=== PATIENT | female | born 1955 | race Caucasian/White ===

== ENCOUNTER 2020-12-22 10:22 | Outpatient (CLI) | payer BC, SELFPAY ==
--- NOTE | 2020-12-22 10:34 | ECG_ITS ---
Measurements Intervals [place] Rate: 80 P: 68 [place]: 163 QRS: 20 QRSD: 83 T: 57 QT: 388 QTc: 449 Interpretive Statements SINUS RHYTHM POSSIBLE LEFT ATRIAL ENLARGEMENT BORDERLINE ECG Electronically Signed On 12-22-2020 10:53:50 CDT by Layo Hunt D.O.
== END 2020-12-22 10:23 | disposition home or self-care (01) ==
PROVIDERS: PCP Family Medicine; Visit Provider Nurse Practitioner Family
DX: R06.00 Dyspnea, unspecified (principal)
CPT/HCPCS: 93005

== ENCOUNTER → 2021-01-15 10:15 | Outpatient (CLI) | payer BC, SELFPAY ==
--- NOTE | ~2021-01-15 | CT_ITS ---
EXAMINATION: CT diagnostic chest wo con DATE: 01/15/2021 10:37 INDICATION: Solitary pulmonary nodule TECHNIQUE: Computed tomography (CT) of the chest was performed without intravenous contrast. The dose -length product (DLP) was 139.45 mGy-cm. 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 COMPARISON: 05/29/2017 FINDINGS: A stable 3 mm nodule is noted in the right upper lobe. There is a stable 4 mm subpleural no dule of the right lower lobe no new pulmonary nodules are identified. The lungs are free of acute opa cities. There is unchanged mild peripheral scarring in the upper lung zones. No pleural effusion or p neumothorax is identified. No pathologically enlarged thoracic lymph nodes are identified. The heart size is normal. There is mild thoracic spondylosis. IMPRESSION: 1. Stable right lung nodules, consistent with old granulomatous disease. Reviewed, dictated and finalized at location A.
== END ==
PROVIDERS: PCP Family Medicine; Visit Provider Nurse Practitioner Family
DX: R91.1 Solitary pulmonary nodule (principal)
CPT/HCPCS: 71250

== ENCOUNTER 2021-01-19 09:34 | Outpatient (CLI) | payer BC, SELFPAY ==
--- NOTE | 2021-01-19 09:50 | ECHO_ITS ---
Patient Info Name: Aleshia Muñoz Age: 65 years : 1955 Gender: Female Ht: 64 in Wt: 123 lbs BSA: 1.59 m2 HR: 93 bpm BP: 157 / 84 mmHg Heart Rhythm: Sinus Rhythm Exam Date: 01/19/2021 10:48 AM Exam Location: [facility] Patient Status: Outpatient Admit Date: 01/19/2021 Staff Ordering Physician: Lena Bains NP Loan Originator: Tessa Dawkins RDCS Attending Provider: Lena Bains NP Referring Physician: Nara ALCANTARA; Exam Type: CA echo doppler color flow Study Info Indications R06.00 - Dyspnea, unspecified Complete two-dimensional, color flow and Doppler transthoracic echocardiogram is performed. Summary 1. Complete two-dimensional, color flow and Doppler transthoracic echocardiogram is performed. 2. Left ventricular chamber dimension is normal. 3. Left ventricular systolic function is normal, estimated at 60-65%. 4. The left ventricular diastolic function is grade I diastolic dysfunction. 5. E/e' 12 is mildly elevated. 6. There is mild aortic valve sclerosis. 7. There is trace mitral valve regurgitation. Left Ventricle E/e' 12 is mildly elevated. Left ventricular chamber dimension is normal. Left ventricular systolic function is normal, estimated at 60-65%. The left ventricular diastolic function is grade I diastolic dysfunction. Right Ventricle Right ventricular chamber dimension is not well visualized. Left Atria Left atrial chamber dimension is normal. Right Atria Right atrial chamber dimension is normal. Aortic Valve The aortic valve is trileaflet. There is mild aortic valve sclerosis. There is no aortic valve stenosis. There is no aortic valve regurgitation. Pulmonic Valve There is no pulmonic regurgitation. Mitral Valve There is no mitral valve stenosis. There is trace mitral valve regurgitation. Tricuspid Valve There is no tricuspid valve regurgitation. Pericardium/Pleural There is no pericardial effusion. Inferior Vena Cava Normal inferior vena cava with >50% collapse upon inspiration consistent with normal right atrial pressure, 5 mmHg. Aorta The aortic root size at the sinus of Valsalva is normal. Left Ventricular Outflow Tract Name Value Normal LVOT 2D LVOT Diameter 1.6 cm LVOT Doppler LVOT Peak Gradient 2 mmHg LVOT Mean Gradient 1 mmHg LVOT VTI 15 cm LVOT VTI/AV VTI Ratio 0.7 LVOT Stroke Volume 31 ml LVOT CO 2.4 l/min LVOT CI 1.5 l/min/m2 Pulmonic Valve Name Value Normal RVOT Doppler RVOT Peak Gradient 1 mmHg PV Doppler PV Peak Gradient
== END 2021-01-19 09:35 | disposition home or self-care (01) ==
PROVIDERS: PCP Family Medicine; Visit Provider Nurse Practitioner Family
DX: R06.00 Dyspnea, unspecified (principal)
CPT/HCPCS: 93306

== ENCOUNTER → 2021-05-04 02:49 | Outpatient (CLI) | payer BC, SELFPAY ==
[2021-05-04 19:14] LABS: SARS-CoV-2 RNA PCR Negative
== END ==
PROVIDERS: PCP Family Medicine; Visit Provider Nurse Practitioner Family
DX: Z20.822 Contact with and (suspected) exposure to COVID-19 (principal)
CPT/HCPCS: C9803; U0003; U0005

== ENCOUNTER → 2021-12-13 09:24 | Outpatient (CLI) | payer BC, SELFPAY ==
--- NOTE | ~2021-12-13 | XR_ITS ---
EXAMINATION: XR hip LT min 2V INDICATION: Low back pain TECHNIQUE: Two views of the left hip are obtained. COMPARISON: 11/04/2010 FINDINGS: Bone alignment is normal. There is no fracture. A phlebolith is noted in the left pelvis. IMPRESSION: 1. No acute osseous abnormality. Reviewed, dictated and finalized at location A.
--- NOTE | ~2021-12-13 | XR_ITS ---
EXAMINATION: XR lumbar spine 2-3V DATE: 12/13/2021 10:09 INDICATION: Dorsalgia TECHNIQUE: Anteroposterior and lateral views of the lumbar spine, and cone-down lateral view of the l umbosacral junction were obtained. COMPARISON: MRI, 09/22/2010 FINDINGS: There are 2 mm of anterolisthesis of L4 on L5. There is severe loss of intervertebral disc space height at L5-S1. Mild loss of disc space height is seen throughout the remainder of the lumbar spine. The vertebral body heights are normal. Small degenerative osteophytes project from the anterio r endplates of multiple vertebral bodies. There is moderate facet osteoarthritis of the lower lumbar spine. IMPRESSION: 1. Mild to moderate lumbar spondylosis without acute findings. Reviewed, dictated and finalized at location A.
== END ==
PROVIDERS: PCP Nurse Practitioner Family; Visit Provider Nurse Practitioner Family
DX: M25.552 Pain in left hip (principal); M47.817 Spondylosis without myelopathy or radiculopathy, lumbosacral region
CPT/HCPCS: 72100; 73502

== ENCOUNTER 2022-11-02 11:28 | Outpatient (CLI) | payer BC, MEDICARE, SELFPAY ==
--- NOTE | ~2022-11-02 | XR_ITS ---
EXAMINATION:XR_CERV2-3V_CR DATE: 11/02/2022 12:24 INDICATION: Dorsalgia unspecified TECHNIQUE: AP, lateral, and odontoid views of the cervical spine are provided. COMPARISON: None FINDINGS: There is straightening of the cervical spine which can be positional or due to muscular spa sm. Alignment is normal. The odontoid process is intact. No fracture is identified. The vertebral bod y heights are normal. There is moderate loss of intervertebral disc space height at C4-5, C5-6, and C 6-7. Small degenerative osteophytes project from the anterior endplates of multiple vertebral bodies. There is multilevel moderate facet and uncovertebral joint osteoarthritis. Prevertebral soft tissues are normal. IMPRESSION: 1. Moderate cervical spondylosis without acute findings. Reviewed, dictated and finalized at location B.
--- NOTE | ~2022-11-02 | XR_ITS ---
EXAMINATION: XR chest 2V DATE: 11/02/2022 12:24 INDICATION: Cough, unspecified TECHNIQUE: PA and lateral views of the chest are obtained. COMPARISON: None available FINDINGS: The lungs are free of acute opacities. There is scarring of the lung apices. No pleural eff usion or pneumothorax. The cardiomediastinal silhouette is normal. There is mild thoracic spondylosis . IMPRESSION: 1. No acute cardiopulmonary abnormality. Reviewed, dictated and finalized at location B.
--- NOTE | ~2022-11-02 | XR_ITS ---
EXAMINATION: XR shoulder LT min 2V INDICATION: Left shoulder pain TECHNIQUE: Four views of the left shoulder are submitted. COMPARISON: 11/04/2010 FINDINGS: Normal alignment. No fracture. There is moderate glenohumeral and acromioclavicular joint o steoarthritis. A large enthesophyte projects from the lesser tuberosity of the humeral head. Soft tis sues are unremarkable. IMPRESSION: 1. Moderate osteoarthritis without acute osseous abnormality. Reviewed, dictated and finalized at location B.
== END 2022-11-02 11:29 ==
PROVIDERS: PCP Family Medicine; Visit Provider Nurse Practitioner Family
DX: R05.9 Cough, unspecified (principal); M25.512 Pain in left shoulder; M54.9 Dorsalgia, unspecified; M19.012 Primary osteoarthritis, left shoulder; M43.02 Spondylolysis, cervical region
CPT/HCPCS: 71046; 72040; 73030

== ENCOUNTER 2022-11-18 14:27 | Outpatient (CLI) | payer MEDICARE, BC, SELFPAY ==
--- NOTE | 2022-11-18 15:29 | ECG_ITS ---
Measurements Intervals [place] Rate: 89 P: 74 [place]: 157 QRS: 6 QRSD: 80 T: 52 QT: 356 QTc: 433 Interpretive Statements SINUS RHYTHM POSSIBLE LEFT ATRIAL ENLARGEMENT [-0.1mV P WAVE IN V1/V2] LEFTWARD AXIS BORDERLINE ECG COMPARED TO ECG 12/22/2020 10:44:25 NO SIGNIFICANT CHANGES Electronically Signed On 11-18-2022 15:45:31 CDT by Anibal Marcano M.D.
== END 2022-11-18 14:28 | disposition home or self-care (01) ==
PROVIDERS: PCP Family Medicine; Visit Provider Surgery
DX: E78.5 Hyperlipidemia, unspecified (principal); Z01.818 Encounter for other preprocedural examination
CPT/HCPCS: 93005

== ENCOUNTER 2022-11-28 00:42 | Day surgery (SDC) | payer MEDICARE, BC, SELFPAY ==
--- NOTE | 2022-11-18 14:13 | PC.NURSE ---
Report to the Outpatient Waiting Room, entrance under the green pavilion located off [facility], at time ___1000____ on date __11/28/22 . Planned Procedure Time: __1200 . Time changes happen often and if your time is changed the preop area will call you the afternoon before. - You and your visitor will be asked to self-screen and do not enter if you have any COVID symptoms. - A mask is optional within the hospital at this time. Patients may have clear liquids (water, carbonated beverages, clear teas, apple juice) until 3 hours prior to surgery with a maximum of 20 ounces. - No food from midnight until time of surgery - Infants may have breast milk until 4 hours before surgery, formula 6 hours prior to surgery. - Children will be allowed to drink immediately following surgery. If applicable, please bring a bottle or sippy cup to assist with drinking. Juice, water, soda, and popsicles are readily available. For infants on formula, please bring formula the day of surgery. Pacifiers are allowed. Take the following medications with a SIP of water the morning of surgery: __LEVOTHYROXINE DO NOT STOP ANY OF YOUR OTHER PRESCRIPTION MEDICATIONS PRIOR TO SURGERY ?EXCEPT THE FOLLOWING Medications to discontinue per physician ____ALL VITAMINS/SUPPLEMENTS 3 DAYS PRE OP .LAST DOSE 11/24/22 Please no make-up, nail czech, hairspray, perfume, deodorant, or body powder the day of surgery. No jewelry (including any body piercings) or valuables the day of surgery, leave them at home. Please take a shower or bath the night before, or the morning of, surgery with an antibacterial soap. Wear comfortable, loose fitting clothing. Children are encouraged to wear pajamas. - Jewelry must be removed prior to entering the operating room. Rings and piercings that are not removed may be cut off. - The hospital will not accept responsibility for valuables. - Please leave all valuables, including medications, at home the day of surgery. If you are going home after surgery, a licensed helper/driver must drive you home. - NO public transportation without another adult if you receive anesthesia. - We recommend that an adult stay with you for 24 hours following discharge. - We also recommend that you do not drive, make important decision, drink alcoholic beverages, or take any drugs that were not prescribed by your health care provider for at least 24 hours after your discharge time. Follow any additional instructions given to you from your surgeon. If you or anyone in your household have experienced Covid symptoms in the past week, please notify your surgeon or the nurse liaison at the phone number below for possible testing. Telephone instructions given to __PATIENT and asked if any additional questions and then verbalized understanding. Patient advised to call surgeon office or pre surgery nurse liaison [phone] if any additional questions.
[2022-11-18 14:21] VITALS: BMI 21.8
[2022-11-28] VITALS (8 sets, daily range): BP systolic 118–147; BP diastolic 61–72; PULSE 76–95; RESP 14–20; TEMP 36.1–36.6; O2SAT 96–100
[2022-11-28] MEDS: ACETAMINOPHEN 500 MG TABLET 1000 MG PO (07:14)
[2022-11-28] MEDS: KETOROLAC 15 MG/ML VIAL (*BKC) IV PUSH (07:27)
--- NOTE | 2022-11-28 07:50 | WPDANESEPPF ---
Anes - Initial Pre Proc Eval Procedure: Operation Date: 11/28/22 08:15 Proposed Procedures p Examination Under Anesthesia, Excisional Hemorrhoidectomy, Possible Banding - Marlon Ching MD Date/Time: 11/28/22 07:50 Surgeon: Marlon Ching MD Pre Op Diagnosis: Bleeding Int & Ext Hemorrhoids Patient Data Age: 67 Gender: F Height: 1.63 m Weight: 54.4 kg Last Vital Signs Temp 98 F 11/28/22 06:36 Pulse 82 11/28/22 06:36 Resp 16 11/28/22 06:36 BP 124/64 11/28/22 06:36 Pulse Ox 97 11/28/22 06:36 O2 Del Method Room Air 11/28/22 06:36 Allergies Allergy/AdvReac Type Severity Reaction Status Date / Time erythromycin base Allergy Mild stomach Verified 11/28/22 07:07 pain Home Medications Medication Instructions Recorded Confirmed Type desvenlafaxine succinate 50 mg 100 mg PO HS 07/03/19 11/28/22 History tablet,extended release 24 hr atorvastatin 10 mg tablet See Rx Instructions .Route 10/23/22 11/28/22 Rx .COMPLEX #90 tabs levothyroxine 75 mcg tablet See Rx Instructions .Route 10/23/22 11/28/22 Rx .COMPLEX #90 tabs sertraline 100 mg tablet 100 mg PO HS 11/15/22 11/28/22 History alprazolam 0.25 mg tablet 0.25 mg PO PRN PRN Anxiety 11/18/22 11/28/22 History calcium-vitamin D3-vitamin K 500 1 tablet PO DAILY 11/18/22 11/28/22 History mg-100 unit-40 mcg chewable tablet multivitamin 1 tablet PO DAILY 11/18/22 11/28/22 History Patient hx anesthesia problems: none Family hx anesthesia problems: none Results Review: All pre-operative results and documents have been reviewed as part of the pre-operative evaluation. [facility] Past Medical History Medical History (Updated 11/15/22 @ 11:02 by Jackie Morrison) BMI 21.0-21.9, adult Depression with anxiety History of thyroid cancer Lesion of bone of right hand Loss of taste Lung nodule Neck pain Osteopenia Other specified disorders of Eustachian tube, unspecified ear Preoperative clearance Routine physical examination Screening for diabetes mellitus Sinus pressure Skin irritation Surgical History Surgical History History of appendectomy History of cataract extraction History of tubal ligation Family History Family History Mother Hypertension Family history of elevated blood lipids Cerebrovascular accident Father Hypertension Family history of elevated blood lipids Cerebrovascular accident Parkinson's disease Grandparent Family history of coronary artery disease Diabetes mellitus Parkinson's disease Sibling No problems noted. Social History Social History Smoking status: Never smoker Second hand tobacco smoke exposure: Yes Alcohol intake: never Substance use: never Substance use type: does not use Lack of Transportation: No Lack of Food: Never True Current Housing: I Have Housing Concerned About Future Housing: No Difficulty Paying Gas/Electric Bills: No Difficulty Paying for Meds: No Currently Unemployed: No Education: High School Diploma/GED Difficulty w/ Childcare or Family Care: No Living arrangements: with family Occupation/Education: retired Additional occupation/education comments: [employer] Gender identity (if verbalized by the patient): Female Spiritual care concerns: No Anes - Eval Final PreProcedure Day of Procedure 11/28/22 07:50 Patient weight: normal Heart: regular rate and rhythm Lungs: clear to auscultation Airway: Mallampati scale class III Neurological: alert and oriented Last oral intake: >/= 8 hours ASA classification: III Emergent: no Anesthetic plan: proceed Anesthesia type and monitoring: general LMA (or ETT depending on positioning) and standard monitoring Results Review: All pre-operative results and documents have
--- NOTE | 2022-11-28 08:06 | WPDHPUPDATE1 ---
History and Physical Update Update Date/Time: 11/28/22 08:06 History and Physical has been reviewed, including an updated exam of the patient. There are NO changes in the patient's condition. Risks, benefits, and alternatives have been discussed and questions answered. Patient agrees to proceed with procedure.
[2022-11-28] MEDS: ceFAZolin 2 GM/D5W 50 ML 2 GM/50 ML BAG IVPB (08:15)
[2022-11-28] MEDS: LACTATED RINGERS 1,000 ML 30 ML IV CONT ×2 (08:28→09:27)
[2022-11-28] MEDS: LIDOCAINE HCL 2% GEL UROJET 10 ML PKG MUCOUS MEM (09:10)
--- NOTE | 2022-11-28 09:46 | W.PM.PROC2 ---
Procedure Note - Detailed Date of Procedure 11/28/22 Pre-op Diagnosis Bleeding Internal Hemorrhoids Post-op Diagnosis Same Procedure Performed Anorectal evaluation under anesthesia, excisional hemorrhoidectomy x1, and banding of internal hemorrhoid x1. Surgeon Marlon Ching MD Stereo Compiler SHILPA Chavez student Anesthesia General Indications Patient is a 67-year-old female who complained of having intermittent bleeding from internal hemorrhoids. She was also having some minor pain associated with the hemorrhoids. Presents now for evaluation under anesthesia and surgical treatment of the hemorrhoids. Findings The patient had large grade 3 internal hemorrhoid doses located at the 12 o'clock position posterior with her prone. And a smaller non thrombosed hemorrhoid anterior at the 6 o'clock position with the patient prone. No distal rectal masses were seen and no other anal canal masses were seen. Description of Procedure After informed consent was obtained patient brought to the operating room which is placed under general endotracheal anesthesia on the gurney and then turned onto the prone lenore-knife position on the operating table. Great care was taken make sure all the pressure points well padded. We then taped the buttocks apart prepped and draped to the perianal region in the usual sterile fashion. A time out was then performed correctly identifying the patient as well as the procedure to be performed. She was given perioperative IV antibiotics. I then gently dilated the anal sphincter muscles with a lubricated the anal speculum. Looking into the anal canal and distal rectum there are no masses polyps or abnormalities other than the grade 3 internal hemorrhoids. She had a large nonthrombosed hemorrhoid at the 12:00 with the patient prone. A 2nd smaller hemorrhoid was located at the 6 o'clock position anteriorly with the patient prone. I 1st started to excise the largest hemorrhoid at the 12 o'clock position at the posterior midline. A 2 will chromic suture was placed at the apex of the hemorrhoid. I then incised the she will on either side of the hemorrhoid column with an 15 blade scalpel in a enedelia configuration out onto the perianal skin. I then used electrocautery to dissect into the subcutaneous space and then spread with a hemostat so that I was superficial to the internal sphincter muscle fibers. We sized out the hemorrhoidal tissue and attached perianal skin with electrocautery. This of was sent to pathology for examination. I then proceeded to achieve hemostasis in the wound utilizing the cautery. A running locked 2-0 chromic suture which was previously placed was then used to approximate the edges of the anal derm. Lastly the perianal skin was closed utilizing a running 3-0 Vicryl suture placed in a locking fashion as well. Next I evaluated the choroid at the 6 o'clock position. This hemorrhoid was not 6 thrombosed. This was a small hemorrhoid so I decided not to perform excision but rather rubber-band ligation of the hemorrhoidal tissue I then placed a double band ligation on to the hemorrhoid at the 6 o'clock position. The band fit nicely and then was not sliding of the hemorrhoid tissue. I then irrigated out the anal canal and hemostasis was good. I then proceeded to place a Uro jet packing into the anal canal soap with 1% lidocaine jelly. Is placed into the anal canal without difficulty and the speculum was removed. The patient tolerated the procedure well no complications. All sponges, needles, and instrument counts were correct at the end procedure. EBL was __20_cc. The patient was awakened and taken to recovery in stable and satisfactory condition. Implants None Estimated Blood Loss 20 Packing No Pathology Yes (Internal hemorrhoid to pathology x1) Complications No immediate complications Condition Stable Disposition PACU [facility] Billing Surgery - Charge Forward: Surgery Billing
--- NOTE | 2022-11-28 11:27 | SUR.PHASEII ---
Dr. Ching aware that the packing fell out when patient used the restroom. He said it was okay. RN just reinforced ABD pads and gauze.
== END 2022-11-28 11:30 | disposition home or self-care (01) ==
PROVIDERS: PCP Family Medicine; Visit Provider Surgery
PROC: (CPT 46255; principal; 2022-11-28 08:15)
DX: K64.8 Other hemorrhoids (principal); K64.4 Residual hemorrhoidal skin tags; F41.8 Other specified anxiety disorders; Z85.850 Personal history of malignant neoplasm of thyroid
CPT/HCPCS: 46255; 88304; A9270; C9290; J0330; J0690; J1100; J1885; J2250; J2405; J2704; J3010; J7120

== ENCOUNTER 2023-01-12 10:11 | Outpatient (CLI) | payer MEDICARE, BC, SELFPAY ==
--- NOTE | 2023-01-12 11:00 | NEURO_ITS ---
Impression: # Complains of numbness of hands. # Normal nerve conduction study. # No Carpal Tunnel Syndrome or ulnar neuropathy. # Normal needle/EMG exam. Nerve Conduction Studies Anti Sensory Summary Table Stim Site NR Peak (ms) P-T Amp (?V) Site1 Site2 Delta-P (ms) Dist (cm) Ra (m/s) Left Median Anti Sensory (2-3nd Digit) Wrist 2.8 60.6 Wrist 2-3nd Digit 2.8 14.0 50 Wrist 2.7 64.9 Wrist 2-3nd Digit 2.8 14.0 50 Right Median Anti Sensory (2-3nd Digit) Wrist 2.9 61.4 Wrist 2-3nd Digit 2.9 14.0 48 Wrist 2.8 88.7 Wrist 2-3nd Digit 2.9 14.0 48 Left Radial Anti Sensory (Base 1st Digit) Wrist 2.1 16.7 Wrist Base 1st Digit 2.1 0.0 Right Radial Anti Sensory (Base 1st Digit) Wrist 2.3 11.5 Wrist Base 1st Digit 2.3 0.0 Left Ulnar Anti Sensory (5th Digit) Wrist 2.4 82.7 Wrist 5th Digit 2.4 14.0 58 Right Ulnar Anti Sensory (5th Digit) Wrist 2.3 69.9 Wrist 5th Digit 2.3 14.0 61 Motor Summary Table Stim Site NR Onset (ms) O-P Amp (mV) Site1 Site2 Delta-0 (ms) Dist (cm) Ra (m/s) Left Median Motor (Abd Poll Brev) Wrist 2.8 6.3 Elbow Wrist 4.3 26.0 60 Elbow 7.1 2.8 Right Median Motor (Abd Poll Brev) Wrist 3.2 2.2 Elbow Wrist 4.8 28.0 58 Elbow 8.0 4.8 Left Ulnar Motor (Abd Dig Minimi) Wrist 2.3 3.3 A Elbow Wrist 4.8 28.0 58 A Elbow 7.1 2.3 Right Ulnar Motor (Abd Dig Minimi) Wrist 2.5 7.3 A Elbow Wrist 4.8 28.0 58 A Elbow 7.3 5.4 F Wave Studies NR F-Lat (ms) L-R F-Lat (ms) Left Median (Mrkrs) (Abd Poll Brev) 26.99 0.97 Right Median (Mrkrs) (Abd Poll Brev) 27.97 0.97 Left Ulnar (Mrkrs) (Abd Dig Min) 26.04 0.06 Right Ulnar (Mrkrs) (Abd Dig Min) 25.98 0.06 EMG Side Muscle Nerve Root Ins Act Fibs Amp Dur Recrt Comment Right 1stDorInt Ulnar C8-T1 Nml Nml Nml Nml Nml Right Ext Indicis Radial (Post Int) C7-8 Nml Nml Nml Nml Nml Right Ext Digitorum Radial (Post Int) C7-8 Nml Nml Nml Nml Nml Right BrachioRad Radial C5-6 Nml Nml Nml Nml Nml Right PronatorTeres Median C6-7 Nml Nml Nml Nml Nml Right Abd Poll Brev Median C8-T1 Nml Nml Nml Nml Nml Left 1stDorInt Ulnar C8-T1 Nml Nml Nml Nml Nml Left Ext Indicis Radial (Post Int) C7-8 Nml Nml Nml Nml Nml Left Ext Digitorum Radial (Post Int) C7-8 Nml Nml Nml Nml Nml Left BrachioRad Radial C5-6 Nml Nml Nml Nml Nml Left PronatorTeres Median C6-7 Nml Nml Nml Nml Nml Left Abd Poll Brev Median C8-T1 Nml Nml Nml Nml Nml MTDD
== END 2023-01-12 10:12 | disposition home or self-care (01) ==
LOC: ANHNEURO 10:13
PROVIDERS: PCP Family Medicine; Visit Provider Nurse Practitioner Family
DX: R20.0 Anesthesia of skin (principal)
CPT/HCPCS: 95886; 95911

== ENCOUNTER 2023-02-01 12:48 | Outpatient (CLI) | payer MEDICARE, BC, SELFPAY ==
--- NOTE | ~2023-02-01 | MR_ITS ---
EXAMINATION: MR cervical spine wo con DATE: 02/01/2023 13:23 INDICATION: Anesthesia of skin with tingling and numbness in the arms and hands TECHNIQUE: Magnetic resonance imaging (MRI) of the cervical spine was performed without intravenous c ontrast. Sequences included sagittal T2-weighted FSE, sagittal T2-weighted FS FSE, sagittal T1-weight ed FSE, axial MERGE and axial T2-weighted FSE. COMPARISON: 06/16/2017 FINDINGS: Bone alignment is normal. Vertebral body heights are normal. Bone marrow signal intensity is normal . Interval progression of now severe disc height loss at C4-C5 and unchanged severe disc height loss at C5-C6 and C6-C7. New mild disc height loss at C3-C4. Cord signal intensity is normal. The followin g disc levels are specifically discussed: C2-C3: Annular fissure with unchanged small central disc protrusion. There is mild left uncovertebral joint osteoarthritis. There is mild left and severe right facet joint osteoarthritis. There is mild bilateral neural foraminal stenosis. There is mild central canal stenosis. C3-C4: Disc is bulging with annular fissure. There is moderate bilateral uncovertebral joint osteoart hritis. There is moderate right and severe left facet joint osteoarthritis. There is mild right and m oderate left neural foraminal stenosis. There is mild central canal stenosis with mild indentation of the ventral surface of the cord. C4-C5: Disc is bulging with annular fissure. There is severe bilateral uncovertebral joint osteoarthr itis. There is mild right and severe left facet joint osteoarthritis. There is mild right and severe left neural foraminal stenosis. There is mild central canal stenosis with mild indentation of the lilian tral surface of the cord. C5-C6: Disc is bulging, eccentric to the right. Annular fissure. There is severe bilateral uncoverteb ral joint osteoarthritis. There is mild bilateral facet joint osteoarthritis. There is moderate right and moderate to severe left neural foraminal stenosis. There is moderate central canal stenosis with both dorsal and ventral indentation of the cord and effacement majority the surrounding CSF signal. C6-C7: Disc is bulging with annular fissure. There is severe bilateral uncovertebral joint osteoarthr itis. There is moderate right and no left facet joint osteoarthritis. There is mild left and moderate right neural foraminal stenosis. There is mild central canal stenosis with mild indentation of the v entral surface of the cord. C7-T1: The disc does not extend beyond the endplate margin. There is no uncovertebral joint osteoarth ritis. There is severe right and moderate left facet joint osteoarthritis. There is mild right neural foraminal stenosis. There is no central canal stenosis. IMPRESSION: 1. Continued mild progression in severe cervical spondylosis. Reviewed, dictated and finalized at location B.
== END 2023-02-01 12:49 | disposition home or self-care (01) ==
PROVIDERS: PCP Family Medicine; Visit Provider Physician Assistant Medical
DX: G89.29 Other chronic pain (principal); M54.2 Cervicalgia; R20.0 Anesthesia of skin; M43.02 Spondylolysis, cervical region
CPT/HCPCS: 72141

== ENCOUNTER 2023-04-05 14:45 | Outpatient (RCR) | payer MEDICARE, BC, SELFPAY ==
[2023-01-10 13:26] VITALS: BP_SYST 76
--- NOTE | 2023-01-10 16:57 | OPREHPOC ---
Outpatient Therapy Plan of Care This is a Multidisciplinary Plan of Care that may contain components documented by all disciplines (PT, OT, and ST.) PT Problem 1 PT Problem #1 Knowledge Deficit PT Goal 1 Goal Pt to be IND with issued HEP Target Visit 10 PT Problem 2 PT Problem #2 Pain PT Goal 1 Goal Pt to report shoulder pain no greater than 3/10 in the last week Target Visit 10 PT Goal 2 Goal Pt to report 75% improvement in overall symptoms. PT Problem 3 PT Problem #3 Impaired Range of Motion PT Goal 1 Goal Pt to improve active shoulder flexion from 110 deg to 130 deg Target Visit 10 PT Goal 2 Goal Pt to improve active shoulder abduction ROM from 82 deg to 120 deg PT Problem 4 PT Problem #4 Impaired Functional Mobil PT Goal 1 Goal Pt to report no limitations with bathing or dressing Target Visit 10
--- NOTE | 2023-01-10 16:57 | PTOPEVAL1 ---
Assessment and note entered by Hunter Liriano, PT, DPT Evaluation Information Assessment Status Evaluation Diagnosis L shoulder pain Onset chronic ~5 years Subjective Information Pt states for about the last 5 years she has not been able to lift her L arm over her pain. She feels like she is limited by pain. She declines pain at rest. Pt states she likes to ride bikes, she reports difficulty putting on a jacket. Reported Pain Level Pain Score 0: Self Report Assessment PT Clinical Summary Aleshia presents to therapy today with a diagnosis of L shoulder pain. Today she demonstrates decreased active and passive shoulder ROM in all planes with flexion and abduction being the most limited, both active and passive ROM is limited by pain. She demonstrates decreased strength in the L shoulder when compared to the R. She also demonstrates postural abnormalities. Skilled therapy services are indicated to address the deficits noted above, to manage shoulder pain, to improve shoulder motion, and to return to PLOF. Plan of Care Interventions Hot Pack/Cold Pack,Manual Therapy,Neuro Re- education,Patient/Caregiver Educati,Therapeutic Activities,Therapeutic Exercise PT Services Indicated Yes Treatment Frequency and 2x/wk for 5 wks Duration These treatments will address the objective and functional deficits as defined above. The patient will be advanced safely and appropriately in order for the patient to progress towards his/her prior level of function. Additional exercises will be introduced and as well as a comprehensive home exercise program upon discharge, if needed, ?to ensure carryover of functional gains achieved in the clinic. This treatment plan has been reviewed and agreement upon by the patient.
--- NOTE | 2023-02-03 16:01 | PCPTNOTE ---
On 02/03/23, the student, Aliyah Soto provided care and completed [employer] documentation on this patient. I have reviewed the student's documentation and agree with the findings.
--- NOTE | 2023-02-09 16:01 | PCPTNOTE ---
On 02/09/23, the student, Aliyah Soto provided care and completed [employer] documentation on this patient. I have reviewed the student's documentation and agree with the findings.
[2023-02-14 13:06] VITALS: BP_SYST 100
--- NOTE | 2023-02-14 14:02 | PTOPPROG ---
Assessment and note entered by Hunter Liriano, PT, DPT Evaluation Information Assessment Status Progress Diagnosis L shoulder pain Onset chronic ~5 years Subjective Information Pt states she has been able to do things she has not been able to do in a while. She states she continues to do her exercises daily. She reports soreness after she does her exercises. Assessment PT Clinical Summary Aleshia presents to therapy today for her progress report following 10 visits of skilled therapy to treat her L shoulder pain. Today she demonstrates improved active and passive shoulder ROM but this is decreased from expected. She is progressing towards her pain and functional goals. Continuation of skilled therapy services are indicated to continue to improve ROM, strength, pain, and to return to PLOF. Plan of Care Interventions Hot Pack/Cold Pack,Manual Therapy,Neuro Re- education,Patient/Caregiver Educati,Therapeutic Activities,Therapeutic Exercise PT Services Indicated Yes Treatment Frequency and 2x/wk for 4 wks Duration These treatments will address the objective and functional deficits as defined above. The patient will be advanced safely and appropriately in order for the patient to progress towards his/her prior level of function. Additional exercises will be introduced and as well as a comprehensive home exercise program upon discharge, if needed, ?to ensure carryover of functional gains achieved in the clinic. This treatment plan has been reviewed and agreement upon by the patient.
--- NOTE | 2023-02-17 16:37 | PCPTNOTE ---
Patient called to cancel due to illness.
--- NOTE | 2023-03-08 08:10 | PCPTNOTE ---
Patient canceled this week stating she gets a shot this week. Patient is scheduled for reevaluation.
--- NOTE | 2023-03-10 16:28 | PCPTNOTE ---
Patient canceled appointment due to getting shot.
[2023-03-15 11:03] VITALS: BP_SYST 90
--- NOTE | 2023-03-15 11:58 | PTOPPROG ---
Assessment and note entered by Hunter Liriano, PT, DPT Evaluation Information Assessment Status Progress Diagnosis L shoulder pain Onset chronic ~5 years Subjective Information Pt states she just received an injection in her shoulder on Monday, she reports not noticing any changes yet. She states for 2 weeks her shoulder was really sore so she did not do any exercises. She states she is about back to normal now, just prior to her 2 weeks of pain. She is declining shoulder pain at this time and reports more elbow and lateral arm pain, she rates this a 8/10. Assessment PT Clinical Summary Aleshia presents to therapy today for her progress report following 14 visits of skilled therapy to treat her L shoulder pain. Today she demonstrates minimal changes in her active and passive shoulder ROM this date, progress may be limited to being out of town for the last 2 weeks and not doing any therapy at home. She continues to have decreased shoulder ROM from functional values and still requires cueing for proper alignment. Continuation of skilled therapy services are indicated to progress towards goals, to manage pain, and to return to PLOF. Plan of Care Interventions Hot Pack/Cold Pack,Manual Therapy,Neuro Re- education,Patient/Caregiver Educati,Therapeutic Activities,Therapeutic Exercise PT Services Indicated Yes Treatment Frequency and 2x/wk for 8 visits Duration These treatments will address the objective and functional deficits as defined above. The patient will be advanced safely and appropriately in order for the patient to progress towards his/her prior level of function. Additional exercises will be introduced and as well as a comprehensive home exercise program upon discharge, if needed, ?to ensure carryover of functional gains achieved in the clinic. This treatment plan has been reviewed and agreement upon by the patient.
--- NOTE | 2023-03-24 13:22 | PCPTNOTE ---
Patient called & cancelled scheduled appointment this date, no reason given.
--- NOTE | 2023-03-29 11:36 | PCPTNOTE ---
Pt cancelled her appt this afternoon due to mother being placed on Hospice.
--- NOTE | 2023-03-31 16:29 | PCPTNOTE ---
Patient states she needs to cancel due to her mother in law put on Hospice.
--- NOTE | 2023-04-07 09:29 | PCPTNOTE ---
This treatment is being continued on visit number [id number]. Please see documentation on both accounts to view progress. Completed interventions, outcomes, and problems have been marked as Inactive to facilitate the copying of the Care plan routine for recurring accounts.
== END 2023-04-06 09:02 | disposition still patient (30) ==
LOC: ANHGOSHPT 14:45
PROVIDERS: PCP Family Medicine; Visit Provider Nurse Practitioner Family
DX: M54.9 Dorsalgia, unspecified (principal); M25.512 Pain in left shoulder
CPT/HCPCS: 97014; 97110; 97112; 97140; 97161; 97530; G0283

== ENCOUNTER 2023-04-12 12:30 | Outpatient (RCR) | payer MEDICARE, BC, SELFPAY ==
--- NOTE | 2023-04-07 09:29 | PCPTNOTE ---
The treatment documented on this account is a continuation of the treatment documented on visit number [id number]. Please see documentation on both accounts to view progress. The Plan of Care has been transitioned and updated within the new V#. I have addressed and agree with the discipline specific Problems, Interventions, and Goals for the current certification period. Completed interventions, outcomes, and problems have been marked as Inactive to facilitate the copying of the Care plan routine for recurring accounts.
[2023-04-12 12:34] VITALS: BP_SYST 120
--- NOTE | 2023-04-12 13:11 | PTOPDC ---
Assessment and note entered by Hunter Liriano, PT, DPT Evaluation Information Assessment Status Progress Diagnosis L shoulder pain Subjective Information Pt states overall things are going well. Pt reports 75% improvement in overall symptoms. She states her arm is a little stiff when reaching overhead to reach for things. She no longer reports difficulty getting dressed and getting a coat on. Reported Pain Level Pain Score 0: Self Report Assessment PT Clinical Summary Aleshia presents to therapy today for her progress report following 18 visits of skilled therapy to treat her L frozen shoulder. Today she demonstrates improved active flexion to 130 deg and active scaption to 125 deg. She demonstrates good strength. She reports no functional limitations at this time. She would like to be discharged at this time to continue her HEP.
== END 2023-04-12 14:13 | disposition home or self-care (01) ==
LOC: ANHGOSHPT 12:30
PROVIDERS: PCP Family Medicine; Visit Provider Nurse Practitioner Family
DX: M25.512 Pain in left shoulder (principal); M54.9 Dorsalgia, unspecified
CPT/HCPCS: 97110; 97112

== ENCOUNTER 2024-01-22 09:32 | Outpatient (CLI) | payer MEDICARE, BC, SELFPAY ==
--- NOTE | ~2024-01-22 | XR_ITS ---
EXAMINATION: XR chest 2V DATE: 01/22/2024 09:54 INDICATION: Chronic cough. TECHNIQUE: Frontal and lateral views of the chest were obtained. COMPARISON: Chest 2 views 11/02/2022 FINDINGS: There is mild scarring at the lung apices. No pleural effusion or pneumothorax. The heart s ize is normal. IMPRESSION: 1. Stable mild scarring at the lung apices. Reviewed, dictated and finalized at location A.
== END 2024-01-22 09:33 | disposition home or self-care (01) ==
PROVIDERS: PCP Family Medicine; Visit Provider Physician Assistant Medical
DX: R05.3 Chronic cough (principal); J98.4 Other disorders of lung
CPT/HCPCS: 71046

== ENCOUNTER 2024-06-03 09:21 | Outpatient (CLI) | payer MEDICARE, BC, SELFPAY ==
--- NOTE | ~2024-06-03 | CT_ITS ---
CT sinus wo con Ordering provider: Leighton Ashby, History: . Chronic cough . Comparison: None. Technique: Thin slice Scans CT of the paranasal sinuses was performed with coronal and sagittal refor matted images. No IV contrast. . Automated exposure control and iterative reconstruction technique w ere employed. The dose-length product was 263.20 mGy-cm. Findings: NASAL SEPTUM: midline. OSTEOMEATAL UNITS: Bilaterally patent. NASAL TURBINATES AND NASOPHARYNX: Normal. PARANASAL SINUSES: Well aerated. VISUALIZED MASTOIDS: Normal as visualized. BONES: Normal. SUPERFICIAL SOFT TISSUES/VISUALIZED BRAIN PARENCHYMA: Normal. IMPRESSION: No definite abnormality seen. Reviewed, dictated and finalized at location A. ENT SUCCESS COUNSELOR
== END 2024-06-03 09:22 | disposition home or self-care (01) ==
PROVIDERS: PCP Family Medicine; Visit Provider Otolaryngology
DX: R05.3 Chronic cough (principal)
CPT/HCPCS: 70486

== ENCOUNTER 2024-08-28 13:28 | Outpatient (CLI) | payer MEDICARE, BC, SELFPAY ==
--- OUTSIDE RECORDS SUMMARY | 2024-08-28 14:19 | XMS_ITS ---
Author Organization [facility] [employer] [facility] Address [address] [place] [address] Care Team Providers Care Wood Pole Treater Name Role Phone Sky Kauffman Unavailable [phone] REASON FOR VISIT Update Demographics - Personal Info Social History Sex Assigned At : Social History Observation Description Sex Assigned At Female Encounters Encounter Location Date Provider Diagnosis [facility] [employer] [facility] [address] [facility] [address] [place] [address] 08/12/2024 Sky Kauffman Plan Of Treatment Next Appt Details Provider Name:Sky read, 12/03/2024 01:00:00 PM, [address], [facility] [address], [place], [address], Progress Notes * JONATHON PIÑAOB: (68 yo F)Acc No.[id number]:08/12/2024 Patient:?IRWIN PIÑA :1955???Age:68 Y???Sex:Female Phone: Address:[address] [place], [address] * * Date:?
--- OUTSIDE RECORDS SUMMARY | 2024-08-28 14:19 | XMS_ITS | Encounter Summary ---
Author Organization [facility] Address [address] [place] [address] Care Team Providers Care Gas Compressor Operator Name Role Phone Ricky Lowery MD Primary Care Provider [phone] Encounter Details Date Type Department Care Team (Latest Contact Info) Description 09/14/2004 Outpatient Historical [facility] Galdino Demarco MD [address] [address] SCREENING MAMM-MAILG NEOPL-OTHER (Primary Dx) Social History Tobacco Use Types Packs/Day Years Used Date Smoking Tobacco: Never Assessed Comments Unknown Sex and Gender Information Value Date Recorded Sex Assigned at Not on file Legal 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 Gender Identity Not on file Sexual Orientation Not on file documented as of this encounter Plan of Treatment Upcoming Encounters Date Type Department Care Team (Late st Contact Info) Description 07/01/2025 10:45 AM SHOW CARD LETTERER Office Visit [facility] [place] [address] [place] [id number] Galdino Pichardo MD [address] [address] documented as of this encounter Visit Diagnoses Diagnosis Other screening mammogram- Primary documented in this encounter Care Teams Gas Compressor Operator Relationship Specialty Start Date End Date Ricky Lowery MD [address] [place] [address] PCP - General Family Practice 11/06/09 documented as of this encounter
--- OUTSIDE RECORDS SUMMARY | 2024-08-28 14:19 | XMS_ITS | Continuity of Care Document ---
Author Organization [facility] Address [address] [place] [address] Phone Care Team Providers Care Service Cashier Name Role Phone Rivas Nichols MD Unavailable Unavai lable Allergies, Adverse Reactions, Alerts Substance Reaction Status Criticality erythromycin base Other Active No Informa tion Medications Medication Instructions Dosage Effective Dates (start - stop) Status Comments desvenlafaxine succinate ER 25 mg tablet,extended release 24 hr take 2 tablet by oral route every day at approximately the same time each day 50 MG - Active sertraline 25 mg tablet take 1 tablet by oral route every day 25 MG - Active atorvastatin 10 mg tablet take 1 tablet by oral route every day 10 MG - Active levothyroxine 25 mcg tablet take 1 tablet by oral route every day 25 MCG - Active Procedures Procedure Date Office/outpatient visit,[facility], [facility] 2022 Asp/inject major joint or bursa w/o US g uidance Kenalog 10mg/mL Advance Directives Directive Yes / No Effective Date File Name No Information Encounters Encounter Description Practice Location Reason(s) For Visit Diagnoses Date Provider Providers Copied on Encounter Office/outpat ient visit,[facility], [facility], [address], [id number], [place] tel:[phone] [facility] Arms have tingling (chief complaint) Cervicalgia [address], [address], [place], [place], [id number] , [place]. tel: [phone] Referring Provider: Rivas Nichols P, [address], [place], [address]. tel:[phone] Family History Family Member Type Diagnosis Age At Onset Mother Problem (finding) Stroke Father Problem (finding) Stroke Immunizations Vaccine Date Status Comments Pneumo (2 yrs or older) (PPV23) administe red Source: Other Provider influenza, injectable, quadr ivalent, (3 years or older) administered Source: Other Provid er Payers Payer name Insurance type Covered democrat ID Authoriza tion(s) [place] Part B MB [id number] [facility] [employer] [id number] Social History Type Description Quantity Date Captured Comments Alcohol Use Details No Caffeine Use Details Unknown Tobacco Use Status Current non-smoker Smoking Status Never smoker Non-Smoking Tobacco Use Details : No Details Available : No Details Available Sex Female Vital Signs Date / Time: Height Weight BMI Pulse Rate Blood Pressure Temperature Respiratory Rate Body Surface Area Head Circumference Head Circ. Percentile Wt./Reid. Percentile BMI percentile Pulse Ox Inhaled Ox 10:28 AM 64.00 in 58.060 kg (128.00 lbs) 21.9 7 kg/m eter (2) Chief Complaint And Reason For Visit From encounter dated '03/10/2023 09:30'. Arms have tingling (chief complaint) Reason For Referral Reason For Referral No Information History Of Present Illness Encounter Date Complaint History Of Prese nt Illness Arms have tingling Functional Status Date Functional Assessmen t No Information Instructions Date Instruction Additional Infor mation No Information Assessments Type Assessment Date assessment Cervicalgia Patient Care Teams Name Effective Dates (start - stop) Status Members No Information
--- OUTSIDE RECORDS SUMMARY | 2024-08-28 14:19 | XMS_ITS | Data Portability ---
Author Organization [facility] ANHAlfred Cardoza Address [address] [place] [address] Assessment No assessment recorded. Plan of Treatment Reminders Order Date Submit Date Provider Last Modified By Organization Details Last Modified Time Details Appointments None recorded . Lab None recorded . Referral None recorded . Procedures None recorded . Surgeries None recorded . Imaging CT, sinuses, w/o contrast 2023 [facility], [address] Shane, [facility], [place], [address], 5 08:26:04 Medication Orders cefdinir 300 mg capsule 2023 024 [facility] #[id number], [address], [id number], 4 10:13:09 monteluk ast 10 mg tablet 2023 024 [facility] #[id number], [address], [id number], 4 11:48:02 azelasti ne 137 mcg (0.1 %) nasal spray 2023 024 [facility] #[id number], [address], [id number], 4 12:00:50 Patient TargetsNo targets recorded. Patient InstructionsNo instructions recorded. Reason for Referral None Reported. Medical Equipment None Reported. Allergies Allergen ID Allergen Name Allergen Category Reaction Reaction Severity Criticality Documentation Date Start Date Code Code System Note Provider Name and Address Organization Details Recorded Time [id number] erythromy miller medicatio n Not available Not available Not available 03/26/2024 4053 RxNorm Not Available Not Available Not Available Medications Name Sig Start Date Stop Date Status Note LastModified by Organization Details LastModified Time atorvastati n 10 mg tablet TAKE 1 TABLET BY MOUTH DAILY active Not Available Not Available No t Available sertraline 100 mg tablet TAKE 2 TABLETS BY MOUTH EVERY DAY active Not Available Not Available No t Available clotrimazol e-betametha sone 1 %-0.05 % topical cream APPLY TOPICALLY TO THE AFFECTED AREA TWICE DAILY 03/26 completed Not Available Not Available Not Available Synthroid 75 mcg tablet TAKE 1 TABLET BY MOUTH DAILY active Not Available Not Available No t Available montelukast 10 mg tablet TAKE 1 TABLET BY MOUTH EVERY DAY active Not Available Not Available No t Available azelastine 137 mcg (0.1 %) nasal spray USE 2 SPRAYS IN EACH NOSTRIL EVERY DAY active Not Available Not Available No t Available methylpredn isolone 4 mg tablets in a dose pack FOLLOW PACKAGE DIRECTION S active Not Available Not Available No t Available cefdinir 300 mg capsule TAKE 1 CAPSULE BY MOUTH EVERY 12 HOURS 05/21 completed Not Available Not Available Not Available fluticasone propionate 50 mcg/actuati on nasal spray,suspe nsion USE 1 SPRAY IN EACH NOSTRIL DAILY active Not Available Not Available No t Available desvenlafax ine succinate ER 50 mg tablet,exte nded release 24 hr TAKE 1 TABLET BY MOUTH EVERY DAY 05/21 completed Not Available Not Available Not Available desvenlafax ine succinate ER 25 mg tablet,exte nded release 24 hr TAKE 1 TABLET BY MOUTH EVERY DAY 05/21 completed Not Available Not Available Not Available Vitals Date Recorded Body height Provider Name an d Address Organization Details Last Updated DateTime 03/26/2024 162.56 cm KARAN Hooper [facility] 024 11:32:05 Date Recorded Body mass index (BMI) Body weight Provider Name and Address Organization Details Last Updated DateTime 03/26/2024 22.4 kg/m2 79852.45 g KARAN Hooper [facility] 03/26/2024 11:32:08 Date Recorded Heart rate Respiratory rate Provider N albino and Address Organization Details Last Updated DateTime 03/26/2024 66 /min 16 /min Emily Hung MA [facility] 03/26/2024 11:32:14 Date Recorded Body temperature Provider Name a nd Address Organization Details Last Updated DateTime 03/26/2024 98.1 [degF] Emily Hung MA [facility] 2023 11:32:18 Date Recorded Body height Provider Name an d Address Organization Details Last Updated DateTime 04/23/2024 162.56 cm Emily Hung MA [facility] 11:42:54 Date Recorded Body mass index (BMI) Body weight Provider Name and Address Organization Details Last Updated DateTime 04/23/2024 22.9 kg/m2 68660.22 g Emily Hung MA [facility] 04/23/2024 11:43:01 Date Recorded Heart rate Provider Name an d Address Organization Details Last Updated DateTime 04/23/2024 87 /min Emily Hung MA [facility] 11:43:09 Date Recorded Respiratory rate Provider Name a nd Address Organization Details Last Updated DateTime 04/23/2024 16 /min Emily Hung MA [facility] 11:43:10 Date Recorded Body temperature Provider Name a nd Address Organization Details Last Updated DateTime 04/23/2024 97.7 [degF] Emily Hung MA [facility] 2023 11:43:13 Date Recorded Body height Provider Name an d Address Organization Details Last Updated DateTime 05/21/2024 162.56 cm Emily Hung MA [facility] 10:14:00 Date Recorded Body mass index (BMI) Body weight Provider Name and Address Organization Details Last Updated DateTime 05/21/2024 23 kg/m2 77290.38 g Emily Hung [place] [facility] 05/21/2024 10:14:03 Date Recorded Heart rate Respiratory rate Provider N albino and Address Organization Details Last Updated DateTime 05/21/2024 86 /min 16 /min Emily Hung [place] [facility] 05/21/2024 10:14:09 Date Recorded Body temperature Provider Name a nd Address Organization Details Last Updated DateTime 05/21/2024 98.1 [degF] Emily Hung MA [facility] 2023 10:14:12 Date Recorded Systolic blood pressure Diastolic blood pressure Provider Name and Address Organization Details Last Updated DateTime 03/26/2024 116 mm[Hg] 72 mm[Hg] Emily Hung MA [facility] 03/26/2024 11:37:36 Date Recorded Systolic blood pressure Diastolic blood pressure Provider Name and Address Organization Details Last Updated DateTime 04/23/2024 123 mm[Hg] 74 mm[Hg] Emily Hung MA [facility] 04/23/2024 11:44:11 Date Recorded Systolic blood pressure Diastolic blood pressure Provider Name and Address Organization Details Last Updated DateTime 05/21/2024 133 mm[Hg] 73 mm[Hg] Emily Hung MA [facility] 05/21/2024 10:15:03 Social History Question Answer Notes LastModified by Organization Details LastModified Time Tobacco Smoking Status Never Smoker Emily AgostorikaKARAN null, [facility] 03/26/2024 11:35:11 Do You Have An Advance Directive? Yes Information not available 03/26/2024 What Is Your Level Of Alcohol Consumption? None Information not available 03/26/2024 Are You Blind Or Do You Have Difficulty Seeing? No Information not available 03/26/2024 What Is Your Level Of Caffeine Consumption? Occasional Information not available 03/26/2024 In The 14 Days Before Symptom Onset, Have You Had Close Contact With A Laboratory-con firmed COVID-19 While That Case Was Ill? No Information not available 03/26/2024 In The 14 Days Before Symptom Onset, Have You Had Close Contact With A Person Who Is Under Investigation For COVID-19 While That Person Was Ill? No Information not available 03/26/2024 Have You Been To An Area Known To Be High Risk For COVID-19? No Information not available 03/26/2024 Are You Currently Employed? No Retired Information not available 03/26/2024 Are You Deaf Or Do You Have Serious Difficulty Hearing? No Information not available 03/26/2024 What Type Of Diet Are You Following? REGULAR Information not available 03/26/2024 What Is The Highest Grade Or Level Of School You Have Completed Or The Highest Degree You Have Received? [id number] Information not available 03/26/2024 What Was The Date Of Your Most Recent Tobacco Screening? 05/21/2024 Information not available 05/21/2024 Do You Have Any Pets? No Information not available 03/26/2024 What Is Your Relationship Status? Information not available 03/26/2024 Do You Feel Stressed (tense, Restless, Nervous, Or Anxious, Or Unable To Sleep At Night)? [id number] Information not available 03/26/2024 Do You Use Any Illicit Or Recreational Drugs? No Information not available 03/26/2024 Do You Use Sunscreen Routinely? Yes Information not available 03/26/2024 What Type Of Noise Exposure Are You Exposed To? NoExposureToExcessiveNoi se Information not available 03/26/2024 Do You Or Have You Ever Used Any Other Forms Of Tobacco Or Nicotine? No Information not available 03/26/2024 Sex: Female Functional Status Question Answer Note LastModified by Organization D etails LastModified Time What is your exercise level? None Information not available 03/26/2024 Mental Status None recorded. Family History Nothing Reported. Medical History No medical history recorded. Gynecological HistoryNo gynecological history recorded. Obstetrics History GPAL:G 0 P 0 0 0 0 Past Encounters Encounter ID Performer Location Encounter Start Date Encounter Closed Date Diagnosis/Indication Diagnosis SNOMED-CT Code Diagnosis ICD10 Code Diagnosis Note [id number] MD Maine Howard (Adult Med) [address] [place] [address] 03/26/2024 11:18:41 04/02/2024 16:17:26 Chronic rhinitis 05001654 J31.0 follow back in a month Chronic cough 61114261 R 05.3 Acute sinusitis 42159986 J01.90 [id number] MD Maine Howard (Adult Med) [address] [place] [address] 04/23/2024 11:20:14 04/24/2024 13:15:56 Allergic rhinitis 21001692 J30.9 follow back in a month Chronic cough 53370846 R 05.3 [id number] MD Dee Howardhalto (Adult Med) [address] [place] [address] 05/21/2024 09:55:31 05/22/2024 09:19:06 Chronic cough 26051687 R05.[address] Health Concerns Section Related Observation LastModified by Organization Detai ls LastModified Time None Recorded Concern Status LastModified by Organization Details LastModified Time None Recorded Advance Directives Directive Y: Payers Encounter Date Sequence Insurance Name Policy Number Policy White Covered Member ID White Member ID Guarantor Name 03/26/2024 2 [place] 111 Aleshia Muñoz [id number] Aleshia Bridges 03/26/2024 1 [place] Aleshia Bridges [id number] Aleshia Bridges 04/23/2024 1 [place] Aleshia Bridges [id number] Aleshia Bridges 04/23/2024 2 [place] 111 Aleshia Bridges [id number] Aleshia Bridges 05/21/2024 1 [place] Aleshia Bridges [id number] Aleshia Bridges 05/21/2024 2 [place] 111 Aleshia Bridges [id number] Aleshia Muñoz Notes Date Note Type Note Provider Name and Address Organization Details Recorded Time 03/26/2024 text/html Pt complaining o f a cough for the last 10 months. She has nasal congestion and drainage which improved with antihistamines and flonase but did not resolve. She does not complain of reflux Leighton Ashby MD Attn: [address] [place], [address], [facility] 03/26/2024 11:48:03 04/23/2024 text/html Pt complaining o f nasal congestion and drainage. She has had a persistent cough. It has improved but not resolved. She is on flonase and montelukast Leighton Ashby MD Attn: [address] [facility], [place], [address], [facility] 04/23/2024 12:00:59 05/21/2024 text/html Pt complaining o f a chronic cough. She also has a problem with taste but not smell. She has not responded to nasal sprays or antibiotics Leighton Ashby MD Attn: [address] [facility], [place], [address], [facility] 05/21/2024 10:28:31 OBGyn Episode No OBEpisode recorded.
--- OUTSIDE RECORDS SUMMARY | 2024-08-28 14:19 | XMS_ITS | Clinical Summary ---
Author Organization [facility] Address [address] [place] [address] Phone Care Team Providers Care Presser First Name Role Phone Ricky Lowery MD Primary Care Provider [phone] Allergies Active Allergy Reactions Criticality Noted Date Comments Erythromycin Nausea and Vomiting High 08/13/2012 Erythromycin Base Other (See Comments) 03/10/20 23 Medications citalopram (CELEXA) 40 mg tabletIndications: Routine gynecological examination Take 40 mg by mouth daily. Active atorvastatin (LIPITOR) 10 mg tablet TK 1 T PO QD 2 8 Active desvenlafaxine (PRISTIQ) 100 mg Extended Release 24 hour tablet 50 mg. 8 Active levothyroxine 100 mcg tablet TK 1 T PO D OES 3 8 Active triamcinolone acetonide (KENALOG) 0.5 % Cream APPLY TOPICALLY TWICE DAILY 1 Active ALPRAZolam (XANAX) 0.25 mg tablet 2 Active sertraline (ZOLOFT) 100 mg tablet Take 150 mg by mouth daily. 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 Dense breasts 02/02/2016 Thyroid cancer 07/28/2011 Papanicolaou smear of cervix with low grade squamous intraepithelial lesion (LGSIL) 07/09/2010 Overview (07/09/2010): 06/2010 FH: stroke 06/29/2009 Overview (06/29/2009): mother FH: osteoporosis 06/29/2009 Overview (06/29/2009): mother Tubal ligation status 06/29/2009 Unspecified deficiency anemia Overview (06/29/2009): as a child Anxiety Depression Encounters Date Type Department Care Team Description 08/21/2024 External Device Data STL ABSTRACTION Provider, Abstract 08/20/2024 External Device Data STL ABSTRACTION Provider, Abstract 08/13/2024 External Device Data STL ABSTRACTION Provider, Abstract 07/22/2024 10:44 AM WOOD POLE TREATER - 07/22/2024 11:59 PM WOOD POLE TREATER Hospital Encounter [facility] [address] [place] [id number] Galdino Pichardo MD Discharge Disposition: Home or Self Care 07/22/2024 Telephone [facility] Women's Health Clinical Support [address] [place] [address] Juany Buchanan, RN Results 07/11/2024 12:10 PM WOOD POLE TREATER - 07/11/2024 11:59 PM WOOD POLE TREATER Hospital Encounter [facility] [address] [place] [address] Ricky Lowery MD Wasserman, Gary M, MD Discharge Disposition: Home or Self Care 06/25/2024 10:45 AM WOOD POLE TREATER Office Visit [facility] OBG[place] - [place] [address] [place] [address] Galdino Pichardo MD Menopause (Primary Dx); Recurrent major depressive disorder, remission status unspecified; Hurthle cell carcinoma of thyroid (CMS/HCC) from Last 3 Months Immunizations Immunization Administration Dates Next Due (ProspX) COVID-19 VACCINE - EMERGENCY USE AUTHORIZATION, AD26,COV2S(PF) 0.5 ML IM SUSP 10/02/2020 (PNEUMOVAX 23)(50 YRS UP) PN EUMOCOCCAL POLYSACCHARIDE (PPV23) 0.5 ML, IM 12/21/2022 (SHINGRIX)(50 YRS UP) ZOSTER VACCINE RECOMBINANT, 0.5 ML, IM 03/27/2018 INFLUENZA VACCINE QUADRIVALENT 3 YR UP PF IM 02/2020,04/10/2018 INFLUENZA VACCINE QUADRIVALENT 6 MOS UP IM 12/21 Family History Medical History Relation Name Comments Cataract Father Glaucoma Father Kidney Disease Father Stroke Father Breast Cancer Maternal Aunt Unknown Maternal Grandfather Heart Failure Maternal Grandmother Osteoporosis Mother Stroke Mother High Cholesterol Other -[place] Hypertension Other -[place] Heart Disease Paternal Grandfather Heart Disease Paternal Grandmother Healthy Sister Phoebe Cancer Neg Hx Ovarian Cancer Neg Hx Relation Name Status Comments Father Maternal Aunt Alive Maternal Grandfather Maternal Grandmother Mother Other H-Lalito Alive Paternal Grandfather Paternal Grandmother Sister Phoebe Alive Social History Tobacco Use Types Packs/Day Years Used Date Smoking Tobacco: Never Smokeless Tobacco: Never Tobacco Cessation:Counseling Given: Not Answered Alcohol Use Standard Drinks/Week Comments No 0 (1 standard drink = 0.6 oz pur e alcohol) Comments No Sex and Gender Information Value Date Recorded Sex Assigned at Not on file Legal Sex Female 3:29 AM WOOD POLE TREATER Gender Identity Not on file Sexual Orientation Not on file Occupation Industry Job Start Date Job End Date Not on file Not on file Not on file Not on file Not on file Not on file Not on file Not on file Not on file Not on file Not on file Not on file Last Filed Vital Signs Vital Sign Reading Time Taken Comments Blood Pressure 112/70 05/31/2022 11:09 AM CDT Pulse - - Temperature - - Respiratory Rate - - Oxygen Saturation - - Inhaled Oxygen Concentration - - Weight 60.3 kg (133 lb) 06/25/2024 10:42 AM WOOD POLE TREATER Height 165.1 cm (5' 5 ) 06/25/2024 10:42 AM WOOD POLE TREATER Body Mass Index 22.13 06/25/2024 10:42 AM WOOD POLE TREATER Plan of Treatment Upcoming Encounters Date Type Department Care Team (Late st Contact Info) Description 07/01/2025 10:45 AM WOOD POLE TREATER Office Visit [facility] O[facility] - [place] [address] [facility] [address] [place] [address] Galdino Pichardo MD [address] [facility] [address] [place] [address] Health Maintenance Due Date Last Done Comments DTAP/TDAP/TD VACCINES (1 - Tdap) 1976 FIT-DNA Q 3 years 2002 FIT/FOBT Q 1 year 2002 Flex Sig/CT Colonography Q 5 years 2002 ZOSTER VACCINE (2 of 2) 05/22/2018 03/27/2018 PNEUMOCOCCAL VACCINE 65+ YEA RS (2 of 2 - PCV) 12/22/2023 12/21/2022 INFLUENZA VACCINE (#1) 2024 3, 04/14/2021 (Previously completed), 04/07/2020, Additional history exists COVID-19 Vaccine (2 - 2023-2 5 season) 2024 10/02/2020 BREAST CANCER SCREENING 07/11/2025 07/11/20 24, 08/11/2023, 07/10/2023, Additional history exists COLORECTAL SCREENING 06/12/2026 06/12/2019, 02/11/2019, 01/29/2008 Colorectal Cancer Screening 06/12/2026 OSTEOPOROSIS SCREENING 07/22/2026 4, 06/13/2022, 04/16/2020, Additional history exists RSV VACCINE (60+ or ) (1 - 1-dose 75+ series) 2032 Procedures Procedure Name Priority Date/Time Associated Diagnosis Comments XR DEXA BONE DENSITY AXIAL 1 OR MORE SITES Routine 07/22/2024 10:58 AM WOOD POLE TREATER Menopause MAMMO 3D LOLA SCREEN BILAT W OR WO CAD Routine 07/11/2024 12:23 PM WOOD POLE TREATER Visit for screening mammogram from Last 3 Months Results * XR DEXA BONE DENSITY AXIAL 1 OR MORE SITES (07/22/2024 10:58 AM WOOD POLE TREATER) Anatomical Region Laterality Modality Digital Radiogra phy 07/22/2024 10:5 9 AM WOOD POLE TREATER Impressions 07/22/2024 11:13 AM WOOD POLE TREATER IMPRESSION: Osteopenia. Lumbar Spine: ?? T-score: 1.3 ?? Left Femoral Neck: ?? T-score: -1.6 ?? Left Total Femur: ?? T-score: ??-1.4 Right Femoral Neck: ?? T-score: ??-1.8 Right Total Femur: ?? T-score: ??-1.4 Statistical CHANGE: ?? No significant change in BMD since the prior exam. FRAX FRACTURE RISK ASSESSMENT: ?? (Only valid Between 40-89 Years Of Age) Risk factors: ?? Secondary osteoporosis. ?? 10-Year probability of fracture Major osteoporotic fracture: 10 % ??Defined as fracture of the spine, hip or shoulder. Hip fracture: 1.5 % Comparison population: [place], Race: White This is a summary page. Please refer to the complete detailed report found in: Imaging Section of the [facility] EMR. Definitions: Normal: T-score above -1.0 ?? Osteopenia T-score less than -1.0 and above -2.5 Osteoporosis: T-score <= -2.5 Note: Clinical Osteoporosis may be based on other factors besides DXA calculated BMD. OTher factors include and are not limited to fragility fractures, subclinical compression fractures,osteopenia and elevated FRAX Scores. A major osteoporotic fracture is defined as a fracture of the spine, forearm, hip or shoulder. Follow-up Recommendations: ? Patients without high risk factors for osteoporosis ? T-score -1.0 to -1.5 - Consider repeat BMD in 5-10 years ? T-score -1.5 to - 2.0 - Consider repeat BMD in 3-5 years ? T-score -2.0 to - 2.5 - Consider repeat BMD every 2 years ? Patients on treatment for osteoporosis ? 1-2 years after initiation of treatment and every 2 years thereafter D[address] Dr[address] Sp Champion MD DICTATION LOCATION: 1 Narrative 07/22/2024 11:13 AM WOOD POLE TREATER EXAMINATION: ??BONE DENSITY STUDY (DXA) DATE: 07/22/2024 10:58 AM ?? HISTORY: 68 years Female. Postmenopausal. Osteopenia. PROCEDURE: ?? Planar images of the lumbar spine and hip(s). iTagged DEXA scanner for bone mineral density determination (BMD). ?? Prior bone density: 2019 FINDINGS: ?? Lumbar Spine (L1-L4): ?? T-score: 1.3 ?? 1.334 g/sq cm ?Prior: 1.234 g/sq cm ?? Left Femoral Neck: ?? T-score: -1.6 ?? 0.815 g/sq cm ?Prior: 0.812 g/sq cm ?? Left Total Femur: T-score: -1.4 Right Femoral Neck: ?? T-score: ??-1.8 0.789 g/sq cm ?Prior: 0.778 g/sq cm ?? Right Total Femur: T-score: -1.4 TECHNICAL ISSUES: ?? None. Procedure Note Sp Champion MD - 07/22/2024 EXAMINATION: BONE DENSITY STUDY (DXA) DATE: 07/22/2024 10:58 AM HISTORY: 68 years Female. Postmenopausal. Osteopenia. PROCEDURE: Planar images of the lumbar spine and hip(s). iTagged DEXA scanner for bone mineral density determination (BMD). Prior bone density: 2019 FINDINGS: Lumbar Spine (L1-L4): T-score: 1.3 1.334 g/sq cm Prior: 1.234 g/sq cm Left Femoral Neck: T-score: -1.6 0.815 g/sq cm Prior: 0.812 g/sq cm Left Total Femur: T-score: -1.4 Right Femoral Neck: T-score: -1.8 0.789 g/sq cm Prior: 0.778 g/sq cm Right Total Femur: T-score: -1.4 TECHNICAL ISSUES: None. IMPRESSION: Osteopenia. Lumbar Spine: T-score: 1.3 Left Femoral Neck: T-score: -1.6 Left Total Femur: T-score: -1.4 Right Femoral Neck: T-score: -1.8 Right Total Femur: T-score: -1.4 Statistical CHANGE: No significant change in BMD since the prior exam. FRAX FRACTURE RISK ASSESSMENT: (Only valid Between 40-89 Years Of Age) Risk factors: Secondary osteoporosis. 10-Year probability of fracture Major osteoporotic fracture: 10 % Defined as fracture of the spine, hip or shoulder. Hip fracture: 1.5 % Comparison population: [place], Race: White This is a summary page. Please refer to the complete detailed report found in: Imaging Section of the [facility] EMR. Definitions: Normal: T-score above -1.0 Osteopenia T-score less than -1.0 and above -2.5 Osteoporosis: T-score <= -2.5 Note: Clinical Osteoporosis may be based on other factors besides DXA calculated BMD. OTher factors include and are not limited to fragility fractures, subclinical compression fractures,osteopenia and elevated FRAX Scores. A major osteoporotic fracture is defined as a fracture of the spine, forearm, hip or shoulder. Follow-up Recommendations: Patients without high risk factors for osteoporosis T-score -1.0 to -1.5 - Consider repeat BMD in 5-10 years T-score -1.5 to - 2.0 - Consider repeat BMD in 3-5 years T-score -2.0 to - 2.5 - Consider repeat BMD every 2 years Patients on treatment for osteoporosis 1-2 years after initiation of treatment and every 2 years thereafter D[address] Dr[address] Sp Champion MD DICTATION LOCATION: 1 Galdino Pichardo MD DIAGNOSTIC IMAGING ORDERABLE S Final Result * MAMMO 3D LOLA SCREEN BILAT W OR WO CAD (07/11/2024 12:23 PM WOOD POLE TREATER) Anatomical Region Laterality Modality Breast Bilateral Mammography 07/11/2024 12:2 4 PM WOOD POLE TREATER Impressions 07/11/2024 1:50 PM WOOD POLE TREATER IMPRESSION: ?? Negative bilateral screening mammogram. Recommend routine followup. ?? OVERALL FINAL ASSESSMENT: ??BI-RADS CATEGORY 1: Negative. DICTATION LOCATION: [facility] 07/11/2024 1:50 PM WOOD POLE TREATER BILATERAL SCREENING DIGITAL MAMMOGRAM WITH 3D TOMOSYNTHESIS AND CAD DATE: 07/11/2024 12:23 PM HISTORY: Annual screening study. COMPARISON: 08/11/2023, ??04/20/2020. ?? TECHNIQUE: A bilateral screening mammogram was performed. Low-dose full-field digital breast tomosynthesis examination was performed with 2D and 3D acquisitions. Examination is read in conjunction with computer aided detection. ?? BREAST COMPOSITION: Heterogeneously dense, which limits the sensitivity of mammography. FINDINGS: No new masses, suspicious calcifications, or areas of asymmetry or distortion are identified. The images were reviewed using the CAD system. ?? Procedure Note Bhavani Cerda MD - 07/11/2024 BILATERAL SCREENING DIGITAL MAMMOGRAM WITH 3D TOMOSYNTHESIS AND CAD DATE: 07/11/2024 12:23 PM HISTORY: Annual screening study. COMPARISON: 08/11/2023, 04/20/2020. TECHNIQUE: A bilateral screening mammogram was performed. Low-dose full-field digital breast tomosynthesis examination was performed with 2D and 3D acquisitions. Examination is read in conjunction with computer aided detection. BREAST COMPOSITION: Heterogeneously dense, which limits the sensitivity of mammography. FINDINGS: No new masses, suspicious calcifications, or areas of asymmetry or distortion are identified. The images were reviewed using the CAD system. IMPRESSION: Negative bilateral screening mammogram. Recommend routine followup. OVERALL FINAL ASSESSMENT: BI-RADS CATEGORY 1: Negative. DICTATION LOCATION: [facility] Ricky Sebastián MEIER MAMMO ORDERABLES Final Result from Last 3 Months Insurance [facility] FEDERAL MEDICARE PART A AND B Care Teams Presser First Relationship Specialty Start Date End Date Ricky Lowery MD [address] [place] [id number] PCP - General Family Practice 11/06/09
--- OUTSIDE RECORDS SUMMARY | 2024-08-28 14:19 | XMS_ITS | Encounter Summary ---
Author Organization [facility] Address [address] [place] [address] Care Team Providers Care Cigar Roller Name Role Phone Ricky Lowery MD Primary Care Provider [phone] Encounter Details Date Type Department Care Team (Latest Contact Info) Description 10/24/2008 Outpatient Historical [facility] Galdino Demarco MD [address] [address] Other Screening Mammogram Social History Tobacco Use Types Packs/Day Years Used Date Smoking Tobacco: Never Assessed Comments Unknown Sex and Gender Information Value Date Recorded Sex Assigned at Not on file Legal Sex Female 3:29 AM SPARMAKER Gender Identity Not on file Sexual Orientation Not on file documented as of this encounter Plan of Treatment Upcoming Encounters Date Type Department Care Team (Late st Contact Info) Description 07/01/2025 10:45 AM SPARMAKER Office Visit [facility] OBG[facility] - [place] [address] [place] [address], [address] [address] Galdino Pichardo MD [address] [address] documented as of this encounter Procedures Procedure Name Priority Date/Time Associated Diagnosis Comments MAMMO SCREEN BILAT W OR WO CAD Routine 10/24/2008 7:47 AM CDT documented in this encounter Results * MAMMO DIGITAL SCREEN BILAT (10/24/2008 7:47 AM CDT) Anatomical Region Laterality Modality Breast Bilateral Other 10/24/2008 7:47 AM CDT Narrative 10/27/2008 8:17 PM CDT ? [facility] ? [address] ?[place] ??[id number] ?Admit Date: 10/24/2008 ?ALESHIA MUÑOZ ?Sex: F ?Admit Prov: GALDINO PICHARDO ? Date: 1955 ?Primary Care Prov: DEMARCO DAWSON S ?CMRN: [id number] ?Room: MDB-A ?SSN: [id number] ? IMAGING SERVICES ?Ordering Prov: GALDINO PICHARDO ? Accession Number: [id number] ?Interpretation ? BILATERAL FULL FIELD DIGITAL SCREENING MAMMOGRAM WITH CAD. ? History: Routine Screening. ? Technique: Full field digital craniocaudal and mediolateral oblique ? projections of both breasts were obtained. Computer aided diagnosis was ? performed. ? Comparison: 08/2007, 08/2006, 08/2005 ? Breast Parenchymal Composition: Heterogeneously dense, which lowers the ? sensitivity of mammography. ? Findings: No suspicious mass, suspicious microcalcifications, or ? architectural distortion in either breast is identified. Since the prior ? study, there has been no significant interval change. The computer aided ? diagnosis detects no significant abnormality. ? Overall Assessment: ??BI-RADS category 1: Negative. ? Recommendation: Annual mammography is recommended. ? Assessment BIRADS: ??1-Negative ? Recommendation: ??Normal interval follow-up ? Dictated by: ??MAKENNA WEST ? Electronically signed by: ??MAKENNA WEST ??10/27/2008 20:16 ? Transcribed: ??10/27/2008 17:49 ?[facility] Procedure Note Makenna eWst - 10/27/2008 [address] [place], [place] [address] Admit Date: 10/24/2008 ALESHIA MUÑOZ Sex: F Admit Prov: GALDINO PICHARDO Date: 1955 Primary Care Prov: DEMARCO DAWSON CMRN: [id number] Room: JANAK SSN: [id number] IMAGING SERVICES Ordering Prov: GALDINO PICHARDO Interpretation BILATERAL FULL FIELD DIGITAL SCREENING MAMMOGRAM WITH CAD. History: Routine Screening. Technique: Full field digital craniocaudal and mediolateral oblique projections of both breasts were obtained. Computer aided diagnosiswas performed. Comparison: 08/2007, 08/2006, 08/2005 Breast Parenchymal Composition: Heterogeneously dense, which lowersthe sensitivity of mammography. Findings: No suspicious mass, suspicious microcalcifications, or architectural distortion in either breast is identified. Since theprior study, there has been no significant interval change. The computeraided diagnosis detects no significant abnormality. Overall Assessment: BI-RADS category 1: Negative. Recommendation: Annual mammography is recommended. Assessment BIRADS: 1-Negative Recommendation: Normal interval follow-up Dictated by: MAKENNA WEST Electronically signed by: MAKENNA WEST 10/27/2008 20:16 Transcribed: 10/27/2008 17:49 AMK us Galdino Pichardo MD MAMMO ORDERABLES Final Resul t documented in this encounter Visit Diagnoses Diagnosis Other screening mammogram documented in this encounter Care Teams Cigar Roller Relationship Specialty Start Date End Date Ricky Lowery MD [address] [place] [address] PCP - General Family Practice 11/06/09 documented as of this encounter
--- OUTSIDE RECORDS SUMMARY | 2024-08-28 14:19 | XMS_ITS | Encounter Summary ---
Author Organization [facility] Address [address] [place] [address] Care Team Providers Care Outdoor Fitness Trainer Name Role Phone Ricky Lowery MD Primary Care Provider [phone] Encounter Details Date Type Department Care Team (Latest Contact Info) Description 09/15/2005 Outpatient Historical HIS [facility] Galdino Demarco MD [address] [address] SCREENING MAMM-MAILG NEOPL NEC (Primary Dx) Social History Tobacco Use Types Packs/Day Years Used Date Smoking Tobacco: Never Assessed Comments Unknown Sex and Gender Information Value Date Recorded Sex Assigned at Not on file Legal Sex Female 3:29 AM PLANER FEEDER Gender Identity Not on file Sexual Orientation Not on file documented as of this encounter Plan of Treatment Upcoming Encounters Date Type Department Care Team (Late st Contact Info) Description 07/01/2025 10:45 AM PLANER FEEDER Office Visit [facility] OBGYN - [place] [address] [facility], [address] [address] Galdino Pichardo MD [address] [address] documented as of this encounter Visit Diagnoses Diagnosis Other screening mammogram- Primary documented in this encounter Care Teams Outdoor Fitness Trainer Relationship Specialty Start Date End Date Ricky Lowery MD [address] [place] [address] PCP - General Family Practice 11/06/09 documented as of this encounter
--- OUTSIDE RECORDS SUMMARY | 2024-08-28 14:19 | XMS_ITS | Encounter Summary ---
Author Organization [facility] Address [address] [place] [address] Care Team Providers Care Embedded Systems Designer Name Role Phone Ricky Lowery MD Primary Care Provider [phone] Encounter Details Date Type Department Care Team (Latest Contact Info) Description 09/28/2007 Outpatient Historical HIS [facility] Galdino Demarco MD [address] [address] Other Screening Mammogram Social History Tobacco Use Types Packs/Day Years Used Date Smoking Tobacco: Never Assessed Comments Unknown Sex and Gender Information Value Date Recorded Sex Assigned at Not on file Legal Sex Female 3:29 AM IRON HANDLER Gender Identity Not on file Sexual Orientation Not on file documented as of this encounter Plan of Treatment Upcoming Encounters Date Type Department Care Team (Late st Contact Info) Description 07/01/2025 10:45 AM IRON HANDLER Office Visit [facility] OBGYN - [place] [address] [place] [address], [address] [address] Galdino iPchardo MD [address] [address] documented as of this encounter Procedures Procedure Name Priority Date/Time Associated Diagnosis Comments MAMMO SCREEN BILAT W OR WO CAD Routine 09/28/2007 8:02 AM IRON HANDLER documented in this encounter Results * MAMMO DIGITAL SCREEN BILAT (09/28/2007 8:02 AM IRON HANDLER) Anatomical Region Laterality Modality Breast Bilateral Other 09/28/2007 8:02 AM IRON HANDLER Narrative 09/28/2007 7:16 PM IRON HANDLER ? [facility] ? [address] ?[place] ??[address] ?Admit Date: 09/28/2007 ?BRIDGES, ALESHIA R ?Sex: F ?Admit Prov: GALDINO PICHARDO ? Date: 1955 ?Primary Care Prov: DEMARCO DAWSON S ?CMRN: [id number] ?Room: MDB-A ?SSN: [id number] ? IMAGING SERVICES ?Ordering Prov: GALDINO PICHARDO ? Accession Number: [id number] ?Interpretation ? BILATERAL SCREENING DIGITAL MAMMOGRAMS WITH COMPUTER ASSISTED DIAGNOSIS ? 09/28/2007 ? Comparison mammograms dating back to 2005 ? FINDINGS: ??The parenchyma is very dense bilaterally. ??This lowers the ? sensitivity of mammography in detecting disease. There is no mass, ? malignant calcification, lymphadenopathy, architectural distortion or other ? sign of malignancy. ? SUMMARY: ??Dense mammary parenchyma. ??No mammographic evidence of ? malignancy. ? The films were reviewed using the CAD system. ? Assessment BIRADS: ??1-Negative ? Recommendation: ??Normal interval follow-up ? Dictated by: ??MICHELLE FAN ? Electronically signed by: ??MICHELLE FAN ??09/28/2007 19:16 ? Transcribed: ??09/28/2007 18:24 ?[facility]K Procedure Note Michelle Fan MD - 09/28/2007 [address] [place], [place] [address] Admit Date: 09/28/2007 ALESHIA MUÑOZ Sex: F Admit Prov: GALDINO PICHARDO Date: 1955 Primary Care Prov: DEMARCO DAWSON CMRN: [id number] Room: JANAK SSN: [id number] IMAGING SERVICES Ordering Prov: LOPEZGALDINO Interpretation BILATERAL SCREENING DIGITAL MAMMOGRAMS WITH COMPUTER ASSISTEDDIAGNOSIS 09/28/2007 Comparison mammograms dating back to 2005 FINDINGS: The parenchyma is very dense bilaterally. This lowersthe sensitivity of mammography in detecting disease. There is no mass, malignant calcification, lymphadenopathy, architectural distortion orother sign of malignancy. SUMMARY: Dense mammary parenchyma. No mammographic evidence of malignancy. The films were reviewed using the CAD system. Assessment BIRADS: 1-Negative Recommendation: Normal interval follow-up Dictated by: MICHELLE FAN Electronically signed by: MICHELLE FAN 09/28/2007 19:16 Transcribed: 09/28/2007 18:24 AMK us Galdino Pichardo MD MAMMO ORDERABLES Final Resul t documented in this encounter Visit Diagnoses Diagnosis Other screening mammogram documented in this encounter Care Teams Embedded Systems Designer Relationship Specialty Start Date End Date Ricky Lowery MD [address] [place] [address] PCP - General Family Practice 11/06/09 documented as of this encounter
--- OUTSIDE RECORDS SUMMARY | 2024-08-28 14:20 | XMS_ITS ---
Author Organization [facility] [employer] Address [address] [place] [address] Care Team Providers Care Sap Bw Developer Name Role Phone Sky Kauffman Unavailable [phone] Allergies Allergen (clinical drug ingredient) Drug/Non Drug Allergy documented on EMR Reaction Allergy Type Onset Date Status erythromycin Erythromycin Base Unknown Drug Allergy 2023 Active REASON FOR VISIT follow up visit, medication evaluation Medications Medication SIG (Take, Route, Frequency, Duration) Notes Start Date End Date Status ALPRAZolam 0.25 MG Oral 11/28/2023 Not-Taking Sertraline HCl 100 MG 1.5 tablet Oral Once a day for 90 days Active Levothyroxine Sodium 75 MCG Oral 11/28/2023 Active Atorvastatin Calcium 10 MG Oral 11/28/2023 Active Fluticasone Propionate Diskus 50 MCG/ACT Inhalation *Reorder from [employer] for eRx and Interaction Alerts* 11/28/2023 Active Social History Tobacco Use: Social History Observation Description Date Details (start date - stop date) Never Smoker NA - NA Sex Assigned At : Social History Observation Description Sex Assigned At Female Tobacco Control (Standard) Question Answer Notes Tobacco use: Nonsmoker Vital Signs Blood pressure systolic 136 mm Hg 05/13/20 24 Blood pressure diastolic 79 mm Hg 024 Heart Rate 93 /min 05/13/2024 Height 64.00 in 05/13/2024 Height-cm 162.56 cm 05/13/2024 Encounters Encounter Location Date Provider Diagnosis [employer] [facility] [address] [place] [address] 05/13/2024 Sky Kauffman Major depressive disorder, recurrent, mild F33.0 and Generalized anxiety disorder F41.1 Assessments Encounter Date Diagnosis (ICD Code) Assessment Notes Treatment Notes Treatment Clinical Notes Section Notes 05/13/2024 Major depressive disorder, recurrent, mild (ICD-10 - F33.0) cont sertraline 150mg daily- use [facility] pharmacy 1. Major Depressive Disorder and anxiety : - The patient reports feeling less upbeat compared to when she was on Pristiq or Celexa, but overall is doing okay. She experiences racing thoughts at night and occasional feelings of darkness. She is currently on sertraline 150 mg daily, which she reports is better than 200 mg, which made her more anxious. Plan: - Continue sertraline 150 mg daily. - Encourage the patient to write down her feelings or thoughts that are bothering her. - Reassess the patient's mood and response to sertraline in 3 months. If the patient still feels the same way, consider discussing alternative medications, such as Wellbutrin or bupropion, given that she has no history of seizures. 2. Sleep disturbance: - The patient has trouble falling asleep due to racing thoughts. She tries to read or watch videos to distract herself. Plan: - Encourage the patient to practice good sleep hygiene, such as establishing a regular sleep schedule, creating a relaxing bedtime routine, and avoiding stimulating activities before bed. - Reassess sleep quality in 3 months. 05/13/2024 Generalized anxiety disorder (ICD-10 - F41.1) cont alprazolam 0.25mg daily prn- she has not used for a long time 1. Major Depressive Disorder and anxiety : - The patient reports feeling less upbeat compared to when she was on Pristiq or Celexa, but overall is doing okay. She experiences racing thoughts at night and occasional feelings of darkness. She is currently on sertraline 150 mg daily, which she reports is better than 200 mg, which made her more anxious. Plan: - Continue sertraline 150 mg daily. - Encourage the patient to write down her feelings or thoughts that are bothering her. - Reassess the patient's mood and response to sertraline in 3 months. If the patient still feels the same way, consider discussing alternative medications, such as Wellbutrin or bupropion, given that she has no history of seizures. 2. Sleep disturbance: - The patient has trouble falling asleep due to racing thoughts. She tries to read or watch videos to distract herself. Plan: - Encourage the patient to practice good sleep hygiene, such as establishing a regular sleep schedule, creating a relaxing bedtime routine, and avoiding stimulating activities before bed. - Reassess sleep quality in 3 months. Plan Of Treatment Medication Medication Name Sig Start Date Stop Date Notes Sertraline HCl 100 MG 1.5 tablet Oral On ce a day for 90 days Treatment Notes Assessment Notes Major depressive disorder, recurrent, mi ld cont sertraline 150mg daily- use [facility] pharmacy Generalized anxiety disorder cont alpraz olam 0.25mg daily prn- she has not used for a long time Next Appt Details Follow Up: 3 Months, Reason: f/u anxiety, depression Provider Name:Sky read, 12/03/2024 01:00:00 PM, [address], [facility] [address], [place], [address], Progress Notes * JONATHON PIÑAOB: 8 (68 yo F)Acc No.[id number]:05/13/2024 Patient:?IRWIN PIÑA Provider:?RAMY THORNTONHNP :1955???Age:68 Y???Sex:Female D ate:05/13/2024 Address: [address] [facility] Subjective: * Chief Complaints: * ???Follow up visit, medicati on evaluation * HPI: ???Depression Screening:? Chief complaint - Feeling less upbeat, sleep difficulties, worry. the note is transcribed using speech recognition software. It is a reflection of a visit with the patient. It might have some inaccuracy, including medication names and transcribing errors, though efforts have been made to correct them. The patient reports feeling less upbeat compared to when she was taking Pristiq or Celexa, but states that she is doing okay overall. She experiences occasional difficulty falling asleep due to racing thoughts and uses reading or watching videos as a distraction. The patient also expresses constant worry about her and experienced significant distress when her grandson disobeyed his mother. The patient is currently on 150 milligrams of sertraline, as 200 milligrams increased her anxiety. She recalls feeling better on Pristiq and Celexa but is content with taking fewer pills. The patient has a history of irritability and anxiety but has improved through counseling and no longer experiences suicidal thoughts or self-hatred. The patient would like to feel more upbeat and is open to discussing medication changes in the future. She has no history of seizures and has never taken Wellbutrin or bupropion. The patient acknowledges that recent physical issues, such as difficulty chewing due to a misaligned jaw, loss of taste buds, and a recent skin cancer diagnosis, may be impacting her mood. Additionally, the cancellation of a planned vacation has contributed to her feeling down. ?ALANNA-7 (2018 Edition)?Feeling nervous, anxious, or on edge?Several days,?Not being able to stop or control worrying?Several days,?Worrying too much about different things?Several days,?Trouble relaxing?Nearly every day,?Being so restless that it is hard to sit still?Not at all,?Becoming easily annoyed or irritable?Not at all,?Feeling afraid as if something awful might happen?Nearly every day,?Total ALANNA-7 Score?9,?If you checked any problems, how difficult have they made it for you to do your work, take care of things at home, or get along with other people??Somewhat difficult,?Interpretation of Total?(5 to 9) Mild.?Casey-Suicide Severity Rating Scale:?Suicide Risk (CSRS-screener)?in the past one month Have you wished you were or wished you could go to sleep and not wake up??No,?in the past one month Have you actually had any thoughts of killing yourself??No,?Have you ever done anything, started to do anything, or prepared to do anything to end your life??No.?Depression screening:?PHQ-9?Little interest or pleasure in doing things?Several days,?Feeling down, depressed, or hopeless?Not at all,?Trouble falling or staying asleep, or sleeping too much?Several days,?Feeling tired or having little energy?Several days,?Poor appetite or overeating?Not at all,?Feeling bad about yourself or that you are a failure, or have let yourself or your family down?Not at all,?Trouble concentrating on things, such as reading the newspaper or watching television?Not at all,?Moving or speaking so slowly that other people could have noticed; or the opposite, being so fidgety or restless that you have been moving around a lot more than usual?Not at all,?Thoughts that you would be better off or of hurting yourself in some way?Not at all,?Total Score?3,?Interpretation?Minimal Depression.?Intervention?Depression Screening Findings?Negative,?Follow-Up for Depression?Mental health care management,?Suicide Risk Assessment Performed?05/13/2024 ,?Additional Evaluation for Depression?Psychiatric interview and evaluation,?Name of the standardized tool used for adult depression screening:?Patient Health Questionnaire (PHQ-9).?Past Medication history:?pristiq, celexa. ???History of Presenting Problem:?Anxiety?Onset: years ago.?Depression?Onset: years ago.?Psychotherapy?has done in the past.? * Medical History:? * Surgical History:? * Hospitalization/Major Diagno stic Procedure:? * Social History:?Tobacco Use:?Tobacco Control (Standard)?Tobacco use:?Nonsmoker.?Migrated Social History:?Migrated Social History: Alcohol Intake: None 09/27/2022,Tobacco Years: Never smoker 09/27/2022. ???Miscellaneous:?Advance Care Planning?Are you your own decision-maker?Yes,?Do you have Power of Corporate Travel Agent for Health or Medical??Yes,?Do you have a power of united states attorney for health??Yes,?Do you have power of united states attorney for Medical ??Yes.? * Medications:?TakingFluticaso ne Propionate Diskus 50 MCG/ACT Aerosol Powder Breath Activated Inhalation , Notes to Pharmacist: *Reorder from KnowNow for eRx and Interaction Alerts*Atorvastatin Calcium 10 MG Tablet Oral Levothyroxine Sodium 75 MCG Tablet Oral Sertraline HCl 100 MG Tablet TAKE 1 AND 1/2 TABLETS DAILY Taking Fluticasone Propionate Diskus 50 MCG/ACT Aerosol Powder Breath Activated Inhalation , Notes to Pharmacist: *Reorder from [facility] for eRx and Interaction Alerts*Taking Atorvastatin Calcium 10 MG Tablet Oral Taking Levothyroxine Sodium 75 MCG Tablet Oral Taking Sertraline HCl 100 MG Tablet TAKE 1 AND 1/2 TABLETS DAILY Not- TakingALPRAZolam 0.25 MG Tablet Oral Medication List reviewed and reconciled with the patientNot-Taking ALPRAZolam 0.25 MG Tablet Oral Medication List reviewed and reconciled with the patient * Allergies:?Erythromycin Base : Allergy - Onset Date 11/28/2023no[Allergies Verified] Objective: * Vitals:?BP:136/79mm Hg, HR:9 3/min, Ht: 64.00 in, Ht-cm: 162.56 cm. * Examination: ???Psychiatry: ?Appearance:?well-groomed, well-nourished, ....?Affect / mood:?appropriate, full range.?Attention:?good.?Attitude:?cooperative.?Suicidal ideation:?none.?Memory status:?no impairment noted.?Degree of awareness of surroundings:?within normal limits.?Delusions:?no.?Hallucinations:?no.?Insight:?good.?Intellectual functioning:?no impairment noted.?Judgement:?good.?Orientation:?awake, alert and oriented x 3.?Perceptual disorders:?no perceptual disorder noted.?Psychomotor activity:?within normal range.?Speech / language:?appropriate pitch/modulation, clear and coherent, normal rate, volume, and articulation (RVR), proper grammar used.?Thought content:?appropriate.?Thought process:?intact.?General Examination: ???- Mental Status Examination: - Patient reports feeling a little blah but not severely depressed. - Expresses ongoing worries about her 's well-being and experiences overwhelming thoughts at night. - Describes a sense of darkness at night, managed by cooling her foot. - No suicidal ideations or self-hatred, but occasional self-directed anger. - Sleep disturbances noted, with difficulty falling asleep due to racing thoughts. - Physical Examination: - Patient reports recent issues with jaw alignment and partial loss of taste buds as per her dentist. . Assessment: * Assessment: 1.?Major depressive disorder , recurrent, mild - F33.0 (Primary)???2.?Generalized anxiety disorder - F41.1??? 1. Major Depressive Disorder and anxiety :- The patient reports feeling less upbeat compared to when she was on Pristiq or Celexa, but overall is doing okay. She experiences racing thoughts at night and occasional feelings of darkness. She is currently on sertraline 150 mg daily, which she reports is better than 200 mg, which made her more anxious.Plan:- Continue sertraline 150 mg daily.- Encourage the patient to write down her feelings or thoughts that are bothering her.- Reassess the patient's mood and response to sertraline in 3 months. If the patient still feels the same way, consider discussing alternative medications, such as Wellbutrin or bupropion, given that she has no history of seizures.2. Sleep disturbance:- The patient has trouble falling asleep due to racing thoughts. She tries to read or watch videos to distract herself.Plan:- Encourage the patient to practice good sleep hygiene, such as establishing a regular sleep schedule, creating a relaxing bedtime routine, and avoiding stimulating activities before bed.- Reassess sleep quality in 3 months. Plan: * Treatment: 2.?Generalized anxiety disor konstantin? Notes: cont alprazolam 0.25mg daily prn- she has not used for a long time?? * Procedure Codes:?72255 BEHAV ASSMT W/SCORE & DOCD/STAND [id number] VISIT COMPLEXITY INHERENT TO ONGOING CARE RELATED TO A PATIENT'S SINGLE, SERIOUS CONDITION OR A COMPLEX CONDITION * Follow Up:?3 Months (Reason: f/u anxiety, depression) * Billing Information: * Visit Code:? 09244 OFFICE OUTPATIENT VISIT 25 MINUTES DETAILED HISTORY AND EXAM/MODERATE MEDICAL DECISION MAKING. * Procedure Codes:? 56801 BEHAV ASSMT W/SCORE & DOCD/STAND INSTRUMENT. G2211 VISIT COMPLEXITY INHERENT TO ONGOING CARE RELATED TO A PATIENT'S SINGLE, SERIOUS CONDITION OR A COMPLEX CONDITION. * Sign off status: Completed true * Provider:?ALYSSA THORNTON Date:? 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 History and Physical Notes * HPI (History of Present Illness) Category Sub-Category Detail Notes Category Not es History of Presenting Problem Anxiety Onset: year s ago Depression Onset: years ago Psychotherapy has done in the past Depression screening PHQ-9 Little inte rest or pleasure in doing things: Several days Feeling down, depressed, or hopeless: No t at all Trouble falling or staying asleep, or sl eeping too much: Several days Feeling tired or having little energy: S everal days Poor appetite or overeating: Not at all Feeling bad about yourself o r that you are a failure, or have let yourself or your family down: Not at all Trouble concentrating on thi ngs, such as reading the newspaper or watching television: Not at all Moving or speaking so slowly that other people could have noticed; or the opposite, being so fidgety or restless that you have been moving around a lot more than usual: Not at all Thoughts that you would be b yesenia off or of hurting yourself in some way: Not at all Total Score: 3 Interpretation: Minimal Depression Intervention Depression Screening Findings: N egative Follow-Up for Depression: Mental health care management Suicide Risk Assessment Performed: 05/13 Additional Evaluation for Depression: Ps ychiatric interview and evaluation Name of the standardized too l used for adult depression screening:: Patient Health Questionnaire (PHQ-9) Depression Screening ALANNA-7 (2018 Edition) Feelin g nervous, anxious, or on edge: Several days Not being able to stop or control worrycorbin guerin: Several days Worrying too much about different things : Several days Trouble relaxing: Nearly every day Being so restless that it is hard to sit still: Not at all Becoming easily annoyed or irritable: No t at all Feeling afraid as if something awful daphne ht happen: Nearly every day Total ALANNA-7 Score: 9 If you checked any problems, how difficult have they made it for you to do your work, take care of things at home, or get along with other people?: Somewhat difficult Interpretation of Total: (5 to 9) Mild Casey-Suicide Severity Rating Scale Suicide Risk (CSRS-screener) in the past one month Have you wished you were or wished you could go to sleep and not wake up?: No in the past one month Have y ou actually had any thoughts of killing yourself?: No ?Have you ever done anything , started to do anything, or prepared to do anything to end your life?: No Examination Category Sub-Category Detail Notes Category Not es Psychiatry Appearance: well-groomed, well-nourished , ... Attitude: cooperative Psychomotor activity: within normal rang e Attention: good Degree of awareness of surroundings: wit hin normal limits Orientation: awake, alert and steve ented x 3 Affect / mood: appropriate, full ra nge Speech / language: appropriate pitch/mo dulation, clear and coherent, normal rate, volume, and articulation (RVR), proper grammar used Insight: good Judgement: good Thought process: intact Thought content: appropriate Perceptual disorders: no perceptual diso rder noted Suicidal ideation: none Intellectual functioning: no impairment noted Memory status: no impairment noted Delusions: no Hallucinations: no General Examination - Mental Status Examination: - Patient reports feeling a little blah but not severely depressed. - Expresses ongoing worries about her 's well-being and experiences overwhelming thoughts at night. - Describes a sense of darkness at night, managed by cooling her foot. - No suicidal ideations or self-hatred, but occasional self-directed anger. - Sleep disturbances noted, with difficulty falling asleep due to racing thoughts. - Physical Examination: - Patient reports recent issues with jaw alignment and partial loss of taste buds as per her dentist. .
--- OUTSIDE RECORDS SUMMARY | 2024-08-28 14:20 | XMS_ITS | Encounter Summary ---
Author Organization [facility] Address 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 Gender Identity Not on file Sexual Orientation Not on file documented as of this encounter Plan of Treatment Upcoming Encounters Date Type Department Care Team (Late st Contact Info) Description 07/01/2025 10:45 AM ELASTIC YARN TWISTER HELPER Office Visit [facility] - [place] [address] [place] [address] Galdino Pichardo MD [address] [address] documented as of this encounter Visit Diagnoses Diagnosis Other screening mammogram- Primary documented in this encounter Care Teams Dry House Attendant Relationship Specialty Start Date End Date iRcky Lowery MD [address] [place] [address] PCP - General Family Practice 11/06/09 documented as of this encounter
--- OUTSIDE RECORDS SUMMARY | 2024-08-28 14:20 | XMS_ITS | Encounter Summary ---
Author Organization [facility] Address [address] [place] [address] Care Team Providers Care Leather Skinner Name Role Phone Ricky Lowery MD Primary Care Provider [phone] Encounter Details Date Type Department Care Team (Latest Contact Info) Description 09/18/[address] 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 Gender Identity Not on file Sexual Orientation Not on file documented as of this encounter Plan of Treatment Upcoming Encounters Date Type Department Care Team (Late st Contact Info) Description 07/01/2025 10:45 AM E COMMERCE MERCHANT Office Visit [facility] O[facility] - [place] [address] [place] [address], [address] [address] Galdino Pichardo MD [address] [address] documented as of this encounter Visit Diagnoses Diagnosis Other follow-up examination(V67.59)- Primary Other follow-up examination documented in this encounter Care Teams Leather Skinner Relationship Specialty Start Date End Date Ricky Lowery MD [address] [place] [address] PCP - General Family Practice 11/06/09 documented as of this encounter
--- OUTSIDE RECORDS SUMMARY | 2024-08-28 14:20 | XMS_ITS | Patient Health Record ---
Author Organization [facility] [employer] Address [address] [place] [address] Care Team Providers Care Turbine Attendant Name Role Phone Sky Kauffman Unavailable [phone] Migration, Provider Unavailable Unavailable Allergies Allergen (clinical drug ingredient) Drug/Non Drug Allergy documented on EMR Reaction Allergy Type Onset Date Status erythromycin Erythromycin Base Unknown Drug Allergy 2023 Active Reason For Referral No Information Medications Medication SIG (Take, Route, Frequency, Duration) Notes Start Date End Date Status Sertraline HCl 100 MG 1.5 tablet Oral On ce a day for 90 days Active Levothyroxine Sodium 75 MCG Oral 11/28/2023 Active Atorvastatin Calcium 10 MG Oral 11/28/2023 Active Social History Tobacco Use: Social History Observation Description Date Details (start date - stop date) Never Smoker NA - NA Sex Assigned At : Social History Observation Description Sex Assigned At Female Tobacco Control (Standard) Question Answer Notes Tobacco use: Nonsmoker Problems Problem Type SNOMED Code ICD Code Onset Dates Problem Status W/U Status Risk Notes Problem Mild recurrent major depression (47244979) Major depressive disorder, recurrent, mild (F33.0) Active confirmed Problem Generalized anxiety disorder (85373457) Generalized anxiety disorder (F41.1) Active confirmed Vital Signs Heart Rate 92 /min 08/12/2024 Height-cm 162.56 cm 08/12/2024 Blood pressure diastolic 71 mm Hg 08/12/2024 Weight-kg 61.14 kg 08/12/2024 Height 64.00 in 08/12/2024 Blood pressure systolic 138 mm Hg 08/12/2024 Weight 134.8 lbs 08/12/2024 BMI 23.14 kg/m2 08/12/2024 Encounters Encounter Location Date Provider Diagnosis [facility] [employer] [address] [place] [address] 10/09/2023 Sky Kauffman Major depressive disorder, recurrent, mild F33.0 and Generalized anxiety disorder F41.1 [facility], [facility] [address] [facility] [address] [place] [address] 11/28/2023 Sky Kauffman Major depressive disorder, recurrent, mild F33.0 and Generalized anxiety disorder F41.1 [facility], [place] [address] [facility] [address] [place] [address] 01/01/2024 Sky Kauffman Major depressive disorder, recurrent, mild F33.0 and Generalized anxiety disorder F41.1 [facility], [facility] [address] [address] 05/13/2024 Sky Kauffman Major depressive disorder, recurrent, mild F33.0 and Generalized anxiety disorder F41.1 [facility], [address] [address] 08/12/2024 Sky Kauffman Major depressive disorder, recurrent, mild F33.0 and Generalized anxiety disorder F41.1 [facility], [place] [address] [address] 11/08/2023 Provider Migration [facility], [place] [address] [address] 12/16/2023 Provider Migration [facility], [place] [address] [address] 12/17/2023 Provider Migration [facility], [place] [address] [address] 08/12/2024 Syk Kauffman Assessments Encounter Date Diagnosis (ICD Code) Assessment Notes Treatment Notes Treatment Clinical Notes Section Notes 10/09/2023 Major depressive disorder, recurrent, mild (ICD-10 - F33.0) 10/09/2023 Generalized anxiety disorder (ICD-10 - F41.1) 11/28/2023 Major depressive disorder, recurrent, mild (ICD-10 - F33.0) 11/28/2023 Generalized anxiety disorder (ICD-10 - F41.1) 01/01/2024 Major depressive disorder, recurrent, mild (ICD-10 - F33.0) cont sertraline 150mg daily- use [facility] pharmacy, Learning About How to Get Help During a Mental Health Crisis material was published 01/01/2024 Generalized anxiety disorder (ICD-10 - F41.1) cont alprazolam 0.25mg daily prn- she has not used for a long time, Learning About Generalized Anxiety Disorder material was published 05/13/2024 Major depressive disorder, recurrent, mild (ICD-10 - F33.0) cont sertraline 150mg daily- use [facility] pharmacy 1. Major Depressive Disorder and [...] - Reassess sleep quality in 3 months. 08/12/2024 Major depressive disorder, recurrent, mild (ICD-10 - F33.0) cont sertraline 150mg daily- use [facility] pharmacy 08/12/2024 Generalized anxiety disorder (ICD-10 - F41.1) cont alprazolam 0.25mg daily prn- she has not used for a long time 05/13/2024 Generalized anxiety disorder (ICD-10 - F41.1) [...] - Reassess sleep quality in 3 months. 08/12/2024 Other 1. Depression and Anxiety: - Patient reports continued improvement on sertraline 150 mg daily. - Alprazolam 0.25 mg PRN use remains minimal (approximately once every 3 months). Plan: - Continue sertraline 150 mg daily. - Continue alprazolam 0.25 mg PRN for anxiety as needed. - Monitor for any changes in mood or anxiety symptoms. 2. Sleep Disturbances: - Patient reports using reading as a coping mechanism for racing thoughts at night. - Patient also mentions using a cooling technique (placing foot out of bed) to help with overheating. Plan: - Encourage continued use of non-pharmacologi krzysztof strategies for sleep improvement. - Monitor for any changes in sleep patterns or quality. 3. Chronic Cough: - Patient reports having a cough for the past year. - Primary care provider plans to conduct pulmonary testing. Plan: - Await results of pulmonary testing. - Follow up with primary care provider for further evaluation and management. 4. History of Skin Cancer: - Patient reports previous skin cancer has been resolved. Plan: - Encourage regular skin checks and sun protection measures. - Monitor for any new skin concerns. 5. Follow-up: Plan: - Schedule a follow-up appointment in 4 months to assess the patient's progress and medication management. - [facility]. Plan Of Treatment Pending Test Test Name Order Date UDT 01/01/2024 Next Appt Details Provider Name:Sky read, 12/03/2024 01:00:00 PM, [address] [facility] [address], [facility] [address], [place], [address], Insurance Providers Payer Name Payer Address Payer Phone Subscriber Number Group Number Insured Name Patient Relationship to Insured Coverage Start Date Coverage End Date Medicare-I l Medicare [address] [place] [address] [id number] IRWIN PIÑA Self - patient is the insured [employer] [employer] [address] [place] [address] [id number] IRWIN PIÑA Self - patient is the insured Medical (General) History Medical History History ICD Code Problems: Generalized anxiety disorder History of anemia Long-term current use of drug therapy Mild recurrent major depression Vitamin D deficiency , skin cancer on nose, will have radiation 3 x per week x 7 weeks Surgical History Surgery Date(Month/Year) Appendectomy (49477) Cataract surgery (48934) 07/31/2019 Other 03/31/2011
--- OUTSIDE RECORDS SUMMARY | 2024-08-28 14:20 | XMS_ITS | Encounter Summary ---
Author Organization [facility] Address [address] [place] [address] Care Team Providers Care Umbrella Supervisor Name Role Phone Ricky Lowery MD Primary Care Provider [phone] Encounter Details Date Type Department Care Team (Latest Contact Info) Description 09/11/2003 Outpatient Historical HIS [facility] Galdino Demarco MD [address] [address] SCREENING MAMM-MAILG NEOPL-OTHER (Primary Dx) Social History Tobacco Use Types Packs/Day Years Used Date Smoking Tobacco: Never Assessed Comments Unknown Sex and Gender Information Value Date Recorded Sex Assigned at Not on file Legal Sex Female 3:29 AM PRIVATE INQUIRY AGENT Gender Identity Not on file Sexual Orientation Not on file documented as of this encounter Plan of Treatment Upcoming Encounters Date Type Department Care Team (Late st Contact Info) Description 07/01/2025 10:45 AM PRIVATE INQUIRY AGENT Office Visit [facility] O[facility] - [place] [address] [place] [address] Galdino Pichardo MD [address] [address] documented as of this encounter Visit Diagnoses Diagnosis Other screening mammogram- Primary documented in this encounter Care Teams Umbrella Supervisor Relationship Specialty Start Date End Date Ricky Lowery MD [address] [place] [address] PCP - General Family Practice 11/06/09 documented as of this encounter
--- OUTSIDE RECORDS SUMMARY | 2024-08-28 14:20 | XMS_ITS | Data Portability ---
Author Organization [place] [employer], Main Office Address [address] [place] [address] Care Team Providers Care Motor And Generator Brush Cutter Name Role Phone LATHA HIGHTOWER Primary Care Provider LATHA HIGHTOWER Referring Provider [phone] Assessment Encounter Date Assessment Date Assessment LastModified by Organization Details LastModified Time 03/24/2023 03/24/2023 HPI: 67-year-old female came in today for evaluation of her left knee symptoms. She states symptoms started about 2 or 3 months ago. Three months ago she was at [employer] and did an extensive amount of walking. she tolerated this well. When she got back home she had hemorrhoid surgery and was doing minimal activities for about a month. Once she started being more active she started having some symptoms in the left knee. Patient's symptoms are very intermittent. She may have 5 or 6 episodes a week and each episode may last 5-10 minutes. She will have pain in the anterior lateral aspect of the knee or in the posterior aspect of the knee. She does not recall any injury or trauma that happened to start the symptoms. She feels that came on spontaneous. She cannot recall any action or activity that makes them happened or improves them. She has not been taking any anti-inflammatori es to help with her symptoms. She does not like to take medication. She has had no prior problems with the knee. Physical exam: 67-year-old female alert pleasant. She is 5 ft 4 128 lb. She has no effusion in left knee. Range of motion is from 0-145 degrees. At 145? ? ? she has moderate pain in the posterior aspect of the knee. She has moderate to severe pain with patellofemoral grind and inhibition testing. She does have some mild tenderness over the mid medial joint line no lateral joint line tenderness. Hip range of motion is full without discomfort. Negative Stinchfield maneuver. Normal ligament exam to the knee. No swelling lower extremities. She walks very well without limp. Impression: Patient physical exam correlates to anterior knee pain syndrome. She may have some early osteoarthritis of the patellofemoral joint. She does have some mild symptoms in the medial aspect the knee which could correlate to a meniscal tear but I think this is less likely. It is difficult to know exactly if this is all anterior knee pain because her episodes are very brief and very infrequent. 1 would think that a meniscal tear would be more consistent with his symptoms and episodes. With her is being so intermittent and so brief I think that is more likely patellofemoral pain. Additional management I have recommended that she utilize the ibuprofen she has at home. Taking 600 mg twice a day for the next 2 weeks to see if there is improvement of her symptoms. She is going to try this measures and see how she does. Her symptoms are not debilitating or overly problematic. She mostly came in today to see if she had any significant underlying pathology which at this point she does not. If her symptoms not improve or worsen the next step would be to get an MRI scan of her knee and she understands as well. 30 minutes was spent in treatment patient more have this [id number] conversation Not available 03/24/2023 13:34:14 Plan of Treatment Reminders Order Date Submit Date Provider Last Modified By Organization Details Last Modified Time Details Appointments None record ed. Lab None record ed. Referral None record ed. Procedures None record ed. Surgeries None record ed. Imaging XR, knee 023 03/24/20 23 [email or web address] [facility] [place], [address], [place], [address], 3 10:55:06 Medication Orders None record ed. Patient TargetsNo targets recorded. Patient InstructionsNo instructions recorded. Reason for Referral None Reported. Results Created Date Observation Date Name Description Value Unit Range Abnormal Flag Note LastModifiedBy Organization Detail LastModifiedTime 03/24/20 XR, knee No observ ation record ed. [facility] [place] [address], [place], [address], 03/24/2023 13:29:31 Result Notes None recorded. Problems Name Problem SNOMED Code Status Onset Date Resolution Date Notes Provider Name and Address Organization Details Recorded Time Pain of left knee joint [id number] Active 2022 DOROTHY Arevalo [place] Emily [facility] [employer] [facility] 12:09:28 Problem Notes None recorded. Procedures Surgical History Date Name Laterality Status Provider Name and Address Organization Details Recorded Time 07/31/19 23 Hemorrhoidectomy completed Hailey Millard CNA [facility] [employer] [facility] 03/24/2023 12:08:56 07/31/19 11 Thyroid Surgery completed Hailey Millard CNA [facility] [employer] [facility] 03/24/2023 12:08:32 Imaging Results Imaging Date Name Status LastModified by Organiz ation Details LastModified Time 03/24/2023 XR, knee completed [facility] [place] [address], [place], [address], 03/24/2023 13:29:31 Procedure Notes None recorded. Medical Equipment None Reported. Medications Name Sig Start Date Stop Date Status Note LastModified by Organization Details LastModified Time amoxicillin 500 mg capsule TAKE 1 CAPSULE BY MOUTH THREE TIMES DAILY UNTIL ALL TAKEN 03/24 completed Not Available Not Available Not Available citalopram 40 mg tablet 03/24 completed Not Available Not Available Not Available atorvastatin 10 mg tablet TAKE 1 TABLET BY MOUTH DAILY 03/24 completed Not Available Not Available Not Available citalopram 10 mg tablet TAKE 2 TABLETS BY MOUTH DAILY FOR 5 DAYS THEN TAKE 1 TABLET BY MOUTH DAILY FOR 5 DAYS THEN STOP 03/24 completed Not Available Not Available Not Available sertraline 100 mg tablet TAKE 1 AND 1/2 TABLETS BY MOUTH EVERY DAY active Not Available Not Available No t Available levothyroxin e 75 mcg tablet TAKE 1 TABLET BY MOUTH DAILY active Not Available Not Available No t Available alprazolam 0.25 mg tablet TAKE 1 TABLET BY MOUTH EVERY DAY NEEDED active Not Available Not Available No t Available docusate sodium 100 mg capsule TAKE 1 CAPSULE BY MOUTH DAILY 03/24 completed Not Available Not Available Not Available sertraline 25 mg tablet TAKE 1 TABLET BY MOUTH DAILY FOR 7 DAYS THEN TAKE 2 TABLETS BY MOUTH DAILY FOR 7 DAYS 03/24 completed Not Available Not Available Not Available ergocalcifer ol (vitamin D2) 1,250 mcg (50,000 unit) capsule TAKE 1 CAPSULE BY MOUTH EVERY WEEK 03/24 completed Not Available Not Available Not Available oxycodone 5 mg tablet TAKE 1 TABLET BY MOUTH EVERY 4 HOURS NEEDED FOR PAIN 03/24 completed Not Available Not Available Not Available desvenlafaxi ne succinate ER 50 mg tablet,exten ded release 24 hr TAKE 1 TABLET BY MOUTH EVERY DAY active Not Available Not Available No t Available Linzess 72 mcg capsule TAKE 1 CAPSULE BY MOUTH DAILY 03/24 completed Not Available Not Available Not Available Vitals Date Recorded Body height Body mass index (BMI) Body weight Provider Name and Address Organization Details Last Updated DateTime 03/24/2023 162.56 cm 22 kg/m2 38071.82 g Hailey Millard CNA [employer] 03/24/2023 12:23:02 Social History Question Answer Notes LastModified by Organizat ion Details LastModified Time Tobacco Smoking Status Never Smoker Hailey Millard CNA [employer] 03/24/2023 12:08:12 What Is Your Level Of Alcohol Consumption? None [email or web address] Information not available 03/24/2023 Sex: Unknown Functional Status None recorded. Mental Status None recorded. Family History Relationship Description Onset Age of this Age Resolved Age Notes LastModified by Organization Details LastModified Time Father Family history of stroke [email or web address] Not available 2022 12:08:00 Mother Family history of stroke [email or web address] Not available 2022 12:08:00 Medical History Condition Response CANCER: SPECIFY Y Gynecological HistoryNo gynecological history recorded. Obstetrics History GPAL:G 0 P 0 0 0 0 Past Encounters Encounter ID Performer Location Encounter Start Date Encounter Closed Date Diagnosis/Indication Diagnosis SNOMED-CT Code Diagnosis ICD10 Code Diagnosis Note [id number] SHILPA Fern[facility]dez [facility] [place] [address] [place] [address] 03/24/2023 11:21:40 03/24/2023 14:28:21 Pain of left knee joint [id number] 97852 M25.562 Health Concerns Section Related Observation LastModified by Organization Detai ls LastModified Time None Recorded Concern Status LastModified by Organization Details LastModified Time None Recorded Advance Directives Directive None Recorded Payers Encounter Date Sequence Insurance Name Policy Number Policy White Covered Member ID White Member ID Guarantor Name 03/24/2023 1 [place] Aleshia Muñoz [id number] Aleshia Muñoz 03/24/2023 2 [place] [employer] ([place]O) [id number] Aleshia Muñoz [id number] Aleshia Muñoz OBGyn Episode No OBEpisode recorded.
--- OUTSIDE RECORDS SUMMARY | 2024-08-28 14:20 | XMS_ITS | Encounter Summary ---
Author Organization [facility] Address [address] [place] [address] Care Team Providers Care Email Designer Name Role Phone Ricky Lowery MD Primary Care Provider [phone] Encounter Details Date Type Department Care Team (Latest Contact Info) Description 09/12/2002 Outpatient Historical HIS [facility] Galdino Demarco MD [address] [address] SCREENING MAMM-MAILG NEOPL-OTHER (Primary Dx) Social History Tobacco Use Types Packs/Day Years Used Date Smoking Tobacco: Never Assessed Comments Unknown Sex and Gender Information Value Date Recorded Sex Assigned at Not on file Legal Sex Female 3:29 AM UMBRELLA SUPERVISOR Gender Identity Not on file Sexual Orientation Not on file documented as of this encounter Plan of Treatment Upcoming Encounters Date Type Department Care Team (Late st Contact Info) Description 07/01/2025 10:45 AM UMBRELLA SUPERVISOR Office Visit [facility] OBGYN - [place] [address] [place] [address] Galdino Pichardo MD [address] [address] documented as of this encounter Visit Diagnoses Diagnosis Other screening mammogram- Primary documented in this encounter Care Teams Email Designer Relationship Specialty Start Date End Date Ricky Lowery MD [address] [place] [address] PCP - General Family Practice 11/06/09 documented as of this encounter
--- OUTSIDE RECORDS SUMMARY | 2024-08-28 14:20 | XMS_ITS | Encounter Summary ---
Author Organization [facility] Address [address] [place] [address] Care Team Providers Care Administrative Operations Coordinator Name Role Phone Ricky Lowery MD Primary Care Provider [phone] Encounter Details Date Type Department Care Team (Latest Contact Info) Description 06/03/1999 Outpatient Historical HIS [facility] Galdino Demarco MD [address] [address] Other screening mammogram (Primary Dx) Social History Tobacco Use Types Packs/Day Years Used Date Smoking Tobacco: Never Assessed Comments Unknown Sex and Gender Information Value Date Recorded Sex Assigned at Not on file Legal Sex Female 3:29 AM SPECIAL SERVICES SUPERVISOR Gender Identity Not on file Sexual Orientation Not on file documented as of this encounter Plan of Treatment Upcoming Encounters Date Type Department Care Team (Late st Contact Info) Description 07/01/2025 10:45 AM SPECIAL SERVICES SUPERVISOR Office Visit [facility] OBGYN - [place] [address] [place] [address] Galdino Pichardo MD [address] [address] documented as of this encounter Visit Diagnoses Diagnosis Other screening mammogram- Primary documented in this encounter Care Teams Administrative Operations Coordinator Relationship Specialty Start Date End Date Ricky Lowery MD [address] [place] [address] PCP - General Family Practice 11/06/09 documented as of this encounter
--- OUTSIDE RECORDS SUMMARY | 2024-08-28 14:20 | XMS_ITS | Clinical Summary ---
Author Organization [facility] Address [address] [place] [address]. [place] [address] [place] [address] Care Team Providers Care Oracle R12 Developer Name Role Phone Ricky Lowery MD Primary Care Provider [phone] Allergies Active Allergy Reactions Criticality Noted Date Comments Erythromycin Other (see comment) High 04/02/2019 glass in stomach Medications citalopram 40 MG tablet Take 80 mg by mouth daily. Active atorvastatin 10 MG tablet Take 10 mg by mouth nightly at bedtime. Active levothyroxine 100 MCG tablet Take 100 mcg by mouth every morning. Active Probiotic Product (ALIGN) 4 MG Cap Take 4 mg by mouth. Active docusate sodium 100 MG capsule Take 100 mg by mouth every other day. Active Desvenlafaxine Succinate (PRISTIQ OR) Take 150 mg by mouth nightly. Active Active Problems Problem Noted Date Diagnosed Date Nuclear age-related cataract, right eye 04/08/20 19 Social History Tobacco Use Types Packs/Day Years Used Date Smoking Tobacco: Never Smokeless Tobacco: Never Alcohol Use Standard Drinks/Week Comments No 0 (1 standard drink = 0.6 oz pur e alcohol) AUDIT-C Answer Date Recorded Frequency of Alcohol Consumption Never 04/02/2019 Average Number of Drinks Not on file 019 Frequency of Binge Drinking Not on file 09/2018 Comments No Sex and Gender Information Value Date Recorded Sex Assigned at Not on file Legal Sex Female 3:13 PM CDT Gender Identity Not on file Sexual Orientation Not on file Last Filed Vital Signs Vital Sign Reading Time Taken Comments Blood Pressure 121/73 05/13/2019 9:43 AM CDT Pulse 82 05/13/2019 9:43 AM CDT Temperature 36.9 ??C (98.5 ??F) 05/13/2019 7:44 AM CD T Respiratory Rate 20 05/13/2019 7:44 AM CDT Oxygen Saturation 99% 05/13/2019 9:43 AM CDT Inhaled Oxygen Concentration - - Weight 55.3 kg (122 lb) 05/06/2019 1:32 PM CDT Height 162.6 cm (5' 4 ) 05/06/2019 1:32 PM CDT Body Mass Index 20.94 05/06/2019 1:32 PM CDT Plan of Treatment Health Maintenance Due Date Last Done Comments Colorectal Cancer Screening Colonoscopy (10 Years) 1955 Hepatitis C 10/04/1975 DTaP, Tdap and Td Vaccines ( 1 - Tdap) 1976 Mammogram Screening 1997 Zoster Vaccines (2 of 2) 05/22/2018 03/27/2018 Dexa Scan (General) 2022 Pneumococcal Vaccine: 65+ Ye ars (1 of 1 - PCV) 2022 COVID-19 Vaccine (2023-2 5 season) 2024 Influenza Adult (#1) 2024 04/10/2018 RSV Immunization or 60+ Years (1 - 1-dose 75+ series) 2032 Meningococcal B Vaccine Aged Out No l onger eligible based on patient's age to complete this topic Meningococcal Vaccine Aged Out No zohreh brennan eligible based on patient's age to complete this topic RSV Immunizations Under 20 Months Aged Out No longer eligible based on patient's age to complete this topic Medical Devices Implanted Type Area Piston Maker Device Identifier Shelf Expiration Date Model / Serial / Lot Iol Panfilo Symfony Toric [id number] - [id number] Implanted:Qty: 1 on 04/08/2019 by Danish Mendoza MD at [facility] Lens PANFILO 06/19/2021 [id number] / [id number] / Iol Tecnis Multifocal Symphony [id number] - [id number] Implanted:Qty: 1 on 05/13/2019 by Danish Mendoza MD at [facility] Lens Left: Eye PANFILO 06/01/2021 [id number] / [id number] / Insurance [facility] Care Teams Oracle R12 Developer Relationship Specialty Start Date End Date Ricky Lowery MD [address] [place] [id number] PCP - General FAMILY PRACTICE 04/02/19
--- OUTSIDE RECORDS SUMMARY | 2024-08-28 14:20 | XMS_ITS | Clinical Summary ---
Author Organization [facility] Address [address], [address] [address] Phone Care Team Providers Care Control Board Operator Name Role Phone Ricky Lowery MD Primary Care Provider [phone] Social History Tobacco Use Types Packs/Day Years Used Date Smoking Tobacco: Never Assessed Comments Unknown Sex and Gender Information Value Date Recorded Sex Assigned at Not on file Legal Sex Female 7:42 PM CDT Gender Identity Not on file Sexual Orientation Not on file Plan of Treatment Health Maintenance Due Date Last Done Comments DEXA Bone Density 1955 Hepatitis C Virus (HCV) Screening 1955 TdaP Immunization 1955 Cologuard 10/04/2007 Immunochemical Fecal Occult Blood 10/04/2007 Mammogram 10/04/2007 Pneumococcal Immunization (5 0+ years) (1 of 1 - PCV) 10/04/2007 Zoster Immunization (1 of 2) 10/04/2007 Colonoscopy 02/12/2024 02/11/2019 Colorectal Cancer Screening 02/12/2024 Influenza Immunization (#1) 2024 SARS-COV-2 Immunization ( season) 2024 Respiratory Syncytial Virus (RSV) Immunization (Adult) (1 - 1-dose 75+ series) 2032 02/11/2019 Hepatitis B Immunization Aged Out No longer eligible based on patient's age to complete this topic Meningococcal Immunization (ACWY) Aged Out No longer eligible based on patient's age to complete this topic Rotavirus Immunization Aged Out No lo nger eligible based on patient's age to complete this topic Procedures Procedure Name Priority Date/Time Associated Diagnosis Comments COLONOSCOPY Routine 02/11/2019 from Last 3 Months or Most Recently Relevant to Health Maintenance Results * COLONOSCOPY (02/11/2019) Sp Pablo Cerna DO PROCEDURE/MINOR SURGICAL ORDERA BLES Final Result from Last 3 Months or Most Recently Relevant to Health Maintenance [place] [address] [facility] Care Teams Control Board Operator Relationship Specialty Start Date End Date Ricky Lowery MD [address] [place] [address] PCP - General Family Medicine 11/16/18
--- OUTSIDE RECORDS SUMMARY | 2024-08-28 14:20 | XMS_ITS | Encounter Summary ---
Author Organization [facility] Address [address] [place] [address] Care Team Providers Care Tactical/Mobile Watch Officer Name Role Phone Ricky Lowery MD Primary Care Provider [phone] Encounter Details Date Type Department Care Team (Latest Contact Info) Description 07/20/2000 Outpatient Historical HIS [facility] Galdino Demarco MD [address] [address] Other screening mammogram (Primary Dx) Social History Tobacco Use Types Packs/Day Years Used Date Smoking Tobacco: Never Assessed Comments Unknown Sex and Gender Information Value Date Recorded Sex Assigned at Not on file Legal Sex Female 3:29 AM TUBER MACHINE OPERATOR HELPER Gender Identity Not on file Sexual Orientation Not on file documented as of this encounter Plan of Treatment Upcoming Encounters Date Type Department Care Team (Late st Contact Info) Description 07/01/2025 10:45 AM TUBER MACHINE OPERATOR HELPER Office Visit [facility] OBGYN - [place] [address] [place] [address] Galdino Pichardo MD [address] [address] documented as of this encounter Visit Diagnoses Diagnosis Other screening mammogram- Primary documented in this encounter Care Teams Tactical/Mobile Watch Officer Relationship Specialty Start Date End Date Ricky Lowery MD [address] [place] [address] PCP - General Family Practice 11/06/09 documented as of this encounter
--- OUTSIDE RECORDS SUMMARY | 2024-08-28 14:20 | XMS_ITS | Continuity of Care Document ---
Author Organization [facility] Address [address] [place] [address] [address] [place] [address] Phone Care Team Providers Care Furniture Arranger Name Role Phone [facility] Unavailable Unavail able Tessa Irby Unavailable Unavailable Advance Directives Directive Yes / No Effective Date File Name No Information Encounters Encounter Description Practice Location Reason(s) For Visit Diagnoses Date Provider Providers Copied on Encounter [facility], [address] [place], [place], [id number], [place] tel:[phone] [facility] No Information Sep-0 7-200 5 [facility] [employer] [facility], [address], [place], [place], [id number] , [place]. [phone] Consulting Provider: Tessa Irby, [address] [place] [address], [address]. tel:[phone] Family History Family Member Type Diagnosis Age At Onset No Information Payers Payer name Insurance type Covered constitution party ID Authoriza tion(s) No Information Social History Type Description Quantity Date Captured Comments Sex Female Smoking Status No Information Chief Complaint And Reason For Visit No Information Reason For Referral Reason For Referral No Information History Of Present Illness Encounter Date Complaint History Of Prese nt Illness No Information Functional Status Date Functional Assessmen t No Information Instructions Date Instruction Additional Infor mation No Information Assessments Type Assessment Date No Information Patient Care Teams Name Effective Dates (start - stop) Status Members No Information
--- NOTE | 2024-08-28 14:46 | ECHO_ITS ---
Patient Info Name: Aleshia Muñoz Age: 68 years : 1955 Gender: Female Ht: 63 in Wt: 132 lbs BSA: 1.64 m2 HR: 95 bpm BP: 136 / 69 mmHg Technical Quality: Fair Exam Date: 08/28/2024 2:53 PM Exam Location: Echo Lab Patient Status: Outpatient Admit Date: 08/28/2024 Staff Ordering Physician: Joceline Navarro PAC Ship Purser: Brandi Tucker RDCS Attending Provider: Joceline Navarro Referring Physician: Melanie GALAN; Exam Type: CA echo doppler color flow Study Info Indications - CHRONIC COUGH - Dyspnea, Unspecified Complete two-dimensional, color flow and Doppler transthoracic echocardiogram is performed. Summary 1. Complete two-dimensional, color flow and Doppler transthoracic echocardiogram is performed. 2. Left ventricular chamber dimension is normal. 3. Left ventricular systolic function is normal, estimated at 60-65%. 4. There is mild concentric increased left ventricular wall thickness. 5. The left ventricular diastolic function is grade I diastolic dysfunction. 6. E/e' 9 is minimally elevated. 7. There is trace to small circumferential pericardial effusion. Left Ventricle E/e' 9 is minimally elevated. Left ventricular chamber dimension is normal. Left ventricular systolic function is normal, estimated at 60-65%. There is mild concentric increased left ventricular wall thickness. The left ventricular diastolic function is grade I diastolic dysfunction. Right Ventricle Right ventricular chamber dimension is normal. Right ventricular systolic function is normal. Left Atria Left atrial chamber dimension is normal. Right Atria Right atrial chamber dimension is normal. Aortic Valve The aortic valve is trileaflet. There is no aortic valve stenosis. There is no aortic valve regurgitation. Pulmonic Valve There is no pulmonic regurgitation. Mitral Valve There is no mitral valve stenosis. There is no mitral valve regurgitation. Tricuspid Valve There is no tricuspid valve regurgitation. Pericardium/Pleural There is trace to small circumferential pericardial effusion. No cardiac tamponade. Inferior Vena Cava Normal inferior vena cava with >50% collapse upon inspiration consistent with normal right atrial pressure, 5 mmHg. Aorta The aortic root size at the sinus of Valsalva is normal. Left Ventricular Outflow Tract Name Value Normal LVOT 2D LVOT Diameter 1.9 cm LVOT Doppler LVOT Peak Gradient 4 mmHg LVOT Mean Gradient 2 mmHg LVOT VTI 18 cm LVOT VTI/AV VTI Ratio 0.8 LVOT Stroke Volume 51 ml LVOT CO 4.1 l/min LVOT CI 2.5 l/min/m2 Pulmonic Valve Name Value Normal RVOT Doppler RVOT Peak Gradient 3 mmHg PV Doppler PV Peak Gradient 4 mmHg Mitral Valve Name Value Normal MV Doppler MV Decel [place] 402 cm/s2 MV PHT 43 ms MV Area (PHT) 5.1 cm2 4.0-5.0 MV Diastolic Function MV E Peak Velocity 59 cm/s MV A Peak Velocity 80 cm/s MV E/A 0.7 MV Decel Time 148 ms MV Annular TDI MV E/e' (Septal) 9.0 <=8.0 MV E/e' (Lateral) 9.2 <=8.0 MV E/e' (Average) 9.1 Tricuspid Valve Name Value Normal Estimated PAP/RSVP RA Pressure 5 mmHg <=5 Aorta Name Value Normal Ascending Aorta Ao Root Diameter (MM) 2.7 cm Ao Root Diam Index (MM) 1.6 cm/m2 Aortic Valve Name Value Normal AV Doppler AV Peak Velocity 117 cm/s AV Peak Gradient 5 mmHg AV Mean Gradient 4 mmHg AV VTI 23 cm AV Area (Cont Eq VTI) 2.3 cm2 >=3.0 AV Area (Cont Eq Ra) 2.4 cm2 AV Regurgitation 2D LVOT Area 2.8 cm2 Ventricles Name Value Normal LV Dimensions 2D/MM IVS Diastolic Thickness (2D) 1.2 cm 0.6-1.0 LVID Diastole (2D) 3.8 cm 3.8-5.2 LVIW Diastolic Thickness (2D) 0.8 cm 0.6-0.9 LVID Systole (2D) 2.6 cm 2.2-3.5 LVOT Diameter 1.9 cm LV Mass (2D Cubed) 117.97 g 67.00-162.00 LV Mass Index (2D Cubed) 72 g/m2 43-95 Relative Wall Thickness (2D) 0.44 LV Fractional Shortening/Ejection Fraction 2D/MM LV Fractional Shortening (2D) 32 % 27-45 LV EF (2D Teicholz) 61 % 54-74 LV Diastolic Volume (4C MOD) 50 ml LV EF (4C MOD) 54 % LV Diastolic Volume (2C MOD) 46 ml LV EF (2C MOD) 45 % LV Diastolic Volume (BP MOD) 48 ml 46-106 LV Diastolic Volume Index (BP MOD) 29 ml/m2 29-61 LV Systolic Volume (BP MOD) 24 ml 14-42 LV Systolic Volume Index (BP MOD) 15 ml/m2 8-24 LV EF (BP MOD) 50 % 54-74 LV Diastolic Length (4C) 6.5 cm LV Systolic Length (4C) 5.3 cm LV Stroke Volume (4C MOD) 27 ml Atria Name Value Normal LA Dimensions LA Dimension (MM) 2.6 cm 2.7-3.8 LA Volume (4C A-L) 20 ml LA Volume (BP A-L) 27 ml RA Dimensions RA Area (4C) 12.9 cm2 <=18.0 Report Signatures
--- NOTE | 2024-08-28 16:21 | WPDPFTINT ---
PFT Procedure Performed PFT Procedure Performed Spirometry with Pre/Post Bronchodilator Plethysmography (Lung Vol) Diffusing Cap (DLCO) Flow Vol Loop PFT Interpretation This is a pulmonary function test with pre and post-bronchodilator spirometry, plethysmography and diffusing capacity. The test was performed and results interpreted in accordance with the 2019 and 2005 ATS/ERS Task Force guidelines respectively using the Global Lung Function Initiative-2012 reference equations. Patient demonstrated good effort and cooperation. Reproducibility criteria were met. The quality of the pre bronchodilator spirometry maneuver was Grade A and post bronchodilator spirometry maneuver was Grade A. Of note, the patient had persistent coughing throughout the testing. Findings: Spirometry: The contour the inspiratory and expiratory flow tracing are normal. The pre bronchodilator FVC is 2.36 L, 92% predicted. The pre bronchodilator FEV1 is 1.79 L, 86% predicted. The pre bronchodilator FEV1: FVC ratio 76%. The post bronchodilator FVC is 2.29 L, representing a 3% decrease. The post bronchodilator FEV1 is 1.72 L, representing a 4% decrease. The post bronchodilator FEV1: FVC ratio 75%. Plethysmography: The total lung capacity is 3.78 L, 74% predicted. The functional residual capacity is 2.35 L, 81% predicted. The residual volume is 1.36 L, 64% predicted. Diffusing capacity: The diffusing capacity unadjusted for hemoglobin and carboxyhemoglobin is 11.0, 52% predicted. The diffusing capacity adjusted for alveolar volume is 4.49, 103% predicted. Impression: There is a mild restrictive ventilatory abnormality with a normal FEV1. The spirometry is normal without evidence of an obstructive abnormality. There is no significant improvement after inhaling a single dose of albuterol. The diffusing capacity unadjusted for hemoglobin and carboxyhemoglobin is moderately decreased and normalizes when adjusted for alveolar volume. There are no prior studies for comparison
== END 2024-08-28 13:29 | disposition home or self-care (01) ==
PROVIDERS: PCP Family Medicine; Visit Provider Physician Assistant Medical
DX: R94.2 Abnormal results of pulmonary function studies (principal); R05.3 Chronic cough; R06.00 Dyspnea, unspecified
CPT/HCPCS: 93306; 94060; 94726; 94729

== ENCOUNTER 2024-10-23 15:52 | Outpatient (CLI) | payer MEDICARE, BC, SELFPAY ==
--- NOTE | ~2024-10-23 | CT_ITS ---
EXAMINATION: CT diagnostic chest wo con DATE: 10/23/2024 16:13 INDICATION: Chronic cough TECHNIQUE: Computed tomography (CT) of the chest was performed without intravenous contrast. The dose -length product was 127.54 mGy-cm.. Automated exposure control and iterative reconstruction technique were employed. COMPARISON: CT dated 01/05 2021 FINDINGS: Heart size normal. Small pericardial effusion. No significant pleural effusion. No thoracic lymphadenopathy. Stable chronic apical pleural thickening/scarring. There are stable bilateral pleur al plaques with peripheral interstitial changes predominantly of the upper lungs. No endobronchial le sions. Stable right lower lobe pleural-based nodule measuring 4 mm. Stable 4 mm right upper lobe nodu le. Mild thoracic spondylosis. IMPRESSION: 1. Stable chronic biapical pleural thickening/scarring with patchy areas of pleural thickening and ch ronic interstitial lung disease affecting the upper lobes. 2: Stable bilateral pulmonary nodules, likely benign. 3: Small pericardial effusion. Reviewed, dictated and finalized at location A. IMPRESSION: 1. Stable chronic biapical pleural thickening/scarring with patchy areas of ple ural thickening and chronic interstitial lung disease affecting the upper lobes . 2: Stable bilateral pulmonary nodules, likely benign. 3: Small pericardial effusion.
--- OUTSIDE RECORDS SUMMARY | 2024-10-23 17:01 | XMS_ITS | Clinical Summary ---
Author Organization [facility] Address [address] [place] [address] Phone Care Team Providers Care Combatant Swimmer Name Role Phone Ricky Lowery MD Primary Care Provider [phone] Allergies Active Allergy Reactions Criticality Noted Date [...] Encounters Date Type Department Care Team Description 10/16/2024 External Device Data STL ABSTRACTION Provider, Abstract 10/05/2024 External Device Data STL ABSTRACTION Provider, Abstract 10/04/2024 External Device Data ST[facility] ABSTRACTION Provider, Abstract 10/02/2024 External Device Data ST[facility] ABSTRACTION Provider, Abstract 10/01/2024 External Device Data ST[facility] ABSTRACTION Provider, Abstract 09/17/2024 External Device Data STL ABSTRACTION Provider, Abstract 08/21/2024 External Device Data STL ABSTRACTION Provider, Abstract 08/20/2024 External Device Data STL ABSTRACTION Provider, Abstract 08/13/2024 External Device Data STL ABSTRACTION Provider, Abstract from Last 3 Months Immunizations Immunization Administration Dates Next Due (INBEP) COVID-19 VACCINE - EMERGENCY USE AUTHORIZATION, AD26,COV2S(PF) [...] Osteoporosis Mother Stroke Mother High Cholesterol Other H-Lalito Hypertension Other H-Lalito Heart Disease Paternal Grandfather Heart Disease Paternal [...] on file Legal Sex Female 3:29 AM FRAUD REPRESENTATIVE Gender Identity Not on file Sexual Orientation [...] 60.3 kg (133 lb) 06/25/2024 10:42 AM FRAUD REPRESENTATIVE Height 165.1 cm (5' 5 ) 06/25/2024 10:42 AM FRAUD REPRESENTATIVE Body Mass Index 22.13 06/25/2024 10:42 AM FRAUD REPRESENTATIVE Plan of Treatment Upcoming Encounters Date Type Department Care Team (Late st Contact Info) Description 07/01/2025 10:45 AM FRAUD REPRESENTATIVE Office Visit [facility] [address] [address] Galdino Pichardo MD [address] [address] Health Maintenance Due Date Last Done Comments DTAP/TDAP/TD VACCINES (1 - Tdap) 1976 FIT-DNA Q 3 years 2002 FIT/FOBT Q 1 year 2002 Flex Sig/CT Colonography Q 5 years 2002 ZOSTER VACCINE (2 of 2) 05/22/2018 03/27/2018 PNEUMOCOCCAL VACCINE 50+ YEA RS (2 of 2 - PCV) [...] OR MORE SITES Routine 07/22/2024 10:58 AM FRAUD REPRESENTATIVE Menopause MAMMO 3D LOLA SCREEN BILAT W OR WO CAD Routine 07/11/2024 12:23 PM FRAUD REPRESENTATIVE Visit for screening mammogram from Last 3 Months or Most Recently Relevant to Health Maintenance Results * XR DEXA BONE DENSITY AXIAL 1 OR MORE SITES (07/22/2024 10:58 AM FRAUD REPRESENTATIVE) Anatomical Region Laterality Modality Digital Radiogra phy 07/22/2024 10:5 9 AM FRAUD REPRESENTATIVE Impressions 07/22/2024 11:13 AM FRAUD REPRESENTATIVE IMPRESSION: Osteopenia. Lumbar Spine: T-score: 1.3 Left [...] report found in: Imaging Section of the [facility] EMR. Definitions: Normal: T-score above -1.0 [...] by Dr. Sp Champion MD DICTATION LOCATION: 07/22/2024 11:13 AM FRAUD REPRESENTATIVE EXAMINATION: BONE DENSITY STUDY (DXA) DATE: 07/22/2024 10:58 AM HISTORY: 68 years Female. Postmenopausal. Osteopenia. PROCEDURE: Planar images of the lumbar spine and hip(s). [employer] DEXA scanner for bone mineral density determination (BMD). Prior bone density: 2019 FINDINGS: Lumbar Spine (L1-L4): T-score: 1.3 1.334 g/sq cm Prior: 1.234 g/sq cm Left Femoral Neck: T-score: -1.6 0.815 g/sq cm Prior: 0.812 g/sq cm Left Total Femur: T-score: -1.4 Right Femoral Neck: T-score: -1.8 0.789 g/sq cm Prior: 0.778 g/sq cm Right Total Femur: T-score: -1.4 TECHNICAL ISSUES: None. Procedure Note Sp Champion MD - 07/22/2024 EXAMINATION: BONE DENSITY STUDY (DXA) DATE: 07/22/2024 10:58 AM HISTORY: 68 years Female. Postmenopausal. Osteopenia. PROCEDURE: Planar images of the lumbar spine and hip(s). [employer] DEXA scanner for bone mineral density determination [...] report found in: Imaging Section of the [facility] EMR. Definitions: Normal: T-score above -1.0 [...] W OR WO CAD (07/11/2024 12:23 PM FRAUD REPRESENTATIVE) Anatomical Region Laterality Modality Breast Bilateral Mammography 07/11/2024 12:2 4 PM FRAUD REPRESENTATIVE Impressions 07/11/2024 1:50 PM FRAUD REPRESENTATIVE IMPRESSION: Negative bilateral screening mammogram. Recommend routine followup. OVERALL FINAL ASSESSMENT: BI-RADS CATEGORY 1: Negative. DICTATION LOCATION: [facility] Narrative 07/11/2024 1:50 PM FRAUD REPRESENTATIVE BILATERAL SCREENING DIGITAL MAMMOGRAM WITH 3D TOMOSYNTHESIS [...] images were reviewed using the CAD system. Procedure Note Bhavani Cerda MD - 07/11/2024 [...] ASSESSMENT: BI-RADS CATEGORY 1: Negative. DICTATION LOCATION: [facility] Ricky Lowery MD MAMMO ORDERABLES Final Result from Last 3 Months or Most Recently Relevant to Health Maintenance Insurance [facility] MEDICARE PART A AND B Care Teams Combatant Swimmer Relationship Specialty Start Date End Date Ricky Lowery MD [address] [place] [id number] PCP - General Family Practice 11/06/09
--- OUTSIDE RECORDS SUMMARY | 2024-10-23 17:01 | XMS_ITS | Encounter Summary ---
Author Organization [facility] Address [address] [place] [address] Care Team Providers Care Manager Poker Name Role Phone Ricky Lowery MD Primary Care Provider [phone] Encounter Details Date Type Department Care Team (Latest Contact Info) Description 09/12/2006 Outpatient Historical HIS [facility] Galdino Demarco MD [address] [address] Other Screening Mammogram (Primary Dx) Social History Tobacco Use Types Packs/Day Years Used Date Smoking Tobacco: Never Assessed Comments Unknown Sex and Gender Information Value Date Recorded Sex Assigned at Not on file Legal Sex Female 3:29 AM CEMENT FINISHING SUPERVISOR Gender Identity Not on file Sexual Orientation Not on file documented as of this encounter Plan of Treatment Upcoming Encounters Date Type Department Care Team (Late st Contact Info) Description 07/01/2025 10:45 AM CEMENT FINISHING SUPERVISOR Office Visit [facility] OBGYN - [place] [address] [place] [address] Galdino Pichardo MD [address] [address] documented as of this encounter Visit Diagnoses Diagnosis Other screening mammogram- Primary documented in this encounter Care Teams Manager Poker Relationship Specialty Start Date End Date Ricky Lowery MD [address] [place] [address] PCP - General Family Practice 11/06/09 documented as of this encounter
--- OUTSIDE RECORDS SUMMARY | 2024-10-23 17:01 | XMS_ITS | Encounter Summary ---
Author Organization [facility] Address [address] [place] [address] Care Team Providers Care Security Associate Name Role Phone Ricky Lowery MD Primary Care Provider [phone] Encounter Details Date Type Department Care Team (Latest Contact Info) Description 09/28/2007 Outpatient Historical HIS [facility] Galdino Demarco MD [address] [address] Other Screening Mammogram Social History Tobacco Use Types Packs/Day Years Used Date Smoking Tobacco: Never Assessed Comments Unknown Sex and Gender Information Value Date Recorded Sex Assigned at Not on file Legal Sex 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 SOURCE OPERATOR Gender Identity Not on file Sexual Orientation Not on file documented as of this encounter Plan of Treatment Upcoming Encounters Date Type Department Care Team (Late st Contact Info) Description 07/01/2025 10:45 AM LIVE SOURCE OPERATOR Office Visit [facility] [place] [address] [place] [address], [address] [address] Galdino Pichardo MD [address] [address] documented as of this encounter Procedures Procedure Name Priority Date/Time Associated Diagnosis Comments MAMMO SCREEN BILAT W OR WO CAD Routine 09/28/2007 8:02 AM LIVE SOURCE OPERATOR documented in this encounter Results * MAMMO DIGITAL SCREEN BILAT (09/28/2007 8:02 AM LIVE SOURCE OPERATOR) Anatomical Region Laterality Modality Breast Bilateral Other 09/28/2007 8:02 AM LIVE SOURCE OPERATOR Narrative 09/28/2007 7:16 PM LIVE SOURCE OPERATOR [place] [address] [place], [place] [address] Admit Date: 09/28/2007 ALESHIA MUÑOZ Sex: F Admit Prov: GALDINO PICHARDO Date: 1955 Primary Care Prov: DEMARCO DAWSON CMRN: [id number] Room: JANAK N: [id number] IMAGING SERVICES Ordering Prov: GALDINO PICHARDO Accession Number: [id number] Interpretation BILATERAL SCREENING DIGITAL MAMMOGRAMS WITH COMPUTER ASSISTED DIAGNOSIS 09/28/2007 Comparison mammograms dating back to 2005 FINDINGS: The parenchyma is very dense bilaterally. This lowers the sensitivity of mammography in detecting disease. There is no mass, malignant calcification, lymphadenopathy, architectural distortion or other sign of malignancy. SUMMARY: Dense mammary parenchyma. No mammographic evidence of malignancy. The films were reviewed using the CAD system. Assessment BIRADS: 1-Negative Recommendation: Normal interval follow-up Dictated by: MICHELLE FAN Electronically signed by: MICHELLE FAN 09/28/2007 19:16 Transcribed: 09/28/2007 18:24 AMK Procedure Note Michelle Fan MD - 09/28/2007 [place] [address] [place], [place] [address] Admit Date: 09/28/2007 ALESHIA MUÑOZ Sex: F Admit Prov: GALDINO PICHARDO Date: 1955 Primary Care Prov: DEMARCO DAWSON CMRN: [id number] Room: JANAK SSN: [id number] IMAGING SERVICES Ordering Prov: GALDINO PICHARDO Interpretation BILATERAL SCREENING DIGITAL MAMMOGRAMS WITH COMPUTER [...] mammogram documented in this encounter Care Teams Security Associate Relationship Specialty Start Date End Date Ricky Lowery MD [address] [place] [address] PCP - General Family Practice 11/06/09 documented as of this encounter
--- OUTSIDE RECORDS SUMMARY | 2024-10-23 17:01 | XMS_ITS | Data Portability ---
Author Organization [facility] ANHAlfred Address [address] [place] [address] Assessment No assessment recorded. Plan of Treatment Reminders Order Date Submit Date Provider Last Modified By Organization Details Last Modified Time Details Appointments None recorded. Lab None recorded. Referral None recorded. Procedures None recorded. Surgeries None recorded. Imaging CT, sinuses, w/o contrast 2023 024 [facility], [address], [facility] [address], [place], [address], 5 15:36:59 Medication Orders azelastin e 137 mcg (0.1 %) nasal spray 2023 024 [facility] [facility] #[id number], [address], [id number], 4 12:00:50 cefdinir 300 mg capsule 2023 024 [facility] #[id number], [address], [id number], 4 10:13:[address] 10 mg tablet 2023 024 [facility] #[id number], [address], [id number], 4 11:48:02 Patient TargetsNo targets recorded. Patient InstructionsNo instructions recorded. Reason for Referral None Reported. Medical Equipment None Reported. Allergies Allergen ID Allergen Name Allergen Category Reaction Reaction Severity Criticality Documentation Date Start Date Code Code System Note Provider Name and Address Organization Details Recorded Time 350562 erythromy miller medicatio n Not available Not [...] height Body mass index (BMI) Body weight Heart rate Respiratory rate Body temperature Systolic blood pressure Diastolic blood pressure Provider Name and Address Organization Details Last Updated DateTime 4 162.56 cm 22.4 kg/m2 49998.4 5 g 66 /min 16 /min 98.1 [degF] 116 mm[Hg] 72 mm[Hg] Emily Hung MA [place] [facility] 4 11:37:36 Date Recorded Body height Body mass index (BMI) Body weight Heart rate Respiratory rate Body temperature Systolic blood pressure Diastolic blood pressure Provider Name and Address Organization Details Last Updated DateTime 4 162.56 cm 22.9 kg/m2 02745.2 2 g 87 /min 16 /min 97.7 [degF] 123 mm[Hg] 74 mm[Hg] Emily Hung MA [facility] 4 11:44:11 Date Recorded Body height Body mass index (BMI) Body weight Heart rate Respiratory rate Body temperature Systolic blood pressure Diastolic blood pressure Provider Name and Address Organization Details Last Updated DateTime 4 162.56 cm 23 kg/m2 88488.3 8 g 86 /min 16 /min 98.1 [degF] 133 mm[Hg] 73 mm[Hg] Emily Hung MA [facility] 4 10:15:03 Social History Question Answer Notes LastModified by Organization Details LastModified Time Tobacco Smoking Status Never Smoker Emily Hung MA [facility] 03/26/2024 11:35:11 Do You Have An Advance [...] Or The Highest Degree You Have Received? [id number] Information not available 03/26/2024 What Was The Date Of Your Most Recent Tobacco Screening? 05/21/2024 Information not available 05/21/2024 Do You Have Any Pets? No Information not available 03/26/2024 What Is Your Relationship Status? Information not available 03/26/2024 Do You Feel Stressed (tense, Restless, Nervous, Or Anxious, Or Unable To Sleep At Night)? [id number] Information not available 03/26/2024 Do You Use [...] SNOMED-CT Code Diagnosis ICD10 Code Diagnosis Note [id number] MD Maine Howard (Adult Med) [address] [place] [address] 03/26/2024 11:18:41 04/02/2024 16:17:26 Chronic rhinitis 24029995 J31.0 follow back in a month Chronic cough 32976808 R 05.3 Acute sinusitis 97818544 J01.90 [id number] MD Maine Howard (Adult Med) [address] [place] [address] 04/23/2024 11:20:14 04/24/2024 13:15:56 Allergic rhinitis 99119868 J30.9 follow back in a month Chronic cough 62928401 R 05.3 [id number] MD Maine Howard (Adult Med) [address] [place] [address] 05/21/2024 09:55:31 05/22/2024 09:19:06 Chronic cough 86172760 R05.[address] Health Concerns Section Related Observation LastModified by Organization Detai ls LastModified Time None Recorded Concern Status LastModified by Organization Details LastModified Time None Recorded Advance Directives Directive Y: Payers Encounter Date Sequence Insurance Name Policy Number Policy White Covered Member ID White Member ID Guarantor Name 03/26/2024 2 [place] 111 Aleshia Muñoz [id number] Aleshia Muñoz 03/26/2024 1 [place] Aleshia Bridges [id number] Aleshia Bridges 04/23/2024 1 [place] Aleshia Bridges [id number] Aleshia Bridges 04/23/2024 2 [place] 111 Aleshia Muñoz [id number] Aleshia Muñoz 05/21/2024 1 [place] Aleshia Muñoz [id number] Aleshia Bridges 05/21/2024 2 [place] 111 Aleshia Muñoz [id number] Aleshia Muñoz Notes Date Note Type Note Provider Name and Address Organization Details Recorded Time 03/26/2024 text/html Pt complaining o f a cough for the last 10 months. She has nasal congestion and drainage which improved with antihistamines and flonase but did not resolve. She does not complain of reflux Leighton Ashby MD Attn: Accounting,[address] [facility], [place], [address], [facility] 03/26/2024 11:48:03 04/23/2024 text/html Pt complaining o f nasal congestion and drainage. She has had a persistent cough. It has improved but not resolved. She is on flonase and montelukast Leighton Ashby MD Attn: Accounting[address] [facility], [place], [address], [facility] 04/23/2024 12:00:59 05/21/2024 text/html Pt complaining o f a chronic cough. She also has a problem with taste but not smell. She has not responded to nasal sprays or antibiotics Leighton Ashby MD Attn: Accounting,[address] [facility], [place], [address], [facility] 05/21/2024 10:28:31 OBGyn Episode No OBEpisode recorded.
--- OUTSIDE RECORDS SUMMARY | 2024-10-23 17:01 | XMS_ITS | Encounter Summary ---
Author Organization [facility] Address [address] [place] [address] Care Team Providers Care Skidder Lever Operator Name Role Phone Ricky Lowery MD Primary Care Provider [phone] Encounter Details Date Type Department Care Team (Latest Contact Info) Description 09/14/2004 Outpatient Historical HIS [facility] Galdino Demarco MD [address] [address] SCREENING MAMM-MAILG NEOPL-OTHER (Primary Dx) Social History Tobacco Use Types Packs/Day Years Used Date Smoking Tobacco: Never Assessed Comments Unknown Sex and Gender Information Value Date Recorded Sex Assigned at Not on file Legal Sex Female 3:29 AM BUSINESS SYSTEMS DEVELOPER Gender Identity Not on file Sexual Orientation Not on file documented as of this encounter Plan of Treatment Upcoming Encounters Date Type Department Care Team (Late st Contact Info) Description 07/01/2025 10:45 AM BUSINESS SYSTEMS DEVELOPER Office Visit [facility] O[facility] - [place] [address] [place] [address] Galdino Pichardo MD [address] [address] documented as of this encounter Visit Diagnoses Diagnosis Other screening mammogram- Primary documented in this encounter Care Teams Skidder Lever Operator Relationship Specialty Start Date End Date Ricky Lowery MD [address] [place] [address] PCP - General Family Practice 11/06/09 documented as of this encounter
--- OUTSIDE RECORDS SUMMARY | 2024-10-23 17:01 | XMS_ITS ---
Author Organization [facility] Huoshi [facility] Address [address] [facility] [address] [place] [address] Care Team Providers Care Supervisor Malt House Name Role Phone Sky Kauffman Unavailable [phone] REASON FOR VISIT Update Demographics - Personal Info Social History Sex Assigned At : Social History Observation Description Sex Assigned At Female Encounters Encounter Location Date Provider Diagnosis [facility] [place] [facility] [address] [facility] [facility] [address] [facility] [address] [place] [address] 08/12/2024 Sky Kauffman Plan Of Treatment Next Appt Details Provider Name:Sky read, 12/03/2024 01:00:00 PM, [address], [facility] [address], [place], [address], Progress Notes * JONATHON PIÑAOB: (68 yo F)Acc No.[id number]:08/12/2024 Patient: IRWIN KUO :1955 A ge:68 Y S ex:Female Phone: Address:[address] [place], [address] * true * Date: Generated for Printi ng/[place]/eTransmitting on: 0 10/23/2024 05:01 PM CDT
--- OUTSIDE RECORDS SUMMARY | 2024-10-23 17:01 | XMS_ITS | Encounter Summary ---
Author Organization [facility] Address [address] [place] [address] Care Team Providers Care Garbage Pick Up Man Name Role Phone Ricky Lowery MD Primary Care Provider [phone] Encounter Details Date Type Department Care Team (Latest Contact Info) Description 10/24/2008 Outpatient Historical HIS [facility] Galdino Demarco MD [address] [address] Other Screening Mammogram Social History Tobacco Use Types Packs/Day Years Used Date Smoking Tobacco: Never Assessed Comments Unknown Sex and Gender Information Value Date Recorded Sex Assigned at Not on file Legal Sex Female 3:29 AM HEALTH CARE LEGAL ASSISTANT Gender Identity Not on file Sexual Orientation Not on file documented as of this encounter Plan of Treatment Upcoming Encounters Date Type Department Care Team (Late st Contact Info) Description 07/01/2025 10:45 AM HEALTH CARE LEGAL ASSISTANT Office Visit [facility] OBGYN - [place] [address] [place] [address], [address] [address] Galdino Pichardo MD [address] [address] documented as of this encounter Procedures Procedure Name Priority Date/Time Associated Diagnosis Comments MAMMO SCREEN BILAT W OR WO CAD Routine 10/24/2008 7:47 AM CDT documented in this encounter Results * MAMMO DIGITAL SCREEN BILAT (10/24/2008 7:47 AM CDT) Anatomical Region Laterality Modality Breast Bilateral Other 10/24/2008 7:47 AM CDT Narrative 10/27/2008 8:17 PM CDT [facility] [address] [place], [place] [address] Admit Date: 10/24/2008 ALESHIA MUÑOZ Sex: F Admit Prov: GALDINO PICHARDO Date: 1955 Primary Care Prov: DEMARCO DAWSON CMRN: [id number] Room: [facility]: [id number] IMAGING SERVICES Ordering Prov: GALDINO PICHARDO Accession Number: [id number] Interpretation BILATERAL FULL FIELD DIGITAL SCREENING MAMMOGRAM WITH CAD. History: Routine Screening. Technique: Full field digital craniocaudal and mediolateral oblique projections of both breasts were obtained. Computer aided diagnosis was performed. Comparison: 08/2007, 08/2006, 08/2005 Breast Parenchymal Composition: Heterogeneously dense, which lowers the sensitivity of mammography. Findings: No suspicious mass, suspicious microcalcifications, or architectural distortion in either breast is identified. Since the prior study, there has been no significant interval change. The computer aided diagnosis detects no significant abnormality. Overall Assessment: BI-RADS category 1: Negative. Recommendation: Annual mammography is recommended. Assessment BIRADS: 1-Negative Recommendation: Normal interval follow-up Dictated by: MAKENNA WEST Electronically signed by: MAKENNA WEST 10/27/2008 20:16 Transcribed: 10/27/2008 17:49 AMK Procedure Note Makenna West - 10/27/2008 [facility] [address] [place], [place] [address] Admit Date: 10/24/2008 ALESHIA MUÑOZ Sex: F Admit Prov: GALDINO PICHARDO Date: 1955 Primary Care Prov: DEMARCO DAWSON CMRN: [id number] Room: A SSN: [id number] IMAGING SERVICES Ordering Prov: GALDINO PICHARDO Interpretation [...] mammogram documented in this encounter Care Teams Garbage Pick Up Man Relationship Specialty Start Date End Date Ricky Lowery MD [address] [place] [address] PCP - General Family Practice 11/06/09 documented as of this encounter
--- OUTSIDE RECORDS SUMMARY | 2024-10-23 17:01 | XMS_ITS | Encounter Summary ---
Author Organization [facility] Address [address] [place] [address] Care Team Providers Care 4 H Youth Development Specialist Name Role Phone Ricky Lowery MD Primary Care Provider [phone] Encounter Details Date Type Department Care Team (Latest Contact Info) Description 09/18/2003 Outpatient Historical HIS [facility] Galdino Demarco MD [address] [address] FOLLOW-UP EXAM NEC (Primary Dx) Social History Tobacco Use Types Packs/Day Years Used Date Smoking Tobacco: Never Assessed Comments Unknown Sex and Gender Information Value Date Recorded Sex Assigned at Not on file Legal Sex Female 3:29 AM AUTOMOTIVE TIRE TESTER Gender Identity Not on file Sexual Orientation Not on file documented as of this encounter Plan of Treatment Upcoming Encounters Date Type Department Care Team (Late st Contact Info) Description 07/01/2025 10:45 AM AUTOMOTIVE TIRE TESTER Office Visit [facility] OBGYN - [place] [address] [place] [address], [address] [address] Galdino Pichardo MD [address] [address] documented as of this encounter Visit Diagnoses Diagnosis Other follow-up examination(V67.59)- Primary Other follow-up examination documented in this encounter Care Teams 4 H Youth Development Specialist Relationship Specialty Start Date End Date Ricky Lowery MD [address] [place] [address] PCP - General Family Practice 11/06/09 documented as of this encounter
--- OUTSIDE RECORDS SUMMARY | 2024-10-23 17:01 | XMS_ITS | Encounter Summary ---
Author Organization [facility] Address [address] [place] [address] Care Team Providers Care Appeals Manager Name Role Phone Ricky Lowery MD Primary Care Provider [phone] Encounter Details Date Type Department Care Team (Latest Contact Info) Description 09/15/[address] [facility] Galdino Demarco MD [address] [address] SCREENING MAMM-MAILG NEOPL NEC (Primary Dx) Social History Tobacco Use Types Packs/Day Years Used Date Smoking Tobacco: Never Assessed Comments Unknown Sex and Gender Information Value Date Recorded Sex Assigned at Not on file Legal Sex Female 3:29 AM HOTEL RESERVATIONIST Gender Identity Not on file Sexual Orientation Not on file documented as of this encounter Plan of Treatment Upcoming Encounters Date Type Department Care Team (Late st Contact Info) Description 07/01/2025 10:45 AM HOTEL RESERVATIONIST Office Visit [facility] - [place] [address] [facility], [address] [address] Galdino Pichardo MD [address] [address] documented as of this encounter Visit Diagnoses Diagnosis Other screening mammogram- Primary documented in this encounter Care Teams Appeals Manager Relationship Specialty Start Date End Date Ricky Lowery MD [address] [place] [place] [address] PCP - General Family Practice 11/06/09 documented as of this encounter
--- OUTSIDE RECORDS SUMMARY | 2024-10-23 17:02 | XMS_ITS | Clinical Summary ---
Author Organization [facility] Address [facility] [place] [address] Care Team Providers Care Slab Lifting Engineer Name Role Phone Ricky Lowery MD Primary Care Provider [phone] Allergies Active Allergy Reactions Criticality Noted Date [...] 82 05/13/2019 9:43 AM CDT Temperature 36.9 C (98.5 F) 05/13/2019 7:44 AM CDT Respiratory Rate 20 05/13/2019 7:44 AM CDT [...] this topic Medical Devices Implanted Type Area Mender Knit Goods Device Identifier Shelf Expiration Date Model / Serial / Lot Iol Panfilo Symfony Toric [id number] - [id number] Implanted:Qty: 1 on 04/08/2019 by Danish Mendoza MD at [facility] Lens PANFILO 06/19/2021 [id number] / [id number] / Iol Tecnis Multifocal Symphony [id number] - [id number] Implanted:Qty: 1 on 05/13/2019 by Danish Mendoza MD at [facility] Lens Left: Eye PANFILO 06/01/2021 [id number] / [id number] / Insurance [facility] Care Teams Slab Lifting Engineer Relationship Specialty Start Date End Date Ricky Lowery MD [address] [place] [address] PCP - General FAMILY PRACTICE 04/02/19
--- OUTSIDE RECORDS SUMMARY | 2024-10-23 17:02 | XMS_ITS | Continuity of Care Document ---
Author Organization [facility] Address [address] [place] [address] Phone Care Team Providers Care Hr Business Partner Name Role Phone Rivas Nichols MD Unavailable Unavai lable Allergies, Adverse Reactions, Alerts Substance Reaction Status Criticality erythromycin base Other Active No Informa tion Medications Medication Instructions Dosage Effective Dates (start - stop) Status Comments levothyroxine 25 mcg tablet take 1 tablet by oral route every day 25 MCG - Active atorvastatin 10 mg tablet take 1 tablet by oral route every day 10 MG - Active sertraline 25 mg tablet take 1 tablet by oral route every day 25 MG - Active desvenlafaxine succinate ER 25 mg tablet,extended release 24 hr take 2 tablet by oral route every day at approximately the same time each day 50 MG - Active Procedures Procedure Date Office[facility]outpatient visit,[facility] 2022 Asp/inject major joint or bursa w/o US g uidance Kenalog 10mg/mL Advance Directives Directive Yes / No Effective Date File Name No Information Encounters Encounter Description Practice Location Reason(s) For Visit Diagnoses Date Provider Providers Copied on Encounter Office/outpat ient visit,[facility], [address], [id number], [place] tel:[phone] [facility] Arms have tingling (chief complaint) Cervicalgia 3 Magdalena Lima er. [address] [facility], [address], [place], [place], [id number] , [place]. tel: [phone] Referring Provider: Rivas Nichols P, [address], [place], [address]. tel:[phone] Family History Family Member Type Diagnosis Age At Onset Mother Problem (finding) Stroke Father Problem (finding) Stroke Immunizations Vaccine Date Status Comments Pneumo (2 yrs or older) (PPV23) administe red Source: Other Provider influenza, injectable, quadr ivalent, (3 years or older) administered Source: Other Provid er Payers Payer name Insurance type Covered republican ID Authoriza tion(s) [place] Part B MB [id number] [facility] [place]iel d [facility] [id number] Social History Type Description Quantity Date Captured [...]
--- OUTSIDE RECORDS SUMMARY | 2024-10-23 17:02 | XMS_ITS | Patient Health Record ---
Author Organization [facility] Address [address] [place] [address] Care Team Providers Care Biomedical Field Service Engineer Name Role Phone Sky Kauffman Unavailable [phone] Migration, Provider Unavailable Unavailable Allergies Allergen (clinical drug ingredient) Drug/Non Drug Allergy documented on EMR Reaction Allergy Type Onset Date Status erythromycin Erythromycin Base Unknown Drug Allergy 2023 Active Results Component Value Reference Range Notes UDT Reviewed date:10/16/2024 02:40:14 PM Interpretation: Performing Lab: Notes/Report: Reason For Referral No Information Medications Medication [...] Risk Notes Problem Mild recurrent major depression (87863215) Major depressive disorder, recurrent, mild (F33.0) Active confirmed Problem Generalized anxiety disorder (29956410) Generalized anxiety disorder (F41.1) Active confirmed Vital Signs Heart Rate 92 /min 08/12/2024 Height-cm 162.56 cm 08/12/2024 Blood pressure diastolic 71 mm Hg 08/12/2024 Weight-kg 61.14 kg 08/12/2024 Height 64.00 in 08/12/2024 Blood pressure systolic 138 mm Hg 08/12/2024 Weight 134.8 lbs 08/12/2024 BMI 23.14 kg/m2 08/12/2024 Encounters Encounter Location Date Provider Diagnosis [facility] [address] [facility] [address] [place] [address] 11/28/2023 Skycayetano Caooza Major depressive disorder, recurrent, mild F33.0 and Generalized anxiety disorder F41.[address] [facility] [address] [address] 01/01/2024 Sky Kauffman Major depressive disorder, recurrent, mild F33.0 and Generalized anxiety disorder F41.1 [place] [address] [facility] [address] [place] [address] 05/13/2024 Sky Kauffman Major depressive disorder, recurrent, mild F33.0 and Generalized anxiety disorder F41.1 [facility], [facility] [address] [address] 08/12/2024 Skycayetano Caooza Major depressive disorder, recurrent, mild F33.0 and Generalized anxiety disorder F41.1 [place] [address] [address] 11/08/2023 Provider Migration [facility], [facility] [address] [address] 12/16/2023 Provider Migration [facility], [facility] [address] [address] 12/17/2023 Provider Migration [facility], [place] [address] [address] 08/12/2024 Sky Kauffman Assessments Encounter Date Diagnosis (ICD Code) Assessment Notes Treatment Notes Treatment Clinical Notes Section Notes 11/28/2023 Major depressive disorder, recurrent, mild (ICD-10 - F33.0) 11/28/2023 Generalized anxiety disorder (ICD-10 - F41.1) 05/13/2024 Major depressive disorder, recurrent, mild (ICD-10 - F33.0) cont sertraline 150mg daily- use [facility] pharmacy 1. Major Depressive Disorder and anxiety [...] - Reassess sleep quality in 3 months. 01/01/2024 Major depressive disorder, recurrent, mild (ICD-10 - F33.0) cont sertraline 150mg daily- use [facility] pharmacy, Learning About How to Get Help During a Mental Health Crisis material was published 01/01/2024 Generalized anxiety disorder (ICD-10 - F41.1) cont alprazolam 0.25mg daily prn- she has not used for a long time, Learning About Generalized Anxiety Disorder material was published 08/12/2024 Major depressive disorder, recurrent, mild (ICD-10 - F33.0) cont sertraline 150mg daily- use [facility] pharmacy 08/12/2024 Generalized anxiety disorder (ICD-10 - [...] medication management. - Refill prescriptions sent to [facility]. Plan Of Treatment Next Appt Details Provider Name:Sky read, 12/03/2024 01:00:00 PM, [address], [place], [address], Insurance Providers Payer Name Payer Address Payer Phone Subscriber Number Group Number Insured Name Patient Relationship to Insured Coverage Start Date Coverage End Date Medicare-I l Medicare [address] ABDOULAYE CHAVEZ [phone] [id number] AYANARENEEE Self - patient is the insured [place] Ppo [address] [place] [address] [id number] IRWIN PIÑA Self - patient is the insured Medical (General) History Medical History History ICD Code Problems: Generalized anxiety disorder History of anemia Long-term current use of drug therapy Mild recurrent major depression Vitamin D deficiency , skin cancer on nose, will have radiation 3 x per week x 7 weeks Surgical History Surgery Date(Month/Year) Appendectomy (30662) Cataract surgery (16548) 07/31/2019 Other 03/31/2011
--- OUTSIDE RECORDS SUMMARY | 2024-10-23 17:02 | XMS_ITS | Encounter Summary ---
Author Organization [facility] Address [address] [place] [address] Care Team Providers Care Metal Or Wood Blocker Name Role Phone Ricky Lowery MD Primary Care Provider [phone] Encounter Details Date Type Department Care Team (Latest Contact Info) Description 06/03/1999 Outpatient Historical [facility] Galdino Demarco MD [address] [address] Other screening mammogram (Primary Dx) Social History Tobacco Use Types Packs/Day Years Used Date Smoking Tobacco: Never Assessed Comments Unknown Sex and Gender Information Value Date Recorded Sex Assigned at Not on file Legal Sex Female 3:29 AM PRE PRESS MANAGER Gender Identity Not on file Sexual Orientation Not on file documented as of this encounter Plan of Treatment Upcoming Encounters Date Type Department Care Team (Late st Contact Info) Description 07/01/2025 10:45 AM PRE PRESS MANAGER Office Visit [facility] - [place] [address] [place] [address] Galdino Pichardo MD [address] [address] documented as of this encounter Visit Diagnoses Diagnosis Other screening mammogram- Primary documented in this encounter Care Teams Metal Or Wood Blocker Relationship Specialty Start Date End Date Ricky Lowery MD [address] [place] [address] PCP - General Family Practice 11/06/09 documented as of this encounter
--- OUTSIDE RECORDS SUMMARY | 2024-10-23 17:02 | XMS_ITS | Encounter Summary ---
Author Organization [facility] Address [address] [place] [address] Care Team Providers Care Director Private Music Therapy Agency Name Role Phone Ricky Lowery MD Primary Care Provider [phone] Encounter Details Date Type Department Care Team (Latest Contact Info) Description 09/11/2003 Outpatient Historical HIS [facility] Galdino Demarco MD [address] [address] SCREENING MAMM-MAILG NEOPL-OTHER (Primary Dx) Social History Tobacco Use Types Packs/Day Years Used Date Smoking Tobacco: Never Assessed Comments Unknown Sex and Gender Information Value Date Recorded Sex Assigned at Not on file Legal Sex Female 3:29 AM MACHINIST/MACHINE BUILDER Gender Identity Not on file Sexual Orientation Not on file documented as of this encounter Plan of Treatment Upcoming Encounters Date Type Department Care Team (Late st Contact Info) Description 07/01/2025 10:45 AM MACHINIST/MACHINE BUILDER Office Visit [facility] OBGYN - [place] [address] [place] [address] Galdino Pichardo MD [address] [address] documented as of this encounter Visit Diagnoses Diagnosis Other screening mammogram- Primary documented in this encounter Care Teams Director Private Music Therapy Agency Relationship Specialty Start Date End Date Ricky Lowery MD [address] [place] [address] PCP - General Family Practice 11/06/09 documented as of this encounter
--- OUTSIDE RECORDS SUMMARY | 2024-10-23 17:02 | XMS_ITS | Encounter Summary ---
Author Organization [facility] Address [address] [place] [address] Care Team Providers Care Body Worker Name Role Phone Ricky Lowery MD Primary Care Provider [phone] Encounter Details Date Type Department Care Team (Latest Contact Info) Description 09/12/2002 Outpatient Historical HIS [facility] Galdino Demarco MD [address] [address] SCREENING MAMM-MAILG NEOPL-OTHER (Primary Dx) Social History Tobacco Use Types Packs/Day Years Used Date Smoking Tobacco: Never Assessed Comments Unknown Sex and Gender Information Value Date Recorded Sex Assigned at Not on file Legal Sex Female 3:29 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 Gender Identity Not on file Sexual Orientation Not on file documented as of this encounter Plan of Treatment Upcoming Encounters Date Type Department Care Team (Late st Contact Info) Description 07/01/2025 10:45 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 Office Visit [facility] OBGYN - [place] [address] [place] [address] Galdino Pichardo MD [address] [address] documented as of this encounter Visit Diagnoses Diagnosis Other screening mammogram- Primary documented in this encounter Care Teams Body Worker Relationship Specialty Start Date End Date Ricky Lowery MD [address] [place] [address] PCP - General Family Practice 11/06/09 documented as of this encounter
--- OUTSIDE RECORDS SUMMARY | 2024-10-23 17:02 | XMS_ITS | Clinical Summary ---
Author Organization [facility] Address [address], [address] [address] Phone Care Team Providers Care Auto Specialty Services Manager Name Role Phone Ricky Lowery MD Primary Care Provider [phone] Social History Tobacco Use Types Packs/Day Years [...] Recently Relevant to Health [place] [address] [facility] Care Teams Auto Specialty Services Manager Relationship Specialty Start Date End Date Ricky Lowery MD [address] [place] [address] PCP - General Family Medicine 11/16/18
--- OUTSIDE RECORDS SUMMARY | 2024-10-23 17:02 | XMS_ITS | Continuity of Care Document ---
Author Organization [facility] Address [address] [place] [address] [address] [place] [address] Phone Care Team Providers Care Manager Forensic Name Role Phone [facility] Unavailable Unavail able Tessa Irby Unavailable Unavailable Advance Directives Directive Yes / No Effective Date File Name No Information Encounters Encounter Description Practice Location Reason(s) For Visit Diagnoses Date Provider Providers Copied on Encounter [facility], [address], [place], [place], [id number], [place] tel:[phone] [facility] No Information Sep-0 7-200 5 [facility] [place] [address], [address], [place], [place], [id number] , [place]. [phone] Consulting Provider: Tessa Irby, [address] [place] [address], [address]. tel:[phone] Family History Family Member Type Diagnosis Age At Onset No Information Payers Payer name Insurance type Covered libertarian ID Authoriza tion(s) No Information Social History [...]
--- OUTSIDE RECORDS SUMMARY | 2024-10-23 17:02 | XMS_ITS | Data Portability ---
Author Organization [facility] [employer], Main Office Address [address] [place] [address] Care Team Providers Care Chain Saw Driver Name Role Phone LATHA HIGHTOWER Primary Care Provider LATHA HIGHTOWER Referring Provider Assessment Encounter Date Assessment Date Assessment LastModified by Organization Details LastModified Time 03/24/2023 03/24/2023 HPI: 67-year-old female came in today for evaluation of her left knee symptoms. She states symptoms started about 2 or 3 months ago. Three months ago she was at [employer] and did an extensive amount of walking. [...] of motion is from 0-145 degrees. At 145 she has moderate pain in the posterior [...] spent in treatment patient more have this [id number] conversation Not available 03/24/2023 13:34:14 Plan of Treatment Reminders Order Date Submit Date Provider Last Modified By Organization Details Last Modified Time Details Appointments None record ed. Lab None record ed. Referral None record ed. Procedures None record ed. Surgeries None record ed. Imaging XR, knee 023 03/24/20 [email or web address] [facility] [place], [address], [place], [address], 3 10:55:06 Medication Orders None record ed. Patient TargetsNo targets recorded. Patient InstructionsNo instructions recorded. Reason for Referral None Reported. Results Created Date Observation Date Name Description Value Unit Range Abnormal Flag Note LastModifiedBy Organization Detail LastModifiedTime 03/24/20 XR, knee No observ ation record ed. [facility] [place] [address], [place], [address], 03/24/2023 13:29:31 Result Notes None recorded. Problems Name Problem SNOMED Code Status Onset Date Resolution Date Notes Provider Name and Address Organization Details Recorded Time Pain of left knee joint [id number] Active 2022 DOROTHY Arevalo МАРИНА Emily [facility] 12:09:28 Problem Notes None recorded. Procedures Surgical History Date Name Laterality Status Provider Name and Address Organization Details Recorded Time 07/31/19 23 Hemorrhoidectomy completed Hailey Millard CNA [facility] 03/24/2023 12:08:56 07/31/19 11 Thyroid Surgery completed Hailey Millard CNA [facility] 03/24/2023 12:08:32 Imaging Results Imaging Date Name Status LastModified by Organiz ation Details LastModified Time 03/24/2023 XR, knee completed [facility] [place] [address], [place], [address], 03/24/2023 13:29:31 Procedure Notes None recorded. Medical [...] Updated DateTime 03/24/2023 162.56 cm 22 kg/m2 82193.82 g Hailey Millard CNA [employer] 03/24/2023 12:23:02 Social History Question Answer Notes LastModified by Organizat ion Details LastModified Time Tobacco Smoking Status Never Smoker Hailey Millard CNA [facility] 03/24/2023 12:08:12 What Is Your Level Of [...] SNOMED-CT Code Diagnosis ICD10 Code Diagnosis Note [id number] SHILPA Fernández [facility] [place] [address] [place] [address] 03/24/2023 11:21:40 03/24/2023 14:28:21 Pain of left knee joint 9599572223 29845 M25.562 Health Concerns Section Related Observation LastModified by Organization Detai ls LastModified Time None Recorded Concern Status LastModified by Organization Details LastModified Time None Recorded Advance Directives Directive None Recorded Payers Encounter Date Sequence Insurance Name Policy Number Policy White Covered Member ID White Member ID Guarantor Name 03/24/2023 1 [place] Aleshia Muñoz [id number] Aleshia Muñoz 03/24/2023 2 [place] ([place]O) 111 Aleshia Muñoz [id number] Aleshia Muñoz [facility] Episode No OBEpisode recorded.
--- OUTSIDE RECORDS SUMMARY | 2024-10-23 17:02 | XMS_ITS ---
Author Organization [facility] Address [address] [place] [address] Care Team Providers Care Occupational Health Rn Name Role Phone Jamari Sky Unavailable [phone] Allergies Allergen (clinical drug ingredient) Drug/Non Drug [...] Propionate Diskus 50 MCG/ACT Inhalation *Reorder from [employer] for eRx and Interaction Alerts* 11/28/2023 Active [...] 05/13/2024 Encounters Encounter Location Date Provider Diagnosis [facility] [address] [place] [address] 05/13/2024 Sky Kauffman Major depressive disorder, recurrent, mild F33.0 and Generalized anxiety disorder F41.1 Assessments Encounter Date Diagnosis (ICD Code) Assessment Notes Treatment Notes Treatment Clinical Notes Section Notes 05/13/2024 Major depressive disorder, recurrent, mild (ICD-10 - F33.0) cont sertraline 150mg daily- use [facility] pharmacy 1. Major Depressive Disorder [...] mi ld cont sertraline 150mg daily- use [facility] pharmacy Generalized anxiety disorder cont alpraz olam 0.25mg daily prn- she has not used for a long time Next Appt Details Follow Up: 3 Months, Reason: f/u anxiety, depression Provider Name:Sky read, 12/03/2024 01:00:00 PM, [address] [facility] [address] [facility] [address], [place], [address], Progress Notes * JONATHON PIÑAOB: 8 (68 yo F)Acc No.[id number]:05/13/2024 Patient: IRWIN KUO Provider: ALYSSA VICENTE :1955 A ge:68 Y S ex:Female Date:05/13/2024 Address:[address] [place] [address] [address] [facility] Subjective: * Chief Complaints: * F ollow up visit, medication evaluation * HPI: D epression Screening: Chief complaint - Feeling less upbeat, sleep [...] vacation has contributed to her feeling down. ALANNA-7 (2018 Edition) F eeling nervous, anxious, or on edge?Several days, N ot being able to stop or control worrying S everal days, W orrying too much about different things S everal days, T rouble relaxing N early every day, B eing so restless that it is hard to sit still N ot at all, B ecoming easily annoyed or irritable N ot at all, F eeling afraid as if something awful might happen N early every day, T otal ALANNA-7 Score 9 , I f you checked any problems, how difficult have they made it for you to do your work, take care of things at home, or get along with other people? S omewhat difficult, I nterpretation of Total ( 5 to 9) Mild. C [place]-Suicide Severity Rating Scale: Suicide Risk (CSRS-screener) i n the past one month Have you wished you were or wished you could go to sleep and not wake up? N o, i n the past one month Have you actually had any thoughts of killing yourself? N o, H ave you ever done anything, started to do anything, or prepared to do anything to end your life? N o. D epression screening: PHQ-9 L ittle interest or pleasure in doing things S everal days, F eeling down, depressed, or hopeless N ot at all, T rouble falling or staying asleep, or sleeping too much S everal days, F eeling tired or having little energy S everal days, P oor appetite or overeating N ot at all, F eeling bad about yourself or that you are a failure, or have let yourself or your family down N ot at all, T rouble concentrating on things, such as reading the newspaper or watching television N ot at all, M oving or speaking so slowly that other people could have noticed; or the opposite, being so fidgety or restless that you have been moving around a lot more than usual N ot at all, T houghts that you would be better off or of hurting yourself in some way N ot at all, T otal Score 3 , I nterpretation M inimal Depression. I ntervention D epression Screening Findings?Negative, F ollow-Up for Depression M ental health care management, S uicide Risk Assessment Performed 1 , A dditional Evaluation for Depression P sychiatric interview and evaluation, N albino of the standardized tool used for adult depression screening: P atient Health Questionnaire (PHQ-9). P ast Medication history: reema hanson. H istory of Presenting Problem: Anxiety O nset: years ago. D epression O nset: years ago. P sychotherapy h as done in the past. * Medical History: * Surgical History: * Hospitalization/Major Diagno stic Procedure: * Social History: T obacco Use: T obacco Control (Standard) T obacco use: N onsmoker. M igrated Social History: M igrated Social History: Alcohol Intake: None 09/27/2022,Tobacco Years: Never smoker 09/27/2022. M iscellaneous: A dvance Care Planning A re you your own decision-maker Y es, D o you have Power of Property Assistant for Health or Medical? Y es, D o you have a power of claims attorney for health? Y es, D o you have power of claims attorney for Medical ? Y es. * Medications: T akingFluticasone Propionate Diskus 50 MCG/ACT Aerosol Powder Breath Activated Inhalation , Notes to Pharmacist: *Reorder from [employer] for eRx and Interaction Alerts*Atorvastatin Calcium 10 MG Tablet Oral Levothyroxine Sodium 75 MCG Tablet Oral Sertraline HCl 100 MG Tablet TAKE 1 AND 1/2 TABLETS DAILY Taking Fluticasone Propionate Diskus 50 MCG/ACT Aerosol Powder Breath Activated Inhalation , Notes to Pharmacist: *Reorder from [facility] for eRx and Interaction Alerts*Taking Atorvastatin Calcium 10 MG Tablet Oral Taking Levothyroxine Sodium 75 MCG Tablet Oral Taking Sertraline HCl 100 MG Tablet TAKE 1 AND 1/2 TABLETS DAILY Not-TakingALPRAZolam 0.25 MG Tablet Oral Medication List reviewed and reconciled with the patientNot- Taking ALPRAZolam 0.25 MG Tablet Oral Medication List reviewed and reconciled with the patient * Allergies: E rythromycin Base: Allergy - Onset Date 11/28/2023no[Allergies Verified] Objective: * Vitals: B P:136/79mm Hg, HR:93/min, Ht: 64.00 in, Ht-cm: 162.56 cm. * Examination: P sychiatry: Appearance: w ell-groomed, well-nourished, .... Affect / mood: a ppropriate, full range. Attention: g ood. Attitude: c ooperative. Suicidal ideation: n one. Memory status: n o impairment noted. Degree of awareness of surroundings: w ithin normal limits.? Delusions: n o. Hallucinations: n o. Insight: g ood. Intellectual functioning: n o impairment noted. Judgement: g ood. Orientation: a wake, alert and oriented x 3. Perceptual disorders: n o perceptual disorder noted. Psychomotor activity: w ithin normal range. Speech / language: a ppropriate pitch/modulation, clear and coherent, normal rate, volume, and articulation (RVR), proper grammar used. Thought content: a ppropriate. Thought process: i ntact. G eneral Examination: - Mental Status Examination: - Patient reports [...] per her dentist. . Assessment: * Assessment: 1. M josé miguel depressive disorder, recurrent, mild - F33.0 (Primary) 2 . G eneralized anxiety disorder - F41.1 1. Major Depressive Disorder and anxiety :- [...] quality in 3 months. Plan: * Treatment: 2. G eneralized anxiety disorder Notes: cont alprazolam 0.25mg daily prn- she has not used for a long time * Procedure Codes: 9 6127 BEHAV ASSMT W/SCORE & DOCD/STAND [id number] VISIT COMPLEXITY INHERENT TO ONGOING CARE RELATED TO A PATIENT'S SINGLE, SERIOUS CONDITION OR A COMPLEX CONDITION * Follow Up: 3 Months (Reason: f/u anxiety, depression) * Billing Information: * Visit Code: 20495 OFFICE OUTPATIENT VISIT 25 MINUTES DETAILED HISTORY AND EXAM/MODERATE MEDICAL DECISION MAKING. * Procedure Codes: 21306 BEHAV ASSMT W/SCORE & DOCD/STAND INSTRUMENT. G2211 VISIT COMPLEXITY INHERENT TO ONGOING CARE RELATED TO A PATIENT'S SINGLE, SERIOUS CONDITION OR A COMPLEX CONDITION. * Sign off status: Completed true * Provider: ALYSSA VICENTE Date: Generated for Trista guerin/Se/Parviz on: 0 10/23/2024 05:02 PM CDT History and Physical Notes * HPI (History [...] Not being able to stop or control worryi ng: Several days Worrying too much about different [...] Interpretation of Total: (5 to 9) Mild Hand-Suicide Severity Rating Scale Suicide Risk (CSRS-screener) in the past one month Have you wished you were or wished you could go to sleep and not wake up?: No in the past one month Have y ou actually had any thoughts of killing yourself?: No Have you ever done anything, started to do [...]
--- OUTSIDE RECORDS SUMMARY | 2024-10-23 17:02 | XMS_ITS | Encounter Summary ---
Author Organization [facility] Address [address] [place] [address] Care Team Providers Care Emergency Medical Technician Name Role Phone Ricky Lowery MD Primary Care Provider [phone] Encounter Details Date Type Department Care Team (Latest Contact Info) Description 07/20/2000 Outpatient Historical HIS [facility] Galdino Demarco MD [address] [address] Other screening mammogram (Primary Dx) Social History Tobacco Use Types Packs/Day Years Used Date Smoking Tobacco: Never Assessed Comments Unknown Sex and Gender Information Value Date Recorded Sex Assigned at Not on file Legal Sex 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 Gender Identity Not on file Sexual Orientation Not on file documented as of this encounter Plan of Treatment Upcoming Encounters Date Type Department Care Team (Late st Contact Info) Description 07/01/2025 10:45 AM LIVE 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 Office Visit [facility] OBGYN - [place] [address] [place] [address] Galdino Pichardo MD [address] [address] documented as of this encounter Visit Diagnoses Diagnosis Other screening mammogram- Primary documented in this encounter Care Teams Emergency Medical Technician Relationship Specialty Start Date End Date Ricky Lwoery MD [address] [place] [address] PCP - General Family Practice 11/06/09 documented as of this encounter
--- OUTSIDE RECORDS SUMMARY | 2024-10-23 17:02 | XMS_ITS ---
Author Organization [facility] [employer] Address [address] [facility] [address] [place] [address] Care Team Providers Care General Distillery Worker Name Role Phone Kauffman, Sky Unavailable [phone] Allergies Allergen (clinical drug ingredient) Drug/Non Drug [...] use: Nonsmoker Vital Signs Blood pressure systolic 138 mm Hg 08/12/19 25 Blood pressure diastolic 71 mm Hg 025 Heart Rate 92 /min 08/12/2024 Height 64.00 in 08/12/2024 Weight 134.8 lbs 08/12/2024 BMI 23.14 kg/m2 08/12/2024 Height-cm 162.56 cm 08/12/2024 Weight-kg 61.14 kg 08/12/2024 Encounters Encounter Location Date Provider Diagnosis [facility] [employer] [address] [place] [address] 08/12/2024 Sky Kauffman Major depressive disorder, recurrent, mild F33.0 and Generalized anxiety disorder F41.1 Assessments Encounter Date Diagnosis (ICD Code) Assessment Notes Treatment Notes Treatment Clinical Notes Section Notes 08/12/2024 Major depressive disorder, recurrent, mild (ICD-10 - F33.0) cont sertraline 150mg daily- use [facility] pharmacy 08/12/2024 Generalized anxiety disorder (ICD-10 - F41.1) cont alprazolam 0.25mg daily prn- she has not used for a long time 08/12/2024 Other 1. Depression and Anxiety: - [...] overheating. Plan: - Encourage continued use of non-pharmacologic al strategies for sleep improvement. - Monitor for [...] medication management. - Refill prescriptions sent to [facility]. Plan Of Treatment Medication Medication Name Sig Start Date Stop Date Notes Sertraline HCl 100 MG 1.5 tablet Oral On ce a day for 90 days Treatment Notes Assessment Notes Major depressive disorder, recurrent, mi ld cont sertraline 150mg daily- use [facility] pharmacy Generalized anxiety disorder cont alpraz olam 0.25mg daily prn- she has not used for a long time Next Appt Details Follow Up: 4 Months, Reason: f/u depression, anxiety Provider Name:Sky read, 12/03/2024 01:00:00 PM, [address] [facility] [address], [facility] [address], [place], [address], Progress Notes * RENEE PIÑAEDOB: 8 (68 yo F)Acc No.[id number]:08/12/2024 Patient: IRWIN KUO Provider: ALYSSA VICENTE :1955 A ge:68 Y S ex:Female Date:08/12/2024 Phone: Address:[address] [place] [address] , [facility] Subjective: * Chief Complaints: * F ollow up visit, medication evaluation * HPI: D epression Screening: the note is transcribed using speech recognition software. It is a reflection of a visit with the patient. It might have some inaccuracy, including medication names and transcribing errors, though efforts have been made to correct them. Chief complaint- Depression, anxiety. The patient reports feeling good since her last visit in April. She is currently taking sertraline 150 mg daily for depression and anxiety, which appears to be effective. The patient occasionally experiences racing thoughts at night, making it difficult to fall asleep. She manages this by reading and then returning to bed. She also reports feeling overheated at times, both during the day and at night, and finds relief by putting her foot out of the covers. The patient is prescribed alprazolam 0.25 mg as needed but reports rarely using it, with the last use being approximately three months ago. She denies any significant recent medical changes. However, she mentions having a persistent cough for the past year, for which she is scheduled to undergo pulmonary testing. The patient also has a history of skin cancer, which has been resolved. ALANNA-7 (2018 Edition) F eeling nervous, anxious, or on edge?Several days, N ot being able to stop or control worrying S everal days, T otal ALANNA-7 Score 2 , I nterpretation of Total ( 0 to 4) No Anxiety. [place]-Suicide Severity Rating Scale: Suicide Risk [...] or staying asleep, or sleeping too much N ot at all, F eeling tired or having little energy N ot at all, P oor appetite or overeating N ot [...] N ot at all, T otal Score 1 , Interpretation M inimal Depression. I ntervention D epression Screening Findings N egative, S uicide Risk Assessment Performed 0 08/12/2024 . P ast Medication history: pristiq, celexa. H istory of Presenting Problem: Anxiety O nset: years ago. D epression O nset: years ago. S leep disturbance t houghts race at night. P sychotherapy h as done in the [...] es, D o you have Power of Swimming Pool Maintenance Supervisor for Health or Medical? Y es, D o you have a power of ip attorney for health? Y es, D o you have power of ip attorney for Medical ? Y es, I f yes, then please bring the POA paperwork so that we can upload it. Y es. * Medications: T akingAtorvastatin Calcium 10 MG Tablet Oral Levothyroxine Sodium 75 MCG Tablet Oral Sertraline HCl 100 MG Tablet 1.5 tablet Oral Once a day Taking Atorvastatin Calcium 10 MG Tablet Oral Taking Levothyroxine Sodium 75 MCG Tablet Oral Taking Sertraline HCl 100 MG Tablet 1.5 tablet Oral Once a day DiscontinuedFluticasone Propionate Diskus 50 MCG/ACT Aerosol Powder Breath Activated Inhalation , Notes to Pharmacist: *Reorder from [facility] for eRx and Interaction Alerts*ALPRAZolam 0.25 MG Tablet Oral Medication List reviewed and reconciled with the patientDiscontinued Fluticasone Propionate Diskus 50 MCG/ACT Aerosol Powder Breath Activated Inhalation , Notes to Pharmacist: *Reorder from [facility] for eRx and Interaction Alerts*Discontinued ALPRAZolam 0.25 MG Tablet Oral Medication List reviewed and reconciled with the patient * Allergies: E rythromycin Base: Allergy - Onset Date 11/28/2023no[Allergies Verified] Objective: * Vitals: B P:138/71mm Hg, HR:92/min, Wt:134.8lbs, Wt-k.14 kg, Ht: 64.00 in, Ht-cm: 162.56 cm, BMI:23.14Index, Body Surface Area: 1.66. * Examination: P sychiatry: Appearance: w ell-groomed, [...] Examination: - Mental Status Examination: - Patient appeared well-oriented to time, place, and person. - Speech was coherent and goal-directed. - Mood described as good with affect congruent to stated mood. - No evidence of racing thoughts during the consultation; patient reported ability to manage occasional racing thoughts at night by reading. - Physical Examination: - General: Patient reported a chronic cough present for a year, currently under evaluation by another physician. - Integumentary: History of skin cancer mentioned, reported as resolved. - Thermoregulation: Patient reported feeling overheated at times, both during the day and at night, which is managed by cooling measures like exposing a foot outside the covers. - Diagnostic Test Results and Labs: - Pulmonary tests planned to investigate chronic cough, as mentioned by patient during the visit. Assessment: * Assessment: 1. M ajor depressive disorder, recurrent, mild - F33.0 (Primary) 2 . G eneralized anxiety disorder - F41.1 Plan: * Treatment: 2. G eneralized anxiety disorder Notes: cont alprazolam 0.25mg daily prn- she has not used for a long time 3. O thers Clinical Notes: 1. Depression and Anxiety: - Patient reports [...] overheating. Plan: - Encourage continued use of non-pharmacological strategies for sleep improvement. - Monitor for [...] medication management. - Refill prescriptions sent to [facility]. * Procedure Codes: 9 6127 BEHAV ASSMT W/SCORE & DOCD/STAND INSTRUMENT * Follow Up: 4 Months (Reason: f/u depression, anxiety) * Billing Information: * Visit Code: 95241 OFFICE OUTPATIENT VISIT 25 MINUTES DETAILED HISTORY AND EXAM/MODERATE MEDICAL DECISION MAKING. * Procedure Codes: 12354 BEHAV ASSMT W/SCORE & DOCD/STAND INSTRUMENT. * ESENTATIVE PHLEBOTOMY SERVICES Sign off status: Completed true * Provider: ALYSSA VICENTE Date: 0 08/12/2024 Generated for Trista guerin/Se/Parviz on: 0 10/23/2024 05:01 PM CDT History and Physical Notes * HPI (History of Present Illness) Category Sub-Category Detail Notes Category Not es History of Presenting Problem Anxiety Onset: year s ago Depression Onset: years ago Sleep disturbance thoughts race at [facility] Psychotherapy has done in the past Depression screening PHQ-9 Little inte rest or pleasure in doing things: Several days Feeling down, depressed, or hopeless: No t at all Trouble falling or staying asleep, or sl eeping too much: Not at all Feeling tired or having little energy: N ot at all Poor appetite or overeating: Not at all [...] some way: Not at all Total Score: 1 Interpretation: Minimal Depression Intervention Depression Screening Findings: N egative Suicide Risk Assessment Performed: 08/12 Depression Screening ALANNA-7 (2018 Edition) Feelin g nervous, anxious, or on edge: Several days Not being able to stop or control worryi ng: Several days Total ALANNA-7 Score: 2 Interpretation of Total: (0 to 4) No Anx iety [place]-Suicide Severity Rating Scale Suicide Risk (CSRS-screener) in [...] Examination - Mental Status Examination: - Patient appeared well-oriented to time, place, and person. - Speech was coherent and goal-directed. - Mood described as good with affect congruent to stated mood. - No evidence of racing thoughts during the consultation; patient reported ability to manage occasional racing thoughts at night by reading. - Physical Examination: - General: Patient reported a chronic cough present for a year, currently under evaluation by another physician. - Integumentary: History of skin cancer mentioned, reported as resolved. - Thermoregulation: Patient reported feeling overheated at times, both during the day and at night, which is managed by cooling measures like exposing a foot outside the covers. - Diagnostic Test Results and Labs: - Pulmonary tests planned to investigate chronic cough, as mentioned by patient during the visit.
== END 2024-10-23 15:53 | disposition home or self-care (01) ==
PROVIDERS: PCP Family Medicine; Visit Provider Physician Assistant
DX: J92.9 Pleural plaque without asbestos (principal); J98.4 Other disorders of lung; R91.8 Other nonspecific abnormal finding of lung field; I31.39 Other pericardial effusion (noninflammatory); R05.3 Chronic cough
CPT/HCPCS: 71250

== ENCOUNTER 2024-10-30 08:13 | Outpatient (CLI) | payer MEDICARE, BC, SELFPAY ==
--- OUTSIDE RECORDS SUMMARY | 2024-10-30 08:17 | XMS_ITS ---
Author Organization [facility] [employer] [facility] Address [address] [facility] [address] [place] [address] Care Team Providers Care Carrot Tier Name Role Phone Sky Kauffman Unavailable [phone] REASON FOR VISIT Update Demographics - Personal Info Social History Sex Assigned At : Social History Observation Description Sex Assigned At Female Encounters Encounter Location Date Provider Diagnosis [facility] [employer] [facility] [address] [facility] [address] [facility] [address] [place] [address] 08/12/2024 Sky Kauffman Plan Of Treatment Next Appt Details Provider Name:Sky read, 12/03/2024 01:00:00 PM, [address], [facility] [address], [place], [address], Progress Notes * JONATHON PIÑAOB: (68 yo F)Acc No.[id number]:08/12/2024 Patient: IRWIN KUO :1955 A ge:68 Y S ex:Female Phone: Address:[address] [place], [address] * true * Date: Generated for Printi ng/Faediwng/eTransmitting on: 0 10/30/2024 08:17 AM CDT
--- OUTSIDE RECORDS SUMMARY | 2024-10-30 08:18 | XMS_ITS ---
Author Organization [facility] [employer] Address [address] [facility] [address] [place] [address] Care Team Providers Care Proof Technician Helper Name Role Phone Kauffman, Sky Unavailable [phone] Allergies Allergen (clinical drug ingredient) Drug/Non Drug [...] 08/12/2024 Encounters Encounter Location Date Provider Diagnosis [facility] [employer] [address] [place] [address] 08/12/2024 Sky Kauffman Major depressive disorder, recurrent, mild F33.0 and Generalized anxiety disorder F41.1 Assessments Encounter Date Diagnosis (ICD Code) Assessment Notes Treatment Notes Treatment Clinical Notes Section Notes 08/12/2024 Major depressive disorder, recurrent, mild (ICD-10 - F33.0) cont sertraline 150mg daily- use [facility] pharmacy 08/12/2024 Generalized anxiety disorder [...] medication management. - Refill prescriptions sent to [facility]. Plan Of Treatment Medication Medication Name Sig Start Date Stop Date Notes Sertraline HCl 100 MG 1.5 tablet Oral On ce a day for 90 days Treatment Notes Assessment Notes Major depressive disorder, recurrent, mi ld cont sertraline 150mg daily- use [facility] pharmacy Generalized anxiety disorder cont alpraz olam 0.25mg daily prn- she has not used for a long time Next Appt Details Follow Up: 4 Months, Reason: f/u depression, anxiety Provider Name:Sky read, 12/03/2024 01:00:00 PM, [address] [facility], [facility] [address], [place], [address], Progress Notes * RENEE PIÑAEDOB: 8 (68 yo F)Acc No.[id number]:08/12/2024 Patient: IRWIN KUO Provider: ALYSSA VICENTE :1955 A ge:68 Y S ex:Female Date:08/12/2024 Phone: Address:[address] [place] [address] , [facility] Subjective: * Chief Complaints: * F [...] es, D o you have Power of Can Dragger for Health or Medical? Y es, D o you have a power of automotive manufacturer for health? Y es, D o you have power of automotive manufacturer for Medical ? Y es, I f [...] Inhalation , Notes to Pharmacist: *Reorder from [facility] for eRx and Interaction Alerts*ALPRAZolam 0.25 MG Tablet Oral Medication List reviewed and reconciled with the patientDiscontinued Fluticasone Propionate Diskus 50 MCG/ACT Aerosol Powder Breath Activated Inhalation , Notes to Pharmacist: *Reorder from [facility] for eRx and Interaction Alerts*Discontinued ALPRAZolam [...] medication management. - Refill prescriptions sent to [facility]. * Procedure Codes: 9 6127 BEHAV ASSMT W/SCORE & DOCD/STAND INSTRUMENT * Follow Up: 4 Months (Reason: f/u depression, anxiety) * Billing Information: * Visit Code: 78468 OFFICE OUTPATIENT VISIT 25 MINUTES DETAILED HISTORY AND EXAM/MODERATE MEDICAL DECISION MAKING. * Procedure Codes: 13020 BEHAV ASSMT W/SCORE & DOCD/STAND INSTRUMENT. * TEST EXAMINER Sign off status: Completed true * Provider: ALYSSA VICENTE Date: 0 08/12/2024 Generated for Trista guerin/Se/Parviz on: 0 10/30/2024 08:18 AM CDT History and Physical Notes * HPI (History of Present Illness) Category Sub-Category Detail Notes Category Not es History of Presenting Problem Anxiety Onset: year s ago Depression Onset: years ago Sleep disturbance thoughts race at [facility] Psychotherapy has done in the past Depression [...] Total: (0 to 4) No Anx iety [place]-Suicide Severity Rating Scale Suicide Risk (CSRS-screener) in [...]
--- OUTSIDE RECORDS SUMMARY | 2024-10-30 08:18 | XMS_ITS | Encounter Summary ---
Author Organization [facility] Address [address] [place] [address] Care Team Providers Care Dance Hall Hostess Name Role Phone Ricky Lowery MD Primary Care Provider [phone] Encounter Details Date Type Department Care Team (Latest Contact Info) Description 06/03/1999 Outpatient Historical HIS [facility] Galdino Demarco MD [address] [address] Other screening mammogram (Primary Dx) Social History Tobacco Use Types Packs/Day Years Used Date Smoking Tobacco: Never Assessed Comments Unknown Sex and Gender Information Value Date Recorded Sex Assigned at Not on file Legal Sex Female 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 Gender Identity Not on file Sexual Orientation Not on file documented as of this encounter Plan of Treatment Upcoming Encounters Date Type Department Care Team (Late st Contact Info) Description 07/01/2025 10:45 AM PANTRY GOODS MAKER Office Visit [facility] OBGYN - [place] [address] [place] [address] Galdino Pichardo MD [address] [address] documented as of this encounter Visit Diagnoses Diagnosis Other screening mammogram- Primary documented in this encounter Care Teams Dance Hall Hostess Relationship Specialty Start Date End Date Ricky Lowery MD [address] [place] [address] PCP - General Family Practice 11/06/09 documented as of this encounter
--- OUTSIDE RECORDS SUMMARY | 2024-10-30 08:18 | XMS_ITS | Encounter Summary ---
Author Organization [facility] Address [address] [place] [address] Care Team Providers Care Records Assistant Name Role Phone Ricky Lowery MD Primary Care Provider [phone] Encounter Details Date Type Department Care Team (Latest Contact Info) Description 10/24/2008 Outpatient Historical HIS 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 Gender Identity Not on file Sexual Orientation Not on file documented as of this encounter Plan of Treatment Upcoming Encounters Date Type Department Care Team (Late st Contact Info) Description 07/01/2025 10:45 AM GENOMICS SCIENTIST Office Visit [facility] OBGYN - [place] [address] [place] [address], [address] [address] Galdino Pichardo MD [address] [address] documented as of this encounter Procedures Procedure Name Priority Date/Time Associated Diagnosis Comments MAMMO SCREEN BILAT W OR WO CAD Routine 10/24/2008 7:47 AM CDT documented in this encounter Results * MAMMO DIGITAL SCREEN BILAT (10/24/2008 7:47 AM CDT) Anatomical Region Laterality Modality Breast Bilateral Other 10/24/2008 7:47 AM CDT Narrative 10/27/2008 8:17 PM CDT [facility] [address] [place] [place] [place] [address] Admit Date: 10/24/2008 ALESHIA MUÑOZ Sex: F Admit Prov: GALDINO PICHARDO Date: 1955 Primary Care Prov: DEMARCO DAWSON CMRN: [id number] Room: [facility]: [id number] IMAGING SERVICES Ordering Prov: GALDINO PICHARDO Accession Number: [id number] Interpretation BILATERAL FULL FIELD DIGITAL SCREENING MAMMOGRAM [...] AMK Procedure Note Makenna West - 10/27/2008 [facility] [address] [facility] [place] [address] Admit Date: 10/24/2008 ALESHIA MUÑOZ Sex: F Admit Prov: GALDINO PICHARDO Date: 1955 Primary Care Prov: DEMARCO DAWSON CMRN: [id number] Room: A SSN: [id number] IMAGING SERVICES Ordering Prov: GALDINO PICHARDO Interpretation [...] mammogram documented in this encounter Care Teams Records Assistant Relationship Specialty Start Date End Date Ricky Lowery MD [address] [place] [address] PCP - General Family Practice 11/06/09 documented as of this encounter
--- OUTSIDE RECORDS SUMMARY | 2024-10-30 08:18 | XMS_ITS | Encounter Summary ---
Author Organization [facility] Address [address] [place] [address] Care Team Providers Care Urban Planner Name Role Phone Ricky Lowery MD Primary Care Provider [phone] Encounter Details Date Type Department Care Team (Latest Contact Info) Description 09/12/2002 Outpatient Historical HIS [facility] Galdino Demarco MD [address] [address] SCREENING MAMM-MAILG NEOPL-OTHER (Primary Dx) Social History Tobacco Use Types Packs/Day Years Used Date Smoking Tobacco: Never Assessed Comments Unknown Sex and Gender Information Value Date Recorded Sex Assigned at Not on file Legal 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 Gender Identity Not on file Sexual Orientation Not on file documented as of this encounter Plan of Treatment Upcoming Encounters Date Type Department Care Team (Late st Contact Info) Description 07/01/2025 10:45 AM STRADDLE CARRIER OPERATOR Office Visit [facility] OBGYN - [place] [address] [place] [address] Galdino Pichardo MD [address] [address] documented as of this encounter Visit Diagnoses Diagnosis Other screening mammogram- Primary documented in this encounter Care Teams Urban Planner Relationship Specialty Start Date End Date Rikcy Lowery MD [address] [place] [address] PCP - General Family Practice 11/06/09 documented as of this encounter
--- OUTSIDE RECORDS SUMMARY | 2024-10-30 08:18 | XMS_ITS | Encounter Summary ---
Author Organization [facility] Address [address] [place] [address] Care Team Providers Care Knifer Up Name Role Phone Ricky Lowery MD Primary Care Provider [phone] Encounter Details Date Type Department Care Team (Latest Contact Info) Description 09/18/[address] 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 Gender Identity Not on file Sexual Orientation Not on file documented as of this encounter Plan of Treatment Upcoming Encounters Date Type Department Care Team (Late st Contact Info) Description 07/01/2025 10:45 AM MOTION PICTURE EQUIPMENT SUPERVISOR Office Visit [facility] OBGYN - [place] [address] [place] [address], [address] [address] Galdino Pichardo MD [address] [address] documented as of this encounter Visit Diagnoses Diagnosis Other follow-up examination(V67.59)- Primary Other follow-up examination documented in this encounter Care Teams Knifer Up Relationship Specialty Start Date End Date Ricky Lowery MD [address] [place] [address] PCP - General Family Practice 11/06/09 documented as of this encounter
--- OUTSIDE RECORDS SUMMARY | 2024-10-30 08:18 | XMS_ITS | Encounter Summary ---
Author Organization [facility] Address [address] [place] [address] Care Team Providers Care Occupational Health Nurse Supervisor Name Role Phone Ricky Lowery MD Primary Care Provider [phone] Encounter Details Date Type Department Care Team (Latest Contact Info) Description 07/20/2000 Outpatient Historical HIS [facility] Galdino Demarco MD [address] [address] Other screening mammogram (Primary Dx) Social History Tobacco Use Types Packs/Day Years Used Date Smoking Tobacco: Never Assessed Comments Unknown Sex and Gender Information Value Date Recorded Sex Assigned at Not on file Legal Sex Female 3:29 AM INSTANT PRINTER OPERATOR Gender Identity Not on file Sexual Orientation Not on file documented as of this encounter Plan of Treatment Upcoming Encounters Date Type Department Care Team (Late st Contact Info) Description 07/01/2025 10:45 AM INSTANT PRINTER OPERATOR Office Visit [facility] OBGYN - [place] [address] [place] [address] Galdino Pichardo MD [address] [address] documented as of this encounter Visit Diagnoses Diagnosis Other screening mammogram- Primary documented in this encounter Care Teams Occupational Health Nurse Supervisor Relationship Specialty Start Date End Date Ricky Lowery MD [address] [place] [address] PCP - General Family Practice 11/06/09 documented as of this encounter
--- OUTSIDE RECORDS SUMMARY | 2024-10-30 08:18 | XMS_ITS | Data Portability ---
Author Organization [facility] ANHAlfred Address [address] [place] [address] Assessment No assessment recorded. Plan of Treatment Reminders Order Date Submit Date Provider Last Modified By Organization Details Last Modified Time Details Appointments None recorded. Lab None recorded. Referral None recorded. Procedures None recorded. Surgeries None recorded. Imaging CT, sinuses, w/o contrast 2023 024 [facility], [address], [facility], [place], [address], 5 15:36:59 Medication Orders azelastin e 137 mcg (0.1 %) nasal spray 2023 024 [facility]48, [address], [id number], 4 12:00:50 cefdinir 300 mg capsule 2023 024 [facility] #25090, [address], [id number], 4 10:13:[address] 10 mg tablet 2023 024 [facility] #58319, [address], [id number], 4 11:48:02 Patient TargetsNo targets recorded. Patient InstructionsNo instructions recorded. Reason for Referral None Reported. Medical Equipment None Reported. Allergies Allergen ID Allergen Name Allergen Category Reaction Reaction Severity Criticality Documentation Date Start Date Code Code System Note Provider Name and Address Organization Details Recorded Time 152474 erythromy miller medicatio n Not available Not [...] Updated DateTime 4 162.56 cm 22.4 kg/m2 22530.4 5 g 66 /min 16 /min 98.1 [degF] 116 mm[Hg] 72 mm[Hg] Emily Hung MA [place] - [facility] 4 11:37:36 Date Recorded Body height Body mass index (BMI) Body weight Heart rate Respiratory rate Body temperature Systolic blood pressure Diastolic blood pressure Provider Name and Address Organization Details Last Updated DateTime 4 162.56 cm 22.9 kg/m2 84918.2 2 g 87 /min 16 /min 97.7 [degF] 123 mm[Hg] 74 mm[Hg] Emily Hung MA [facility] 4 11:44:11 Date Recorded Body height Body mass index (BMI) Body weight Heart rate Respiratory rate Body temperature Systolic blood pressure Diastolic blood pressure Provider Name and Address Organization Details Last Updated DateTime 4 162.56 cm 23 kg/m2 88351.3 8 g 86 /min 16 /min 98.1 [degF] 133 mm[Hg] 73 mm[Hg] Emily Hung MA [facility] 4 10:15:03 Social History Question Answer Notes LastModified by Organization Details LastModified Time Tobacco Smoking Status Never Smoker Emily Hung MA [facility] 03/26/2024 11:35:11 Do You Have [...] Or The Highest Degree You Have Received? RD52754-2 Information not available 03/26/2024 What Was The Date Of Your Most Recent Tobacco Screening? 05/21/2024 Information not available 05/21/2024 Do You Have Any Pets? No Information not available 03/26/2024 What Is Your Relationship Status? Information not available 03/26/2024 Do You Feel Stressed (tense, Restless, Nervous, Or Anxious, Or Unable To Sleep At Night)? [id number] Information not available 03/26/2024 Do You Use [...] SNOMED-CT Code Diagnosis ICD10 Code Diagnosis Note [id number] MD Maine Howard (Adult Med) [address] [place] [address] 03/26/2024 11:18:41 04/02/2024 16:17:26 Chronic rhinitis 31032759 J31.0 follow back in a month Chronic cough 43276749 R 05.3 Acute sinusitis 32620025 J01.90 [id number] MD Maine Howard (Adult Med) [address] [place] [address] 04/23/2024 11:20:14 04/24/2024 13:15:56 Allergic rhinitis 48438927 J30.9 follow back in a month Chronic cough 35699845 R 05.3 [id number] MD Maine Howard (Adult Med) [address] [place] [address] 05/21/2024 09:55:31 05/22/2024 09:19:06 Chronic cough 41738338 R05.[address] Health Concerns Section Related Observation LastModified by Organization Detai ls LastModified Time None Recorded Concern Status LastModified by Organization Details LastModified Time None Recorded Advance Directives Directive Y: Payers Encounter Date Sequence Insurance Name Policy Number Policy White Covered Member ID White Member ID Guarantor Name 03/26/2024 2 [place] 111 Aleshia Muñoz [id number] Aleshia Muñoz 03/26/2024 1 [place] Aleshia Bridges [id number] Aleshia Bridges 04/23/2024 1 [place] Aleshia Bridges [id number] Aleshia Bridges 04/23/2024 2 [place] 111 Aleshia Muñoz [id number] Aleshia Muñoz 05/21/2024 1 [place] Aleshia Muñoz [id number] Aleshia Bridges 05/21/2024 2 [place] 111 Aleshia Muñoz [id number] Aleshia Muñoz Notes Date Note Type Note Provider Name and Address Organization Details Recorded Time 03/26/2024 text/html Pt complaining o f a cough for the last 10 months. She has nasal congestion and drainage which improved with antihistamines and flonase but did not resolve. She does not complain of reflux Leighton Ashby MD Attn: Accounting,[address] [facility], [place], [address], [facility] 03/26/2024 11:48:03 04/23/2024 text/html Pt complaining o f nasal congestion and drainage. She has had a persistent cough. It has improved but not resolved. She is on flonase and montelukast Leighton Ashby MD Attn: Accounting,[address] [facility], [place], [address], [facility] 04/23/2024 12:00:59 05/21/2024 text/html Pt complaining o f a chronic cough. She also has a problem with taste but not smell. She has not responded to nasal sprays or antibiotics Leighton Ashby MD Attn: Accounting,[address] [facility], [place], [address], [facility] 05/21/2024 10:28:31 OBGyn Episode No OBEpisode recorded.
--- OUTSIDE RECORDS SUMMARY | 2024-10-30 08:18 | XMS_ITS | Encounter Summary ---
Author Organization [facility] Address [address] [place] [address] Care Team Providers Care Gluer And Slicer Hand Name Role Phone Ricky Lowery MD Primary Care Provider [phone] Encounter Details Date Type Department Care Team (Latest Contact Info) Description 09/14/2004 Outpatient Historical HIS [facility] Galdino Demarco MD [address] [address] SCREENING MAMM-MAILG NEOPL-OTHER (Primary Dx) Social History Tobacco Use Types Packs/Day Years Used Date Smoking Tobacco: Never Assessed Comments Unknown Sex and Gender Information Value Date Recorded Sex Assigned at Not on file Legal Sex Female 3:29 AM CHURCH WARDEN Gender Identity Not on file Sexual Orientation Not on file documented as of this encounter Plan of Treatment Upcoming Encounters Date Type Department Care Team (Late st Contact Info) Description 07/01/2025 10:45 AM CHURCH WARDEN Office Visit [facility] OBGYN - [place] [address] [place] [address] Galdino Pichardo MD [address] [address] documented as of this encounter Visit Diagnoses Diagnosis Other screening mammogram- Primary documented in this encounter Care Teams Gluer And Slicer Hand Relationship Specialty Start Date End Date Ricky Lowery MD [address] [place] [address] PCP - General Family Practice 11/06/09 documented as of this encounter
--- OUTSIDE RECORDS SUMMARY | 2024-10-30 08:18 | XMS_ITS | Continuity of Care Document ---
Author Organization [facility] Address [address] [place] [address] Phone Care Team Providers Care Monorail Operator Name Role Phone Rivas Nichols MD Unavailable [...] MCG - Active Procedures Procedure Date Office/outpatient visit,[facility] Asp/inject major joint or bursa w/o US g uidance Kenalog 10mg/mL Advance Directives Directive Yes / No Effective Date File Name No Information Encounters Encounter Description Practice Location Reason(s) For Visit Diagnoses Date Provider Providers Copied on Encounter Office/outpat ient visit,[facility], [address], [id number], [place] tel:[phone] [facility] Arms have tingling (chief complaint) Cervicalgia 3 Magdalena L[place] er. [address], [address], [place], [place], [address] , [place]. tel: [phone] Referring Provider: Rivas Nichols P, [address], [place], [address]. tel:[phone] Family History Family Member Type Diagnosis Age At Onset Mother Problem (finding) Stroke Father Problem (finding) Stroke Immunizations Vaccine Date Status Comments Pneumo (2 yrs or older) (PPV23) administe red Source: Other Provider influenza, injectable, quadr ivalent, (3 years or older) administered Source: Other Provid er Payers Payer name Insurance type Covered alliance party ID Authoriza tion(s) [place] Part B MB [id number] [facility] Blue Shiel d [facility] [id number] Social History Type Description Quantity Date Captured [...]
--- OUTSIDE RECORDS SUMMARY | 2024-10-30 08:18 | XMS_ITS | Encounter Summary ---
Author Organization [facility] Address [address] [place] [address] Care Team Providers Care Gantry Crane Operator Name Role Phone Ricky Lowery MD Primary Care Provider [phone] Encounter Details Date Type Department Care Team (Latest Contact Info) Description 09/15/2005 Outpatient Historical HIS [facility] Galdino Demarco MD [address] [address] SCREENING MAMM-MAILG NEOPL NEC (Primary Dx) Social History Tobacco Use Types Packs/Day Years Used Date Smoking Tobacco: Never Assessed Comments Unknown Sex and Gender Information Value Date Recorded Sex Assigned at Not on file Legal Sex Female 3:29 AM TALENT RECRUITER Gender Identity Not on file Sexual Orientation Not on file documented as of this encounter Plan of Treatment Upcoming Encounters Date Type Department Care Team (Late st Contact Info) Description 07/01/2025 10:45 AM TALENT RECRUITER Office Visit [facility] OBGYN - [place] [address] [facility], [address] [address] Galdino Pichardo MD [address] [address] documented as of this encounter Visit Diagnoses Diagnosis Other screening mammogram- Primary documented in this encounter Care Teams Gantry Crane Operator Relationship Specialty Start Date End Date Ricky Lowery MD [address] [place] [address] PCP - General Family Practice 11/06/09 documented as of this encounter
--- OUTSIDE RECORDS SUMMARY | 2024-10-30 08:18 | XMS_ITS ---
Author Organization [facility] [employer] Address [address] [place] [address] Care Team Providers Care Stencil Inspector Name Role Phone Jamari Sky Unavailable [phone] Allergies Allergen (clinical drug ingredient) Drug/Non Drug [...] Propionate Diskus 50 MCG/ACT Inhalation *Reorder from [employer] for eRx and Interaction Alerts* 11/28/2023 Active [...] 05/13/2024 Encounters Encounter Location Date Provider Diagnosis [employer] [facility] [address] [place] [address] 05/13/2024 Sky Kauffman Major depressive disorder, recurrent, mild F33.0 and Generalized anxiety disorder F41.1 Assessments Encounter Date Diagnosis (ICD Code) Assessment Notes Treatment Notes Treatment Clinical Notes Section Notes 05/13/2024 Major depressive disorder, recurrent, mild (ICD-10 - F33.0) cont sertraline 150mg daily- use [facility] pharmacy 1. Major Depressive Disorder [...] mi ld cont sertraline 150mg daily- use [facility] pharmacy Generalized anxiety disorder cont alpraz olam 0.25mg daily prn- she has not used for a long time Next Appt Details Follow Up: 3 Months, Reason: f/u anxiety, depression Provider Name:Sky read, 12/03/2024 01:00:00 PM, [address] [facility] [address], [place], [address], Progress Notes * JONATHON PIÑAOB: 8 (68 yo F)Acc No.[id number]:05/13/2024 Patient: IRWIN KUO Provider: ALYSSA VICENTE :1955 A ge:68 Y S ex:Female Date:05/13/2024 Address:[address] [place] [address] [address] [place] [facility] Subjective: * Chief Complaints: * F [...] es, D o you have Power of Parking Manager for Health or Medical? Y es, D o you have a power of privacy attorney for health? Y es, D o you have power of privacy attorney for Medical ? Y es. * Medications: T akingFluticasone Propionate Diskus 50 MCG/ACT Aerosol Powder Breath Activated Inhalation , Notes to Pharmacist: *Reorder from [employer] for eRx and Interaction Alerts*Atorvastatin Calcium 10 MG Tablet Oral Levothyroxine Sodium 75 MCG Tablet Oral Sertraline HCl 100 MG Tablet TAKE 1 AND 1/2 TABLETS DAILY Taking Fluticasone Propionate Diskus 50 MCG/ACT Aerosol Powder Breath Activated Inhalation , Notes to Pharmacist: *Reorder from [facility] for eRx and Interaction Alerts*Taking Atorvastatin [...] 9 6127 BEHAV ASSMT W/SCORE & DOCD/STAND [id number] VISIT COMPLEXITY INHERENT TO ONGOING CARE RELATED TO A PATIENT'S SINGLE, SERIOUS CONDITION OR A COMPLEX CONDITION * Follow Up: 3 Months (Reason: f/u anxiety, depression) * Billing Information: * Visit Code: 44975 OFFICE OUTPATIENT VISIT 25 MINUTES DETAILED HISTORY AND EXAM/MODERATE MEDICAL DECISION MAKING. * Procedure Codes: 40457 BEHAV ASSMT W/SCORE & DOCD/STAND INSTRUMENT. G2211 VISIT COMPLEXITY INHERENT TO ONGOING CARE RELATED TO A PATIENT'S SINGLE, SERIOUS CONDITION OR A COMPLEX CONDITION. * Sign off status: Completed true * Provider: ALYSSA VICENTE Date: Generated for Trista guerin/Se/Parviz on: 10/30/2024 08:18 AM CDT History and Physical [...] Interpretation of Total: (5 to 9) Mild Bath-Suicide Severity Rating Scale Suicide Risk (CSRS-screener) in [...]
--- OUTSIDE RECORDS SUMMARY | 2024-10-30 08:18 | XMS_ITS | Encounter Summary ---
Author Organization [facility] Address [address] [place] [address] Care Team Providers Care Product Safety Test Engineer Name Role Phone Ricky Lowery MD Primary Care Provider [phone] Encounter Details Date Type Department Care Team (Latest Contact Info) Description 09/11/2003 Outpatient Historical HIS [facility] Galdino Demarco MD [address] [address] SCREENING MAMM-MAILG NEOPL-OTHER (Primary Dx) Social History Tobacco Use Types Packs/Day Years Used Date Smoking Tobacco: Never Assessed Comments Unknown Sex and Gender Information Value Date Recorded Sex Assigned at Not on file Legal Sex Female 3:29 AM TELECOMMUNICATIONS ANALYST Gender Identity Not on file Sexual Orientation Not on file documented as of this encounter Plan of Treatment Upcoming Encounters Date Type Department Care Team (Late st Contact Info) Description 07/01/2025 10:45 AM TELECOMMUNICATIONS ANALYST Office Visit [facility] OBGYN - [place] [address] [place] [address] Galdino Pichardo MD [address] [address] documented as of this encounter Visit Diagnoses Diagnosis Other screening mammogram- Primary documented in this encounter Care Teams Product Safety Test Engineer Relationship Specialty Start Date End Date Ricky Lowery MD [address] [place] [address] PCP - General Family Practice 11/06/09 documented as of this encounter
--- OUTSIDE RECORDS SUMMARY | 2024-10-30 08:18 | XMS_ITS | Continuity of Care Document ---
Author Organization [facility] Address [address] [place] [address] [address] [place] [address] Phone Care Team Providers Care Town Manager Name Role Phone [facility] Un[facility] Unavail able Tessa Irby Unavailable Unavailable Advance Directives Directive Yes / No Effective Date File Name No Information Encounters Encounter Description Practice Location Reason(s) For Visit Diagnoses Date Provider Providers Copied on Encounter [facility], [address], [place], [place], [address], [place] tel:[phone] [facility] No Information Sep-0 7-200 5 [facility] [place] [address]. [address] [facility], [address], [place], [place], [address] , [place]. [phone] Consulting Provider: Tessa Irby, [address] [place] [address], [address]. tel:[phone] Family History Family Member Type Diagnosis Age At Onset No Information Payers Payer name Insurance type Covered green party ID Authoriza tion(s) No Information Social [...]
--- OUTSIDE RECORDS SUMMARY | 2024-10-30 08:18 | XMS_ITS | Patient Health Record ---
Author Organization [facility] Address [address] [place] [address] Care Team Providers Care Claims Adjuster Name Role Phone Sky Kauffman Unavailable [phone] Migration, Provider Unavailable Unavailable Allergies Allergen (clinical [...] Risk Notes Problem Mild recurrent major depression ([id number]) Major depressive disorder, recurrent, mild (F33.0) Active confirmed Problem Generalized anxiety disorder (10296570) Generalized anxiety disorder (F41.1) Active confirmed Vital Signs Heart Rate 92 /min 08/12/2024 Height-cm 162.56 cm 08/12/2024 Blood pressure diastolic 71 mm Hg 08/12/2024 Weight-kg 61.14 kg 08/12/2024 Height 64.00 in 08/12/2024 Blood pressure systolic 138 mm Hg 08/12/2024 Weight 134.8 lbs 08/12/2024 BMI 23.14 kg/m2 08/12/2024 Encounters Encounter Location Date Provider Diagnosis [facility], [facility] [address] [address] 11/28/2023 Sky Kauffman Major depressive disorder, recurrent, mild F33.0 and Generalized anxiety disorder F41.1 [facility] [address] [address] 01/01/2024 Sky Kauffman Major depressive disorder, recurrent, mild F33.0 and Generalized anxiety disorder F41.1 [facility], [place] [address] [address] 05/13/2024 Sky Kauffman Major depressive disorder, recurrent, mild F33.0 and Generalized anxiety disorder F41.1 [facility], [facility] [address] [address] 08/12/2024 Sky Kauffman Major depressive disorder, recurrent, mild F33.0 and Generalized anxiety disorder F41.1 [place] [address] [address] 11/08/2023 Provider Migration [facility], [facility] [address] [address] 12/16/2023 Provider Migration [facility], [place] [address] [address] 12/17/2023 Provider Migration [facility], [place] [address] [address] 08/12/2024 Sky Weavera Assessments Encounter Date Diagnosis (ICD Code) Assessment Notes Treatment Notes Treatment Clinical Notes Section Notes 11/28/2023 Major depressive disorder, recurrent, mild (ICD-10 - F33.0) 11/28/2023 Generalized anxiety disorder (ICD-10 - F41.1) 01/01/2024 Major depressive disorder, recurrent, mild (ICD-10 - F33.0) cont sertraline 150mg daily- use [facility] pharmacy, Learning About How to Get Help During a Mental Health Crisis material was published 01/01/2024 Generalized anxiety disorder (ICD-10 - F41.1) cont alprazolam 0.25mg daily prn- she has not used for a long time, Learning About Generalized Anxiety Disorder material was published 05/13/2024 Major depressive disorder, recurrent, mild (ICD-10 - F33.0) cont sertraline 150mg daily- use [facility] pharmacy 1. Major Depressive Disorder [...] - F33.0) cont sertraline 150mg daily- use [facility] pharmacy 08/12/2024 Generalized anxiety disorder [...] medication management. - Refill prescriptions sent to [facility]. Plan Of Treatment Next Appt Details Provider Name:Sky read, 12/03/2024 01:00:00 PM, [address], [place], [address], Insurance Providers Payer Name Payer Address Payer Phone Subscriber Number Group Number Insured Name Patient Relationship to Insured Coverage Start Date Coverage End Date Medicare-I l Medicare [address] ABDOULAYE CHAVEZ [phone] [id number] AYANARENEEE Self - patient is the insured [place] Ppo [address] [place] [address] [id number] 111 IRWIN PIÑA Self - patient is the insured Medical (General) History Medical History History ICD Code Problems: Generalized anxiety disorder History of anemia Long-term current use of drug therapy Mild recurrent major depression Vitamin D deficiency , skin cancer on nose, will have radiation 3 x per week x 7 weeks Surgical History Surgery Date(Month/Year) Appendectomy (36169) Cataract surgery (40800) 07/31/2019 Other 03/31/2011
--- OUTSIDE RECORDS SUMMARY | 2024-10-30 08:18 | XMS_ITS | Clinical Summary ---
Author Organization [facility] Address [address] [place] [address] Phone Care Team Providers Care Balancing Machine Operator Name Role Phone Ricky Lowery MD Primary Care Provider Allergies Active Allergy Reactions Criticality Noted Date [...] Months Immunizations Immunization Administration Dates Next Due (Tyfone) COVID-19 VACCINE - EMERGENCY USE AUTHORIZATION, AD26,COV2S(PF) [...] on file Legal Sex Female 3:29 AM FLAP MAKER Gender Identity Not on file Sexual [...] 60.3 kg (133 lb) 06/25/2024 10:42 AM FLAP MAKER Height 165.1 cm (5' 5 ) 06/25/2024 10:42 AM FLAP MAKER Body Mass Index 22.13 06/25/2024 10:42 AM FLAP MAKER Plan of Treatment Upcoming Encounters Date Type Department Care Team (Late st Contact Info) Description 07/01/2025 10:45 AM FLAP MAKER Office Visit [facility] ([facility] [address] [address] Galdino Pichardo MD [address] [address] Health Maintenance Due Date Last [...] OR MORE SITES Routine 07/22/2024 10:58 AM FLAP MAKER Menopause MAMMO 3D LOLA SCREEN BILAT W OR WO CAD Routine 07/11/2024 12:23 PM FLAP MAKER Visit for screening mammogram from Last 3 Months or Most Recently Relevant to Health Maintenance Results * XR DEXA BONE DENSITY AXIAL 1 OR MORE SITES (07/22/2024 10:58 AM FLAP MAKER) Anatomical Region Laterality Modality Digital Radiogra phy 07/22/2024 10:5 9 AM FLAP MAKER Impressions 07/22/2024 11:13 AM FLAP MAKER IMPRESSION: Osteopenia. Lumbar Spine: T-score: 1.3 Left [...] report found in: Imaging Section of the [facility] EMR. Definitions: Normal: T-score above -1.0 [...] Champion MD DICTATION LOCATION: 07/22/2024 11:13 AM FLAP MAKER EXAMINATION: BONE DENSITY STUDY (DXA) DATE: 07/22/2024 10:58 AM HISTORY: 68 years Female. Postmenopausal. Osteopenia. PROCEDURE: Planar images of the lumbar spine and hip(s). Carbon Voyage DEXA scanner for bone mineral density determination [...] images of the lumbar spine and hip(s). Carbon Voyage DEXA scanner for bone mineral density determination [...] report found in: Imaging Section of the [facility] EMR. Definitions: Normal: T-score above -1.0 [...] W OR WO CAD (07/11/2024 12:23 PM FLAP MAKER) Anatomical Region Laterality Modality Breast Bilateral Mammography 07/11/2024 12:2 4 PM FLAP MAKER Impressions 07/11/2024 1:50 PM FLAP MAKER IMPRESSION: Negative bilateral screening mammogram. Recommend routine followup. OVERALL FINAL ASSESSMENT: BI-RADS CATEGORY 1: Negative. DICTATION LOCATION: [facility] Narrative 07/11/2024 1:50 PM FLAP MAKER BILATERAL SCREENING DIGITAL MAMMOGRAM WITH 3D TOMOSYNTHESIS [...] ASSESSMENT: BI-RADS CATEGORY 1: Negative. DICTATION LOCATION: [facility] Ricky Lowery MD MAMMO ORDERABLES Final Result from Last 3 Months or Most Recently Relevant to Health Maintenance Insurance [facility] MEDICARE PART A AND B Care Teams Balancing Machine Operator Relationship Specialty Start Date End Date Ricky Lowery MD [address] [place] [id number] PCP - General Family Practice 11/06/09
--- OUTSIDE RECORDS SUMMARY | 2024-10-30 08:18 | XMS_ITS | Clinical Summary ---
Author Organization [facility] Address [facility] [place] [address] Care Team Providers Care Merchandiser Name Role Phone Ricky Lowery MD Primary Care Provider [phone] Allergies Active Allergy Reactions Criticality Noted Date [...] of 1 - PCV) 2022 COVID-19 Vaccine ( - 2023-2 5 season) 2024 RSV Immunization or 60+ Years (1 - [...] this topic Medical Devices Implanted Type Area Human Resource Professional Device Identifier Shelf Expiration Date Model / Serial / Lot Iol [employer] Toric [id number] - [id number] Implanted:Qty: 1 on 04/08/2019 by Danish Mendoza MD at [facility] Lens PANFILO 06/19/2021 [id number] / [id number] / Iol Tecnis Multifocal Symphony [id number] - [id number] Implanted:Qty: 1 on 05/13/2019 by Danish Mendoza MD at [facility] Lens Left: Eye PANFILO 06/01/2021 [id number] / [id number] / Insurance [facility] Care Teams Merchandiser Relationship Specialty Start Date End Date Ricky Lowery MD [address] [place] [id number] PCP - General FAMILY PRACTICE 04/02/19
--- OUTSIDE RECORDS SUMMARY | 2024-10-30 08:18 | XMS_ITS | Encounter Summary ---
Author Organization [facility] Address [address] [place] [address] Care Team Providers Care Bell Clerk Name Role Phone Ricky Lowery MD Primary Care Provider [phone] Encounter Details Date Type Department Care Team (Latest Contact Info) Description 09/28/2007 Outpatient Historical HIS [facility] Galdino Demarco MD [address] [address] Other Screening Mammogram Social History Tobacco Use Types Packs/Day Years Used Date Smoking Tobacco: Never Assessed Comments Unknown Sex and Gender Information Value Date Recorded Sex Assigned at Not on file Legal Sex Female 3:29 AM COAL HIKER Gender Identity Not on file Sexual Orientation Not on file documented as of this encounter Plan of Treatment Upcoming Encounters Date Type Department Care Team (Late st Contact Info) Description 07/01/2025 10:45 AM COAL HIKER Office Visit [facility] OBGYN - [place] [address] [place] [address], [address] [address] Galdino Pichardo MD [address] [address] documented as of this encounter Procedures Procedure Name Priority Date/Time Associated Diagnosis Comments MAMMO SCREEN BILAT W OR WO CAD Routine 09/28/2007 8:02 AM COAL HIKER documented in this encounter Results * MAMMO DIGITAL SCREEN BILAT (09/28/2007 8:02 AM COAL HIKER) Anatomical Region Laterality Modality Breast Bilateral Other 09/28/2007 8:02 AM COAL HIKER Narrative 09/28/2007 7:16 PM COAL HIKER [address] [place], [place] [address] Admit Date: 09/28/2007 ALESHIA MUÑOZ Sex: F Admit Prov: GALDINO PICHARDO Date: 1955 Primary Care Prov: DEMARCO DAWSON CMRN: [id number] Room: JANAK N: [id number] IMAGING SERVICES Ordering Prov: GALDINO PICHARDO Accession Number: [id number] Interpretation BILATERAL SCREENING DIGITAL MAMMOGRAMS WITH COMPUTER [...] Procedure Note Michelle Fan MD - 09/28/2007 [address] [place], [place] [address] Admit Date: 09/28/2007 ALESHIA MUÑOZ Sex: F Admit Prov: GALDINO PICHARDO Date: 1955 Primary Care Prov: DEMARCO DAWSON CMRN: [id number] Room: JANAK SSN: [id number] IMAGING SERVICES Ordering Prov: GALDINO PICHARDO Interpretation [...] mammogram documented in this encounter Care Teams Bell Clerk Relationship Specialty Start Date End Date Ricky Lowery MD [address] [place] [address] PCP - General Family Practice 11/06/09 documented as of this encounter
--- OUTSIDE RECORDS SUMMARY | 2024-10-30 08:18 | XMS_ITS | Clinical Summary ---
Author Organization [facility] Address [address], [address] [address] Phone Care Team Providers Care Home Economics Expert Name Role Phone Ricky Lowery MD Primary Care Provider [phone] Social History Tobacco Use Types Packs/Day Years [...] Recently Relevant to Health [place] [address] [facility] Care Teams Home Economics Expert Relationship Specialty Start Date End Date Ricky Lowery MD [address] [place] [address] PCP - General Family Medicine 11/16/18
--- OUTSIDE RECORDS SUMMARY | 2024-10-30 08:18 | XMS_ITS | Data Portability ---
Author Organization [place] [facility] [place] [employer] [facility] [employer], Main Office Address [address] [place] [address] Care Team Providers Care Sports Administrator Name Role Phone LATHA HIGHTOWER Primary Care Provider LATHA HIGHTOWER Referring Provider [phone] Assessment Encounter Date Assessment Date Assessment LastModified by Organization Details LastModified Time 03/24/2023 03/24/2023 HPI: 67-year-old female came in today for evaluation of her left knee symptoms. She states symptoms started about 2 or 3 months ago. Three months ago she was at [employer] and did an extensive amount of walking. [...] spent in treatment patient more have this [id number]-qpai conversation Not available 03/24/2023 13:34:14 Plan of Treatment Reminders Order Date Submit Date Provider Last Modified By Organization Details Last Modified Time Details Appointments None record ed. Lab None record ed. Referral None record ed. Procedures None record ed. Surgeries None record ed. Imaging XR, knee 023 03/24/20 [email or web address] [facility] [place], [address], [place], [address], 3 10:55:06 Medication Orders None record ed. Patient TargetsNo targets recorded. Patient InstructionsNo instructions recorded. Reason for Referral None Reported. Results Created Date Observation Date Name Description Value Unit Range Abnormal Flag Note LastModifiedBy Organization Detail LastModifiedTime 03/24/20 XR, knee No observ ation record ed. [facility] [place] [address], [place], [address], 03/24/2023 13:29:31 Result Notes None recorded. Problems Name Problem SNOMED Code Status Onset Date Resolution Date Notes Provider Name and Address Organization Details Recorded Time Pain of left knee joint 474442315153936 Active 2022 DOROTHY Arevalo МАРИНА Emily [facility] [employer] [facility] 12:09:28 Problem Notes None recorded. Procedures Surgical History Date Name Laterality Status Provider Name and Address Organization Details Recorded Time 07/31/19 23 Hemorrhoidectomy completed Hailey Millard CNA [facility] [employer] [facility] 03/24/2023 12:08:56 07/31/19 11 Thyroid Surgery completed Hailey Millard CNA [facility] 03/24/2023 12:08:32 Imaging Results Imaging Date Name Status LastModified by Organiz ation Details LastModified Time 03/24/2023 XR, knee completed [facility] [place] [address], [place], [address], 03/24/2023 13:29:31 Procedure Notes None recorded. Medical [...] Updated DateTime 03/24/2023 162.56 cm 22 kg/m2 29354.82 g Hailey Millard CNA [facility] 03/24/2023 12:23:02 Social History Question Answer Notes LastModified by Organizat ion Details LastModified Time Tobacco Smoking Status Never Smoker Hailey Millard CNA [facility] 03/24/2023 12:08:12 What Is Your Level Of [...] SNOMED-CT Code Diagnosis ICD10 Code Diagnosis Note [id number] SHILPA Fernández [facility] [place] [address] [place] [address] 03/24/2023 11:21:40 03/24/2023 14:28:21 Pain of left knee joint [id number] 65943 M25.562 Health Concerns Section Related Observation LastModified by Organization Detai ls LastModified Time None Recorded Concern Status LastModified by Organization Details LastModified Time None Recorded Advance Directives Directive None Recorded Payers Encounter Date Sequence Insurance Name Policy Number Policy White Covered Member ID White Member ID Guarantor Name 03/24/2023 1 [place] Aleshia Muñoz [id number] Aleshia Muñoz 03/24/2023 2 [place] PROGRAM ([place]O) 111 Aleshia Muñoz [id number] Aleshia Muñoz OBGyn Episode No OBEpisode recorded.
--- OUTSIDE RECORDS SUMMARY | 2024-10-30 08:18 | XMS_ITS | Encounter Summary ---
Author Organization [facility] Address [address] [place] [address] Care Team Providers Care Commodity Lead Name Role Phone Ricky Lowery MD Primary Care Provider [phone] Encounter Details Date Type Department Care Team (Latest Contact Info) Description 09/12/2006 Outpatient Historical HIS [facility] Galdino Demarco MD [address] [address] Other Screening Mammogram (Primary Dx) Social History Tobacco Use Types Packs/Day Years Used Date Smoking Tobacco: Never Assessed Comments Unknown Sex and Gender Information Value Date Recorded Sex Assigned at Not on file Legal Sex Female 3:29 AM SHOP FOREMAN Gender Identity Not on file Sexual Orientation Not on file documented as of this encounter Plan of Treatment Upcoming Encounters Date Type Department Care Team (Late st Contact Info) Description 07/01/2025 10:45 AM SHOP FOREMAN Office Visit [facility] OBGYN - [place] [address] [place] [address] Galdino Pichardo MD [address] [address] documented as of this encounter Visit Diagnoses Diagnosis Other screening mammogram- Primary documented in this encounter Care Teams Commodity Lead Relationship Specialty Start Date End Date Ricky Lowery MD [address] [place] [address] PCP - General Family Practice 11/06/09 documented as of this encounter
== END 2024-10-30 08:14 | disposition home or self-care (01) ==
LOC: ANHPFT 08:13
PROVIDERS: PCP Family Medicine; Visit Provider Physician Assistant
DX: R05.3 Chronic cough (principal); Z53.21 Procedure and treatment not carried out due to patient leaving prior to being seen by health care provider
CPT/HCPCS: 99199; J7674

== ENCOUNTER 2024-11-21 08:29 | Outpatient (CLI) | payer MEDICARE, BC, SELFPAY ==
--- OUTSIDE RECORDS SUMMARY | 2024-11-21 08:45 | XMS_ITS | Encounter Summary ---
Author Organization [facility] Address [address] [place] [address] Care Team Providers Care Mechanical Equipment Sales Engineer Name Role Phone Ricky Lowery MD Primary Care Provider Encounter Details Date Type Department Care Team (Latest Contact Info) Description 09/12/2002 Outpatient Historical HIS [facility] Galdino Demarco MD [address] [address] SCREENING MAMM-MAILG NEOPL-OTHER (Primary Dx) Social History Tobacco Use Types Packs/Day Years Used Date Smoking Tobacco: Never Assessed Comments Unknown Sex and Gender Information Value Date Recorded Sex Assigned at Not on file Legal Sex Female 3:29 AM PLANT SCIENCES PROFESSOR Gender Identity Not on file Sexual Orientation Not on file documented as of this encounter Plan of Treatment Upcoming Encounters Date Type Department Care Team (Late st Contact Info) Description 07/01/2025 10:45 AM PLANT SCIENCES PROFESSOR Office Visit [facility] OBGYN - [place] [address] [place] [address] Galdino Pichardo MD [address] [address] documented as of this encounter Visit Diagnoses Diagnosis Other screening mammogram- Primary documented in this encounter Care Teams Mechanical Equipment Sales Engineer Relationship Specialty Start Date End Date Ricky Lowery MD [address] [place] [address] PCP - General Family Practice 11/06/09 documented as of this encounter
--- OUTSIDE RECORDS SUMMARY | 2024-11-21 08:45 | XMS_ITS | Continuity of Care Document ---
Author Organization [facility] Address [address] [place] [address] [address] [place] [address] Phone Care Team Providers Care Product Development Specialist Name Role Phone [facility] Unavail able Tessa Irby Unavailable Unavailable Advance Directives Directive Yes / No Effective Date File Name No Information Encounters Encounter Description Practice Location Reason(s) For Visit Diagnoses Date Provider Providers Copied on Encounter [facility], [address], [place], [place], [id number], [place] tel:[phone] [facility] No Information Sep-0 7-200 5 [facility] [email or web address] [address] [facility], [address], [place], [place], [id number] , [place]. [phone] Consulting Provider: Tessa Irby, [address] [place] [address], [address]. tel:[phone] Family History Family Member Type Diagnosis Age At Onset No Information Payers Payer name Insurance type Covered republican ID Authoriza tion(s) No Information Social History [...]
--- OUTSIDE RECORDS SUMMARY | 2024-11-21 08:45 | XMS_ITS | Clinical Summary ---
Author Organization [facility] Address [address], [address] [address] Phone Care Team Providers Care Finish Mill Operator Name Role Phone Ricky Lowery MD Primary Care Provider [phone] Social History Tobacco Use Types Packs/Day Years [...] Recently Relevant to Health [place] [address] [facility] Care Teams Finish Mill Operator Relationship Specialty Start Date End Date Ricky Lowery MD [address] [place] [address] PCP - General Family Medicine 11/16/18
--- OUTSIDE RECORDS SUMMARY | 2024-11-21 08:45 | XMS_ITS | Encounter Summary ---
Author Organization [facility] Address [address] [place] [address] Care Team Providers Care Machine Engineer Name Role Phone Ricky Lowery MD Primary Care Provider Encounter Details Date Type Department Care Team (Latest Contact Info) Description 09/12/2006 Outpatient Historical HIS [facility] Galdino Demarco MD [address] [address] Other Screening Mammogram (Primary Dx) Social History Tobacco Use Types Packs/Day Years Used Date Smoking Tobacco: Never Assessed Comments Unknown Sex and Gender Information Value Date Recorded Sex Assigned at Not on file Legal Sex Female 3:29 AM MEDICAID BILLING CLERK Gender Identity Not on file Sexual Orientation Not on file documented as of this encounter Plan of Treatment Upcoming Encounters Date Type Department Care Team (Late st Contact Info) Description 07/01/2025 10:45 AM MEDICAID BILLING CLERK Office Visit [facility] OBGYN - [place] [address] [place] [address] Galdino Pichardo MD [address] [address] documented as of this encounter Visit Diagnoses Diagnosis Other screening mammogram- Primary documented in this encounter Care Teams Machine Engineer Relationship Specialty Start Date End Date Ricky Lowery MD [address] [place] [address] PCP - General Family Practice 11/06/09 documented as of this encounter
--- OUTSIDE RECORDS SUMMARY | 2024-11-21 08:45 | XMS_ITS | Encounter Summary ---
Author Organization [facility] Address [address] [place] [address] Care Team Providers Care Solvent Station Attendant Name Role Phone Ricky Lowery MD Primary Care Provider [phone] Encounter Details Date Type Department Care Team (Latest Contact Info) Description 06/03/1999 Outpatient Historical HIS [facility] Galdino Demarco MD [address] [address] Other screening mammogram (Primary Dx) Social History Tobacco Use Types Packs/Day Years Used Date Smoking Tobacco: Never Assessed Comments Unknown Sex and Gender Information Value Date Recorded Sex Assigned at Not on file Legal Sex Female 3:29 AM CAREER DISCOVERY TEACHER Gender Identity Not on file Sexual Orientation Not on file documented as of this encounter Plan of Treatment Upcoming Encounters Date Type Department Care Team (Late st Contact Info) Description 07/01/2025 10:45 AM CAREER DISCOVERY TEACHER Office Visit [facility] OBGYN - [place] [address] [place] [address] Galdino Pichardo MD [address] [address] documented as of this encounter Visit Diagnoses Diagnosis Other screening mammogram- Primary documented in this encounter Care Teams Solvent Station Attendant Relationship Specialty Start Date End Date Ricky Lowery MD [address] [place] [address] PCP - General Family Practice 11/06/09 documented as of this encounter
--- OUTSIDE RECORDS SUMMARY | 2024-11-21 08:45 | XMS_ITS | Encounter Summary ---
Author Organization [facility] Address [address] [place] [address] Care Team Providers Care Automotive Worker Foreman Name Role Phone Ricky Lowery MD Primary Care Provider [phone] Encounter Details Date Type Department Care Team (Latest Contact Info) Description 07/20/2000 Outpatient Historical HIS [facility] Galdino Demarco MD [address] [address] Other screening mammogram (Primary Dx) Social History Tobacco Use Types Packs/Day Years Used Date Smoking Tobacco: Never Assessed Comments Unknown Sex and Gender Information Value Date Recorded Sex Assigned at Not on file Legal Sex Female 3:29 AM LITIGATION COORDINATOR Gender Identity Not on file Sexual Orientation Not on file documented as of this encounter Plan of Treatment Upcoming Encounters Date Type Department Care Team (Late st Contact Info) Description 07/01/2025 10:45 AM LITIGATION COORDINATOR Office Visit [facility] OBGYN - [place] [address] [place] [address] Galdino Pichardo MD [address] [address] documented as of this encounter Visit Diagnoses Diagnosis Other screening mammogram- Primary documented in this encounter Care Teams Automotive Worker Foreman Relationship Specialty Start Date End Date Ricky Lowery MD [address] [place] [address] PCP - General Family Practice 11/06/09 documented as of this encounter
--- OUTSIDE RECORDS SUMMARY | 2024-11-21 08:45 | XMS_ITS | Clinical Summary ---
Author Organization [facility] Address [address] [place] [address] Phone Care Team Providers Care Carousel Operator Name Role Phone Ricky Lowery MD Primary Care Provider [phone] Allergies Active Allergy Reactions Criticality Noted Date [...] Months Immunizations Immunization Administration Dates Next Due (AppSheet) COVID-19 VACCINE - EMERGENCY USE AUTHORIZATION, AD26,COV2S(PF) [...] on file Legal Sex Female 3:29 AM WINDOWS SERVER ADMINISTRATOR Gender Identity Not on file Sexual Orientation [...] 60.3 kg (133 lb) 06/25/2024 10:42 AM WINDOWS SERVER ADMINISTRATOR Height 165.1 cm (5' 5 ) 06/25/2024 10:42 AM WINDOWS SERVER ADMINISTRATOR Body Mass Index 22.13 06/25/2024 10:42 AM WINDOWS SERVER ADMINISTRATOR Plan of Treatment Upcoming Encounters Date Type Department Care Team (Late st Contact Info) Description 07/01/2025 10:45 AM WINDOWS SERVER ADMINISTRATOR Office Visit [address] [address] Galdino Pichardo MD [address] [facility] [address] [place] [address] Health Maintenance Due Date Last [...] Colorectal Cancer Screening 06/12/2026 OSTEOPOROSIS SCREENING 07/22/2026 , 06/13/2022, 04/16/2020, Additional history exists RSV VACCINE (60+ or ) (1 - 1-dose 75+ series) 2032 Procedures Procedure Name Priority Date/Time Associated Diagnosis Comments XR DEXA BONE DENSITY AXIAL 1 OR MORE SITES Routine 07/22/2024 10:58 AM WINDOWS SERVER ADMINISTRATOR Menopause MAMMO 3D LOLA SCREEN BILAT W OR WO CAD Routine 07/11/2024 12:23 PM WINDOWS SERVER ADMINISTRATOR Visit for screening mammogram from Last 3 Months or Most Recently Relevant to Health Maintenance Results * XR DEXA BONE DENSITY AXIAL 1 OR MORE SITES (07/22/2024 10:58 AM WINDOWS SERVER ADMINISTRATOR) Anatomical Region Laterality Modality Digital Radiogra phy 07/22/2024 10:5 9 AM WINDOWS SERVER ADMINISTRATOR Impressions 07/22/2024 11:13 AM WINDOWS SERVER ADMINISTRATOR IMPRESSION: Osteopenia. Lumbar Spine: T-score: 1.3 Left [...] report found [facility]: [facility]. Definitions: Normal: T-score above -1.0 [...] Champion MD DICTATION LOCATION: 07/22/2024 11:13 AM WINDOWS SERVER ADMINISTRATOR EXAMINATION: BONE DENSITY STUDY (DXA) DATE: 07/22/2024 10:58 AM HISTORY: 68 years Female. Postmenopausal. Osteopenia. PROCEDURE: Planar images of the lumbar spine and hip(s). [facility] DEXA scanner for bone mineral density determination [...] images of the lumbar spine and hip(s). [facility] DEXA scanner for bone mineral density determination [...] report found in: [facility]. Definitions: Normal: T-score above -1.0 [...] W OR WO CAD (07/11/2024 12:23 PM WINDOWS SERVER ADMINISTRATOR) Anatomical Region Laterality Modality Breast Bilateral Mammography 07/11/2024 12:2 4 PM WINDOWS SERVER ADMINISTRATOR Impressions 07/11/2024 1:50 PM WINDOWS SERVER ADMINISTRATOR IMPRESSION: Negative bilateral screening mammogram. Recommend routine followup. OVERALL FINAL ASSESSMENT: BI-RADS CATEGORY 1: Negative. DICTATION LOCATION: [facility] 07/11/2024 1:50 PM WINDOWS SERVER ADMINISTRATOR BILATERAL SCREENING DIGITAL MAMMOGRAM WITH 3D TOMOSYNTHESIS [...] ASSESSMENT: BI-RADS CATEGORY 1: Negative. DICTATION LOCATION: [facility] us Rickycharlie Lowery MD MAMMO ORDERABLES Final Result from Last 3 Months or Most Recently Relevant to Health Maintenance Insurance [facility] FEDERAL MEDICARE PART A AND B Care Teams Carousel Operator Relationship Specialty Start Date End Date Ricky Lowery MD [address] [place] [address] PCP - General Family Practice 11/06/09
--- OUTSIDE RECORDS SUMMARY | 2024-11-21 08:45 | XMS_ITS | Encounter Summary ---
Author Organization [facility] Address [address] [place] [address] Care Team Providers Care Stagecraft Professor Name Role Phone Ricky Lowery MD Primary Care Provider [phone] Encounter Details Date Type Department Care Team (Latest Contact Info) Description 09/18/2003 Outpatient Historical HIS [facility] Galdino Demarco MD [address] [address] FOLLOW-UP EXAM NEC (Primary Dx) Social History Tobacco Use Types Packs/Day Years Used Date Smoking Tobacco: Never Assessed Comments Unknown Sex and Gender Information Value Date Recorded Sex Assigned at Not on file Legal Sex Female 3:29 AM SUMO WRESTLER Gender Identity Not on file Sexual Orientation Not on file documented as of this encounter Plan of Treatment Upcoming Encounters Date Type Department Care Team (Late st Contact Info) Description 07/01/2025 10:45 AM SUMO WRESTLER Office Visit [facility] OBGYN - [place] [address] [place] [address], [address] [address] Galdino Pichardo MD [address] [address] documented as of this encounter Visit Diagnoses Diagnosis Other follow-up examination(V67.59)- Primary Other follow-up examination documented in this encounter Care Teams Stagecraft Professor Relationship Specialty Start Date End Date Ricky Lowery MD [address] [place] [address] PCP - General Family Practice 11/06/09 documented as of this encounter
--- OUTSIDE RECORDS SUMMARY | 2024-11-21 08:45 | XMS_ITS | Encounter Summary ---
Author Organization [facility] Address [address] [place] [address] Care Team Providers Care Marine Engine Driver Name Role Phone Ricky Lowery MD Primary Care Provider [phone] Encounter Details Date Type Department Care Team (Latest Contact Info) Description 10/24/[address] [facility] Galdino Demarco MD [address] [address] Other Screening Mammogram Social History Tobacco Use Types Packs/Day Years Used Date Smoking Tobacco: Never Assessed Comments Unknown Sex and Gender Information Value Date Recorded Sex Assigned at Not on file Legal Sex Female 3:29 AM COIL REPAIR TECHNICIAN Gender Identity Not on file Sexual Orientation Not on file documented as of this encounter Plan of Treatment Upcoming Encounters Date Type Department Care Team (Late st Contact Info) Description 07/01/2025 10:45 AM COIL REPAIR TECHNICIAN Office Visit [facility] OBGYN - [place] [address] [place] [address], [address] [address] Galdino Pichardo MD [address] [address] documented as of this encounter Procedures Procedure Name Priority Date/Time Associated Diagnosis Comments MAMMO SCREEN BILAT W OR WO CAD Routine 10/24/2008 7:47 AM CDT documented in this encounter Results * MAMMO DIGITAL SCREEN BILAT (10/24/2008 7:47 AM CDT) Anatomical Region Laterality Modality Breast Bilateral Other 10/24/2008 7:47 AM CDT Narrative 10/27/2008 8:17 PM CDT [facility] [address] [place], [place] [address] Admit Date: 10/24/2008 ALESHIA MUÑOZ Sex: F Admit Prov: GALDINO PICHARDO Date: 1955 Primary Care Prov: DEMARCO DAWSON CMRN: [id number] Room: [facility]: [id number] IMAGING SERVICES Ordering Prov: GALDINO PICHARDO Accession Number: [id number] Interpretation BILATERAL FULL FIELD DIGITAL SCREENING MAMMOGRAM [...] AMK Procedure Note Makenna West - 10/27/2008 [facility] [address] [place], [place] [address] Admit Date: 10/24/2008 ALESHIA MUÑOZ Sex: F Admit Prov: GALDINO PICHARDO Date: 1955 Primary Care Prov: DEMARCO DAWSON CMRN: [id number] Room: A SSN: [id number] IMAGING SERVICES Ordering Prov: GALDINO PICHARDO Interpretation [...] mammogram documented in this encounter Care Teams Marine Engine Driver Relationship Specialty Start Date End Date Ricky Lowery MD [address] [place] [address] PCP - General Family Practice 11/06/09 documented as of this encounter
--- OUTSIDE RECORDS SUMMARY | 2024-11-21 08:45 | XMS_ITS | Encounter Summary ---
Author Organization [facility] Address [address] [place] [address] Care Team Providers Care Broach Setter Name Role Phone Ricky Lowery MD Primary Care Provider [phone] Encounter Details Date Type Department Care Team (Latest Contact Info) Description 09/28/2007 Outpatient Historical HIS [facility] Galdino Demarco MD [address] [address] Other Screening Mammogram Social History Tobacco Use Types Packs/Day Years Used Date Smoking Tobacco: Never Assessed Comments Unknown Sex and Gender Information Value Date Recorded Sex Assigned at Not on file Legal Sex Female 3:29 AM MOUNTAIN GUIDE Gender Identity Not on file Sexual Orientation Not on file documented as of this encounter Plan of Treatment Upcoming Encounters Date Type Department Care Team (Late st Contact Info) Description 07/01/2025 10:45 AM MOUNTAIN GUIDE Office Visit [facility] OBGYN - [place] [address] [place] [address], [address] [address] Galdino Pichardo MD [address] [address] documented as of this encounter Procedures Procedure Name Priority Date/Time Associated Diagnosis Comments MAMMO SCREEN BILAT W OR WO CAD Routine 09/28/2007 8:02 AM MOUNTAIN GUIDE documented in this encounter Results * MAMMO DIGITAL SCREEN BILAT (09/28/2007 8:02 AM MOUNTAIN GUIDE) Anatomical Region Laterality Modality Breast Bilateral Other 09/28/2007 8:02 AM MOUNTAIN GUIDE Narrative 09/28/2007 7:16 PM MOUNTAIN GUIDE [place] [address] [place], [place] [address] Admit Date: 09/28/2007 ALESHIA MUÑOZ Sex: F Admit Prov: GALDINO PICHARDO Date: 1955 Primary Care Prov: DEMARCO DAWSON CMRN: [id number] Room: [facility]NAK N: [id number] IMAGING SERVICES Ordering Prov: GALDINO PICHARDO Accession Number: [id number] Interpretation BILATERAL SCREENING DIGITAL MAMMOGRAMS WITH COMPUTER [...] Procedure Note Michelle Fan MD - 09/28/2007 [address] [place] [place], [place] [address] Admit Date: 09/28/2007 ALESHIA MUÑOZ Sex: F Admit Prov: GALDINO PICHARDO Date: 1955 Primary Care Prov: DEMARCO DAWSON CMRN: [id number] Room: [facility]NAK SSN: [id number] IMAGING SERVICES Ordering Prov: GALDINO PICHARDO Interpretation [...] mammogram documented in this encounter Care Teams Broach Setter Relationship Specialty Start Date End Date Ricky Lowery MD [address] [place] [address] PCP - General Family Practice 11/06/09 documented as of this encounter
--- OUTSIDE RECORDS SUMMARY | 2024-11-21 08:45 | XMS_ITS | Data Portability ---
Author Organization [facility] Address [address] [place] [address] Assessment No assessment recorded. Plan of Treatment Reminders Order Date Submit Date Provider Last Modified By Organization Details Last Modified Time Details Appointments None recorded. Lab None recorded. Referral None recorded. Procedures None recorded. Surgeries None recorded. Imaging CT, sinuses, w/o contrast 2023 024 [facility], [address], [facility] [address], [place], [address], 5 15:36:59 Medication Orders azelastin e 137 mcg (0.1 %) nasal spray 2023 024 [facility] #[id number], [address], [id number], 4 12:00:50 cefdinir 300 mg capsule 2023 024 [facility] #[id number], [address], [id number], 4 10:13:[address] 10 mg tablet 2023 024 [facility] #[id number], [address], [id number], 4 11:48:02 Patient TargetsNo targets recorded. Patient InstructionsNo instructions recorded. Reason for Referral None Reported. Medical Equipment None Reported. Allergies Allergen ID Allergen Name Allergen Category Reaction Reaction Severity Criticality Documentation Date Start Date Code Code System Note Provider Name and Address Organization Details Recorded Time [id number] erythromy miller medicatio n Not available Not [...] Updated DateTime 4 162.56 cm 22.4 kg/m2 18008.4 5 g 66 /min 16 /min 98.1 [degF] 116 mm[Hg] 72 mm[Hg] Emily Hung MA [place] - [facility] 4 11:37:36 Date Recorded Body height Body mass index (BMI) Body weight Heart rate Respiratory rate Body temperature Systolic blood pressure Diastolic blood pressure Provider Name and Address Organization Details Last Updated DateTime 4 162.56 cm 22.9 kg/m2 90672.2 2 g 87 /min 16 /min 97.7 [degF] 123 mm[Hg] 74 mm[Hg] Emily Hung MA [facility] 4 11:44:11 Date Recorded Body height Body mass index (BMI) Body weight Heart rate Respiratory rate Body temperature Systolic blood pressure Diastolic blood pressure Provider Name and Address Organization Details Last Updated DateTime 4 162.56 cm 23 kg/m2 68797.3 8 g 86 /min 16 /min 98.1 [degF] 133 mm[Hg] 73 mm[Hg] Emily Hung MA [facility] 4 10:15:03 Social History Question Answer Notes LastModified by Organization Details LastModified Time Tobacco Smoking Status Never Smoker Emily Hung MA [facility] 03/26/2024 11:35:11 Do You Have [...] Or The Highest Degree You Have Received? [id number] Information not available 03/26/2024 What Was The Date Of Your Most Recent Tobacco Screening? 05/21/2024 Information not available 05/21/2024 Do You Have Any Pets? No Information not available 03/26/2024 What Is Your Relationship Status? Information not available 03/26/2024 Do You Feel Stressed (tense, Restless, Nervous, Or Anxious, Or Unable To Sleep At Night)? [id number] Information not available 03/26/2024 Do You Use [...] SNOMED-CT Code Diagnosis ICD10 Code Diagnosis Note [id number] MD Maine Howard (Adult Med) [address] [place] [address] 03/26/2024 11:18:41 04/02/2024 16:17:26 Chronic rhinitis 03085113 J31.0 follow back in a month Chronic cough 02846606 R 05.3 Acute sinusitis 36334392 J01.90 [id number] MD Maine Howard (Adult Med) [address] [place] [address] 04/23/2024 11:20:14 04/24/2024 13:15:56 Allergic rhinitis 65285845 J30.9 follow back in a month Chronic cough 97210836 R 05.3 [id number] MD Maine Howard (Adult Med) [address] [place] [address] 05/21/2024 09:55:31 05/22/2024 09:19:06 Chronic cough 07332291 R05.[address] Health Concerns Section Related Observation LastModified by Organization Detai ls LastModified Time None Recorded Concern Status LastModified by Organization Details LastModified Time None Recorded Advance Directives Directive Y: Payers Encounter Date Sequence Insurance Name Policy Number Policy White Covered Member ID White Member ID Guarantor Name 03/26/2024 2 [place] 111 Aleshia Muñoz [id number] Aleshia Muñoz 03/26/2024 1 [place] Aleshia Bridges [id number] Aleshia Bridges 04/23/2024 1 [place] Aleshia Bridges [id number] Aleshia Bridges 04/23/2024 2 [place] 111 Aleshia Muoñz [id number] Aleshia Muñoz 05/21/2024 1 [place] Aleshia Muñoz [id number] Aleshia Bridges 05/21/2024 2 [place] 111 Aleshia Muñoz [id number] Aleshia Muñoz Notes Date Note Type Note Provider Name and Address Organization Details Recorded Time 03/26/2024 text/html Pt complaining o f a cough for the last 10 months. She has nasal congestion and drainage which improved with antihistamines and flonase but did not resolve. She does not complain of reflux Leighton Ashby MD Attn: Accounting,[address] [facility], [place], [address], [facility] 03/26/2024 11:48:03 04/23/2024 text/html Pt complaining o f nasal congestion and drainage. She has had a persistent cough. It has improved but not resolved. She is on flonase and montelukast Leighton Ashby MD Attn: Accounting,204 1 [facility], [place], [address], [facility] 04/23/2024 12:00:59 05/21/2024 text/html Pt complaining o f a chronic cough. She also has a problem with taste but not smell. She has not responded to nasal sprays or antibiotics Leighton Ashby MD Attn: Accounting,204 1 [facility], [place], [address], [facility] 05/21/2024 10:28:31 OBGyn Episode No OBEpisode recorded.
--- OUTSIDE RECORDS SUMMARY | 2024-11-21 08:45 | XMS_ITS | Encounter Summary ---
Author Organization [facility] Address [address] [place] [address] Care Team Providers Care Drop Wire Stringer Name Role Phone Ricky Lowery MD Primary Care Provider [phone] Encounter Details Date Type Department Care Team (Latest Contact Info) Description 09/11/2003 Outpatient Historical HIS [facility] Galdino Demarco MD [address] [address] SCREENING MAMM-MAILG NEOPL-OTHER (Primary Dx) Social History Tobacco Use Types Packs/Day Years Used Date Smoking Tobacco: Never Assessed Comments Unknown Sex and Gender Information Value Date Recorded Sex Assigned at Not on file Legal Sex Female 3:29 AM WELDER 2ND SHIFT Gender Identity Not on file Sexual Orientation Not on file documented as of this encounter Plan of Treatment Upcoming Encounters Date Type Department Care Team (Late st Contact Info) Description 07/01/2025 10:45 AM WELDER 2ND SHIFT Office Visit [facility] OBGYN - [place] [address] [place] [address] Galdino Pichardo MD [address] [address] documented as of this encounter Visit Diagnoses Diagnosis Other screening mammogram- Primary documented in this encounter Care Teams Drop Wire Stringer Relationship Specialty Start Date End Date Ricky Lowery MD [address] [place] [address] PCP - General Family Practice 11/06/09 documented as of this encounter
--- OUTSIDE RECORDS SUMMARY | 2024-11-21 08:45 | XMS_ITS | Continuity of Care Document ---
Author Organization [facility] Address [address] [place] [address] Phone Care Team Providers Care Portfolio Architect Name Role Phone Rivas Nichols MD Unavailable [...] MCG - Active Procedures Procedure Date Office/outpatient visit,[facility], [facility] [place] [place] 2022 Asp/inject major joint or bursa w/o US g uidance Kenalog 10mg/mL Advance Directives Directive Yes / No Effective Date File Name No Information Encounters Encounter Description Practice Location Reason(s) For Visit Diagnoses Date Provider Providers Copied on Encounter Office/outpat ient visit,[facility], [facility], [place] [facility], [address], [id number], [place] tel:[phone] [facility] Arms have tingling (chief complaint) Cervicalgia [address], [address], [place], [place], [id number] , [place]. tel: [phone] Referring Provider: Rivas Nichols P, [address], [place], [address]. tel:[phone] Family History Family Member Type Diagnosis Age At Onset Mother Problem (finding) Stroke Father Problem (finding) Stroke Immunizations Vaccine Date Status Comments Pneumo (2 yrs or older) (PPV23) administe red Source: Other Provider influenza, injectable, quadr ivalent, (3 years or older) administered Source: Other Provid er Payers Payer name Insurance type Covered democrat ID Authoriza tion(s) Medicare [place] W[place] Part B MB [id number] [facility] Blue Shiel d [facility] [id number] Social History Type Description Quantity Date Captured [...]
--- OUTSIDE RECORDS SUMMARY | 2024-11-21 08:45 | XMS_ITS | Encounter Summary ---
Author Organization [facility] Address [address] [place] [address] Care Team Providers Care Shipyard Supervisor Name Role Phone Ricky Lowery MD Primary Care Provider [phone] Encounter Details Date Type Department Care Team (Latest Contact Info) Description 09/14/2004 Outpatient Historical HIS [facility] Galdino Demarco MD [address] [address] SCREENING MAMM-MAILG NEOPL-OTHER (Primary Dx) Social History Tobacco Use Types Packs/Day Years Used Date Smoking Tobacco: Never Assessed Comments Unknown Sex and Gender Information Value Date Recorded Sex Assigned at Not on file Legal Sex Female 3:29 AM SUPERVISOR INSTRUMENT REPAIR Gender Identity Not on file Sexual Orientation Not on file documented as of this encounter Plan of Treatment Upcoming Encounters Date Type Department Care Team (Late st Contact Info) Description 07/01/2025 10:45 AM SUPERVISOR INSTRUMENT REPAIR Office Visit [facility] OBGYN - [place] [address] [place] [address] Galdino Pichardo MD [address] [address] documented as of this encounter Visit Diagnoses Diagnosis Other screening mammogram- Primary documented in this encounter Care Teams Shipyard Supervisor Relationship Specialty Start Date End Date Ricky Lowery MD [address] [place] [address] PCP - General Family Practice 11/06/09 documented as of this encounter
--- OUTSIDE RECORDS SUMMARY | 2024-11-21 08:45 | XMS_ITS | Encounter Summary ---
Author Organization [facility] Address [address] [place] [address] Care Team Providers Care Foam Dispenser Name Role Phone Ricky Lowery MD Primary Care Provider [phone] Encounter Details Date Type Department Care Team (Latest Contact Info) Description 09/15/2005 Outpatient Historical HIS [facility] Galdino Demarco MD [address] [address] SCREENING MAMM-MAILG NEOPL NEC (Primary Dx) Social History Tobacco Use Types Packs/Day Years Used Date Smoking Tobacco: Never Assessed Comments Unknown Sex and Gender Information Value Date Recorded Sex Assigned at Not on file Legal Sex Female 3:29 AM PUMPING SUPERVISOR Gender Identity Not on file Sexual Orientation Not on file documented as of this encounter Plan of Treatment Upcoming Encounters Date Type Department Care Team (Late st Contact Info) Description 07/01/2025 10:45 AM PUMPING SUPERVISOR Office Visit [facility] OBGYN - [place] [address] [facility], [address] [address] Galdino Pichardo MD [address] [address] documented as of this encounter Visit Diagnoses Diagnosis Other screening mammogram- Primary documented in this encounter Care Teams Foam Dispenser Relationship Specialty Start Date End Date Ricky Lowery MD [address] [place] [address] PCP - General Family Practice 11/06/09 documented as of this encounter
--- OUTSIDE RECORDS SUMMARY | 2024-11-21 08:45 | XMS_ITS | Data Portability ---
Author Organization [place] [facility] [place] [facility] [employer], Main Office Address [address] [place] [address] Care Team Providers Care Florist Manager Name Role Phone LATHA HIGHTOWER Primary Care Provider LATHA HIGHTOWER Referring Provider Assessment Encounter Date Assessment Date Assessment LastModified by Organization Details LastModified Time 03/24/2023 03/24/2023 HPI: 67-year-old female came in today for evaluation of her left knee symptoms. She states symptoms started about 2 or 3 months ago. Three months ago she was at [place] and did an extensive amount of walking. [...] spent in treatment patient more have this [id number] conversation Not available 03/24/2023 13:34:14 Plan of Treatment Reminders Order Date Submit Date Provider Last Modified By Organization Details Last Modified Time Details Appointments None record ed. Lab None record ed. Referral None record ed. Procedures None record ed. Surgeries None record ed. Imaging XR, knee 023 03/24/20 [email or web address] [facility] [place], [address], [place], [address], 3 10:55:06 Medication Orders None record ed. Patient TargetsNo targets recorded. Patient InstructionsNo instructions recorded. Reason for Referral None Reported. Results Created Date Observation Date Name Description Value Unit Range Abnormal Flag Note LastModifiedBy Organization Detail LastModifiedTime 03/24/20 XR, knee No observ ation record ed. [facility] [place] [address], [place], [address], 03/24/2023 13:29:31 Result Notes None recorded. Problems Name Problem SNOMED Code Status Onset Date Resolution Date Notes Provider Name and Address Organization Details Recorded Time Pain of left knee joint [id number] Active 2022 DOROHTY Arevalo МАРИНА Emily [facility] 12:09:28 Problem Notes None recorded. Procedures Surgical History Date Name Laterality Status Provider Name and Address Organization Details Recorded Time 07/31/19 23 Hemorrhoidectomy completed Hailey Millard CNA [facility] 03/24/2023 12:08:56 07/31/19 11 Thyroid Surgery completed Hailey Millard CNA [facility] 03/24/2023 12:08:32 Imaging Results Imaging Date Name Status LastModified by Organiz ation Details LastModified Time 03/24/2023 XR, knee completed [facility] [place] [address], [place], [address], 03/24/2023 13:29:31 Procedure Notes None recorded. Medical [...] Updated DateTime 03/24/2023 162.56 cm 22 kg/m2 58841.82 g Hailey Millard CNA [employer] 03/24/2023 12:23:02 Social History Question Answer Notes LastModified by Organizat ion Details LastModified Time Tobacco Smoking Status Never Smoker Hailey Millard CNA [employer] 03/24/2023 12:08:12 What Is Your Level Of [...] SNOMED-CT Code Diagnosis ICD10 Code Diagnosis Note [id number] SHILPA Fernández [facility] [place] [address] [place] [address] 03/24/2023 11:21:40 03/24/2023 14:28:21 Pain of left knee joint [id number] 20378 M25.562 Health Concerns Section Related Observation LastModified by Organization Detai ls LastModified Time None Recorded Concern Status LastModified by Organization Details LastModified Time None Recorded Advance Directives Directive None Recorded Payers Encounter Date Sequence Insurance Name Policy Number Policy White Covered Member ID White Member ID Guarantor Name 03/24/2023 1 [place] Aleshia Muñoz [id number] Aleshia Muñoz 03/24/2023 2 [place] ([place]) 111 Aleshia Muñoz [id number] Aleshia Muñoz OBGyn Episode No OBEpisode recorded.
--- OUTSIDE RECORDS SUMMARY | 2024-11-21 08:45 | XMS_ITS | Patient Health Record ---
Author Organization [facility] Address [address] [place] [address] Care Team Providers Care Colored Liquid Plastic Applier Name Role Phone Sky Kauffman Unavailable [phone] Migration, Provider Unavailable Unavailable Allergies Allergen (clinical [...] Risk Notes Problem Mild recurrent major depression (67968309) Major depressive disorder, recurrent, mild (F33.0) Active confirmed Problem Generalized anxiety disorder (09950922) Generalized anxiety disorder (F41.1) Active confirmed Vital Signs Heart Rate 92 /min 08/12/2024 Height-cm 162.56 cm 08/12/2024 Blood pressure diastolic 71 mm Hg 08/12/2024 Weight-kg 61.14 kg 08/12/2024 Height 64.00 in 08/12/2024 Blood pressure systolic 138 mm Hg 08/12/2024 Weight 134.8 lbs 08/12/2024 BMI 23.14 kg/m2 08/12/2024 Encounters Encounter Location Date Provider Diagnosis [facility] [address] [address] 11/28/2023 Sky Kauffman Major depressive disorder, recurrent, mild F33.0 and Generalized anxiety disorder F41.1 [facility] [address] [address] 01/01/2024 Sky Kauffman Major depressive disorder, recurrent, mild F33.0 and Generalized anxiety disorder F41.1 [facility], [place] [address] [facility] [address] [place] [address] 05/13/2024 Sky Kauffman Major depressive disorder, recurrent, mild F33.0 and Generalized anxiety disorder F41.1 [facility], [facility] [address] [address] 08/12/2024 Sky Kauffman Major depressive disorder, recurrent, mild F33.0 and Generalized anxiety disorder F41.1 [place] [address] [address] 12/16/2023 Provider Migration [facility], [place] [address] [address] 12/17/2023 Provider Migration [facility], [place] [address] [address] 08/12/2024 Skycayetano Weavera Assessments Encounter Date Diagnosis (ICD Code) Assessment Notes Treatment Notes Treatment Clinical Notes Section Notes 11/28/2023 Major depressive disorder, recurrent, mild (ICD-10 - F33.0) 11/28/2023 Generalized anxiety disorder (ICD-10 - F41.1) 01/01/2024 Major depressive disorder, recurrent, mild (ICD-10 - F33.0) cont sertraline 150mg daily- use [facility] pharmacy, Learning About How to Get [...] 150mg daily- use [facility] pharmacy 08/12/2024 Generalized anxiety disorder (ICD-10 [...] Plan: - Encourage continued use of non-pharmacologi kryzsztof strategies for sleep improvement. - Monitor for [...] medication management. - Refill prescriptions sent to [facility]. Plan Of Treatment Next Appt Details Provider Name:Sky read, 12/03/2024 01:00:00 PM, [address], [facility] [address], [place], [address], Insurance Providers Payer Name Payer Address Payer Phone Subscriber Number Group Number Insured Name Patient Relationship to Insured Coverage Start Date Coverage End Date Medicare-I l Medicare [address] [place] [address] [id number] IRWIN PIÑA Self - patient is the insured [place] [address] [place] [address] [id number] IRWIN PIÑA Self - patient is the insured Medical (General) History Medical History History ICD Code Problems: Generalized anxiety disorder History of anemia Long-term current use of drug therapy Mild recurrent major depression Vitamin D deficiency , skin cancer on nose, will have radiation 3 x per week x 7 weeks Surgical History Surgery Date(Month/Year) Appendectomy (86597) Cataract surgery (07083) 07/31/2019 Other 03/31/2011
[2024-11-21] MEDS: METHACHOLINE CHLORIDE 18 ML VIAL.NEB INHALATION (10:22)
== END 2024-11-21 08:30 | disposition home or self-care (01) ==
LOC: ANHPFT 08:30
PROVIDERS: PCP Family Medicine; Visit Provider Physician Assistant
DX: R05.3 Chronic cough (principal); R06.09 Other forms of dyspnea
CPT/HCPCS: 94070; J7674

== ENCOUNTER 2024-11-25 09:19 | Outpatient (CLI) | payer MEDICARE, BC, SELFPAY ==
--- NOTE | 2024-11-25 09:22 | EST_ITS ---
Patient Info Name: Aleshia Muñoz Age: 69 years : 1955 Gender: Female Ht: 64 in Wt: 133 lbs BSA: 1.66 m2 HR: 76 bpm BP: 123 / 59 mmHg Exam Date: 11/25/2024 9:32 AM Exam Location: Echo Lab Patient Status: Outpatient Admit Date: 11/25/2024 Staff Ordering Physician: Layo Hunt DO Attending Provider: Layo Hunt DO Exercise Technologist: Rachel Mendoza RDCS Exercise Physician: Laoy Hunt DO Exam Type: [place] stress test treadmill Study Info A treadmill exercise stress test was performed. Summary 1. 1. Negative [place] exercise stress test for ischemic ST changes by ECG criteria. 2. 2. Good functional capacity, achieving 7 METs of workload. 3. 3. Appropriate HR response to exercise. 4. 4. Appropriate HR recovery at 1 minute post exercise. 5. 5. No imaging with stress testing. 6. 6. Patient informed of the above results. Protocol: [place] Stress ECG Details Stage: REST Duration (min): 0 min : 59 sec Speed (mph): 0.0 Grade (%): 0 HR (bpm): 77 SBP (mmHg): 123 DBP (mmHg): 59 METS: --- Stage: REST Duration (min): 6 min : 7 sec Speed (mph): 0.0 Grade (%): 0 HR (bpm): 80 SBP (mmHg): 123 DBP (mmHg): 59 METS: --- Stage: STAGE 1 Duration (min): 1 min : 0 sec Speed (mph): 1.7 Grade (%): 10 HR (bpm): 93 SBP (mmHg): 123 DBP (mmHg): 59 METS: --- Stage: STAGE 1 Duration (min): 2 min : 0 sec Speed (mph): 1.7 Grade (%): 10 HR (bpm): 105 SBP (mmHg): 123 DBP (mmHg): 59 METS: --- Stage: STAGE 1 Duration (min): 3 min : 0 sec Speed (mph): 1.7 Grade (%): 10 HR (bpm): 108 SBP (mmHg): 148 DBP (mmHg): 53 METS: --- Stage: STAGE 2 Duration (min): 1 min : 0 sec Speed (mph): 2.5 Grade (%): 12 HR (bpm): 118 SBP (mmHg): 148 DBP (mmHg): 53 METS: --- Stage: STAGE 2 Duration (min): 2 min : 0 sec Speed (mph): 2.5 Grade (%): 12 HR (bpm): 127 SBP (mmHg): 182 DBP (mmHg): 55 METS: --- Stage: STAGE 2 Duration (min): 3 min : 0 sec Speed (mph): 2.5 Grade (%): 12 HR (bpm): 135 SBP (mmHg): 182 DBP (mmHg): 55 METS: --- Stage: RECOVERY Duration (min): 0 min : 59 sec Speed (mph): 0.0 Grade (%): 0 HR (bpm): 121 SBP (mmHg): 220 DBP (mmHg): 65 METS: --- Stage: RECOVERY Duration (min): 1 min : 59 sec Speed (mph): 0.0 Grade (%): 0 HR (bpm): 108 SBP (mmHg): 220 DBP (mmHg): 65 METS: --- Stage: RECOVERY Duration (min): 2 min : 59 sec Speed (mph): 0.0 Grade (%): 0 HR (bpm): 99 SBP (mmHg): 173 DBP (mmHg): 67 METS: --- Stage: RECOVERY Duration (min): 3 min : 9 sec Speed (mph): 0.0 Grade (%): 0 HR (bpm): 96 SBP (mmHg): 173 DBP (mmHg): 67 METS: --- Rest HR: 80 bpm Peak HR: 136 bpm Rest Sys BP: 123 mmHg Peak Sys BP: 220 mmHg Max Pred HR: 153 bpm % Max Pred HR: 89 % Target HR: 130 bpm Max RPP: 29,920 bpm*mmHg Del Valle Score: -4 Termination Reason: Reached target heart rate or workload Cardiac Symptoms: Shortness of breath Max ST Seg Deviation: 2.00 mm Total Time: 6 min : 0 sec Rest Lynn BP: 59 mmHg Peak Lynn BP: 65 mmHg Angina Score: None Total METS: 7.1 Resting ECG Sinus rhythm. Stress ECG No ST changes. Arrhythmias None. Report Signatures
--- OUTSIDE RECORDS SUMMARY | 2024-11-25 10:05 | XMS_ITS | Clinical Summary ---
Author Organization [facility] Address [address], [address] [address] Phone Care Team Providers Care Photograph Enlarger Name Role Phone Ricky Lowery MD Primary Care Provider [phone] Social History Tobacco Use Types Packs/Day Years [...] Recently Relevant to Health [place] [address] [facility] Care Teams Photograph Enlarger Relationship Specialty Start Date End Date Ricky Lowery MD [address] [place] [address] PCP - General Family Medicine 11/16/18
--- OUTSIDE RECORDS SUMMARY | 2024-11-25 10:05 | XMS_ITS | Continuity of Care Document ---
Author Organization [facility] Address [address] [place] [address] Phone Care Team Providers Care Trim Die Maker Name Role Phone Rivas Nichols MD Unavailable [...] MCG - Active Procedures Procedure Date Office/outpatient visit,[facility], [facility] 2022 Asp/inject major joint or bursa w/o US g uidance Kenalog 10mg/mL Advance Directives Directive Yes / No Effective Date File Name No Information Encounters Encounter Description Practice Location Reason(s) For Visit Diagnoses Date Provider Providers Copied on Encounter Office/outpat ient visit,[facility], [facility], [address], [id number], [place] tel:[phone] [facility] Arms have tingling (chief complaint) Cervicalgia [address] er. [address], [place], [place], [id number] , [place]. tel: [phone] Referring Provider: Rivas Nichols P, [address], [place], [address]. tel:[phone] Family History Family Member Type Diagnosis Age At Onset Mother Problem (finding) Stroke Father Problem (finding) Stroke Immunizations Vaccine Date Status Comments Pneumo (2 yrs or older) (PPV23) administe red Source: Other Provider influenza, injectable, quadr ivalent, (3 years or older) administered Source: Other Provid er Payers Payer name Insurance type Covered democrat ID Authoriza tion(s) [place] W[place] Part B MB [id number] [facility] Blue Shiel d [facility] [id number] Social History Type Description Quantity Date Captured [...]
--- OUTSIDE RECORDS SUMMARY | 2024-11-25 10:05 | XMS_ITS | Encounter Summary ---
Author Organization [facility] Address [address] [place] [address] Care Team Providers Care Escrow Assistant Name Role Phone Ricky Lowery MD Primary Care Provider [phone] Encounter Details Date Type Department Care Team (Latest Contact Info) Description 09/14/2004 Outpatient Historical HIS [facility] Galdino Demarco MD [address] [address] SCREENING MAMM-MAILG NEOPL-OTHER (Primary Dx) Social History Tobacco Use Types Packs/Day Years Used Date Smoking Tobacco: Never Assessed Comments Unknown Sex and Gender Information Value Date Recorded Sex Assigned at Not on file Legal Sex Female 3:29 AM CURTAIN SUPERVISOR Gender Identity Not on file Sexual Orientation Not on file documented as of this encounter Plan of Treatment Upcoming Encounters Date Type Department Care Team (Late st Contact Info) Description 07/01/2025 10:45 AM CURTAIN SUPERVISOR Office Visit [facility] O[facility] - [place] [address] [place] [address] Galdino Pichardo MD [address] [address] documented as of this encounter Visit Diagnoses Diagnosis Other screening mammogram- Primary documented in this encounter Care Teams Escrow Assistant Relationship Specialty Start Date End Date Ricky Lowery MD [address] [place] [address] PCP - General Family Practice 11/06/09 documented as of this encounter
--- OUTSIDE RECORDS SUMMARY | 2024-11-25 10:05 | XMS_ITS | Encounter Summary ---
Author Organization [facility] Address [address] [place] [address] Care Team Providers Care Foundation Drill Operator Name Role Phone Ricky Lowery MD Primary Care Provider [phone] Encounter Details Date Type Department Care Team (Latest Contact Info) Description 10/24/2008 Outpatient Historical HIS [facility] Galdino Demarco MD [address] [address] Other Screening Mammogram Social History Tobacco Use Types Packs/Day Years Used Date Smoking Tobacco: Never Assessed Comments Unknown Sex and Gender Information Value Date Recorded Sex Assigned at Not on file Legal Sex Female 3:29 AM CURTAIN FRAMER Gender Identity Not on file Sexual Orientation Not on file documented as of this encounter Plan of Treatment Upcoming Encounters Date Type Department Care Team (Late st Contact Info) Description 07/01/2025 10:45 AM CURTAIN FRAMER Office Visit [facility] - [place] [address] [place] [address], [address] [address] Galdino Pichardo MD [address] [address] documented as of this encounter Procedures Procedure Name Priority Date/Time Associated Diagnosis Comments MAMMO SCREEN BILAT W OR WO CAD Routine 10/24/2008 7:47 AM CDT documented in this encounter Results * MAMMO DIGITAL SCREEN BILAT (10/24/2008 7:47 AM CDT) Anatomical Region Laterality Modality Breast Bilateral Other 10/24/2008 7:47 AM CDT Narrative 10/27/2008 8:17 PM CDT [facility] [address], [place] [address] Admit Date: 10/24/2008 ALESHIA MUÑOZ Sex: F Admit Prov: GALDINO PICHARDO Date: 1955 Primary Care Prov: DEMARCO DAWSON CMRN: [id number] Room: [facility]: [id number] IMAGING SERVICES Ordering Prov: GALDINO PICHARDO Accession Number: [id number] Interpretation BILATERAL FULL FIELD DIGITAL SCREENING MAMMOGRAM [...] AMK Procedure Note Makenna [place] - 10/27/2008 [facility] [address] [place], [place] [address] Admit Date: 10/24/2008 ALESHIA MUÑOZ Sex: F Admit Prov: GALDINO PICHARDO Date: 1955 Primary Care Prov: DEMARCO DAWSON CMRN: [id number] Room: A SSN: [id number] IMAGING SERVICES Ordering Prov: GALDINO PICHARDO Interpretation [...] mammogram documented in this encounter Care Teams Foundation Drill Operator Relationship Specialty Start Date End Date Ricky Lowery MD [address] [place] [address] PCP - General Family Practice 11/06/09 documented as of this encounter
--- OUTSIDE RECORDS SUMMARY | 2024-11-25 10:05 | XMS_ITS | Clinical Summary ---
Author Organization [facility] Address [address] [place] [address] Phone Care Team Providers Care Bezel Cutter Name Role Phone Ricky Lowery MD Primary Care Provider [phone] Allergies Active Allergy Reactions Criticality Noted Date [...] Months Immunizations Immunization Administration Dates Next Due (The Hitch) COVID-19 VACCINE - EMERGENCY USE AUTHORIZATION, AD26,COV2S(PF) [...] Osteoporosis Mother Stroke Mother High Cholesterol Other H-Laltio Hypertension Other H-Lalito Heart Disease Paternal Grandfather [...] file Legal Sex Female 3:29 AM SUPERVISOR GELATIN PLANT Gender Identity Not on file Sexual Orientation [...] 60.3 kg (133 lb) 06/25/2024 10:42 AM SUPERVISOR GELATIN PLANT Height 165.1 cm (5' 5 ) 06/25/2024 10:42 AM SUPERVISOR GELATIN PLANT Body Mass Index 22.13 06/25/2024 10:42 AM SUPERVISOR GELATIN PLANT Plan of Treatment Upcoming Encounters Date Type Department Care Team (Late st Contact Info) Description 07/01/2025 10:45 AM SUPERVISOR GELATIN PLANT Office Visit [address] [address] Galdino Pichardo MD [address] [facility] [address] [place] [address] Health Maintenance Due Date Last [...] OR MORE SITES Routine 07/22/2024 10:58 AM SUPERVISOR GELATIN PLANT Menopause MAMMO 3D LOLA SCREEN BILAT W OR WO CAD Routine 07/11/2024 12:23 PM SUPERVISOR GELATIN PLANT Visit for screening mammogram from Last 3 Months or Most Recently Relevant to Health Maintenance Results * XR DEXA BONE DENSITY AXIAL 1 OR MORE SITES (07/22/2024 10:58 AM SUPERVISOR GELATIN PLANT) Anatomical Region Laterality Modality Digital Radiogra phy 07/22/2024 10:5 9 AM SUPERVISOR GELATIN PLANT Impressions 07/22/2024 11:13 AM SUPERVISOR GELATIN PLANT IMPRESSION: Osteopenia. Lumbar Spine: T-score: 1.3 Left [...] report found in: Imaging Section of the [facility] EMR. Definitions: Normal: T-score above -1.0 [...] Champion MD DICTATION LOCATION: 07/22/2024 11:13 AM SUPERVISOR GELATIN PLANT EXAMINATION: BONE DENSITY STUDY (DXA) DATE: 07/22/2024 10:58 AM HISTORY: 68 years Female. Postmenopausal. Osteopenia. PROCEDURE: Planar images of the lumbar spine and hip(s). Openera DEXA scanner for bone mineral density determination [...] images of the lumbar spine and hip(s). Openera DEXA scanner for bone mineral density determination [...] report found in: Imaging Section of the [facility] EMR. Definitions: Normal: T-score above -1.0 [...] W OR WO CAD (07/11/2024 12:23 PM SUPERVISOR GELATIN PLANT) Anatomical Region Laterality Modality Breast Bilateral Mammography 07/11/2024 12:2 4 PM SUPERVISOR GELATIN PLANT Impressions 07/11/2024 1:50 PM SUPERVISOR GELATIN PLANT IMPRESSION: Negative bilateral screening mammogram. Recommend routine followup. OVERALL FINAL ASSESSMENT: BI-RADS CATEGORY 1: Negative. DICTATION LOCATION: [facility] 07/11/2024 1:50 PM SUPERVISOR GELATIN PLANT BILATERAL SCREENING DIGITAL MAMMOGRAM WITH 3D TOMOSYNTHESIS [...] ASSESSMENT: BI-RADS CATEGORY 1: Negative. DICTATION LOCATION: [facility] us Rickycharlie Lowery MD MAMMO ORDERABLES Final Result from Last 3 Months or Most Recently Relevant to Health Maintenance Insurance [facility] FEDERAL MEDICARE PART A AND B Care Teams Bezel Cutter Relationship Specialty Start Date End Date Ricky Lowery MD [address] [place] [address] PCP - General Family Practice 11/06/09
--- OUTSIDE RECORDS SUMMARY | 2024-11-25 10:05 | XMS_ITS | Encounter Summary ---
Author Organization [facility] Address [address] [place] [address] Care Team Providers Care Survey Research Professor Name Role Phone Ricky Lowery MD Primary Care Provider [phone] Encounter Details Date Type Department Care Team (Latest Contact Info) Description 09/12/2006 Outpatient Historical HIS [facility] Galdino Demarco MD [address] [address] Other Screening Mammogram (Primary Dx) Social History Tobacco Use Types Packs/Day Years Used Date Smoking Tobacco: Never Assessed Comments Unknown Sex and Gender Information Value Date Recorded Sex Assigned at Not on file Legal Sex Female 3:29 AM ART CRITIC Gender Identity Not on file Sexual Orientation Not on file documented as of this encounter Plan of Treatment Upcoming Encounters Date Type Department Care Team (Late st Contact Info) Description 07/01/2025 10:45 AM ART CRITIC Office Visit [facility] OBGYN - [place] [address] [place] [address] Galdino Pichardo MD [address] [address] documented as of this encounter Visit Diagnoses Diagnosis Other screening mammogram- Primary documented in this encounter Care Teams Survey Research Professor Relationship Specialty Start Date End Date Ricky Lowery MD [address] [place] [address] PCP - General Family Practice 11/06/09 documented as of this encounter
--- OUTSIDE RECORDS SUMMARY | 2024-11-25 10:05 | XMS_ITS | Data Portability ---
Author Organization [facility] ANHAlfred Address [address] [place] [address] Assessment No assessment recorded. Plan of Treatment Reminders Order Date Submit Date Provider Last Modified By Organization Details Last Modified Time Details Appointments None recorded. Lab None recorded. Referral None recorded. Procedures None recorded. Surgeries None recorded. Imaging CT, sinuses, w/o contrast 2023 024 [facility], 2022 Jam Shane, [facility], [place], [address], 5 15:36:59 Medication Orders azelastin e 137 mcg (0.1 %) nasal spray 2023 024 [facility] #84942, [address], [id number], 4 12:00:50 cefdinir 300 mg capsule 2023 024 [facility] #89512, [address], [id number], 4 10:13:[address] 10 mg tablet 2023 024 [facility] #11224, [address], [id number], 4 11:48:02 Patient TargetsNo targets recorded. Patient InstructionsNo instructions recorded. Reason for Referral None Reported. Medical Equipment None Reported. Allergies Allergen ID Allergen Name Allergen Category Reaction Reaction Severity Criticality Documentation Date Start Date Code Code System Note Provider Name and Address Organization Details Recorded Time 001271 erythromy miller medicatio n Not available Not [...] Updated DateTime 4 162.56 cm 22.4 kg/m2 79278.4 5 g 66 /min 16 /min 98.1 [degF] 116 mm[Hg] 72 mm[Hg] Emily Hung [place] [facility] 4 11:37:36 Date Recorded Body height Body mass index (BMI) Body weight Heart rate Respiratory rate Body temperature Systolic blood pressure Diastolic blood pressure Provider Name and Address Organization Details Last Updated DateTime 4 162.56 cm 22.9 kg/m2 24792.2 2 g 87 /min 16 /min 97.7 [degF] 123 mm[Hg] 74 mm[Hg] Emily Hung MA [facility] 4 11:44:11 Date Recorded Body height Body mass index (BMI) Body weight Heart rate Respiratory rate Body temperature Systolic blood pressure Diastolic blood pressure Provider Name and Address Organization Details Last Updated DateTime 4 162.56 cm 23 kg/m2 25693.3 8 g 86 /min 16 /min 98.1 [degF] 133 mm[Hg] 73 mm[Hg] Emily Hnug MA [facility] 4 10:15:03 Social History Question Answer Notes LastModified by Organization Details LastModified Time Tobacco Smoking Status Never Smoker Emily Hung MA [facility] 03/26/2024 11:35:11 Do You Have An Advance [...] Or The Highest Degree You Have Received? [id number] Information not available 03/26/2024 What Was The Date Of Your Most Recent Tobacco Screening? 05/21/2024 Information not available 05/21/2024 Do You Have Any Pets? No Information not available 03/26/2024 What Is Your Relationship Status? Information not available 03/26/2024 Do You Feel Stressed (tense, Restless, Nervous, Or Anxious, Or Unable To Sleep At Night)? [id number] Information not available 03/26/2024 Do You Use [...] SNOMED-CT Code Diagnosis ICD10 Code Diagnosis Note [id number] MD Maine Howard (Adult Med) [address] [place] [address] 03/26/2024 11:18:41 04/02/2024 16:17:26 Chronic rhinitis 91879356 J31.0 follow back in a month Chronic cough 29353278 R 05.3 Acute sinusitis 97870417 J01.90 [id number] MD Maine Howard (Adult Med) [address] [place] [address] 04/23/2024 11:20:14 04/24/2024 13:15:56 Allergic rhinitis 77368650 J30.9 follow back in a month Chronic cough 66896777 R 05.3 [id number] MD Maine Howard (Adult Med) [address] [place] [address] 05/21/2024 09:55:31 05/22/2024 09:19:06 Chronic cough 53342248 R05.[address] Health Concerns Section Related Observation LastModified by Organization Detai ls LastModified Time None Recorded Concern Status LastModified by Organization Details LastModified Time None Recorded Advance Directives Directive Y: Payers Encounter Date Sequence Insurance Name Policy Number Policy White Covered Member ID White Member ID Guarantor Name 03/26/2024 2 [place] 111 Aleshia Muñoz [id number] Aleshia Muñoz 03/26/2024 1 [place] Aleshia Bridges [id number] Aleshia Bridges 04/23/2024 1 [place] Aleshia Bridges [id number] Aleshia Bridges 04/23/2024 2 [place] 111 Aleshia Muñoz [id number] Aleshia Muñoz 05/21/2024 1 [place] Aleshia Muñoz [id number] Aleshia Bridges 05/21/2024 2 [place] 111 Aleshia Muñoz [id number] Aleshia Muñoz Notes Date Note Type Note Provider Name and Address Organization Details Recorded Time 03/26/2024 text/html Pt complaining o f a cough for the last 10 months. She has nasal congestion and drainage which improved with antihistamines and flonase but did not resolve. She does not complain of reflux Leighton Ashby MD Attn: Accounting,[address] [facility], [place], [address], [facility] 03/26/2024 11:48:03 04/23/2024 text/html Pt complaining o f nasal congestion and drainage. She has had a persistent cough. It has improved but not resolved. She is on flonase and montelukast Leighton Ashby MD Attn: Accounting,[address] [facility], [place], [address], [facility] 04/23/2024 12:00:59 05/21/2024 text/html Pt complaining o f a chronic cough. She also has a problem with taste but not smell. She has not responded to nasal sprays or antibiotics Leighton Ashby MD Attn: Accounting,[address] [facility], [place], [address], [facility] 05/21/2024 10:28:31 OBGyn Episode No OBEpisode recorded.
--- OUTSIDE RECORDS SUMMARY | 2024-11-25 10:05 | XMS_ITS | Encounter Summary ---
Author Organization [facility] Address [address] [place] [address] Care Team Providers Care Instrument Specialist Name Role Phone Ricky Lowery MD Primary Care Provider [phone] Encounter Details Date Type Department Care Team (Latest Contact Info) Description 09/28/2007 Outpatient Historical HIS [facility] Galdino Demarco MD [address] [address] Other Screening Mammogram Social History Tobacco Use Types Packs/Day Years Used Date Smoking Tobacco: Never Assessed Comments Unknown Sex and Gender Information Value Date Recorded Sex Assigned at Not on file Legal Sex Female 3:29 AM MOTORS AND GENERATORS INSPECTOR Gender Identity Not on file Sexual Orientation Not on file documented as of this encounter Plan of Treatment Upcoming Encounters Date Type Department Care Team (Late st Contact Info) Description 07/01/2025 10:45 AM MOTORS AND GENERATORS INSPECTOR Office Visit [facility] - [place] [address] [place] [address], [address] [address] Galdino Pichardo MD [address] [address] documented as of this encounter Procedures Procedure Name Priority Date/Time Associated Diagnosis Comments MAMMO SCREEN BILAT W OR WO CAD Routine 09/28/2007 8:02 AM MOTORS AND GENERATORS INSPECTOR documented in this encounter Results * MAMMO DIGITAL SCREEN BILAT (09/28/2007 8:02 AM MOTORS AND GENERATORS INSPECTOR) Anatomical Region Laterality Modality Breast Bilateral Other 09/28/2007 8:02 AM MOTORS AND GENERATORS INSPECTOR Narrative 09/28/2007 7:16 PM MOTORS AND GENERATORS INSPECTOR [place] [address] [place], [place] [address] Admit Date: 09/28/2007 ALESHIA MUÑOZ Sex: F Admit Prov: GALDINO PICHARDO Date: 1955 Primary Care Prov: DEMARCO DAWSON CMRN: [id number] Room: JANAK N: [id number] IMAGING SERVICES Ordering Prov: GALDINO PICHARDO Accession Number: [id number] Interpretation BILATERAL SCREENING DIGITAL MAMMOGRAMS WITH COMPUTER [...] Procedure Note Michelle Fan MD - 09/28/2007 [place] [address] [place], [place] [address] Admit Date: 09/28/2007 ALESHIA MUÑOZ Sex: F Admit Prov: GALDINO PICHARDO Date: 1955 Primary Care Prov: DEMARCO DAWSON CMRN: [id number] Room: JANAK SSN: [id number] IMAGING SERVICES Ordering Prov: GALDINO PICHARDO Interpretation [...] mammogram documented in this encounter Care Teams Instrument Specialist Relationship Specialty Start Date End Date Ricky Lowery MD [address] [place] [address] PCP - General Family Practice 11/06/09 documented as of this encounter
--- OUTSIDE RECORDS SUMMARY | 2024-11-25 10:05 | XMS_ITS | Continuity of Care Document ---
Author Organization [facility] Address [address] [place] [address] [address] [place] [address] Phone Care Team Providers Care Fire Manager Name Role Phone [facility] Unavailable Unavail able Tessa Irby Unavailable Unavailable Advance Directives Directive Yes / No Effective Date File Name No Information Encounters Encounter Description Practice Location Reason(s) For Visit Diagnoses Date Provider Providers Copied on Encounter [facility], [address], [place], [place], [address], [place] tel:[phone] [facility] No Information Sep-0 7-200 5 [facility] [employer] n. [address] [facility], [address], [place], [place], [address] , [place]. [phone] Consulting Provider: Tessa Irby, [address] [place] [address], [address]. tel:[phone] Family History Family Member Type Diagnosis Age [...]
--- OUTSIDE RECORDS SUMMARY | 2024-11-25 10:05 | XMS_ITS | Encounter Summary ---
Author Organization [facility] Address [address] [place] [address] Care Team Providers Care Syrup Maker Cook Name Role Phone Ricky Lowery MD Primary Care Provider [phone] Encounter Details Date Type Department Care Team (Latest Contact Info) Description 09/15/2005 Outpatient Historical HIS [facility] Galdino Demarco MD [address] [address] SCREENING MAMM-MAILG NEOPL NEC (Primary Dx) Social History Tobacco Use Types Packs/Day Years Used Date Smoking Tobacco: Never Assessed Comments Unknown Sex and Gender Information Value Date Recorded Sex Assigned at Not on file Legal Sex Female 3:29 AM SPD TECH Gender Identity Not on file Sexual Orientation Not on file documented as of this encounter Plan of Treatment Upcoming Encounters Date Type Department Care Team (Late st Contact Info) Description 07/01/2025 10:45 AM SPD TECH Office Visit [facility] O[facility] - [place] [address] [facility], [address] [address] Galdino Pichardo MD [address] [address] documented as of this encounter Visit Diagnoses Diagnosis Other screening mammogram- Primary documented in this encounter Care Teams Syrup Maker Cook Relationship Specialty Start Date End Date Ricky Lowery MD [address] [place] [address] PCP - General Family Practice 11/06/09 documented as of this encounter
--- OUTSIDE RECORDS SUMMARY | 2024-11-25 10:05 | XMS_ITS | Encounter Summary ---
Author Organization [facility] Address [address] [place] [address] Care Team Providers Care Hspt Tutor Name Role Phone Ricky Lowery MD Primary Care Provider [phone] Encounter Details Date Type Department Care Team (Latest Contact Info) Description 09/18/2003 Outpatient Historical HIS [facility] Galdino Demarco MD [address] [address] FOLLOW-UP EXAM NEC (Primary Dx) Social History Tobacco Use Types Packs/Day Years Used Date Smoking Tobacco: Never Assessed Comments Unknown Sex and Gender Information Value Date Recorded Sex Assigned at Not on file Legal Sex Female 3:29 AM RAILCAR SWITCHER Gender Identity Not on file Sexual Orientation Not on file documented as of this encounter Plan of Treatment Upcoming Encounters Date Type Department Care Team (Late st Contact Info) Description 07/01/2025 10:45 AM RAILCAR SWITCHER Office Visit [facility] OBGYN - [place] [address] [place] [address], [address] [address] Galdino Pichardo MD [address] [address] documented as of this encounter Visit Diagnoses Diagnosis Other follow-up examination(V67.59)- Primary Other follow-up examination documented in this encounter Care Teams Hspt Tutor Relationship Specialty Start Date End Date Ricky Lowery MD [address] [place] [address] PCP - General Family Practice 11/06/09 documented as of this encounter
--- OUTSIDE RECORDS SUMMARY | 2024-11-25 10:06 | XMS_ITS | Patient Health Record ---
Author Organization [facility] As Vaprema Address [address] [place] [address] Care Team Providers Care Buying Intern Name Role Phone Sky Kauffman Unavailable [phone] Migration, Provider Unavailable Unavailable Allergies Allergen (clinical [...] Risk Notes Problem Mild recurrent major depression (89498824) Major depressive disorder, recurrent, mild (F33.0) Active confirmed Problem Generalized anxiety disorder (94937815) Generalized anxiety disorder (F41.1) Active confirmed Vital Signs Heart Rate 92 /min 08/12/2024 Height-cm 162.56 cm 08/12/2024 Blood pressure diastolic 71 mm Hg 08/12/2024 Weight-kg 61.14 kg 08/12/2024 Height 64.00 in 08/12/2024 Blood pressure systolic 138 mm Hg 08/12/2024 Weight 134.8 lbs 08/12/2024 BMI 23.14 kg/m2 08/12/2024 Encounters Encounter Location Date Provider Diagnosis [facility] [address] [address] 11/28/2023 Sky Kauffman Major depressive disorder, recurrent, mild F33.0 and Generalized anxiety disorder F41.1 [facility] [address] [address] 01/01/2024 Sky Kauffman Major depressive disorder, recurrent, mild F33.0 and Generalized anxiety disorder F41.1 [facility], [place] [address] [facility] [address] [place] [address] 05/13/2024 Sky Kauffman Major depressive disorder, recurrent, mild F33.0 and Generalized anxiety disorder F41.1 [facility], [facility] [address] [address] 08/12/2024 Sky Kauffman Major depressive disorder, recurrent, mild F33.0 and Generalized anxiety disorder F41.1 [place] [address] [address] 12/16/2023 Provider Migration [facility], [place] [address] [address] 12/17/2023 Provider Migration [facility], [place] [address] [address] 08/12/2024 Skycayetano Weavera Assessments Encounter Date Diagnosis (ICD Code) Assessment Notes Treatment Notes Treatment Clinical Notes Section Notes 11/28/2023 Major depressive disorder, recurrent, mild (ICD-10 - F33.0) 11/28/2023 Generalized anxiety disorder (ICD-10 - F41.1) 01/01/2024 Major depressive disorder, recurrent, mild (ICD-10 - F33.0) cont sertraline 150mg daily- use [facility] pharmacy, Learning About How to Get Help During a Mental Health Crisis material was published 01/01/2024 Generalized anxiety disorder (ICD-10 - F41.1) cont alprazolam 0.25mg daily prn- she has not used for a long time, Learning About Generalized Anxiety Disorder material was published 05/13/2024 Major depressive disorder, recurrent, mild (ICD-10 - F33.0) cont sertraline 150mg daily- use [facility] pharmacy 1. Major Depressive Disorder [...] - F33.0) cont sertraline 150mg daily- use [facility] pharmacy 08/12/2024 Generalized anxiety disorder [...] medication management. - Refill prescriptions sent to [facility]. Plan Of Treatment Next Appt Details Provider Name:Sky read, 12/03/2024 01:00:00 PM, [address], [facility] [address], [place], [address], Insurance Providers Payer Name Payer Address Payer Phone Subscriber Number Group Number Insured Name Patient Relationship to Insured Coverage Start Date Coverage End Date Medicare-I l Medicare [address] [place] [address] [id number] IRWIN PIÑA Self - patient is the insured [place] [address] [place] [address] [id number] IRWIN PIÑA Self - patient is the insured Medical (General) History Medical History History ICD Code Problems: Generalized anxiety disorder History of anemia Long-term current use of drug therapy Mild recurrent major depression Vitamin D deficiency , skin cancer on nose, will have radiation 3 x per week x 7 weeks Surgical History Surgery Date(Month/Year) Appendectomy (51700) Cataract surgery (56510) 07/31/2019 Other 03/31/2011
--- OUTSIDE RECORDS SUMMARY | 2024-11-25 10:06 | XMS_ITS | Clinical Summary ---
Author Organization [facility] Address [facility] access hospital[address] [place] [address] Care Team Providers Care Gm/Svp Global Publisher Business Name Role Phone Ricky Lowery MD Primary Care Provider [phone] Allergies Active Allergy Reactions Criticality Noted Date [...] 1 - Tdap) 1976 Mammogram Screening 1997 Pneumococcal Vaccine: 50+ Ye ars (1 of 1 - PCV) 10/04/2007 Zoster Vaccines (2 of 2) 05/22/2018 03/27/2018 Dexa Scan (General) 2022 COVID-19 Vaccine ( - 2023-2 5 [...] this topic Medical Devices Implanted Type Area Liner Machine Operator Device Identifier Shelf Expiration Date Model / Serial / Lot Iol Clarkrange Symfony Toric [id number] - [id number] Implanted:Qty: 1 on 04/08/2019 by Danish Mendoza MD at [facility] Lens PANFILO 06/19/2021 [id number] / [id number] / Iol Tecnis Multifocal Symphony [id number] - [id number] Implanted:Qty: 1 on 05/13/2019 by Danish Mendoza MD at [facility] Lens Left: Eye PANFILO 06/01/2021 [id number] / [id number] / Insurance [facility] Care Teams Gm/Svp Global Publisher Business Relationship Specialty Start Date End Date Ricky Lowery MD [address] [place] [id number] PCP - General FAMILY PRACTICE 04/02/19
--- OUTSIDE RECORDS SUMMARY | 2024-11-25 10:06 | XMS_ITS | Data Portability ---
Author Organization [place] [facility] [place] [employer], Main Office Address [address] [place] [address] Care Team Providers Care Food And Beverage Intern Name Role Phone LATHA HIGHTOWER Primary Care Provider [phone] LATHA HIGHTOWER Referring Provider Assessment Encounter Date Assessment Date Assessment LastModified by Organization Details LastModified Time 03/24/2023 03/24/2023 HPI: 67-year-old female came in today for evaluation of her left knee symptoms. She states symptoms started about 2 or 3 months ago. Three months ago she was at [employer] and did an extensive amount of walking. [...] spent in treatment patient more have this xxri-we-skrg conversation Not available 03/24/2023 13:34:14 Plan of Treatment Reminders Order Date Submit Date Provider Last Modified By Organization Details Last Modified Time Details Appointments None record ed. Lab None record ed. Referral None record ed. Procedures None record ed. Surgeries None record ed. Imaging XR, knee 023 03/24/20 [email or web address] [facility] [place], [address], [place], [address], 3 10:55:06 Medication Orders None record ed. Patient TargetsNo targets recorded. Patient InstructionsNo instructions recorded. Reason for Referral None Reported. Results Created Date Observation Date Name Description Value Unit Range Abnormal Flag Note LastModifiedBy Organization Detail LastModifiedTime 03/24/20 XR, knee No observ ation record ed. [facility] [place] [address], [place], [address], 03/24/2023 13:29:31 Result Notes None recorded. Problems Name Problem SNOMED Code Status Onset Date Resolution Date Notes Provider Name and Address Organization Details Recorded Time Pain of left knee joint 937194840707105 Active 2022 DOROTHY Arevalo МАРИНА Emily [facility] [facility] 12:09:28 Problem Notes None recorded. Procedures Surgical History Date Name Laterality Status Provider Name and Address Organization Details Recorded Time 07/31/19 23 Hemorrhoidectomy completed Hailey Millard CNA [facility] [employer] [facility] 03/24/2023 12:08:56 07/31/19 11 Thyroid Surgery completed Hailey Millard CNA [facility] 03/24/2023 12:08:32 Imaging Results Imaging Date Name Status LastModified by Organiz ation Details LastModified Time 03/24/2023 XR, knee completed [facility] [place] [address], [place], [address], 03/24/2023 13:29:31 Procedure Notes None recorded. Medical [...] Updated DateTime 03/24/2023 162.56 cm 22 kg/m2 74257.82 g Hailey Millard CNA [employer] 03/24/2023 12:23:02 Social History Question Answer Notes LastModified by Organizat ion Details LastModified Time Tobacco Smoking Status Never Smoker Hailey Millard CNA [employer] 03/24/2023 12:08:12 What Is Your Level Of [...] SNOMED-CT Code Diagnosis ICD10 Code Diagnosis Note [id number] SHILPA Fernández [facility] [place] [address] [place] [address] 03/24/2023 11:21:40 03/24/2023 14:28:21 Pain of left knee joint [id number] 51326 M25.562 Health Concerns Section Related Observation LastModified by Organization Detai ls LastModified Time None Recorded Concern Status LastModified by Organization Details LastModified Time None Recorded Advance Directives Directive None Recorded Payers Encounter Date Sequence Insurance Name Policy Number Policy White Covered Member ID White Member ID Guarantor Name 03/24/2023 1 [place] Aleshia Muñoz [id number] Aleshia Muñoz 03/24/2023 2 [place]) 111 Aleshia Muñoz [id number] Aleshia Muñoz OBGyn Episode No OBEpisode recorded.
--- OUTSIDE RECORDS SUMMARY | 2024-11-25 10:06 | XMS_ITS | Encounter Summary ---
Author Organization [facility] Address [address] [place] [address] Care Team Providers Care Traffic Line Painter Name Role Phone Ricky Lowery MD Primary Care Provider [phone] Encounter Details Date Type Department Care Team (Latest Contact Info) Description 07/20/2000 Outpatient Historical HIS [facility] Galdino Demarco MD [address] [place] [address] [address] Other screening mammogram (Primary Dx) Social History Tobacco Use Types Packs/Day Years Used Date Smoking Tobacco: Never Assessed Comments Unknown Sex and Gender Information Value Date Recorded Sex Assigned at Not on file Legal Sex Female 3:29 AM STEAM TURBINE ASSEMBLER Gender Identity Not on file Sexual Orientation Not on file documented as of this encounter Plan of Treatment Upcoming Encounters Date Type Department Care Team (Late st Contact Info) Description 07/01/2025 10:45 AM STEAM TURBINE ASSEMBLER Office Visit [facility] OBGYN - [place] [address] [place] [address] Galdino Pichardo MD [address] [address] documented as of this encounter Visit Diagnoses Diagnosis Other screening mammogram- Primary documented in this encounter Care Teams Traffic Line Painter Relationship Specialty Start Date End Date Ricky Lowery MD [address] [place] [address] PCP - General Family Practice 11/06/09 documented as of this encounter
--- OUTSIDE RECORDS SUMMARY | 2024-11-25 10:06 | XMS_ITS | Encounter Summary ---
Author Organization [facility] Address [address] [place] [address] Care Team Providers Care Advanced Practice Nurse Name Role Phone Ricky Lowery MD Primary Care Provider [phone] Encounter Details Date Type Department Care Team (Latest Contact Info) Description 09/11/2003 Outpatient Historical [facility] Galdino Demarco MD [address] [address] SCREENING MAMM-MAILG NEOPL-OTHER (Primary Dx) Social History Tobacco Use Types Packs/Day Years Used Date Smoking Tobacco: Never Assessed Comments Unknown Sex and Gender Information Value Date Recorded Sex Assigned at Not on file Legal Sex Female 3:29 AM SQL SERVER DBA Gender Identity Not on file Sexual Orientation Not on file documented as of this encounter Plan of Treatment Upcoming Encounters Date Type Department Care Team (Late st Contact Info) Description 07/01/2025 10:45 AM SQL SERVER DBA Office Visit [facility] [place] [address] [place] [phone] Galdino Pichardo MD [address] [address] documented as of this encounter Visit Diagnoses Diagnosis Other screening mammogram- Primary documented in this encounter Care Teams Advanced Practice Nurse Relationship Specialty Start Date End Date Ricky Lowery MD [address] [place] [address] PCP - General Family Practice 11/06/09 documented as of this encounter
--- OUTSIDE RECORDS SUMMARY | 2024-11-25 10:06 | XMS_ITS | Encounter Summary ---
Author Organization [facility] Address [address] [place] [address] Care Team Providers Care Fundraiser Name Role Phone Ricky Lowery MD Primary Care Provider [phone] Encounter Details Date Type Department Care Team (Latest Contact Info) Description 09/12/2002 Outpatient Historical [facility] Galdino Demarco MD [address] [address] SCREENING MAMM-MAILG NEOPL-OTHER (Primary Dx) Social History Tobacco Use Types Packs/Day Years Used Date Smoking Tobacco: Never Assessed Comments Unknown Sex and Gender Information Value Date Recorded Sex Assigned at Not on file Legal Sex Female 3:29 AM ACCOUNT SUPPORT REP Gender Identity Not on file Sexual Orientation Not on file documented as of this encounter Plan of Treatment Upcoming Encounters Date Type Department Care Team (Late st Contact Info) Description 07/01/2025 10:45 AM ACCOUNT SUPPORT REP Office Visit [facility] [place] [address] [place] [phone] Galdino Pichardo MD [address] [address] documented as of this encounter Visit Diagnoses Diagnosis Other screening mammogram- Primary documented in this encounter Care Teams Fundraiser Relationship Specialty Start Date End Date Ricky Lowery MD [address] [place] [address] PCP - General Family Practice 11/06/09 documented as of this encounter
--- OUTSIDE RECORDS SUMMARY | 2024-11-25 10:06 | XMS_ITS | Encounter Summary ---
Author Organization [facility] Address [address] [place] [address] Care Team Providers Care Biofuels Product Development Manager Name Role Phone Ricky Lowery MD Primary Care Provider [phone] Encounter Details Date Type Department Care Team (Latest Contact Info) Description 06/03/1999 Outpatient Historical [facility] Galdino Demarco MD [address] [address] Other screening mammogram (Primary Dx) Social History Tobacco Use Types Packs/Day Years Used Date Smoking Tobacco: Never Assessed Comments Unknown Sex and Gender Information Value Date Recorded Sex Assigned at Not on file Legal Sex Female 3:29 AM HOB GRINDER Gender Identity Not on file Sexual Orientation Not on file documented as of this encounter Plan of Treatment Upcoming Encounters Date Type Department Care Team (Late st Contact Info) Description 07/01/2025 10:45 AM HOB GRINDER Office Visit [facility] - [place] [address] [place] [phone] Galdino Pichardo MD [address] [address] documented as of this encounter Visit Diagnoses Diagnosis Other screening mammogram- Primary documented in this encounter Care Teams Biofuels Product Development Manager Relationship Specialty Start Date End Date Ricky Lowery MD [address] [place] [address] PCP - General Family Practice 11/06/09 documented as of this encounter
== END 2024-11-25 09:20 | disposition home or self-care (01) ==
PROVIDERS: PCP Family Medicine; Visit Provider Internal Medicine Cardiovascular Disease
DX: R06.00 Dyspnea, unspecified (principal)
CPT/HCPCS: 93017

== ENCOUNTER 2025-01-09 12:16 | Emergency (ER) | payer MEDICARE, BC, SELFPAY ==
--- NOTE | ~2025-01-09 | XR_ITS ---
Clinical Indication: Chronic cough PA and lateral views of the chest: Comparison: 01/22/2024 Findings: The lungs are clear, without evidence of focal consolidation or pleural effusion. Cardiome diastinal silhouette is stable. Bones and soft tissues are unremarkable. Impression: Clear lungs. Reviewed, dictated and finalized at location . Impression: Clear lungs.
--- NOTE | 2025-01-09 12:23 | ED_ITS ---
HPI - General Adult General Chief complaint: Unspecified Stated complaint: Under Breast Pain Time Seen by Provider: 01/09/25 12:26 Source: patient, RN notes reviewed and old records reviewed Mode of arrival: ambulatory Limitations: no limitations History of Present Illness HPI narrative: 69-year-old female presents to the [facility] with bilateral lower anterior rib discomfort. States it has been going on for about a week. Denies any rashes. Has been taking ibuprofen. Denies any chest pain, shortness of breath. Worse with coughing, movement. Able to reproduce pain with palpation to the ribs below the breast area bilaterally. Onset (ago): week(s) (1) Treatments prior to arrival: NSAID Related Data Home Medications ?Medication ?Instructions ?Recorded ?Confirmed ?Last Taken ?Type alprazolam 0.25 mg tablet 0.25 mg PO PRN PRN Anxiety 11/18/22 12/20/24 11/27/22 History sertraline 100 mg tablet 150 mg PO HS 01/17/23 12/20/24 Unknown History Allergies Allergy/AdvReac Type Severity Reaction Status Date / Time erythromycin base Allergy Mild stomach Verified 01/09/25 12:39 pain Review of Systems Review of Systems: All systems reviewed & are unremarkable except as noted in HPI and below Constitutional: Constitutional: Reports no additional constitutional complaints ENT: Reports system reviewed and no additional complaints, except as documented Cardiovascular: Cardiovascular: Reports no additional cardiovascular complaints, Denies chest pain and Denies dyspnea Respiratory: Respiratory: Reports no additional respiratory complaints, Denies chest congestion, Denies cough and Denies dyspnea Musculoskeletal: Musculoskeletal: Reports as per HPI Integumentary/Breasts: Skin/Breast: Reports system reviewed and no additional complaints, except as docu PMFSH Past Medical History Medical History Depression with anxiety BMI 21.0-21.9, adult Lesion of bone of right hand Loss of taste Lung nodule Neck pain Osteopenia Other specified disorders of Eustachian tube, unspecified ear Preoperative clearance Routine physical examination Screening for diabetes mellitus Sinus pressure Skin irritation History of thyroid cancer Surgical History Surgical History S/P hemorrhoidectomy EUA, hemorrhoidectomy on 11/28/22 History of cataract extraction History of tubal ligation History of appendectomy Family History Family History Mother Hypertension Family history of elevated blood lipids Cerebrovascular accident Father Hypertension Family history of elevated blood lipids Cerebrovascular accident Parkinson's disease Grandparent Family history of coronary artery disease Diabetes mellitus Parkinson's disease Sibling No problems noted. Social History Social History Smoking status: Never smoker Second hand tobacco smoke exposure: Yes Alcohol intake: never Substance use: never Substance use type: does not use Do You Feel Safe in your Home?: Yes Lack of Transportation: No Lack of Food: Never True Current Housing: I Have Housing Concerned About Future Housing: No Difficulty Paying Gas/Electric Bills: No Difficulty Paying for Meds: No Currently Unemployed: No Education: High School Diploma/GED Difficulty w/ Childcare or Family Care: No Living arrangements: with family Occupation/Education: retired Additional occupation/education comments: [employer] Gender identity (if verbalized by the patient): Female Spiritual care concerns: No Comments At the time of my signature, I reviewed and agree with the nursing past medical, surgical, social, and family history. There is no relevant family history pertinent to the patient complaint. Exam Const: General: cooperative, comfortable, no acute distress, well developed, alert, awake and well nourished Nutritional Appearance: well nourished Orientation/consciousness: patient oriented x3 Limitations: no limitations HENMT: Head: normal to inspection Eyes: General: appearance normal, both eyes and all related structures Alignment and Position: alignment normal Neck: Neck: normal visual inspection, full ROM, no lymphadenopathy and no meningeal signs Chest: Chest palpation & inspection: normal inspection of the chest Other: Tenderness bilateral lower anterior ribs. No rashes noted. No erythema, ecchymosis. Pain is reproducible with palpation. Resp: Effort & Inspection: normal respiratory effort and able to speak in complete sentences Auscultation: clear to auscultation bilaterally, no crackles, no rales, no rhonchi and no wheezes Cardio: Rate: regular rate GI: GI Palp: No abdominal tenderness Skin: General skin exam: normal color and no rashes or lesions noted Rashes: no rashes Neuro: General: patient oriented x3, gait normal, moves all extremities and no meningeal signs Cognition (Neuro): normal cognition Speech: normal speech Gait exam (Neuro): Normal gait present Extrem: General: normal to inspection, full ROM, capillary refill normal and normal gait Psych: Appearance: grossly normal and well kempt Mental Status: mental status grossly normal Speech and movement: Normal speech and movement present and Clear speech present Affect: normal affect Attitude: cooperative Course Course Level of Care: Express Care Visit Vital Signs Vital signs: Vital Signs Temperature 98.2 F 01/09/25 12:26 Pulse Rate 76 01/09/25 12:26 Respiratory Rate 16 01/09/25 12:26 Blood Pressure 134/57 L 01/09/25 12: Pulse Oximetry 99 01/09/25 12:26 Oxygen Delivery Room Air 01/09/25 12: Temperature 98.2 F 01/09/25 12:26 Pulse Rate 76 01/09/25 12:26 Respiratory Rate 16 01/09/25 12:26 Blood Pressure 134/57 L 01/09/25 12:26 Pulse Oximetry 99 01/09/25 12:26 Oxygen Delivery Room Air 01/09/25 12:26 Reviewed Medical Decision Making MDM Narrative Medical decision making narrative: Patient sitting comfortably in exam room. Nontoxic, vitals stable. Patient in no acute distress Patient presents with 1 week history of bilateral lower anterior rib pain. Patient was concerned she had pneumonia, x-ray showed no acute findings. Patient appropriate for outpatient treatment with pleurisy. Discussed prescribing a steroid, due to patient's underlying anxiety issues is declining at this time. Will continue with ibuprofen States that she has a follow-up with primary care provider next week. Discussed in great detail signs and symptoms proceed to the emergency room which patient and both verbalized understanding. Discharge instructions reviewed with patient, as well as provided in writing per nursing staff. The instructions also include specific and strict return/GO TO THE ER as well as f/u information. All questions have been answered, and the patient deny any further questions with discharge and discharge plan. Some parts of this dictation were generated by voice recognition software and may contain typographical and/or grammatical inaccuracies. Differential Diagnosis Differential Diagnosis: Pleurisy, pneumonia, atelectasis, chest pain Medical Records Medical records reviewed: Yes I reviewed the external patient's medical records. Vital Signs Vital Signs: Vital Signs Temperature 98.2 F 01/09/25 12:26 Pulse Rate 76 01/09/25 12:26 Respiratory Rate 16 01/09/25 12:26 Blood Pressure 134/57 L 01/09/25 12:26 Pulse Oximetry 99 01/09/25 12:26 Oxygen Delivery Room Air 01/09/25 12:26 Temperature 98.2 F 01/09/25 12:26 Pulse Rate 76 01/09/25 12:26 Respiratory Rate 16 01/09/25 12:26 Blood Pressure 134/57 L 01/09/25 12:26 Pulse Oximetry 99 01/09/25 12:26 Oxygen Delivery Room Air 01/09/25 12:26 Reviewed Lab Data Lab results reviewed: Yes I reviewed the patient's lab results. Labs: Reviewed Imaging Data Radiologist's impression: Clinical Indication: Chronic cough PA and lateral views of the chest: Comparison: 01/22/2024 Findings: The lungs are clear, without evidence of focal consolidation or pleural effusion. Cardiomediastinal silhouette is stable. Bones and soft tissues are unremarkable. Impression: Clear lungs. Critical Care Time Critical Care Time Critical Care Time: No Discharge Plan Discharge Clinical Impression: Pleurisy Patient Disposition: Home Condition: Stable Instructions: Pleurisy (ED) Additional Instructions: Take Tylenol as needed for pain, you can alternate with ibuprofen Follow-up with primary care provider For worsening symptoms go directly to the emergency room Patient Language: Marshallese Prescriptions: No Action sertraline 100 mg tablet 150 mg PO HS alprazolam 0.25 mg tablet 0.25 mg PO PRN PRN (Reason: Anxiety) levothyroxine 75 mcg tablet See Rx Instructions .ROUTE .COMPLEX Qty: 90 0RF Dose Instruction: TAKE 1 TABLET BY MOUTH DAILY Rx Instructions: TAKE 1 TABLET BY MOUTH DAILY atorvastatin 10 mg tablet See Rx Instructions .ROUTE .COMPLEX Qty: 90 0RF Dose Instruction: TAKE 1 TABLET BY MOUTH DAILY Rx Instructions: TAKE 1 TABLET BY MOUTH DAILY fluticasone propion-salmeterol 115-21 mcg/actuation HFA aerosol inhaler See Rx Instructions .ROUTE .COMPLEX Qty: 12 5RF Dose Instruction: INHALE 2 PUFFS BY MOUTH TWICE DAILY. RINSE MOUTH AND SPIT AFTER EACH USE Rx Instructions: INHALE 2 PUFFS BY MOUTH TWICE DAILY. RINSE MOUTH AND SPIT AFTER EACH USE Follow-up/Referrals: Ricky Lowery MD [Primary Care Provider] - 1 Week ([facility] follow up ) Time of Disposition: 12:58
[2025-01-09 12:26] VITALS: BP 134/57; PULSE 76; RESP 16; TEMP 36.8; O2SAT 99
== END 2025-01-09 13:00 | disposition home or self-care (01) ==
PROVIDERS: Emergency Provider Nurse Practitioner; PCP Family Medicine
DX: R09.1 Pleurisy (principal); F41.8 Other specified anxiety disorders; M85.80 Other specified disorders of bone density and structure, unspecified site; Z85.850 Personal history of malignant neoplasm of thyroid
CPT/HCPCS: 71046; 99213; G0463

== ENCOUNTER 2025-03-11 14:00 | Outpatient (CLI) | payer MEDICARE, BC, SELFPAY ==
--- NOTE | ~2025-03-11 | XR_ITS ---
Exam: Bilateral Clinical history: pleurodynia TECHNIQUE: 6 images of the ribs were obtained. Comparisons: None. FINDINGS: Heart is mildly enlarged. No pneumothorax. No pleural effusion. No free air under the diaphragm. No f ocal pulmonary consolidation. Possible subacute fractures of the right lateral sixth and seventh ribs. Correlate for point tenderne ss. No other possible rib fracture identified. IMPRESSION: 1.Possible subacute fractures of the right lateral sixth and seventh ribs. Correlate for point tender ness. 2.No other possible rib fracture identified. If symptoms persist or worsen, consider a chest CT for further assessment Reviewed, dictated and finalized at location A. IMPRESSION: 1.Possible subacute fractures of the right lateral sixth and seventh ribs. Cassi elate for point tenderness. 2.No other possible rib fracture identified. If symptoms persist or worsen, consider a chest CT for further assessment
--- NOTE | ~2025-03-11 | NM_ITS ---
EXAMINATION: NM lung vent and perfusion DATE: 03/11/2025 14:57 INDICATION: Chest pain TECHNIQUE: 9.0 mCi xenon-133 by inhalation and 5.3 mCi Tc-99m MAA by intravenous route. Scintigraphi c images of the chest were obtained. COMPARISON: Chest radiograph dated 01/09/2025 FINDINGS: There is homogeneous radiotracer activity throughout the lungs on the single breath ventilation seque nce. There is relatively homogeneous perfusion throughout the lungs. No discrete ventilation and pe rfusion mismatch is identified. IMPRESSION: 1. Normal study, low probability for pulmonary embolism. Reviewed, dictated and finalized at location A.
--- NOTE | ~2025-03-11 | XR_ITS ---
XR chest 2V 03/11/2025 14:51 Indication: Chest pain Procedure: 2 view chest Comparison: 01/09/2025 Findings: Chronic apical pleural thickening/scarring. No focal air space disease, pulmonary edema, pl eural effusion or suspected pneumothorax. No acute osseous abnormality. Impression: 1: No acute cardiopulmonary disease. Reviewed, dictated and finalized at location A. Impression: 1: No acute cardiopulmonary disease.
--- OUTSIDE RECORDS SUMMARY | 2025-03-11 14:24 | XMS_ITS | Clinical Summary ---
Author Organization [facility] Address [facility] [place] [address] Care Team Providers Care Glass Blowing Lathe Operator Name Role Phone Ricky Lowery MD Primary Care Provider [phone] Allergies Active Allergy Reactions Criticality Noted Date [...] 1:32 PM CDT Height 162.6 cm (5' 4) 05/06/2019 1:32 PM CDT Body Mass Index [...] this topic Medical Devices Implanted Type Area [facility] Aides Teacher Device Identifier Shelf Expiration Date Model / Serial / Lot Iol [employer] Toric [id number] - [id number] Implanted:Qty: 1 on 04/08/2019 by Danish Mendoza MD at [facility] Lens PANFILO 06/19/2021 [id number] / [id number] / Iol [employer] Multifocal Symphony [id number] - [id number] Implanted:Qty: 1 on 05/13/2019 by Danish Mendoza MD at [facility] Lens Left: Eye PANFILO 06/01/2021 [id number] / [id number] / Insurance [facility] Care Teams Glass Blowing Lathe Operator Relationship Specialty Start Date End Date Ricky Lowery MD [address] [place] [id number] PCP - General FAMILY PRACTICE 04/02/19
--- OUTSIDE RECORDS SUMMARY | 2025-03-11 14:24 | XMS_ITS | Patient Health Record ---
Author Organization [facility] [place] Address [address] [place] [address] Care Team Providers Care Sampler And Test Preparer Name Role Phone Sky Kauffman Unavailable [phone] Allergies Allergen (clinical drug ingredient) Drug/Non Drug Allergy documented on EMR Reaction Allergy Type Onset Date Status erythromycin Erythromycin Base Unknown Drug Allergy 2023 Active Reason For Referral No Information Medications Medication SIG (Take, Route, Frequency, Duration) Notes Start Date End Date Status Fluticasone-Salmeterol 115-21 MCG/ACT INHALE 2 PUFFS BY MOUTH TWICE DAILY. RINSE MOUTH AND SPIT AFTER EACH USE Inhalation; Duration: 30 Days Active Levothyroxine Sodium 75 MCG Oral 11/28/2023 Active Sertraline HCl 100 MG 1.5 tablet Oral On ce a day; Duration: 90 days Active Atorvastatin Calcium 10 MG Oral 11/28/2023 [...] Risk Notes Problem Mild recurrent major depression (89574193) Major depressive disorder, recurrent, mild (F33.0) Active confirmed Problem Generalized anxiety disorder (F41.1) Active confirmed Vital Signs Heart Rate 78 /min 01/08/2025 Height-cm 162.56 cm 01/08/2025 Blood pressure diastolic 76 mm Hg 01/08/2025 Weight-kg 61.6 kg 01/08/2025 Height 64.00 in 01/08/2025 Blood pressure systolic 136 mm Hg 01/08/2025 Weight 135.8 lbs 01/08/2025 BMI 23.31 kg/m2 01/08/2025 Encounters Encounter Location Date Provider [facility] [place] [address] [facility] [address] [place] [address] 05/13/2024 Sky Kauffman Major depressive disorder, recurrent, mild F33.0 and Generalized anxiety disorder F41.1 [place] [address] [facility] [address] [place] [address] 08/12/2024 Sky Kauffman Major depressive disorder, recurrent, mild F33.0 and Generalized anxiety disorder F41.1 [place] [address] [facility] [address] [place] [address] 12/03/2024 Sky Kauffman Encounter for screen ing for depression Z13.31 ; Major depressive disorder, recurrent, mild F33.0 ; Generalized anxiety disorder F41.1 and Encounter for screening for cardiovascular disorders Z13.6 [facility] [place] [address] [address] 01/08/2025 Sky Caooza Negative depression screening Z13.31 ; Major depressive disorder, recurrent, mild F33.0 ; Encounter for screening for depression Z13.31 ; Generalized anxiety disorder F41.1 and Encounter for screening for cardiovascular disorders Z13.6 [facility] [place] [address] [address] 12/12/2024 Sky Kauffman [place] [address] [address] 08/12/2024 Sky Kauffman Assessments Encounter Date Diagnosis (ICD Code) Assessment Notes Treatment Notes Treatment Clinical Notes Section Notes 05/13/2024 Major depressive disorder, recurrent, mild (ICD-10 - F33.0) cont sertraline 150mg daily- use [facility] 1. Major Depressive Disorder and anxiety [...] - Reassess sleep quality in 3 months. 01/08/2025 Negative depression screening (ICD-10 - Z13.31) 08/12/2024 Major depressive disorder, recurrent, mild (ICD-10 - F33.0) cont sertraline 150mg daily- use [facility] 12/03/2024 Major depressive disorder, recurrent, mild (ICD-10 - F33.0) cont sertraline 150mg daily- use [facility] 12/03/2024 Encounter for screening for depression (ICD-10 - Z13.31) 01/08/2025 Major depressive disorder, recurrent, mild (ICD-10 - F33.0) cont sertraline 150mg daily- use [facility] 12/03/2024 Generalized anxiety disorder (ICD-10 - F41.1) cont alprazolam 0.25mg daily prn- she has not used for a long time 08/12/2024 Generalized anxiety disorder (ICD-10 - F41.1) [...] - Reassess sleep quality in 3 months. 12/03/2024 Encounter for screening for cardiovascular disorders (ICD-10 - Z13.6) 01/08/2025 Encounter for screening for depression (ICD-10 - Z13.31) 01/08/2025 Generalized anxiety disorder (ICD-10 - F41.1) cont alprazolam 0.25mg daily prn- she has not used for a long time 01/08/2025 Encounter for screening for cardiovascular disorders (ICD-10 - Z13.6) 08/12/2024 Other 1. Depression and Anxiety: - [...] medication management. - Refill prescriptions sent to [facility] 12/03/2024 Kaykay Muñoz, a 69-year-old female, presents with persistent cough for over a year, sadness, and physical discomfort, reporting fluctuating mood and energy levels. Persistent Cough Assessment: Patient reports a chronic cough lasting over a year, with extensive testing yielding inconclusive results. Recent pulmonary function testing ruled out asthma, despite an initial text message suggesting otherwise. Cardiovascular etiology is being considered, with a pending cardiac scan and recent stress test completed. The persistent nature of the cough and its impact on the patient's quality of life warrant further investigation. Plan: - Await results of cardiac scan to evaluate potential cardiac etiology of cough - Review results of recent stress test when available - Continue to monitor cough symptoms and their impact on daily functioning Depressive Symptoms Assessment: Patient describes fluctuating mood with periods of sadness and low energy. She reports moments of wanting to curl up in a ball but maintains overall functionality. The mood changes occur even within a single day. Previous counseling with Jim was reported as beneficial. Current medication regimen includes sertraline 150 mg daily, which has remained unchanged. Patient's symptoms may benefit from augmentation therapy. Plan: - Add bupropion XL 150 mg PO every morning to current regimen - Informed patient of potential benefits for mood and energy - Advised to take in the morning due to energizing effects - Continue sertraline 150 mg PO daily - Encourage resumption of counseling if symptoms persist or worsen - Follow up to assess response to medication changes and overall mood Anxiety Assessment: Patient has a prescription for alprazolam, which she uses sparingly due to concerns about dependence. She reports taking it only when really needed, indicating episodic anxiety symptoms that are generally well-managed. Plan: - Continue alprazolam as needed for acute anxiety symptoms - Reinforce appropriate use and address concerns about dependence - Monitor for changes in anxiety symptoms, especially with the addition of bupropion Sleep Apnea Assessment: Patient mentions recent initiation of CPAP therapy, suggesting a diagnosis of sleep apnea. The impact of this condition on her overall health and its potential contribution to her mood symptoms should be considered. Plan: - Encourage adherence to CPAP therapy - Assess CPAP tolerance and effectiveness at follow-up visits - Consider impact of improved sleep on mood and energy levels the note is transcribed using speech recognition software. It is a reflection of a visit with the patient. It might have some inaccuracy, including medication names and transcribing errors, though efforts have been made to correct them. 01/08/2025 Kaykay Muñoz, a female patient with a history of chronic cough, presents for follow-up of medication management and reports overall improvement in physical symptoms and mood. Medication Management Assessment: Patient reports feeling pretty good overall with improved physical symptoms. However, she experienced adverse effects with bupropion, describing feeling real shaky. The sertraline dose has been increased to 150 mg, which appears to be better tolerated. Patient reports feeling a little more motivated and having a little bit more pep, suggesting some improvement in mood and energy levels. Plan: - Discontinue bupropion due to reported side effects - Continue sertraline 150 mg - Follow up in 3 months Chronic Cough Assessment: Patient reports a long-standing cough of over years duration, possibly related to asthma and postnasal drip. Recent cardiac evaluation ruled out blockage. Mucus in lungs noted, which may be contributing to the cough. Patient has been using a daily inhaler and has a follow-up appointment scheduled next week with another provider to address this issue further. Plan: - Continue daily inhaler use as prescribed - Encourage follow-through with scheduled appointment next week for further evaluation and management of chronic cough Decreased Physical Capacity Assessment: Patient expresses frustration with decreased ability to perform physical activities compared to previous capabilities, stating I can't walk around like I used to and I can't do stuff at home like I used to do. This change in physical capacity is likely related to normal aging processes and potentially exacerbated by lack of regular exercise. Plan: - Encourage gradual increase in physical activity as tolerated - Recommend exploring Medicare's [employer] program for potential gym membership benefits - Suggest considering use of home treadmill or stationary bike for exercise - Advise on importance of pacing and taking breaks during physical activities the note is transcribed using speech recognition software. It is a reflection of a visit with the patient. It might have some inaccuracy, including medication names and transcribing errors, though efforts have been made to correct them. Plan Of Treatment Next Appt Details Provider Name:Sky read, 04/09/2025 01:00:00 PM, [address] [facility] [address] [facility] [address], [place], [address], Insurance Providers Payer Name Payer Address Payer Phone Subscriber Number Group Number Insured Name Patient Relationship to Insured Coverage Start Date Coverage End Date Medicare-I l Medicare [address] [place] [phone] [id number] IRWIN MUÑOZ Self - patient is the insured [employer] [employer] [address] [place] [address] [id number] IRWIN MUÑOZ Self - patient is the insured Medical (General) History Medical History History ICD Code Problems: Generalized anxiety disorder History of anemia Long-term current use of drug therapy Mild recurrent major depression Vitamin D deficiency , skin cancer on nose, will have radiation 3 x per week x 7 weeks Imported from : e patient had multiple encounters with healthcare providers at [facility] from 2022 to 2024. In February 2023, the patient saw Dr. Navid Waddell for left knee joint pain. Throughout 2023, the patient had several visits with Dr. Leighton Ashby for chronic cough, allergic rhinitis, acute sinusitis, and chronic rhinitis. The patient also had a hospital encounter with Dr. Galdino Pichardo in June 2024 for menopause. In the same month, the patient had a screening mammogram with Dr. Ricky Lowery. 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 The patient's external device data was regularly monitored by an abstract provider at [facility]. Surgical History Surgery Date(Month/Year) Appendectomy (05225) Cataract surgery (30492) 07/31/2019 Other 03/31/2011
--- OUTSIDE RECORDS SUMMARY | 2025-03-11 14:24 | XMS_ITS | Clinical Summary ---
Author Organization [facility] Address [address] [place] [address] Phone Care Team Providers Care Fire Claims Adjuster Name Role Phone Ricky Lowery MD Primary Care Provider [phone] Allergies Active Allergy Reactions Criticality Noted Date [...] Encounters Date Type Department Care Team Description 03/05/2025 External Device Data [facility] ABSTRACTION Provider, Abstract 03/04/2025 External Device Data [facility] Provider, Abstract 02/12/2025 External Device Data [facility] [place] Provider, Abstract 02/12/2025 External Device Data [facility] Provider, Abstract 02/11/2025 External Device Data [facility] Provider, Abstract 12/17/2024 External Device Data [facility] Provider, Abstract from Last 3 Months Immunizations Immunization Administration Dates Next Due ([employer] COVID-19 VACCINE - EMERGENCY USE AUTHORIZATION, AD26,COV2S(PF) [...] on file Legal Sex Female 3:29 AM SIGNAL WORKER HELPER Gender Identity Not on file Sexual [...] 60.3 kg (133 lb) 06/25/2024 10:42 AM SIGNAL WORKER HELPER Height 165.1 cm (5' 5) 06/25/2024 10:42 AM SIGNAL WORKER HELPER Body Mass Index 22.13 06/25/2024 10:42 AM SIGNAL WORKER HELPER Plan of Treatment Upcoming Encounters Date Type Department Care Team (Late st Contact Info) Description 07/01/2025 10:45 AM SIGNAL WORKER HELPER Office Visit [address] [address] Galdino Pichardo MD [address] [facility] [address] [place] [address] Health Maintenance Due Date Last Done Comments DTAP/TDAP/TD VACCINES (1 - Tdap) 1976 FIT-DNA Q 3 years 2002 FIT/FOBT Q 1 year 2002 Flex Sig/CT Colonography Q 5 years 2002 ZOSTER VACCINE (2 of 2) 05/22/2018 03/27/2018 PNEUMOCOCCAL VACCINE 50+ YEA RS (2 of 2 - PCV) 12/22/2023 12/21/2022 COVID-19 Vaccine (2 - 2023-2 5 season) 2024 10/02/2020 INFLUENZA VACCINE (#1) 2025 , 04/14/2021 (Previously completed), 04/07/2020, Additional history exists BREAST CANCER SCREENING 07/11/2025 07/11/20 24, 08/11/2023, 07/10/2023, Additional history exists COLORECTAL SCREENING 06/12/2026 06/12/2019, 02/11/2019, 01/29/2008 Colorectal Cancer Screening 06/12/2026 OSTEOPOROSIS SCREENING 07/22/2026 , 06/13/2022, 04/16/2020, Additional history exists RSV VACCINE (60+ or ) (1 - 1-dose 75+ series) 2032 Procedures Procedure Name Priority Date/Time Associated Diagnosis Comments XR DEXA BONE DENSITY AXIAL 1 OR MORE SITES Routine 07/22/2024 10:58 AM SIGNAL WORKER HELPER Menopause MAMMO 3D LOLA SCREEN BILAT W OR WO CAD Routine 07/11/2024 12:23 PM SIGNAL WORKER HELPER Visit for screening mammogram from Last 3 Months or Most Recently Relevant to Health Maintenance Results * XR DEXA BONE DENSITY AXIAL 1 OR MORE SITES (07/22/2024 10:58 AM SIGNAL WORKER HELPER) Anatomical Region Laterality Modality Digital Radiogra phy 07/22/2024 10:5 9 AM SIGNAL WORKER HELPER Impressions 07/22/2024 11:13 AM SIGNAL WORKER HELPER IMPRESSION: Osteopenia. Lumbar Spine: T-score: 1.3 Left [...] report found in: Imaging Section of the [facility] EMR. Definitions: Normal: T-score above -1.0 [...] Champion MD DICTATION LOCATION: 07/22/2024 11:13 AM SIGNAL WORKER HELPER EXAMINATION: BONE DENSITY STUDY (DXA) DATE: 07/22/2024 10:58 AM HISTORY: 68 years Female. Postmenopausal. Osteopenia. PROCEDURE: Planar images of the lumbar spine and hip(s). Kiva DEXA scanner for bone mineral density determination [...] images of the lumbar spine and hip(s). [employer]iva DEXA scanner for bone mineral density determination [...] report found in: Imaging Section of the [facility] EMR. Definitions: Normal: T-score above -1.0 [...] Dr. Sp Champion MD DICTATION LOCATION: 1 us Galdino Pichardo MD DIAGNOSTIC IMAGING ORDERABLE S Final Result * MAMMO 3D LOLA SCREEN BILAT W OR WO CAD (07/11/2024 12:23 PM SIGNAL WORKER HELPER) Anatomical Region Laterality Modality Breast Bilateral Mammography 07/11/2024 12:2 4 PM SIGNAL WORKER HELPER Impressions 07/11/2024 1:50 PM SIGNAL WORKER HELPER IMPRESSION: Negative bilateral screening mammogram. Recommend routine followup. OVERALL FINAL ASSESSMENT: BI-RADS CATEGORY 1: Negative. DICTATION LOCATION: [facility] 07/11/2024 1:50 PM SIGNAL WORKER HELPER BILATERAL SCREENING DIGITAL MAMMOGRAM WITH 3D TOMOSYNTHESIS [...] ASSESSMENT: BI-RADS CATEGORY 1: Negative. DICTATION LOCATION: [facility] us Rickycharlie Lowery MD MAMMO ORDERABLES Final Result from Last 3 Months or Most Recently Relevant to Health Maintenance Insurance [facility] [employer] MEDIC[employer] PART A AND B Care Teams Fire Claims Adjuster Relationship Specialty Start Date End Date Ricky Lowery MD [address] [place] [address] PCP - General Family Practice 11/06/09
--- OUTSIDE RECORDS SUMMARY | 2025-03-11 14:24 | XMS_ITS | Encounter Summary ---
Author Organization [facility] Address [address] [place] [address] Care Team Providers Care Information Systems Auditor Name Role Phone Ricky Lowery MD Primary Care Provider [phone] Encounter Details Date Type Department Care Team (Latest Contact Info) Description 09/12/2002 Outpatient Historical [facility] Galdino Demarco MD [address] [address] SCREENING MAMM-MAILG NEOPL-OTHER (Primary Dx) Social History Tobacco Use Types Packs/Day Years Used Date Smoking Tobacco: Never Assessed Comments Unknown Sex and Gender Information Value Date Recorded Sex Assigned at Not on file Legal Sex Female 3:29 AM AUTOMAT WATCHER Gender Identity Not on file Sexual Orientation Not on file documented as of this encounter Plan of Treatment Upcoming Encounters Date Type Department Care Team (Late st Contact Info) Description 07/01/2025 10:45 AM AUTOMAT WATCHER Office Visit [facility] [place] [address] [place] [address], [address] [address] Galdino Pichardo MD [address] [address] documented as of this encounter Visit Diagnoses Diagnosis Other screening mammogram- Primary documented in this encounter Care Teams Information Systems Auditor Relationship Specialty Start Date End Date Ricky Lowery MD [address] [place] [address] PCP - General Family Practice 11/06/09 documented as of this encounter
--- OUTSIDE RECORDS SUMMARY | 2025-03-11 14:24 | XMS_ITS | Encounter Summary ---
Author Organization [facility] Address [address] [place] [address] Care Team Providers Care Regional Airline Pilot Name Role Phone Ricky Lowery MD Primary Care Provider [phone] Encounter Details Date Type Department Care Team (Latest Contact Info) Description 10/24/2008 Outpatient Historical [facility] Galdino Demarco MD [address] [address] Other Screening Mammogram Social History Tobacco Use Types Packs/Day Years Used Date Smoking Tobacco: Never Assessed Comments Unknown Sex and Gender Information Value Date Recorded Sex Assigned at Not on file Legal Sex Female 3:29 AM SATELLITE DISH INSTALLER Gender Identity Not on file Sexual Orientation Not on file documented as of this encounter Plan of Treatment Upcoming Encounters Date Type Department Care Team (Late st Contact Info) Description 07/01/2025 10:45 AM SATELLITE DISH INSTALLER Office Visit [facility] - [place] [address] [place] [address], [address] [address] Galdino Pichardo MD [address] [address] documented as of this encounter Procedures Procedure Name Priority Date/Time Associated Diagnosis Comments MAMMO SCREEN BILAT W OR WO CAD Routine 10/24/2008 7:47 AM CDT documented in this encounter Results * MAMMO DIGITAL SCREEN BILAT (10/24/2008 7:47 AM CDT) Anatomical Region Laterality Modality Breast Bilateral Other 10/24/2008 7:47 AM CDT Narrative 10/27/2008 8:17 PM CDT [place] [id number] [place], [place] [address] Admit Date: 10/24/2008 AL[place] MUÑOZ Sex: F Admit Prov: GALDINO PICHARDO Date: 1955 Primary Care Prov: DEMARCO DAWSON CMRN: [id number] Room: [facility]: [id number] IMAGING SERVICES Ordering Prov: GALDINO PICHARDO Accession Number: [id number] Interpretation BILATERAL FULL FIELD DIGITAL SCREENING MAMMOGRAM [...] AMK Procedure Note Makenna West - 10/27/2008 [facility] [place] [address] [place], [place] [address] Admit Date: 10/24/2008 [place]IA MUÑOZ Sex: F Admit Prov: GALDINO PICHARDO Date: 1955 Primary Care Prov: DEMARCO DAWSON CMRN: [id number] Room: A SSN: [id number] IMAGING SERVICES Ordering Prov: GALDINO PICHARDO Interpretation [...] mammogram documented in this encounter Care Teams Regional Airline Pilot Relationship Specialty Start Date End Date Ricky Lowery MD [address] [place] [address] PCP - General Family Practice 11/06/09 documented as of this encounter
--- OUTSIDE RECORDS SUMMARY | 2025-03-11 14:24 | XMS_ITS | Encounter Summary ---
Author Organization [facility] Address [address] [place] [address] Care Team Providers Care Eligibility Specialist Name Role Phone Ricky Lowery MD Primary Care Provider [phone] Encounter Details Date Type Department Care Team (Latest Contact Info) Description 09/11/2003 Outpatient Historical [facility] Galdino Demarco MD [address] [address] SCREENING MAMM-MAILG NEOPL-OTHER (Primary Dx) Social History Tobacco Use Types Packs/Day Years Used Date Smoking Tobacco: Never Assessed Comments Unknown Sex and Gender Information Value Date Recorded Sex Assigned at Not on file Legal Sex Female 3:29 AM FINISHING WIRE SAWYER Gender Identity Not on file Sexual Orientation Not on file documented as of this encounter Plan of Treatment Upcoming Encounters Date Type Department Care Team (Late st Contact Info) Description 07/01/2025 10:45 AM FINISHING WIRE SAWYER Office Visit [facility] - [place] [address] [place] [address], [address] [address] Galdino Pichardo MD [address] [address] documented as of this encounter Visit Diagnoses Diagnosis Other screening mammogram- Primary documented in this encounter Care Teams Eligibility Specialist Relationship Specialty Start Date End Date Ricky Lowery MD [address] [place] [address] PCP - General Family Practice 11/06/09 documented as of this encounter
--- OUTSIDE RECORDS SUMMARY | 2025-03-11 14:24 | XMS_ITS | Clinical Summary ---
Author Organization [facility] Address [address] [place] [address] Care Team Providers Care Lease Operator Name Role Phone Ricky Lowery MD Primary Care Provider [phone] Allergies Active Allergy Reactions Criticality Noted Date Comments Erythromycin Nausea And Vomiting High 08/13/2012 Medications levothyroxine (SYNTHROID, LEVOTHROID) 100 mcg tablet Take 1 tablet by mouth daily on an empty stomach 90 tablet 1 09/13/2018 Active atorvastatin (LIPITOR) 10 mg tablet TK 1 T PO QD 11/04/2017 Active citalopram (CeleXA) 40 mg tablet Take 40 mg by mouth 2 times daily. Active desvenlafaxine ER (PRISTIQ, KHEDEZLA) 100 mg 24 hr tablet 12/01/2017 Active triamcinolone (KENALOG) 0.1 % ointment SARMAD THIN LAYER EXT AA BID 2 06/28/2018 Active levothyroxine (SYNTHROID, LEVOTHROID) 100 mcg tablet TK 1 T PO D OES 12/08/2017 Active Lactobacillus acidophilus 10 billion cell capsule Take by mouth. Active docusate sodium (COLACE) 100 mg capsuleIndicatio ns:constipation Take 100 mg by mouth 2 (two) times a day. 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 Encounters Date Type Department Care Team Description 12/16/2024 10:39 AM CDT - 12/16/2024 11:59 PM CDT Hospital Encounter [facility]) [address] [place] [id number] Chest pain, unspecified type Discharge Disposition: Discharge to home or self care 12/12/2024 Orders Only [facility] ([facility]) [address] [place], [place] [id number] Shelbie Crowley, RN from Last 3 Months Social History Tobacco Use Types Packs/Day Years Used Date Smoking Tobacco: Never Smokeless Tobacco: Never Alcohol Use Standard Drinks/Week Comments No 0 (1 standard drink = 0.6 oz pur e alcohol) Comments No Sex and Gender Information Value Date Recorded Sex Assigned at Not on file Legal Sex Female 3:12 AM CRUISE STAFF MEMBER Gender Identity Not on file Sexual Orientation Not on file Obstetrics History Last Filed Vital Signs Vital Sign Reading Time Taken Comments Blood Pressure 131/68 12/16/2024 11:02 AM CDT Pulse 74 12/16/2024 11:02 AM CDT Temperature - - Respiratory Rate - - Oxygen Saturation - - Inhaled Oxygen Concentration - - Weight 56.5 kg (124 lb 8 oz) 09/21/2018 10:34 AM CRUISE STAFF MEMBER Height 162.6 cm (5' 4) 09/21/2018 10:34 AM CRUISE STAFF MEMBER Body Mass Index 21.37 09/21/2018 10:34 AM CRUISE STAFF MEMBER Plan of Treatment Health Maintenance Due Date Last Done Comments Colon Cancer Screening-Colonoscopy 1955 Depression Screening 1955 Fall Risk Assessment 1955 Hepatitis C Screening 1955 Hepatitis B Screening 10/04/1975 Well Visit 65+ 2022 Covid-19 Vaccine (2023-2 5 season) 2024 05/27/2024, 01/26/2024, 05/21/2023, Additional history exists Influenza Vaccine (#1) 2025 , 04/18/2023, 12/21/2022, Additional history exists Breast Cancer Screening-Mammogram 07/11/2025 07/11/2024, 07/11/2024, 07/10/2023, Additional history exists Osteoporosis Screening-Bone Density Scan 07/22/2026 07/22/2024, 07/22/2024, 06/13/2022, Additional history exists DTaP/Tdap/Td Vaccine (2 - Td or Tdap) 05/27/2034 05/27/2024 Zoster Vaccine Completed 03/26/2018, 01/08/2018 Pneumococcal vaccine 65+ Completed 12/21/2022, 11/29 Procedures Procedure Name Priority Date/Time Associated Diagnosis Comments CT HEART MORPHOLOGY AND CORONARY ARTERIES W CONTRAST Schedule Routine, Read Routine (OP Routine) 12/16/2024 11:27 AM CDT Chest pain, unspecified type POCT CREATININE - DEVICE Routine 12/16/2024 11:14 AM CDT from Last 3 Months Results * CTA Heart and Coronary Arteries W Morphology when Performed (12/16/2024 11:27 AM CDT) Anatomical Region Laterality Modality Chest N/A Computed Tomogra phy 12/16/2024 1:07 PM CDT Impressions 12/16/2024 2:28 PM CDT 1. No evidence of coronary artery atherosclerosis. Calcium score of 0. 2. Areas of mucous plugging in the lower lobes. Dictated by: Edgardo Portillo MD The radiology attending physician has personally reviewed this study, and had reviewed and/or edited this written report and agrees with it. Electronically signed by: Nayan Pérez M.D. Narrative 12/16/2024 2:28 PM CDT EXAMINATION: CORONARY CT ANGIOGRAM HISTORY: Chest pain. TECHNIQUE: CT angiography of the coronary arteries was performed after the administration of 93 mL of Optiray 350. Images were also obtained precontrast for the purposes of calcium scoring. 0 mg of metoprolol was administered intravenously prior to the examination. The patient's heart rate and blood pressure at the time of the examination were 75 beats per minute and 131/68 mmHg. Images were transferred to a 3D workstation for additional post-processing. FINDINGS: The coronary arteries are right system dominant. There is no anomalous coronary artery origin or course. Right coronary system: Free of disease. No evidence of atherosclerosis or stenosis. Left coronary system: Free of disease. The left anterior descending artery is free of disease. No atherosclerosis or stenosis. There are two early diagonal branches which are proximally free of disease and smaller distally. The left circumflex artery is free of disease proximally and gives off a relatively large obtuse marginal branch which is free of disease proximally. The distal left circumflex artery is small in this right-dominant patient. The calculated calcium score is 0. Other findings: There are areas of mucous plugging in the lower lobes. Procedure Note Nayan Pérez MD - 12/16/2024 EXAMINATION: CORONARY CT ANGIOGRAM HISTORY: Chest pain. TECHNIQUE: CT angiography of the coronary arteries was performed after the administration of 93 mL of Optiray 350. Images were also obtained precontrast for the purposes of calcium scoring. 0 mg of metoprolol was administered intravenously prior to the examination. The patient's heart rate and blood pressure at the time of the examination were 75 beats per minute and 131/68 mmHg. Images were transferred to a 3D workstation for additional post-processing. FINDINGS: The coronary arteries are right system dominant. There is no anomalous coronary artery origin or course. Right coronary system: Free of disease. No evidence of atherosclerosis or stenosis. Left coronary system: Free of disease. The left anterior descending artery is free of disease. No atherosclerosis or stenosis. There are two early diagonal branches which are proximally free of disease and smaller distally. The left circumflex artery is free of disease proximally and gives off a relatively large obtuse marginal branch which is free of disease proximally. The distal left circumflex artery is small in this right-dominant patient. The calculated calcium score is 0. Other findings: There are areas of mucous plugging in the lower lobes. IMPRESSION: 1. No evidence of coronary artery atherosclerosis. Calcium score of 0. 2. Areas of mucous plugging in the lower lobes. Dictated by: Edgardo Portillo MD The radiology attending physician has personally reviewed this study, and had reviewed and/or edited this written report and agrees with it. Electronically signed by: Nayan Pérez M.D. us Layo Hunt DO IM CT PROCEDURES Final Resu lt * POCT creatinine (12/16/2024 11:14 AM CDT) Creatinine POC 0.8 0.6 - 1.1 mg/dL Blood 12/16/2024 11:1 4 AM CDT 12/16/2024 11:14 AM CDT us Layo Corinnechandu Hunt DO LAB POCT ORDERABLES - DEVICE Final Result [facility] Department [place] [address] from Last 3 Months Insurance MEDICARE [facility] [employer] [facility] [place] [address] MEDICARE [facility] Care Teams Lease Operator Relationship Specialty Start Date End Date Ricky Lowery MD PCP - General 09/21/16
--- OUTSIDE RECORDS SUMMARY | 2025-03-11 14:24 | XMS_ITS | Encounter Summary ---
Author Organization [facility] Address [address] [place] [address] Care Team Providers Care Furniture Removalist Name Role Phone Ricky Lowery MD Primary Care Provider [phone] Encounter Details Date Type Department Care Team (Latest Contact Info) Description 09/18/2003 Outpatient Historical HIS [facility] Galdino Demarco MD [address] [address] FOLLOW-UP EXAM NEC (Primary Dx) Social History Tobacco Use Types Packs/Day Years Used Date Smoking Tobacco: Never Assessed Comments Unknown Sex and Gender Information Value Date Recorded Sex Assigned at Not on file Legal Sex Female 3:29 AM RUBBER TUBING BACKER Gender Identity Not on file Sexual Orientation Not on file documented as of this encounter Plan of Treatment Upcoming Encounters Date Type Department Care Team (Late st Contact Info) Description 07/01/2025 10:45 AM RUBBER TUBING BACKER Office Visit [facility] - [place] [address] [place] [address], [address] [address] Galdino Pichardo MD [address] [address] documented as of this encounter Visit Diagnoses Diagnosis Other follow-up examination(V67.59)- Primary Other follow-up examination documented in this encounter Care Teams Furniture Removalist Relationship Specialty Start Date End Date Ricky Lowery MD [address] [place] [address] PCP - General Family Practice 11/06/09 documented as of this encounter
--- OUTSIDE RECORDS SUMMARY | 2025-03-11 14:24 | XMS_ITS | Encounter Summary ---
Author Organization [facility] Address [address] [place] [address] Care Team Providers Care Medical Charge Entry Specialist Name Role Phone Ricky Lowery MD Primary Care Provider [phone] Encounter Details Date Type Department Care Team (Latest Contact Info) Description 06/03/1999 Outpatient Historical HIS [facility] Galdino Demarco MD [address] [address] Other screening mammogram (Primary Dx) Social History Tobacco Use Types Packs/Day Years Used Date Smoking Tobacco: Never Assessed Comments Unknown Sex and Gender Information Value Date Recorded Sex Assigned at Not on file Legal Sex Female 3:29 AM OLIVE PACKER Gender Identity Not on file Sexual Orientation Not on file documented as of this encounter Plan of Treatment Upcoming Encounters Date Type Department Care Team (Late st Contact Info) Description 07/01/2025 10:45 AM OLIVE PACKER Office Visit [facility] O[facility] - [place] [address] [place] [address], [address] [address] Galdino Pichardo MD [address] [address] documented as of this encounter Visit Diagnoses Diagnosis Other screening mammogram- Primary documented in this encounter Care Teams Medical Charge Entry Specialist Relationship Specialty Start Date End Date Ricky Lowery MD [address] [place] [address] PCP - General Family Practice 11/06/09 documented as of this encounter
--- OUTSIDE RECORDS SUMMARY | 2025-03-11 14:24 | XMS_ITS | Encounter Summary ---
Author Organization [facility] Address [address] [place] [address] Care Team Providers Care Quarter Folder Name Role Phone Ricky Lowery MD Primary Care Provider [phone] Encounter Details Date Type Department Care Team (Latest Contact Info) Description 07/20/2000 Outpatient Historical HIS [facility] Galdino Demarco MD [address] [address] Other screening mammogram (Primary Dx) Social History Tobacco Use Types Packs/Day Years Used Date Smoking Tobacco: Never Assessed Comments Unknown Sex and Gender Information Value Date Recorded Sex Assigned at Not on file Legal Sex Female 3:29 AM BUSINESS DEAN Gender Identity Not on file Sexual Orientation Not on file documented as of this encounter Plan of Treatment Upcoming Encounters Date Type Department Care Team (Late st Contact Info) Description 07/01/2025 10:45 AM BUSINESS DEAN Office Visit [facility] OBGYN - [place] [address] [place] [address], [address] [address] Galdino Pichardo MD [address] [address] documented as of this encounter Visit Diagnoses Diagnosis Other screening mammogram- Primary documented in this encounter Care Teams Quarter Folder Relationship Specialty Start Date End Date Ricky Lowery MD [address] [place] [address] PCP - General Family Practice 11/06/09 documented as of this encounter
--- OUTSIDE RECORDS SUMMARY | 2025-03-11 14:24 | XMS_ITS | Clinical Summary ---
Author Organization [facility] Address [address], [address] [address] Phone Care Team Providers Care Regulatory Submissions Associate Name Role Phone Ricky Lowery MD Primary Care Provider [phone] Social History Tobacco Use Types Packs/Day Years Used Date Smoking Tobacco: Never Assessed Comments Unknown Sex and Gender Information Value Date Recorded Sex Assigned at Not on file Legal Sex Female 7:42 PM CDT Gender Identity Not on file Sexual Orientation Not on file Plan of Treatment Health Maintenance Due Date Last Done Comments Hepatitis C Virus (HCV) Screening 1955 TdaP Immunization 1955 Cologuard 2002 Immunochemical Fecal Occult Blood 2002 Pneumococcal Immunization (5 0+ years) (1 of 1 - PCV) 10/04/2007 Zoster Immunization (1 of 2) 10/04/2007 Colonoscopy 02/12/2024 02/11/2019 Colorectal Cancer Screening 02/12/2024 SARS-COV-2 Immunization ( - season) 2024 Influenza Immunization (#1) 2025 Respiratory Syncytial Virus (RSV) Immunization (Adult) (1 - 1-dose 75+ series) 2032 Hepatitis B Immunization Aged Out No longer eligible based on patient's age to complete this topic Human Papillomavirus (HPV) Immunization Aged Out No longer eligible b ased on patient's age to complete this topic [...] Recently Relevant to Health Maintenance [place] [address] [facility] Care Teams Regulatory Submissions Associate Relationship Specialty Start Date End Date Ricky Lowery MD [address] [place] [address] PCP - General Family Medicine 11/16/18
--- OUTSIDE RECORDS SUMMARY | 2025-03-11 14:24 | XMS_ITS | Encounter Summary ---
Author Organization [facility] Address [address] [place] [address] Care Team Providers Care Obstetrics Gyn Physician Name Role Phone Ricky Lowery MD Primary Care Provider [phone] Encounter Details Date Type Department Care Team (Latest Contact Info) Description 09/14/2004 Outpatient Historical HIS [facility] Galdino Demarco MD [address] [address] SCREENING MAMM-MAILG NEOPL-OTHER (Primary Dx) Social History Tobacco Use Types Packs/Day Years Used Date Smoking Tobacco: Never Assessed Comments Unknown Sex and Gender Information Value Date Recorded Sex Assigned at Not on file Legal Sex Female 3:29 AM COVER MAT MACHINE OPERATOR Gender Identity Not on file Sexual Orientation Not on file documented as of this encounter Plan of Treatment Upcoming Encounters Date Type Department Care Team (Late st Contact Info) Description 07/01/2025 10:45 AM COVER MAT MACHINE OPERATOR Office Visit [facility] OBGYN - [place] [address] [place] [address], [address] [address] Galdino Pichardo MD [address] [address] documented as of this encounter Visit Diagnoses Diagnosis Other screening mammogram- Primary documented in this encounter Care Teams Obstetrics Gyn Physician Relationship Specialty Start Date End Date Ricky Lowery MD [address] [place] [address] PCP - General Family Practice 11/06/09 documented as of this encounter
--- OUTSIDE RECORDS SUMMARY | 2025-03-11 14:24 | XMS_ITS | Encounter Summary ---
Author Organization [facility] Address [address] [place] [address] Care Team Providers Care Manager Pe Name Role Phone Ricky Lowery MD Primary Care Provider Encounter Details Date Type Department Care Team (Latest Contact Info) Description 09/12/2006 Outpatient Historical HIS [facility] Galdino Demarco MD [address] [address] Other Screening Mammogram (Primary Dx) Social History Tobacco Use Types Packs/Day Years Used Date Smoking Tobacco: Never Assessed Comments Unknown Sex and Gender Information Value Date Recorded Sex Assigned at Not on file Legal Sex Female 3:29 AM PROCESS DESIGN CHEMICAL ENGINEER Gender Identity Not on file Sexual Orientation Not on file documented as of this encounter Plan of Treatment Upcoming Encounters Date Type Department Care Team (Late st Contact Info) Description 07/01/2025 10:45 AM PROCESS DESIGN CHEMICAL ENGINEER Office Visit [facility] OBGYN - [place] [address] [place] [address], [address] [address] Galdino Pichardo MD [address] [address] documented as of this encounter Visit Diagnoses Diagnosis Other screening mammogram- Primary documented in this encounter Care Teams Manager Pe Relationship Specialty Start Date End Date Ricky Lowery MD [address] [place] [address] PCP - General Family Practice 11/06/09 documented as of this encounter
--- OUTSIDE RECORDS SUMMARY | 2025-03-11 14:24 | XMS_ITS | Encounter Summary ---
Author Organization [facility] Address [address] [place] [address] Care Team Providers Care Sand Carrier Name Role Phone Ricky Lowery MD Primary Care Provider [phone] Encounter Details Date Type Department Care Team (Latest Contact Info) Description 09/15/2005 Outpatient Historical HIS [facility] Galdino Demarco MD [address] [address] SCREENING MAMM-MAILG NEOPL NEC (Primary Dx) Social History Tobacco Use Types Packs/Day Years Used Date Smoking Tobacco: Never Assessed Comments Unknown Sex and Gender Information Value Date Recorded Sex Assigned at Not on file Legal Sex Female 3:29 AM NEW VEHICLE SALES CONSULTANT Gender Identity Not on file Sexual Orientation Not on file documented as of this encounter Plan of Treatment Upcoming Encounters Date Type Department Care Team (Late st Contact Info) Description 07/01/2025 10:45 AM NEW VEHICLE SALES CONSULTANT Office Visit [facility] OBGYN - [place] [address], [address] [address] Galdino Pichardo MD [address] [address] documented as of this encounter Visit Diagnoses Diagnosis Other screening mammogram- Primary documented in this encounter Care Teams Sand Carrier Relationship Specialty Start Date End Date Ricky Lowery MD [address] [place] [address] PCP - General Family Practice 11/06/09 documented as of this encounter
--- OUTSIDE RECORDS SUMMARY | 2025-03-11 14:24 | XMS_ITS | Encounter Summary ---
Author Organization [facility] Address [address] [place] [address] Care Team Providers Care Acoustical Logging Engineer Name Role Phone Ricky Lowery MD Primary Care Provider [phone] Encounter Details Date Type Department Care Team (Latest Contact Info) Description 09/28/2007 Outpatient Historical HIS [facility] Galdino Demarco MD [address] [address] Other Screening Mammogram Social History Tobacco Use Types Packs/Day Years Used Date Smoking Tobacco: Never Assessed Comments Unknown Sex and Gender Information Value Date Recorded Sex Assigned at Not on file Legal Sex Female 3:29 AM FIGURE CLERK Gender Identity Not on file Sexual Orientation Not on file documented as of this encounter Plan of Treatment Upcoming Encounters Date Type Department Care Team (Late st Contact Info) Description 07/01/2025 10:45 AM FIGURE CLERK Office Visit [facility] OBGYN - [place] [address] [place] [address], [address] [address] Galdino Pichardo MD [address] [address] documented as of this encounter Procedures Procedure Name Priority Date/Time Associated Diagnosis Comments MAMMO SCREEN BILAT W OR WO CAD Routine 09/28/2007 8:02 AM FIGURE CLERK documented in this encounter Results * MAMMO DIGITAL SCREEN BILAT (09/28/2007 8:02 AM FIGURE CLERK) Anatomical Region Laterality Modality Breast Bilateral Other 09/28/2007 8:02 AM FIGURE CLERK Narrative 09/28/2007 7:16 PM FIGURE CLERK [place] [address] [place], [place] [address] Admit Date: 09/28/2007 ALESHIA MUÑOZ Sex: F Admit Prov: GALDINO PICHARDO Date: 1955 Primary Care Prov: DEMARCO DAWSON CMRN: [id number] Room: JANAK N: [id number] IMAGING SERVICES Ordering Prov: GALDINO PICHARDO Accession Number: [id number] Interpretation BILATERAL SCREENING DIGITAL MAMMOGRAMS WITH COMPUTER [...] Procedure Note Michelle Fan MD - 09/28/2007 [place] [address] [place], [place] [address] Admit Date: 09/28/2007 ALESHIA MUÑOZ Sex: F Admit Prov: GALDINO PICHARDO Date: 1955 Primary Care Prov: DEMARCO DAWSON CMRN: [id number] Room: JANAK SSN: [id number] IMAGING SERVICES Ordering Prov: GALDINO PICHARDO Interpretation [...] mammogram documented in this encounter Care Teams Acoustical Logging Engineer Relationship Specialty Start Date End Date Ricky Lowery MD [address] [place] [address] PCP - General Family Practice 11/06/09 documented as of this encounter
--- OUTSIDE RECORDS SUMMARY | 2025-03-11 14:24 | XMS_ITS ---
Author Organization 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 Past Treatment and Therapy Plans No past plan information found. Lifetime Dose Tracking * Chemical Lifetime Dose Automatic Entry Manual Entr y DLP 623 mGycm 623 mGycm 0 mGycm
== END 2025-03-11 14:01 | disposition home or self-care (01) ==
LOC: ANHIMG 14:01
PROVIDERS: PCP Family Medicine; Visit Provider Physician Assistant
DX: R91.8 Other nonspecific abnormal finding of lung field (principal); R07.9 Chest pain, unspecified; R07.81 Pleurodynia
CPT/HCPCS: 71046; 71110; 78582; A9540; A9558

== ENCOUNTER 2025-07-27 08:48 | Outpatient (CLI) | payer MEDICARE, BC, SELFPAY ==
--- NOTE | ~2025-07-27 | MR_ITS ---
EXAMINATION: MR brain IAC wo/w con DATE: 07/27/2025 10:07 INDICATION: Tremor, unspecified. Loss of balance. Memory loss. TECHNIQUE: Magnetic resonance imaging (MRI) of the brain, brainstem, and internal auditory canals was performed without and with 12 mL MultiHance intravenous contrast. COMPARISON: None. FINDINGS: There is no intracranial hemorrhage, acute infarction, or abnormal intracranial mass lesion. The ventricles are normal in size. There are likely changes of ocular lens replacement surgeries. The paranasal sinuses are clear. The internal auditory canals, inner ears, and tympanic cavities are normal. The mastoid air cells are normal. IMPRESSION: 1. Normal brain. Reviewed, dictated and finalized at location [facility] IMPRESSION: 1. Normal brain.
--- OUTSIDE RECORDS SUMMARY | 2025-07-27 09:00 | XMS_ITS ---
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 Past Treatment and Therapy Plans No past plan information found. Lifetime Dose Tracking * Chemical Lifetime Dose Automatic Entry Manual Entr y DLP 623 mGycm 623 mGycm 0 mGycm
--- OUTSIDE RECORDS SUMMARY | 2025-07-27 09:01 | XMS_ITS | Encounter Summary ---
Author Organization [facility] Address [address] [place] [address] Care Team Providers Care Electric Distribution Checker Name Role Phone Ricky Lowery MD Primary Care Provider [phone] Encounter Details Date Type Department Care Team (Latest Contact Info) Description 09/11/2003 Outpatient Historical HIS [facility] Galdino Demarco MD [address] [address] SCREENING MAMM-MAILG NEOPL-OTHER (Primary Dx) Social History Tobacco Use Types Packs/Day Years Used Date Smoking Tobacco: Never Assessed Comments Unknown Sex and Gender Information Value Date Recorded Sex Assigned at Not on file Legal Sex Female 3:29 AM SUPPORT WORKER Gender Identity Not on file Sexual Orientation Not on file documented as of this encounter Plan of Treatment Upcoming Encounters Date Type Department Care Team (Late st Contact Info) Description 07/09/2026 10:30 AM SUPPORT WORKER Office Visit [facility] OBGYN - [place] [address] [place] [address] Galdino Pichardo MD [address] [address] documented as of this encounter Visit Diagnoses Diagnosis Other screening mammogram- Primary documented in this encounter Care Teams Electric Distribution Checker Relationship Specialty Start Date End Date Ricky Lowery MD [address] [place] [address] PCP - General Family Practice 11/06/09 documented as of this encounter
--- OUTSIDE RECORDS SUMMARY | 2025-07-27 09:01 | XMS_ITS | Encounter Summary ---
Author Organization [facility] Address [address] [place] [address] Care Team Providers Care Industrial Gas Servicer Helper Name Role Phone Ricky Lowery MD Primary Care Provider [phone] Encounter Details Date Type Department Care Team ([facility] Contact Info) Description 07/10/2025 Results Follow-Up [address] [address] Galdino Pichardo MD [address] [address] CERV/VAG CYTO AGE BASED SCREEN PAP Social History Tobacco Use Types Packs/Day Years Used Date Smoking Tobacco: Never Smokeless Tobacco: Never Alcohol Use Standard Drinks/Week Comments No 0 (1 standard drink = 0.6 oz pur e alcohol) Comments No Sex and Gender Information Value Date Recorded Sex Assigned at Not on file Legal Sex Female 3:29 AM SHEET PILE HAMMER OPERATOR Gender Identity Not on file Sexual Orientation Not on file Occupation Industry Job Start Date Job End Date Not on file Not on file Not on file Not on file Not on file Not on file Not on file Not on file Not on file Not on file Not on file Not on file documented as of this encounter Plan of Treatment Upcoming Encounters Date Type Department Care Team (Late Contact Info) Description 07/09/2026 10:30 AM SHEET PILE HAMMER OPERATOR Office Visit [facility] OBGYN - [address] [place] [address] Galdino Pichardo MD [address] [facility] [address] [place] [address] documented as of this encounter Visit Diagnoses Not on filedocumented in this encounter Care Teams Industrial Gas Servicer Helper Relationship Specialty Start Date End Date Ricky Lowery MD [address] [place] [address] PCP - General Family Practice 11/06/09 documented as of this encounter
--- OUTSIDE RECORDS SUMMARY | 2025-07-27 09:01 | XMS_ITS | Encounter Summary ---
Author Organization [facility] Address [address] [place] [address] Care Team Providers Care Transit Mixer Driver Name Role Phone Ricky Lowery MD Primary Care Provider [phone] Encounter Details Date Type Department Care Team (Latest Contact Info) Description 09/28/2007 Outpatient Historical HIS [facility] Galdino Demarco MD [address] [address] Other Screening Mammogram Social History Tobacco Use Types Packs/Day Years Used Date Smoking Tobacco: Never Assessed Comments Unknown Sex and Gender Information Value Date Recorded Sex Assigned at Not on file Legal Sex Female 3:29 AM DERMATOLOGY TECHNICIAN Gender Identity Not on file Sexual Orientation Not on file documented as of this encounter Plan of Treatment Upcoming Encounters Date Type Department Care Team (Late st Contact Info) Description 07/09/2026 10:30 AM DERMATOLOGY TECHNICIAN Office Visit [facility] OBGYN - [place] [address] [place] [address], [address] [address] Galdino Pichardo MD [address] [address] documented as of this encounter Procedures Procedure Name Priority Date/Time Associated Diagnosis Comments MAMMO SCREEN BILAT W OR WO CAD Routine 09/28/2007 8:02 AM DERMATOLOGY TECHNICIAN documented in this encounter Results * MAMMO DIGITAL SCREEN BILAT (09/28/2007 8:02 AM DERMATOLOGY TECHNICIAN) Anatomical Region Laterality Modality Breast Bilateral Other 09/28/2007 8:02 AM DERMATOLOGY TECHNICIAN Narrative 09/28/2007 7:16 PM DERMATOLOGY TECHNICIAN [place] [address] [place], [place] [address] Admit Date: 09/28/2007 ALESHIA MUÑOZ Sex: F Admit Prov: GALDINO PICHARDO Date: 1955 Primary Care Prov: DEMARCO DAWSON CMRN: [id number] Room: [facility]IO[facility] N: [id number] IMAGING SERVICES Ordering Prov: GALDINO PICHARDO Accession Number: [id number] Interpretation BILATERAL SCREENING DIGITAL MAMMOGRAMS WITH COMPUTER [...] Procedure Note Michelle Fan MD - 09/28/2007 [address] [place], [place] [address] Admit Date: 09/28/2007 ALESHIA MUÑOZ Sex: F Admit Prov: GALDINO PICHARDO Date: 1955 Primary Care Prov: DEMARCO DAWSON CMRN: [id number] Room: JANAK N: [id number] IMAGING SERVICES Ordering Prov: GALDINO PICHARDO Interpretation [...] mammogram documented in this encounter Care Teams Transit Mixer Driver Relationship Specialty Start Date End Date Ricky Lowery MD [address] [place] [address] PCP - General Family Practice 11/06/09 documented as of this encounter
--- OUTSIDE RECORDS SUMMARY | 2025-07-27 09:01 | XMS_ITS | Clinical Summary ---
Author Organization [facility] Address [address], [address] [address] Phone Care Team Providers Care Fishery Division Chief Name Role Phone Ricky Lowery MD Primary Care Provider [phone] Social History Tobacco Use Types Packs/Day Years [...] Colorectal Cancer Screening 02/12/2024 Influenza Immunization (#1) 2025 SARS-COV-2 Immunization ( season) 2025 Respiratory Syncytial Virus (RSV) Immunization (Adult) [...] Recently Relevant to Health [place] [address] [facility] Care Teams Fishery Division Chief Relationship Specialty Start Date End Date Ricky Lowery MD [address] [place] [place] [address] PCP - General Family Medicine 11/16/18
--- OUTSIDE RECORDS SUMMARY | 2025-07-27 09:01 | XMS_ITS | Encounter Summary ---
Author Organization [facility] Address [address] [place] [address] Care Team Providers Care Foundation Coordinator Name Role Phone Ricky Lowery MD Primary Care Provider [phone] Encounter Details Date Type Department Care Team (Latest Contact Info) Description 10/24/[address] [facility] Galdino Demarco MD [address] [address] Other Screening Mammogram Social History Tobacco Use Types Packs/Day Years Used Date Smoking Tobacco: Never Assessed Comments Unknown Sex and Gender Information Value Date Recorded Sex Assigned at Not on file Legal Sex Female 3:29 AM DIAMOND EXPERT Gender Identity Not on file Sexual Orientation Not on file documented as of this encounter Plan of Treatment Upcoming Encounters Date Type Department Care Team (Late st Contact Info) Description 07/09/2026 10:30 AM DIAMOND EXPERT Office Visit [facility] OBGYN - [place] [address] [place] [address] Galdino Pichardo MD [address] [address] documented as of this encounter [...] [facility] [address] [place], [place] [address] Admit Date: 10/24/2008 ALESHIA MUÑOZ Sex: F Admit Prov: GALDINO PICHARDO Date: 1955 Primary Care Prov: DEMARCO DAWSON CMRN: [id number] Room: [facility]: [id number] IMAGING SERVICES Ordering Prov: GALDINO PICHARDO Accession Number: [id number] Interpretation BILATERAL FULL FIELD DIGITAL SCREENING MAMMOGRAM [...] [facility] [address] [place], [place] [address] Admit Date: 10/24/2008 ALESHIA MUÑOZ Sex: F Admit Prov: GALDINO PICHARDO Date: 1955 Primary Care Prov: DEMARCO DAWSON CMRN: [id number] [facility]: [id number] IMAGING SERVICES Ordering Prov: GALDINO PICHARDO Interpretation [...] documented in this encounter Care Teams Foundation Coordinator Relationship Specialty Start Date End Date Ricky Lowery MD [address] [place] [address] PCP - General Family Practice 11/06/09 documented as of this encounter
--- OUTSIDE RECORDS SUMMARY | 2025-07-27 09:01 | XMS_ITS | Encounter Summary ---
Author Organization [facility] Address [address] [place] [address] Care Team Providers Care Shot Grinder Operator Name Role Phone Ricky Lowery MD Primary Care Provider [phone] Encounter Details Date Type Department Care Team (Latest Contact Info) Description 09/18/2003 Outpatient Historical HIS [facility] Galdino Demarco MD [address] [address] FOLLOW-UP EXAM NEC (Primary Dx) Social History Tobacco Use Types Packs/Day Years Used Date Smoking Tobacco: Never Assessed Comments Unknown Sex and Gender Information Value Date Recorded Sex Assigned at Not on file Legal Sex Female 3:29 AM YARN WORKER Gender Identity Not on file Sexual Orientation Not on file documented as of this encounter Plan of Treatment Upcoming Encounters Date Type Department Care Team (Late st Contact Info) Description 07/09/2026 10:30 AM YARN WORKER Office Visit [facility] [place]BGYN - [place] [address] [place] [address], [address] [address] Galdino Pichardo MD [address] [address] documented as of this encounter Visit Diagnoses Diagnosis Other follow-up examination(V67.59)- Primary Other follow-up examination documented in this encounter Care Teams Shot Grinder Operator Relationship Specialty Start Date End Date Ricky Lowery MD [address] [place] [address] PCP - General Family Practice 11/06/09 documented as of this encounter
--- OUTSIDE RECORDS SUMMARY | 2025-07-27 09:01 | XMS_ITS | Data Portability ---
Author Organization [facility] Main Office Address [address] [place] [address] Care Team Providers Care Police Booking Officer Name Role Phone LATHA HIGHTOWER Primary Care Provider [phone] LATHA HIGHTOWER Referring Provider Assessment Encounter Date Assessment Date Assessment LastModified by Organization Details LastModified Time 03/24/2023 03/24/2023 HPI: 67-year-old female came in today for evaluation of her left knee symptoms. She states symptoms started about 2 or 3 months ago. Three months ago she was at [employer] and did an extensive amount of walking. [...] spent in treatment patient more have this [id number] conversation Not available 03/24/2023 13:34:14 Plan of Treatment Reminders Order Date Submit Date Provider Last Modified By Organization Details Last Modified Time Details Appointments None record ed. Lab None record ed. Referral None record ed. Procedures None record ed. Surgeries None record ed. Imaging XR, knee 023 03/24/20 23 [email or web address] [facility] [place], [address], [place], [address], 3 10:55:06 Medication Orders None record ed. Patient TargetsNo targets recorded. Patient InstructionsNo instructions recorded. Reason for Referral None Reported. Results Created Date Observation Date Name Description Value Unit Range Abnormal Flag Note LastModifiedBy Organization Detail LastModifiedTime 03/24/20 XR, knee No observ ation record ed. [facility] [place] [address] [facility] [address], [place], [address], 03/24/2023 13:29:31 Result Notes None recorded. Problems Name Problem SNOMED Code Status Onset Date Resolution Date Notes Provider Name and Address Organization Details Recorded Time Pain of left knee joint [id number] Active 2022 DOROTHY Arevalo [facility] [employer] [facility] 12:09:28 Problem Notes None recorded. Procedures Surgical History Date Name Laterality Status Provider Name and Address Organization Details Recorded Time 07/31/19 23 Hemorrhoidectomy completed Hailey Millard CNA [facility] [employer] [facility] 03/24/2023 12:08:56 07/31/19 11 Thyroid Surgery completed Hailey DonnellyDOROTHY meléndez [facility] [employer] [facility] 03/24/2023 12:08:32 Imaging Results None recorded. Procedure Notes None recorded. Medical Equipment None [...] Updated DateTime 03/24/2023 162.56 cm 22 kg/m2 89164.82 g Hailey Millard [facility]NA [facility] [email or web address] 03/24/2023 12:23:02 Social History None recorded. Functional Status Question Answer Note LastModified by Organization D etails LastModified Time What is your level of alcohol consumption? None [email or web address] Information not available 03/24/2023 Mental Status None recorded. Family History Relationship [...] Diagnosis SNOMED-CT Code Diagnosis ICD10 Code Diagnosis IMO Codes Diagnosis Note [id number] Navid Waddell MD [facility] [place] [address] [place] [address] 03/24/2023 11:21:40 03/24/2023 14:28:21 Pain of left knee joint [id number] M25.562 Health Concerns Section Related Observation LastModified by Organization Detai ls LastModified Time None Recorded Concern Status LastModified by Organization Details LastModified Time None Recorded Advance Directives Directive None Recorded Payers Insurance Date Sequence Insurance Name Policy Number Policy White Covered Member ID White Member ID Guarantor Name 03/28/2023 2 [place] 111 Aleshia Muñoz [id number] Aleshia Muñoz 03/24/2023 1 [place] Aleshia Muñoz [id number] Aleshia Muñoz OBGyn Episode No OBEpisode recorded.
--- OUTSIDE RECORDS SUMMARY | 2025-07-27 09:01 | XMS_ITS | Encounter Summary ---
Author Organization [facility] Address [address] [place] [address] Care Team Providers Care Retail Office Manager Name Role Phone Ricky Lowery MD Primary Care Provider [phone] Encounter Details Date Type Department Care Team (Latest Contact Info) Description 06/03/1999 Outpatient Historical HIS [facility] Galdino Demarco MD [address] [address] Other screening mammogram (Primary Dx) Social History Tobacco Use Types Packs/Day Years Used Date Smoking Tobacco: Never Assessed Comments Unknown Sex and Gender Information Value Date Recorded Sex Assigned at Not on file Legal Sex Female 3:29 AM ORACLE ERP DEVELOPER Gender Identity Not on file Sexual Orientation Not on file documented as of this encounter Plan of Treatment Upcoming Encounters Date Type Department Care Team (Late st Contact Info) Description 07/09/2026 10:30 AM ORACLE ERP DEVELOPER Office Visit [facility] OBGYN - [place] [address] [place] [address] Galdino Pichardo MD [address] [address] documented as of this encounter Visit Diagnoses Diagnosis Other screening mammogram- Primary documented in this encounter Care Teams Retail Office Manager Relationship Specialty Start Date End Date Ricky Lowery MD [address] [place] [address] PCP - General Family Practice 11/06/09 documented as of this encounter
--- OUTSIDE RECORDS SUMMARY | 2025-07-27 09:01 | XMS_ITS | Patient Health Record ---
Author Organization [facility] [place] As Antenna Address [address] [facility] [place] [address] Care Team Providers Care Scarfer Operator Name Role Phone Sky Kauffman Unavailable [phone] Allergies Allergen (clinical drug ingredient) Drug/Non Drug Allergy documented on EMR Reaction Allergy Type Onset Date Status erythromycin Erythromycin Base Unknown Drug Allergy 2023 Active Reason For Referral No Information Medications Medication SIG (Take, Route, Frequency, Duration) Notes Start Date End Date Status Sertraline HCl 100 MG Tablet 1.5 tablet Oral Once a day; Duration: 90 days 04/09/2025 Active Fluticasone-Salmeterol 115-21 MCG/ACT Aerosol INHALE 2 PUFFS BY MOUTH TWICE DAILY. RINSE MOUTH AND SPIT AFTER EACH USE Inhalation; Duration: 30 Days Active Levothyroxine Sodium 75 MCG Tablet Oral 11/28/2023 Active Atorvastatin Calcium 10 MG Tablet Oral 11/28/2023 Active Social History Tobacco Use: Social History Observation Description Date Details (start date - stop date) Never Smoker NA - NA Sex Assigned At : Social History Observation Description Sex Assigned At Female Social History Miscellaneous: Social Info Question Answer Notes Advance Care Planning Are you your own decision-maker Yes Do you have Power of Permastone Applicator for Health or Medi krzysztof? Yes Do you have a power of estate planning attorney for health? Yes Do you have power of estate planning attorney for Medical ? Yes If yes, then please bring the POA paperwork so that we can upload it. Yes Tobacco Use: Social Info Question Answer Notes Tobacco Control (Standard) Tobacco use: Nonsmoker Additional Details Category Social Info Options Details Migrated Social History Migrated Social History Alcohol Intake: None 09/27/2022,Tobacco Years: Never smoker 09/27/2022 Problems Problem Type SNOMED Code ICD Code Onset Dates Problem Status W/U Status Risk Notes Problem Mild recurrent major depression (38277076) Major depressive disorder, recurrent, mild (F33.0) Active confirmed Problem Generalized anxiety disorder (19024380) Generalized anxiety disorder (F41.1) Active confirmed Vital Signs Heart Rate 85 /min 04/09/2025 Height-cm 162.56 cm 04/09/2025 Blood pressure diastolic 74 mm Hg 04/09/2025 Weight-kg 60.96 kg 04/09/2025 Height 64.00 in 04/09/2025 Blood pressure systolic 119 mm Hg 04/09/2025 Weight 134.4 lbs 04/09/2025 BMI 23.07 kg/m2 04/09/2025 Encounters Encounter Location Date [email or web address] [place] [address] [address] 08/12/2024 Sky Kauffman Major depressive disorder, recurrent, mild F33.0 and Generalized anxiety disorder F41.[address] [address] 12/03/2024 Sky Weavera Encounter for screen ing for depression Z13.31 ; Major depressive disorder, recurrent, mild F33.0 ; Generalized anxiety disorder F41.1 and Encounter for screening for cardiovascular disorders Z13.6 [email or web address] [address] [address] 01/08/2025 Sky Weavera Negative depression screening Z13.31 ; Major depressive disorder, recurrent, mild F33.0 ; Encounter for screening for depression Z13.31 ; Generalized anxiety disorder F41.1 and Encounter for screening for cardiovascular disorders Z13.6 [place] [address] [address] 04/09/2025 Sky Kauffman Major depressive disorder, recurrent, mild F33.0 and Generalized anxiety disorder F41.1 [place] [address] [address] 12/12/2024 Sky Kauffman [place] [address] [address] 08/12/2024 Sky Caooza [place] [address] [address] 07/02/2025 Sky Kauffman [facility] [place] [employer] - Financial Reconciliation, [facility] [address] [place] [address] 07/11/2025 Sky Kauffman Major depressive disorder, recurrent, mild F33.0 Assessments Encounter Date Diagnosis (ICD Code) Assessment Notes Treatment Notes Treatment Clinical Notes Section Notes 07/11/2025 Major depressive disorder, recurrent, mild (ICD-10 - F33.0) 04/09/2025 Major depressive disorder, recurrent, mild (ICD-10 - F33.0) cont sertraline 150mg daily- use [facility] 01/08/2025 Negative depression screening (ICD-10 - Z13.31) 12/03/2024 Major depressive disorder, recurrent, mild (ICD-10 - F33.0) cont sertraline 150mg [facility]- [facility] 12/03/2024 Encounter for screening for depression (ICD-10 - Z13.31) 08/12/2024 Major depressive disorder, recurrent, mild (ICD-10 - F33.0) cont sertraline 150mg daily- use [facility] 08/12/2024 Generalized anxiety disorder (ICD-10 - F41.1) cont alprazolam 0.25mg daily prn- she has not used for a long time 12/03/2024 Generalized anxiety disorder (ICD-10 - F41.1) cont alprazolam 0.25mg daily prn- she has not used for a long time 04/09/2025 Generalized anxiety disorder (ICD-10 - F41.1) cont alprazolam 0.25mg daily prn- she has not used for a long time 01/08/2025 Major depressive disorder, recurrent, mild (ICD-10 - F33.0) cont sertraline 150mg daily- use [facility] 12/03/2024 Encounter for screening for cardiovascular disorders [...] - Refill prescriptions sent to [facility]. 12/03/2024 Other Aleshia Muñoz, a 69-year-old female, presents with persistent [...] activity as tolerated - Recommend exploring Medicare's Jelli program for potential gym membership benefits - [...] efforts have been made to correct them. 04/09/2025 Kaykay Muñoz, a patient with a history of anxiety, presents for follow-up with no current concerns regarding depression or anxiety. Anxiety Disorder Assessment: Patient reports no current concerns with anxiety. She continues to take sertraline 150 mg daily with good effect and no significant side effects. The patient has not needed Xanax for a long time, indicating good control of anxiety symptoms with the current regimen. Plan: - Continue sertraline 150 mg daily - Maintain Xanax prescription for as-needed use, though patient reports infrequent use - Follow up in 4 months the note is transcribed using speech recognition software. It is a reflection of a visit with the patient. It might have some inaccuracy, including medication names and transcribing errors, though efforts have been made to correct them. Plan Of Treatment Next Appt Details Provider Name:Lena cox, 08/06/2025 01:00:00 PM, [address] [facility] [address], [facility] [address], [place], [address], Insurance Providers Payer Name Payer Address Payer Phone Subscriber Number Group Number Insured Name Patient Relationship to Insured Coverage Start Date Coverage End Date Medicare-I l Medicare [address] [facility] [place] [address] [id number] ALESHIA MUÑOZ Self - patient is the insured [employer] [employer] Ppo [address] [place] [address] [id number] ALESHIA MILLER Self - patient is the insured Medical (General) History Medical History History ICD Code Problems: Generalized anxiety disorder History of anemia Long-term current use of drug therapy Mild recurrent major depression Vitamin D deficiency , skin cancer on nose, will have radiation 3 x per week x 7 weeks Imported from : Th e patient had multiple encounters with healthcare providers at [facility] from 2022 to 2024. In February [...] regularly monitored by an abstract provider at [facility]. Surgical History Surgery Date(Month/Year) Appendectomy (02556) Cataract surgery (98452) 07/31/2019 Other 03/31/2011
--- OUTSIDE RECORDS SUMMARY | 2025-07-27 09:01 | XMS_ITS | Clinical Summary ---
Author Organization [facility] Address [address] [place] [address] Phone Care Team Providers Care Director Part Name Role Phone Ricky Lowrey MD Primary Care Provider [phone] Allergies Active Allergy Reactions Criticality Noted Date [...] Encounters Date Type Department Care Team Description 07/22/2025 External Device Data STL ABSTRACTION Provider, Abstract 07/22/2025 External Device Data [facility] ABSTRACTION Provider, Abstract 07/15/2025 8:39 AM NETBACKUP ADMIN - 07/15/2025 11:59 PM NETBACKUP ADMIN Hospital Encounter [address] [phone] Galdino Pichardo MD Discharge Disposition: Home or Self Care 07/15/2025 Results Follow-Up [address] [address] Galdino Pichardo MD MAMMO 3D LOLA SCREEN BILAT W OR WO CAD 07/10/2025 Results Follow-Up [facility] [address] [address] Galdino Pichardo MD CERV/VAG CYTO AGE BASED SCREEN PAP 07/03/2025 10:45 AM NETBACKUP ADMIN Office Visit [facility] OBGYN - [place] [address] [facility], [address] [address] Galdino Pichardo MD Screening for malignant neoplasm of cervix (Primary Dx) 06/17/2025 External Device Data STL ABSTRACTION Provider, Abstract 05/28/2025 External Device Data ST[facility] ABSTRACTION Provider, Abstract 05/27/2025 External Device Data STL ABSTRACTION Provider, Abstract 05/21/2025 External Device Data STL ABSTRACTION Provider, Abstract 05/20/2025 External Device Data STL ABSTRACTION Provider, Abstract 05/07/2025 Orders Only [facility] [address] [facility] [address] [place] [address] Galdino Pichardo MD Menopause (Primary Dx); Osteopenia of multiple sites from Last 3 Months Immunizations Immunization Administration Dates Next Due (FELICIANO) COVID-19 VACCINE - EMERGENCY USE AUTHORIZATION, AD26,COV2S(PF) [...] on file Legal Sex Female 3:29 AM NETBACKUP ADMIN Gender Identity Not on file Sexual Orientation [...] Sign Reading Time Taken Comments Blood Pressure 135/76 07/03/2025 10:34 AM NETBACKUP ADMIN Pulse - - Temperature - - Respiratory Rate - - Oxygen Saturation - - Inhaled Oxygen Concentration - - Weight 62.1 kg (137 lb) 07/03/2025 10:34 AM NETBACKUP ADMIN Height 165.1 cm (5' 5) 07/03/2025 10:34 AM NETBACKUP ADMIN Body Mass Index 22.8 07/03/2025 10:34 AM NETBACKUP ADMIN Plan of Treatment Upcoming Encounters Date Type Department Care Team (Late st Contact Info) Description 07/09/2026 10:30 AM NETBACKUP ADMIN Office Visit [facility] OBGYN - [place] [address] [facility], [facility] [address] [place] [address] Galdino Pichardo MD [address] [facility] [address] [place] [address] Health Maintenance Due Date Last Done Comments DTAP/TDAP/TD VACCINES (1 - Tdap) 1976 FIT-DNA Q 3 years 2002 FIT/FOBT Q 1 year 2002 Flex Sig/CT Colonography Q 5 years 2002 ZOSTER VACCINE (2 of 2) 05/22/2018 03/27/2018 PNEUMOCOCCAL VACCINE 50+ YEA RS (2 of 2 - PCV) 12/22/2023 12/21/2022 INFLUENZA VACCINE (#1) 2025 3, 04/14/2021 (Previously completed), 04/07/2020, Additional history exists COVID-19 Vaccine (2 - 2024-2 6 season) 2025 10/02/2020 COLORECTAL SCREENING 06/12/2026 06/12/2019, 02/11/2019, 01/29/2008 Colorectal Cancer Screening 06/12/2026 BREAST CANCER SCREENING 07/15/2026 07/15/20 25, 07/11/2024, 08/11/2023, Additional history exists OSTEOPOROSIS SCREENING 07/22/2026 4, 06/13/2022, 04/16/2020, Additional history exists RSV VACCINE (60+ or ) (1 - 1-dose 75+ series) 2032 Procedures Procedure Name Priority Date/Time Associated Diagnosis Comments MAMMO 3D LOLA SCREEN BILAT W OR WO CAD Routine 07/15/2025 9:07 AM NETBACKUP ADMIN Visit for screening mammogram CERV/VAG CYTO AGE BASED SCREEN PAP Routine 07/03/2025 11:29 AM NETBACKUP ADMIN Screening for malignant neoplasm of cervix XR DEXA BONE DENSITY AXIAL 1 OR MORE SITES Routine 07/22/2024 10:58 AM NETBACKUP ADMIN Menopause from Last 3 Months or Most Recently Relevant to Health Maintenance Results * MAMMO 3D LOLA SCREEN BILAT W OR WO CAD (07/15/2025 9:07 AM NETBACKUP ADMIN) Anatomical Region Laterality Modality Breast Bilateral Mammography 07/15/2025 9:07 AM NETBACKUP ADMIN Impressions 07/15/2025 9:56 AM NETBACKUP ADMIN IMPRESSION: No mammographic evidence of malignancy in the bilateral breasts. Routine screening mammography is recommended in one year. OVERALL FINAL ASSESSMENT: BI-RADS CATEGORY 1: Negative. [facility] 07/15/2025 9:56 AM NETBACKUP ADMIN EXAMINATION: BILATERAL SCREENING DIGITAL MAMMOGRAPHY WITH TOMOSYNTHESIS AND CAD DATE: 07/15/2025 9:07 AM HISTORY: Routine screening mammography. COMPARISON: Mammography with dates ranging from 07/11/2024 to 04/20/2021. TECHNIQUE: A bilateral screening mammogram was performed. Low-dose full-field digital breast tomosynthesis examination was performed with 2D and 3D acquisitions. Examination is read in conjunction with computer aided detection. BREAST COMPOSITION: The breasts are heterogeneously dense, which may obscure small masses. FINDINGS: There are no suspicious masses, suspicious calcifications, or other suspicious findings in either breast. There has been no significant interval change. us Galdino Pichardo MD MAMMO ORDERABLES Final Resul t * CERV/VAG CYTO AGE BASED SCREEN PAP (07/03/2025 11:29 AM NETBACKUP ADMIN) COMMENT (PAP): DinglepharbSisi Eastman Comment: This order for age-based cervical cancer and STI screening follows ACOG guidelines(PB 168, 140, NWY592). See individual assays for performing site location. CLINICAL INFORMATION Federico Eastman Comment:None given LAST MENSTRUAL PERIOD Federico Eastman Comment:NONE GIVEN PREV PAP: Federico Eastman Comment:NONE GIVEN PREV BX: Federico Eastman Comment:NONE GIVEN SOURCE Federico Eastman Comment:Endocervix ADEQUACY: Federico Eastman Comment:SATISFACTORY FOR SONU LUATION PAP INTERP Federico Eastman Comment: Cytology Results: Negative for intraepithelial lesion or malignancy. Atrophic pattern; predominantly parabasal cells COMMENT (PAP TEST) Q uest Silas Eastman Comment: This Pap test has been evaluated with the ThinPrep(R) Imaging System. SMALL PRODUCTS II ASSEMBLER: Barb Eastman Comment: JAF, CT(ASCP) CT Screening Location: [place] [address] [address] [place] [address] CLIA: [id number] Slide preparation performed at: [facility], [address] [place] [address], [address] CLIA: [id number] EXPLANATORY NOTE Que st Silas Eastman Comment: EXPLANATORY NOTE: The Pap is a screening test for cervical cancer. It is not a diagnostic test and is subject to false negative and false positive results. It is most reliable when a satisfactory sample, regularly obtained, is submitted with relevant clinical findings and history, and when the Pap result is evaluated along with historic and current clinical information. Test Performed at: [facility] [place] [address] [address] [place] [phone] Cara-[employer]ior Thi Vo Genital SWAB OF ENDOCERVIX / Unknown 07/03/2025 11:29 AM NETBACKUP ADMIN 07/04/2025 6:54 PM NETBACKUP ADMIN us Galdino Pichardo MD PATHOLOGY/CYTOLOGY ORDERABLE S Final Result [facility] [phone] [place] [address] [address] [place] [phone] * XR DEXA BONE DENSITY AXIAL 1 OR MORE SITES (07/22/2024 10:58 AM NETBACKUP ADMIN) Anatomical Region Laterality Modality Digital Radiogra phy 07/22/2024 10:5 9 AM NETBACKUP ADMIN Impressions 07/22/2024 11:13 AM NETBACKUP ADMIN IMPRESSION: Osteopenia. Lumbar Spine: T-score: 1.3 Left [...] report found in: Imaging Section of the [facility] EMR. Definitions: Normal: T-score above -1.0 Osteopenia [...] by Dr. Sp Champion MD DICTATION LOCATION: [facility] 07/22/2024 11:13 AM NETBACKUP ADMIN EXAMINATION: BONE DENSITY STUDY (DXA) DATE: 07/22/2024 10:58 AM HISTORY: 68 years Female. Postmenopausal. Osteopenia. PROCEDURE: Planar images of the lumbar spine and hip(s). [employer] DEXA scanner for bone mineral density determination [...] images of the lumbar spine and hip(s). [employer] DEXA scanner for bone mineral density determination [...] report found in: Imaging Section of the [facility] EMR. Definitions: Normal: T-score above -1.0 Osteopenia [...] MD DIAGNOSTIC IMAGING ORDERABLE S Final Result from Last 3 Months or Most Recently Relevant to Health Maintenance [place] [place] [address] [facility] MEDICARE PART A AND B Care Teams Director Part Relationship Specialty Start Date End Date Ricky Lowery MD [address] [place] [address] PCP - General Family Practice 11/06/09
--- OUTSIDE RECORDS SUMMARY | 2025-07-27 09:01 | XMS_ITS | Encounter Summary ---
Author Organization [facility] Address [address] [place] [address] Care Team Providers Care Painter Touch Up Name Role Phone Ricky Lowery MD Primary Care Provider [phone] Encounter Details Date Type Department Care Team (Latest Contact Info) Description 09/12/2002 Outpatient Historical [facility] Galdino Demarco MD [address] [address] SCREENING MAMM-MAILG NEOPL-OTHER (Primary Dx) Social History Tobacco Use Types Packs/Day Years Used Date Smoking Tobacco: Never Assessed Comments Unknown Sex and Gender Information Value Date Recorded Sex Assigned at Not on file Legal Sex Female 3:29 AM DIRECTOR OF PROGRAMMING Gender Identity Not on file Sexual Orientation Not on file documented as of this encounter Plan of Treatment Upcoming Encounters Date Type Department Care Team (Late st Contact Info) Description 07/09/2026 10:30 AM DIRECTOR OF PROGRAMMING Office Visit [facility] OBGYN - [place] [address] [place] [address] Galdino Pichardo MD [address] [address] documented as of this encounter Visit Diagnoses Diagnosis Other screening mammogram- Primary documented in this encounter Care Teams Painter Touch Up Relationship Specialty Start Date End Date Ricky Lowery MD [address] [place] [address] PCP - General Family Practice 11/06/09 documented as of this encounter
--- OUTSIDE RECORDS SUMMARY | 2025-07-27 09:01 | XMS_ITS | Encounter Summary ---
Author Organization [facility] Address [address] [place] [address] Care Team Providers Care Metal Baler Name Role Phone Ricky Lowery MD Primary Care Provider [phone] Encounter Details Date Type Department Care Team (Late Contact Info) Description 07/15/2025 Results Follow-Up [facility] [address] [address] Galdino Pichardo MD [address] [address] MAMMO 3D LOAL SCREEN BILAT W OR WO CAD Social History Tobacco Use Types Packs/Day Years Used Date Smoking Tobacco: Never Smokeless Tobacco: Never Alcohol Use Standard Drinks/Week Comments No 0 (1 standard drink = 0.6 oz pur e alcohol) Comments No Sex and Gender Information Value Date Recorded Sex Assigned at Not on file Legal Sex Female 3:29 AM UTILIZATION SUPERVISOR Gender Identity Not on file Sexual [...] (Late Contact Info) Description 07/09/2026 10:30 AM UTILIZATION SUPERVISOR Office Visit [facility] OBGYN - [place] [address] [facility] [address] [place] [address] Galdino Pichardo MD [address] [place] [address] documented as of this encounter Visit Diagnoses Not on filedocumented in this encounter Care Teams Metal Baler Relationship Specialty Start Date End Date Ricky Lowery MD [address] [place] [address] PCP - General Family Practice 11/06/09 documented as of this encounter
--- OUTSIDE RECORDS SUMMARY | 2025-07-27 09:01 | XMS_ITS | Encounter Summary ---
Author Organization [facility] Address [address] [place] [address] Care Team Providers Care Plumbing Technician Name Role Phone Ricky Lowery MD Primary Care Provider [phone] Encounter Details Date Type Department Care Team (Latest Contact Info) Description 09/14/2004 Outpatient Historical HIS [facility] Galdino Demarco MD [address] [address] SCREENING MAMM-MAILG NEOPL-OTHER (Primary Dx) Social History Tobacco Use Types Packs/Day Years Used Date Smoking Tobacco: Never Assessed Comments Unknown Sex and Gender Information Value Date Recorded Sex Assigned at Not on file Legal Sex Female 3:29 AM GOLF COACH Gender Identity Not on file Sexual Orientation Not on file documented as of this encounter Plan of Treatment Upcoming Encounters Date Type Department Care Team (Late st Contact Info) Description 07/09/2026 10:30 AM GOLF COACH Office Visit [facility] OBGYN - [place] [address] [place] [address] Galdino Pichardo MD [address] [address] documented as of this encounter Visit Diagnoses Diagnosis Other screening mammogram- Primary documented in this encounter Care Teams Plumbing Technician Relationship Specialty Start Date End Date Ricky Lowery MD [address] [place] [address] PCP - General Family Practice 11/06/09 documented as of this encounter
--- OUTSIDE RECORDS SUMMARY | 2025-07-27 09:01 | XMS_ITS | Data Portability ---
Author Organization JAROD ANHAlfred Cardoza Address [address] [place] [address] Assessment No assessment recorded. Plan of Treatment Reminders Order Date Submit Date Provider Last Modified By Organization Details Last Modified Time Details Appointments None recorded. Lab None recorded. Referral None recorded. Procedures None recorded. Surgeries None recorded. Imaging CT, sinuses, w/o contrast 2023 [email or web address] [facility], [address], [place] [address], [place], [address], 5 17:03:52 Medication Orders azelastin e 137 mcg (0.1 %) nasal spray 2023 [id number], [address], [id number], 4 12:00:50 cefdinir 300 mg capsule 2023 024 [facility][id number], [address], [id number], 4 10:13:[address] 10 mg tablet 2023 024 [id number], [address], [id number], 4 11:48:02 Patient TargetsNo targets recorded. Patient InstructionsNo instructions recorded. Reason for Referral None Reported. Medical Equipment None Reported. Allergies Allergen ID Allergen Name Allergen Category Reaction Reaction Severity Criticality Documentation Date Start Date Code Code System Note Provider Name and Address Organization Details Recorded Time 886064 erythromy miller medicatio n Not available Not available Not available 03/26/2024 4053 RxNorm KARAN Hooper [place] - [facility] 4 11:33:17 Medications Name Sig Start Date Stop Date [...] Heart rate Respiratory rate Body temperature Systolic And Diastolic Provider Name and Address Organization Details Last Updated DateTime 4 162.56 cm 22.4 kg/m2 36828.4 5 g 66 /min 16 /min 98.1 [degF] 116/72 mm[Hg] KARAN Hooper [facility] 4 11:37:36 Date Recorded Body height Body mass index (BMI) Body weight Heart rate Respiratory rate Body temperature Systolic And Diastolic Provider Name and Address Organization Details Last Updated DateTime 4 162.56 cm 22.9 kg/m2 75021.2 2 g 87 /min 16 /min 97.7 [degF] 123/74 mm[Hg] Emily Hung MA [facility] 4 11:44:11 Date Recorded Body height Body mass index (BMI) Body weight Heart rate Respiratory rate Body temperature Systolic And Diastolic Provider Name and Address Organization Details Last Updated DateTime 4 162.56 cm 23 kg/m2 35396.3 8 g 86 /min 16 /min 98.1 [degF] 133/73 mm[Hg] Emily Hung MA [facility] 4 10:15:03 Social History Question Answer Notes LastModified by Organizat ion Details LastModified Time Tobacco Smoking Status Never Smoker Emily Hung MA null, [facility] 03/26/2024 11:35:11 Do You Have An Advance Directive? Yes Information n ot available 03/26/2024 Are You Blind Or Do You Have Difficulty Seeing? No Information n ot available 03/26/2024 What Is Your Level Of Caffeine Consumption? Occasional Information not available 03/26/2024 In The 14 Days Before Symptom Onset, Have You Had Close Contact With A Laboratory-confirm ed COVID-19 While That Case Was Ill? No Information n ot available 03/26/2024 In The 14 Days Before Symptom Onset, Have You Had Close Contact With A Person Who Is Under Investigation For COVID-19 While That Person Was Ill? No Information not available 03/26/2024 Have You Been To An Area Known To Be High Risk For COVID-19? No Information not available 03/26/2024 Are You Deaf Or Do You Have Serious Difficulty Hearing? No Information not available 03/26/2024 What Type Of Diet Are You Following? REGULAR Information n ot available 03/26/2024 What Is The Highest Grade Or Level Of School You Have Completed Or The Highest Degree You Have Received? [id number] Information not available 03/26/2024 What Was The Date Of Your Most Recent Tobacco Screening? 05/21/2024 Information not available 05/21/2024 Do You Have Any Pets? No Information not available 03/26/2024 What Is Your Relationship Status? Information not available 03/26/2024 Do You Use Sunscreen Routinely? Yes Information not available 03/26/2024 Sex: Female Functional Status Question Answer Note LastModified by Organization Details LastModified Time Do you use any illicit or recreational drugs? No Information not available 03/26/2024 Do you or have you ever used any other forms of tobacco or nicotine? No Information not available 03/26/2024 What is your level of alcohol consumption? None Information not available 03/26/2024 Are you currently employed? No retired Information not available 03/26/2024 What is your exercise level? None Information not available 03/26/2024 What type of noise exposure are you exposed to? noExposureToExcessiveNois e Information not available 03/26/2024 Mental Status Question Answer Note LastModified by Organization D etails LastModified Time Do you feel stressed (tense, restless, nervous, or anxious, or unable to sleep at night)? [id number] Information not available 03/26/2024 Family History Nothing Reported. Medical History No medical history recorded. Gynecological HistoryNo gynecological history recorded. Obstetrics History GPAL:G 0 P 0 0 0 0 Past Encounters Encounter ID Performer Location Encounter Start Date Encounter Closed Date Diagnosis/Indication Diagnosis SNOMED-CT Code Diagnosis ICD10 Code Diagnosis IMO Codes Diagnosis Note [id number] MD Maine Howard (Adult Med) [address] [place] [address] 03/26/2024 11:18:41 04/02/2024 16:17:26 Chronic rhinitis 36645176 J31.0 follow back in a month Chronic cough 23744638 R 05.3 Acute sinusitis 31959349 J01.90 [id number] MD Dee Howardhalto (Adult Med) [address] [place] [address] 04/23/2024 11:20:14 04/24/2024 13:15:56 Allergic rhinitis 82707589 J30.9 follow back in a month Chronic cough 54737307 R 05.3 [id number] MD Maine Howard (Adult Med) [address] [place] [address] 05/21/2024 09:55:31 05/22/2024 09:19:06 Chronic cough 84941755 R05.[address] Health Concerns Section Related Observation LastModified by Organization Detai ls LastModified Time None Recorded Concern Status LastModified by Organization Details LastModified Time None Recorded Advance Directives Directive Y: Payers Insurance Date Sequence Insurance Name Policy Number Policy White Covered Member ID White Member ID Guarantor Name 05/18/2024 2 [place] 111 Aleshia Muñoz [id number] Aleshia Muñoz 05/18/2024 [place] [facility] Aleshia Bridges [id number] Aleshia Bridges 04/02/2024 2 [place] 111 Aleshia Bridges [id number] Aleshiahadley Muñoz 05/18/2024 1 [place] Aleshia Muñoz [id number] Aleshia Muñoz Notes Date Note Type Note Provider Name and Address Organization Details Recorded Time 03/26/2024 text/html ROS as noted in the HPI Pt complaining of a cough for the last 10 months. She has nasal congestion and drainage which improved with antihistamines and flonase but did not resolve. She does not complain of reflux Leighton Ashby MD Attn: [address]ing[address] [facility], [place], [address], [facility] 03/26/2024 11:48:03 04/23/2024 text/html ROS as noted in the HPI Pt complaining of nasal congestion and drainage. She has had a persistent cough. It has improved but not resolved. She is on flonase and montelukast Leighton Ashby MD Attn: Accounting[address] [facility] [place], [address], [facility] 04/23/2024 12:00:59 05/21/2024 text/html ROS as noted in the HPI Pt complaining of a chronic cough. She also has a problem with taste but not smell. She has not responded to nasal sprays or antibiotics Leighton Ashby MD Attn: Accounting[address] [facility], [place], [address], [facility] 05/21/2024 10:28:31 OBGyn Episode No OBEpisode recorded.
--- OUTSIDE RECORDS SUMMARY | 2025-07-27 09:01 | XMS_ITS | Encounter Summary ---
Author Organization [facility] Address [address] [place] [address] Care Team Providers Care Manager Diesel Name Role Phone Ricky Lowery MD Primary Care Provider Encounter Details Date Type Department Care Team (Latest Contact Info) Description 09/12/2006 Outpatient Historical HIS [facility] Galdino Demarco MD [address] [address] Other Screening Mammogram (Primary Dx) Social History Tobacco Use Types Packs/Day Years Used Date Smoking Tobacco: Never Assessed Comments Unknown Sex and Gender Information Value Date Recorded Sex Assigned at Not on file Legal Sex Female 3:29 AM GLOBAL DIRECTOR [employer] Gender Identity Not on file Sexual Orientation Not on file documented as of this encounter Plan of Treatment Upcoming Encounters Date Type Department Care Team (Late st Contact Info) Description 07/09/2026 10:30 AM GLOBAL DIRECTOR [employer] Office Visit [facility] - [place] [address] [place] [address] Galdino Pichardo MD [address] [address] documented as of this encounter Visit Diagnoses Diagnosis Other screening mammogram- Primary documented in this encounter Care Teams Manager Diesel Relationship Specialty Start Date End Date Ricky Lowery MD [address] [place] [address] PCP - General Family Practice 11/06/09 documented as of this encounter
--- OUTSIDE RECORDS SUMMARY | 2025-07-27 09:01 | XMS_ITS | Encounter Summary ---
Author Organization [facility] Address [address] [place] [address] Care Team Providers Care Motorcycle Assembler Name Role Phone Ricky Lowery MD Primary Care Provider [phone] Encounter Details Date Type Department Care Team (Latest Contact Info) Description 09/15/2005 Outpatient Historical HIS [facility] Galdino Demarco MD [address] [address] SCREENING MAMM-MAILG NEOPL NEC (Primary Dx) Social History Tobacco Use Types Packs/Day Years Used Date Smoking Tobacco: Never Assessed Comments Unknown Sex and Gender Information Value Date Recorded Sex Assigned at Not on file Legal Sex Female 3:29 AM SHIP'S MASTER Gender Identity Not on file Sexual Orientation Not on file documented as of this encounter Plan of Treatment Upcoming Encounters Date Type Department Care Team (Late st Contact Info) Description 07/09/2026 10:30 AM SHIP'S MASTER Office Visit [facility] OBGYN - [place] [address] [place] [address], [address] [address] Galdino Pichardo MD [address] [address] documented as of this encounter Visit Diagnoses Diagnosis Other screening mammogram- Primary documented in this encounter Care Teams Motorcycle Assembler Relationship Specialty Start Date End Date Ricky Lowery MD [address] [place] [address] PCP - General Family Practice 11/06/09 documented as of this encounter
--- OUTSIDE RECORDS SUMMARY | 2025-07-27 09:01 | XMS_ITS | Encounter Summary ---
Author Organization [facility] Address [address] [place] [address] Care Team Providers Care Fish Roe Technician Name Role Phone Ricky Lowery MD Primary Care Provider [phone] Encounter Details Date Type Department Care Team (Latest Contact Info) Description 07/20/2000 Outpatient Historical HIS [facility] Galdino Demarco MD [address] [address] Other screening mammogram (Primary Dx) Social History Tobacco Use Types Packs/Day Years Used Date Smoking Tobacco: Never Assessed Comments Unknown Sex and Gender Information Value Date Recorded Sex Assigned at Not on file Legal Sex Female 3:29 AM OPERATIONS SCHEDULER Gender Identity Not on file Sexual Orientation Not on file documented as of this encounter Plan of Treatment Upcoming Encounters Date Type Department Care Team (Late st Contact Info) Description 07/09/2026 10:30 AM OPERATIONS SCHEDULER Office Visit [facility] O[facility] - [place] [address] [place] [address] Galdino Pichardo MD [address] [address] documented as of this encounter Visit Diagnoses Diagnosis Other screening mammogram- Primary documented in this encounter Care Teams Fish Roe Technician Relationship Specialty Start Date End Date Ricky Lowery MD [address] [place] [address] PCP - General Family Practice 11/06/09 documented as of this encounter
--- OUTSIDE RECORDS SUMMARY | 2025-07-27 09:01 | XMS_ITS | Clinical Summary ---
Author Organization [facility] Address On license of [facility] [place] [address] Care Team Providers Care Customer Business Manager Name Role Phone Ricky Lowery MD Primary Care Provider [phone] Allergies Active Allergy Reactions Criticality Noted Date [...] Scan (General) 2022 COVID-19 Vaccine ( - 2024-2 6 season) 2025 Influenza Adult (#1) 2025 04/10/2018 RSV Immunization or 60+ Years (1 - 1-dose 75+ series) 2032 Hepatitis A Vaccines Aged Out No long er eligible based on patient's age to complete this topic Meningococcal B Vaccine Aged Out No l onger eligible based on patient's age to complete this topic Meningococcal Vaccine Aged Out No zohreh brennan eligible based on patient's age to complete this topic RSV Immunizations Under 20 Months Aged Out No longer eligible based on patient's age to complete this topic Medical Devices Implanted Type Area Biogeographer Device Identifier Shelf Expiration Date Model / Serial / Lot Iol [place] [employer] [id number] - [id number] Implanted:Qty: 1 on 04/08/2019 by Danish Mendoza MD at [facility] Lens PANFILO 06/19/2021 [id number] / [id number] / Iol [employer] Multifocal Symphony [id number] - [id number] Implanted:Qty: 1 on 05/13/2019 by Danish Mendoza MD at [facility] Lens Left: Eye PANFILO 06/01/2021 [id number] / [id number] / Insurance [facility] Care Teams Customer Business Manager Relationship Specialty Start Date End Date Ricky Lowery MD [address] [address] PCP - General FAMILY PRACTICE 04/02/19
== END 2025-07-27 08:49 | disposition home or self-care (01) ==
PROVIDERS: PCP Family Medicine; Visit Provider Physician Assistant Medical
DX: R25.1 Tremor, unspecified (principal); Z82.0 Family history of epilepsy and other diseases of the nervous system; R41.3 Other amnesia; R29.898 Other symptoms and signs involving the musculoskeletal system
CPT/HCPCS: 70553; A9577